=== PATIENT | female | born 1970 | race Caucasian/White ===

== ENCOUNTER 2016-08-07 07:22 | Emergency (ER) | payer OTHER ==
[2016-08-07 07:27] VITALS: PULSE 125; RESP 22; TEMP 98.7; O2SAT 99
[2016-08-07] MEDS ORDERED: SODIUM CHLOR 0.9% 1000 ML INJ 1,000 ML IV ONE (07:35)
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
[2016-08-07] MEDS ORDERED: SODIUM CHLORIDE 0.9% FLUSH 10 ML FLUSH IVF PRN (07:45)
[2016-08-07] MEDS ORDERED: LORazepam 2 MG/ML VIAL IVP ONE (07:45)
[2016-08-07 08:20] LABS: AUTOMATED NEUTROPHIL # 8.6 TH/MM3 (1.8-7.7); BASOPHIL # 0.1 TH/MM3 (0-0.2); BASOPHIL % 0.7 % (0.0-2.0); EOSINOPHIL # 0.3 TH/MM3 (0-0.4); EOSINOPHIL % 2.9 % (0.0-4.0); HEMATOCRIT 39.1 % (35.0-46.0); HEMO FLAGS DIFF FINAL; LYMPH % 15.1 % (9.0-44.0); LYMPHOCYTE # 1.7 TH/MM3 (1.0-4.8); MEAN CELL VOLUME 86.8 FL (80.0-100.0); MEAN CORPUSCULAR HEMOGLOBIN 29.3 PG (27.0-34.0); MEAN CORPUSCULAR HGB CONC 33.8 % (32.0-36.0); MONO % 6.1 % (0.0-8.0); NEUT % 75.2 % (16.0-70.0); PLATELET COUNT 213 TH/MM3 (150-450); RED CELL DISTRIBUTION WIDTH 14.4 % (11.6-17.2); WHITE BLOOD COUNT 11.4 TH/MM3 (4.0-11.0)
[2016-08-07 08:38] LABS: ACETAMINOPHEN LESS THAN 2.0 MCG/ML (10.0-30.0); ALT (GPT) 33 U/L (10-53); ANION GAP 9 MEQ/L (5-15); AST (GOT) 18 U/L (15-37); BICARBONATE 26.5 MEQ/L (21.0-32.0); BLOOD UREA NITROGEN 11 MG/DL (7-18); CHLORIDE 102 MEQ/L (98-107); GLOMERULAR FILTRATION RATE 66 ML/MIN (>89); POTASSIUM 3.6 MEQ/L (3.5-5.1); SODIUM (NA) 137 MEQ/L (136-145)
[2016-08-07 08:39] LABS: ALKALINE PHOSPHATASE 67 U/L (45-117); TOTAL BILIRUBIN ADULT 0.7 MG/DL (0.2-1.0)
[2016-08-07 08:56] LABS: BACTERIA, URINE MANY /hpf; BLOOD, URINE TRACE (NEG); CALCIUM OXALATE CRYSTALS,URINE FEW /hpf; COMMENT (UR) CULTURE INDICATED; CULTURE IF INDICATED CULTURE INDICATED; GLUCOSE,URINE NEG (NEG); KETONE, URINE TRACE mg/dL (NEG); MUCUS URINE MOD /lpf (OCC); SQUAMOUS EPITHELIAL CELL URINE 5 /hpf (0-5); TRANSITIONAL EPI CELLS, URINE <1 /hpf; URINE COLOR YELLOW (YELLW/STRAW)
[2016-08-07 08:58] LABS: NITRITE,URINE POS (NEG)
[2016-08-07] MEDS ORDERED: CIPR-9 PO (09:36)
[2016-08-07] MEDS ORDERED: cefTRIAXone INJ 1,000 MG in SODIUM CHLORIDE 0.9% INJ 100 ML IV ONE (09:45)
[2016-08-07 10:01] VITALS: O2SAT 96
[2016-08-07 10:11] VITALS: BP 141/89; PULSE 90; RESP 14; TEMP 98; O2SAT 100
--- NOTE | 2016-08-08 22:09 | EKG ---
Date Performed: 08/07/2016 Time Performed: 07:31:21 PTAGE: 46 years EKG: SINUS TACHYCARDIA WITH SHORT SC INTERVAL ABNORMAL RHYTHM ECG INTERPRETATION BASED ON A DEFA ULT AGE OF 40 YEARS NO PREVIOUS TRACING DOCTOR: Luan Cox Interpretating Date/Time 08/08/2016 22:01:55
== END 2016-08-07 10:54 | disposition home or self-care (01) ==
LOC: EDUNIT# 07:22 → NEPE 07:22
DX: F19.10 Other psychoactive substance abuse, uncomplicated (principal); T50.901A Poisoning by unspecified drugs, medicaments and biological substances, accidental (unintentional), initial encounter; Z96.641 Presence of right artificial hip joint; F17.210 Nicotine dependence, cigarettes, uncomplicated; R00.0 Tachycardia, unspecified; N39.0 Urinary tract infection, site not specified; B96.20 Unspecified Escherichia coli [E. coli] as the cause of diseases classified elsewhere
CPT/HCPCS: 80053; 80307; 81001; 84703; 85025; 87077; 87086; 87186; 93005; 96361; 96365; 96375; 99284; J0696; J2060; J7030

== ENCOUNTER 2016-08-27 02:03 | Emergency (ER) | payer SELFPAY ==
[2016-08-27] VITALS (7 sets, daily range): BP systolic 107–154; BP diastolic 72–83; PULSE 97–142; RESP 16–28; TEMP 100; O2SAT 94–97
[~2016-08-27] VITALS: Ht 162.6 cm; Wt 68.0 kg
[~2016-08-27 02:03] MED LIST: CIPR-9 PO
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
[2016-08-27 03:52] LABS: AUTOMATED NEUTROPHIL # 5.6 TH/MM3 (1.8-7.7); BASOPHIL % 0.8 % (0.0-2.0); EOSINOPHIL # 0.1 TH/MM3 (0-0.4); EOSINOPHIL % 1.9 % (0.0-4.0); HEMATOCRIT 40.8 % (35.0-46.0); HEMO FLAGS DIFF FINAL; LYMPH % 6.6 % (9.0-44.0); LYMPHOCYTE # 0.4 TH/MM3 (1.0-4.8); MEAN CELL VOLUME 86.2 FL (80.0-100.0); MEAN CORPUSCULAR HEMOGLOBIN 28.8 PG (27.0-34.0); MEAN CORPUSCULAR HGB CONC 33.5 % (32.0-36.0); MONO % 0.5 % (0.0-8.0); NEUT % 90.2 % (16.0-70.0); PLATELET COUNT 161 TH/MM3 (150-450); RED BLOOD COUNT 4.74 MIL/MM3 (4.00-5.30); RED CELL DISTRIBUTION WIDTH 13.3 % (11.6-17.2); WHITE BLOOD COUNT 6.1 TH/MM3 (4.0-11.0)
[2016-08-27 04:00] LABS: CHLORIDE 103 MEQ/L (98-107); POTASSIUM 3.5 MEQ/L (3.5-5.1); SODIUM (NA) 142 MEQ/L (136-145)
[2016-08-27 04:04] LABS: ANION GAP 11 MEQ/L (5-15); BICARBONATE 28.2 MEQ/L (21.0-32.0); BLOOD UREA NITROGEN 10 MG/DL (7-18)
[2016-08-27 04:07] LABS: ALT (GPT) 44 U/L (10-53); AST (GOT) 24 U/L (15-37); GLOMERULAR FILTRATION RATE 70 ML/MIN (>89)
[2016-08-27 04:08] LABS: BLOOD, URINE NEG (NEG); GLUCOSE,URINE NEG (NEG); KETONE, URINE NEG (NEG); NITRITE,URINE NEG (NEG); PH, URINE 6.5 (5.0-8.5)
[2016-08-27 04:09] LABS: TOTAL BILIRUBIN ADULT 0.9 MG/DL (0.2-1.0)
[2016-08-27 04:10] LABS: ALKALINE PHOSPHATASE 84 U/L (45-117)
[2016-08-27 04:12] LABS: BETA HCG QUANT LESS THAN 1 MIU/ML (0-5)
[2016-08-27 04:13] LABS: URINE COLOR AMBER (YELLW/STRAW)
[2016-08-27 04:14] LABS: BACTERIA, URINE OCC /hpf; COMMENT (UR) CULTURE INDICATED; CULTURE IF INDICATED CULTURE INDICATED; RBC, URINE 0-2 /hpf (0-3); SQUAMOUS EPITHELIAL CELL URINE 0-5 /hpf (0-5); WBC, URINE 15-19 /hpf (0-5)
[2016-08-27 04:18] LABS: AMPHETAMINE, URINE POS (NEG); BARBITURATES, URINE NEG (NEG); COCAINE, URINE NEG (NEG)
[2016-08-27 05:21] LABS: ACETAMINOPHEN LESS THAN 2.0 MCG/ML (10.0-30.0)
--- NOTE | 2016-08-27 05:49 | RADHPO ---
EXAM DATE/TIME: 08/27/2016 04:49 [place] COMPARISON: No previous studies available for comparison. INDICATIONS : Altered mental status. RADIATION DOSE: 62.64 CTDIvol (mGy) MEDICAL HISTORY : Non-responsive. SURGICAL HISTORY : Non-responsive. ENCOUNTER: Initial ACUITY: 1 day PAIN SCALE: Non-responsive LOCATION: cranial TECHNIQUE: Multiple contiguous axial images were obtained of the head. Using automated exposure control and adj ustment of the mA and/or kV according to patient size, radiation dose was kept as low as reasonably a chievable to obtain optimal diagnostic quality images. FINDINGS: CEREBRUM: The ventricles are normal for age. No evidence of midline shift, mass lesion, hemorrhage or acute in farction. No extra-axial fluid collections are seen. POSTERIOR FOSSA: The cerebellum and brainstem are intact. The 4th ventricle is midline. The cerebellopontine angle i s unremarkable. EXTRACRANIAL: The visualized portion of the orbits is intact. SKULL: The calvaria is intact. No evidence of skull fracture. CONCLUSION: Normal examination. Arpit Geller MD on August 27, 2016 at 5:48 Board Certified Radiologist. This report was verified electronically.
[2016-08-27] MEDS ORDERED: PERM5CRE TOPICAL (06:17)
--- NOTE | 2016-08-27 08:52 | PD ---
Physical Exam Date Seen by Provider: August 27, 2016 Time Seen by Provider: 07:00 Narrative Patient seen by Dr. Rivero, please see previous notes, sleeping it off in the ER. At 8:50 AM, she is alert, awake, oriented and ambulatory in the ER. At this point, patient is released as per Dr. Rivero's plan. Data Data Last Documented VS Vital Signs Date Time Temp Pulse Resp B/P Pulse Ox O2 Delivery O2 Flow Rate FiO2 08/27/16 06:43 97 16 111/76 95 Room Air 08/27/16 02:25 100.0 Orders Complete Blood Count With Diff (08/27/16 03:28) Comprehensive Metabolic Panel (08/27/16 03:28) Urinalysis - C+S If Indicated (08/27/16 03:28) Beta Hcg (Quant/Titer) (08/27/16 03:28) Ct Brain W/O Iv Contrast(Rout) (08/27/16 03:28) Drug Screen, Random Urine (08/27/16 03:28) Alcohol (Ethanol) (08/27/16 03:28) Salicylates (Aspirin) (08/27/16 03:28) Tylenol (Acetaminophen) (08/27/16 03:28) Urine Culture (08/27/16 04:00) Electrocardiogram (08/27/16 ) Diet Regular Basic (08/27/16 Breakfast) Labs Laboratory Tests Test 08/27/16 08/27/16 03:35 04:00 White Blood Count 6.1 TH/MM3 Red Blood Count 4.74 MIL/MM3 Hemoglobin 13.7 GM/DL Hematocrit 40.8 % Mean Corpuscular Volume 86.2 FL Mean Corpuscular Hemoglobin 28.8 PG Mean Corpuscular Hemoglobin 33.5 % Concent Red Cell Distribution Width 13.3 % Platelet Count 161 TH/MM3 Mean Platelet Volume 8.8 FL Neutrophils (%) (Auto) 90.2 % Lymphocytes (%) (Auto) 6.6 % Monocytes (%) (Auto) 0.5 % Eosinophils (%) (Auto) 1.9 % Basophils (%) (Auto) 0.8 % Neutrophils # (Auto) 5.6 TH/MM3 Lymphocytes # (Auto) 0.4 TH/MM3 Monocytes # (Auto) 0.0 TH/MM3 Eosinophils # (Auto) 0.1 TH/MM3 Basophils # (Auto) 0.0 TH/MM3 CBC Comment DIFF FINAL Differential Comment Sodium Level 142 MEQ/L Potassium Level 3.5 MEQ/L Chloride Level 103 MEQ/L Carbon Dioxide Level 28.2 MEQ/L Anion Gap 11 MEQ/L Blood Urea Nitrogen 10 MG/DL Creatinine 0.95 MG/DL Estimat Glomerular Filtration 70 ML/MIN Rate Random Glucose 97 MG/DL Calcium Level 8.9 MG/DL Total Bilirubin 0.9 MG/DL Aspartate Amino Transf 24 U/L (AST/SGOT) Alanine Aminotransferase 44 U/L (ALT/SGPT) Alkaline Phosphatase 84 U/L Total Protein 7.9 GM/DL Albumin 4.0 GM/DL Human Chorionic Gonadotropin, LESS THAN 1 Quant MIU/ML Salicylates Level 1.8 MG/DL Acetaminophen Level LESS THAN 2.0 MCG/ML Ethyl Alcohol Level LESS THAN 3 MG/DL Urine Color [place] Urine Turbidity CLEAR Urine pH 6.5 Urine Specific [place] 1.022 Urine Protein TRACE mg/dL Urine Glucose (UA) NEG mg/dL Urine Ketones NEG mg/dL Urine Occult Blood NEG Urine Nitrite NEG Urine Bilirubin NEG Urine Leukocyte Esterase TRACE Urine RBC 0-2 /hpf Urine WBC 15-19 /hpf Urine Squamous Epithelial 0-5 /hpf Cells Urine Bacteria OCC /hpf Microscopic Urinalysis Comment CULTURE INDICATED Urine Opiates Screen POS Urine Barbiturates Screen NEG Urine Amphetamines Screen POS Urine Benzodiazepines Screen NEG Urine Cocaine Screen NEG Urine Cannabinoids Screen POS [facility] Medical Record Reviewed: Yes Supervised Visit with PRAVEEN: No Diagnosis Primary Impression: Scabies Additional Impression: Substance intoxication Scripts Permethrin Topical 5% 5% Cream1 Applic TOPICAL ONCE #1 TUBE Ref 0 Prov:Bull Rivero MD 08/27/16 Disposition: 01 DISCHARGE HOME Condition: Stable Moreno Patrick MD August 27, 2016 08:52
--- NOTE | 2016-08-27 17:00 | EKG ---
Date Performed: 08/27/2016 Time Performed: 05:10:54 PTAGE: 28 years EKG: Sinus tachycardia Normal ECG except for rate PREVIOUS TRACING : 06/23/2015 00.46 Compared to the previous tracing rate has increased DOCTOR: Biju Win Interpretating Date/Time 08/27/2016 16:59:50
== END 2016-08-27 09:14 | disposition home or self-care (01) ==
LOC: PHED 02:03
DX: B86 Scabies (principal); N39.0 Urinary tract infection, site not specified; F11.10 Opioid abuse, uncomplicated; F12.10 Cannabis abuse, uncomplicated; F15.10 Other stimulant abuse, uncomplicated; R41.82 Altered mental status, unspecified; R00.0 Tachycardia, unspecified; F17.200 Nicotine dependence, unspecified, uncomplicated; Z79.899 Other long term (current) drug therapy
CPT/HCPCS: 70450; 80053; 80307; 81001; 84702; 85025; 87086; 93005; 99285

== ENCOUNTER 2016-10-03 16:47 | Inpatient (IN) | payer SELFPAY ==
[~2016-10-03] VITALS: Ht 172.7 cm; Wt 75.6 kg
[2016-10-03] VITALS (10 sets, daily range): BP systolic 84–101; BP diastolic 46–65; PULSE 113–140; RESP 20–24; TEMP 98.1–98.3; O2SAT 96–100
[~2016-10-03 16:47] MED LIST changes: +PERM5CRE TOPICAL
--- NOTE | 2016-10-03 17:32 | PD ---
HPI Chief Complaint: Pain: Acute or Chronic Time Seen by Provider: 17:13 Travel History International Travel<30 days: No Contact w/Intl Traveler<30days: No Traveled to known affect area: No History of Present Illness HPI 28-year-old female complains of fever, headache, body ache, abdominal pain, nausea vomiting diarrhea, generalized malaise and weakness. Patient has history IV drug abuse including heroin. Last heroin use was this week. Patient started having fever, chills, feeling hot cold with nausea vomiting diarrhea and dizziness 6 days ago. Patient states that she has aching headache diffuse over the head. Patient states that she has mild aching neck pain. Patient states that she has more severe body ache and is worse with extremity movement. Patient has history of chronic back pain and was on morphine in the past for pain. Patient states that she has upper abdominal pain cramping pain in the pain is worse with deep inspiration. Patient denies any dysuria or frequency. Patient denies any vaginal discharge or bleeding. Patient also has history anxiety panic attack. Patient states that she has issues with morphine in the past. PFSH Past Medical History Diminished Hearing: No Psychiatric: Yes (PT STATES "I HAD MY FIRST MENTAL BREAKDOWN") ?: Not LMP: SEPTEMBER 29 : 1 Para: 1 Miscarriage: 0 : 0 Past Surgical History Other Surgery: Yes (HAND SURGERY ) Social History Alcohol Use: No (DENIES) Tobacco Use: Yes (/2 PPD) Substance Use: Yes (IV ROXICODONE, DILAUDID, MARIJUANA, HEROIN) Allergies-Medications (Allergen,Severity, Reaction): Coded Allergies: Aspirin (Verified Allergy, Mild, GASTRIC UPSET, 10/03/16) Hydrocodone (Verified Allergy, Mild, RASH, 10/03/16) Uncoded Allergies: dilshad (Allergy, Mild, 08/27/16) Reported Meds & Prescriptions Reported Meds & Active Scripts Active No Active Prescriptions or Reported Medications Review of Systems General / Constitutional: Positive: Fever Eyes: No: Visual changes HENT: Positive: Headaches, Lightheadedness, Neck Pain Cardiovascular: No: Chest Pain or Discomfort Respiratory: No: Shortness of Breath Gastrointestinal: Positive: Nausea, Vomiting, Diarrhea, Abdominal Pain Genitourinary: No: Dysuria Musculoskeletal: No: Pain Skin: No Rash Neurologic: No: Weakness Psychiatric: No: Depression Endocrine: No: Polydipsia Hematologic/Lymphatic: No: Easy Bruising Physical Exam Narrative GENERAL: Well-nourished, well-developed patient. SKIN: Focused skin assessment warm/dry. Patient has multiple papular lesions on the trunk and extremity. HEAD: Normocephalic. EYES: No scleral icterus. No injection or drainage. Pupils 2 mm equal reactive. NECK: Supple, trachea midline. No JVD or lymphadenopathy. No meningismus CARDIOVASCULAR: Regular rate and rhythm without murmurs, gallops, or rubs. RESPIRATORY: Breath sounds equal bilaterally. No accessory muscle use. GASTROINTESTINAL: Abdomen soft, non-tender, nondistended. MUSCULOSKELETAL: No cyanosis, or edema. BACK: Mild diffuse tenderness over the back, without obvious deformity. No CVA tenderness. Neurologic exam: Patient's with mild lethargy. Patient's oriented 3. Patient moves all extremity well. No obvious focal neurological deficit. Data Data Last Documented VS Vital Signs Date Time Temp Pulse Resp B/P Pulse Ox O2 Delivery O2 Flow Rate FiO2 10/03/16 20:01 93/57 10/03/16 19:58 120 20 100 10/03/16 18:27 98.3 Orders Electrocardiogram (10/03/16 17:22) Complete Blood Count With Diff (10/03/16 17:22) Comprehensive Metabolic Panel (10/03/16 17:22) Creatine Kinase (Cpk) (10/03/16 17:22) Troponin I (10/03/16 17:22) Prothrombin Time / Inr (Pt) (10/03/16 17:22) Act Partial Throm Time (Ptt) (10/03/16 17:22) Blood Culture (10/03/16 17:22) Lipase (10/03/16 17:22) Beta Hcg (Quant/Titer) (10/03/16 17:22) Chest, Single Ap (10/03/16 17:22) Iv Access Insert/Monitor (10/03/16 17:22) Ecg Monitoring (10/03/16 17:22) Oximetry (10/03/16 17:22) Ed Urine Pregnancytest Poc (10/03/16 17:22) Drug Screen, Random Urine (10/03/16 17:22) Alcohol (Ethanol) (10/03/16 17:22) Lactic Acid (10/03/16 17:22) Sodium Chlor 0.9% 1000 Ml Inj (Ns 1000 M (10/03/16 17:45) Ondansetron Inj (Zofran Inj) (10/03/16 17:45) Piperacil-Tazo 3.375 Gm Premix (Zosyn 3. (10/03/16 17:45) Vancomycin Inj (Vancomycin Inj) (10/03/16 17:45) Sodium Chlor 0.9% 1000 Ml Inj (Ns 1000 M (10/03/16 19:00) Chest, Single Ap (10/03/16 19:27) Norepinephrine-Dextrose Drip (Levophed-D (10/03/16 19:30) Terbutaline Inj (Brethine Inj) (10/03/16 19:30) Lactic Acid Sepsis Protocol (10/03/16 19:27) Ct Abd/Pel W/O Iv Contrast (10/03/16 19:57) Salicylates (Aspirin) (10/03/16 20:07) Tylenol (Acetaminophen) (10/03/16 20:07) Urinary Catheter Management JULY.Q8H (10/03/16 20:08) Vancomycin Consult Pharmacy (Vancomycin (10/03/16 20:15) Ct Thorax/ Chest Wo Iv Contras (10/03/16 ) Admit Order (Ed Use Only) (10/03/16 20:10) Sodium Chlor 0.9% 1000 Ml Inj (Ns 1000 M (10/03/16 20:15) Potassium Chloride (Kcl) (10/03/16 20:15) Labs Laboratory Tests Test 10/03/16 17:30 White Blood Count 6.8 TH/MM3 Red Blood Count 4.75 MIL/MM3 Hemoglobin 13.7 GM/DL Hematocrit 41.1 % Mean Corpuscular Volume 86.5 FL Mean Corpuscular Hemoglobin 28.8 PG Mean Corpuscular Hemoglobin 33.3 % Concent Red Cell Distribution Width 13.6 % Platelet Count 25 TH/MM3 Mean Platelet Volume 11.0 FL Neutrophils (%) (Auto) 93.9 % Lymphocytes (%) (Auto) 2.2 % Monocytes (%) (Auto) 2.6 % Eosinophils (%) (Auto) 0.7 % Basophils (%) (Auto) 0.6 % Neutrophils # (Auto) 6.5 TH/MM3 Lymphocytes # (Auto) 0.1 TH/MM3 Monocytes # (Auto) 0.2 TH/MM3 Eosinophils # (Auto) 0.0 TH/MM3 Basophils # (Auto) 0.0 TH/MM3 CBC Comment AUTO DIFF Differential Total Cells 100 Counted Neutrophils % (Manual) 69 % Band Neutrophils % 25 % Lymphocytes % 3 % Monocytes % 2 % Eosinophils % 1 % Neutrophils # (Manual) 6.4 TH/MM3 Differential Comment FINAL DIFF MANUAL Dohle Bodies PRESENT Platelet Estimate LOW Platelet Morphology Comment NORMAL Red Cell Morphology Comment NORMAL Prothrombin Time 13.7 SEC Prothromb Time International 1.2 RATIO Ratio Activated Partial 34.6 SEC Thromboplast Time Sodium Level 127 MEQ/L Potassium Level 3.3 MEQ/L Chloride Level 90 MEQ/L Carbon Dioxide Level 20.4 MEQ/L Anion Gap 17 MEQ/L Blood Urea Nitrogen 45 MG/DL Creatinine 3.60 MG/DL Estimat Glomerular Filtration 15 ML/MIN Rate Random Glucose 81 MG/DL Lactic Acid Level 4.1 mmol/L Calcium Level 8.4 MG/DL Total Bilirubin 5.9 MG/DL Aspartate Amino Transf 67 U/L (AST/SGOT) Alanine Aminotransferase 114 U/L (ALT/SGPT) Alkaline Phosphatase 269 U/L Total Creatine Kinase 133 U/L Troponin I LESS THAN 0.02 NG/ML Total Protein 6.9 GM/DL Albumin 2.7 GM/DL Lipase 37 U/L Human Chorionic Gonadotropin, LESS THAN 1 Quant MIU/ML Ethyl Alcohol Level LESS THAN 3 MG/DL MDM Medical Decision Making Medical Screen Exam Complete: Yes Emergency Medical Condition: Yes Interpretation(s) Last Impressions Chest X-Ray 10/03/16 4392 Signed Impressions: Service Date/Time: Monday, October 03, 2016 17:28 - CONCLUSION: Prominence of the left hilum. This area could be further evaluated with a CT examination of the chest with contrast. John Brand MD 1931 PM. CBC WBC 6.8. Hemoglobin 13.7. Hematocrit 41.1. Platelet 25. 69 neutrophil. 25 bands. 3 lymphs. Sodium 127. Potassium 3.3. Chloride 90. Bicarbonate 20.4. Anion gap 17. BUN 45. Creatinine 3.60. Lactic acid 4.1. Calcium 8.4. Total bili 5.9. AST 67. ALT 114. Alkaline phosphatase 269. Cardiac enzymes are normal. INR 1.2. Differential Diagnosis Differential diagnosis including viral syndrome, sepsis, endocarditis, electrolyte abnormality, dehydration, substance abuse, rhabdomyolysis, pneumonia , UTI. Narrative Course 28-year-old female with fever, headache, body ache, abdominal pain, nausea vomiting diarrhea. History of IV drug abuse. Normal saline solution 1 L IV bolus. Normal saline solution 2 L IV bolus. Vancomycin 1 g IV. Zosyn 3.375 g IV given. Levophed drip to keep MAP above 65. Critical Care Narrative Aggregate critical care time was 60 minutes. Time to perform other separately billable procedures was not included in the critical care time. My time did not include minutes spent treating any other patients simultaneously or on activities that did not directly contribute to the patient's treatment. The services I provided to this patient were to treat and/or prevent clinically significant deterioration that could result in: I provided critical care services requiring my management, as noted below: Chart data review, documentation time, medication orders and management, vital sign assessments/reviewing monitor data, ordering and reviewing lab tests, ordering and interpreting/reviewing x-rays and diagnostic studies, care of the patient and discussion of the patient with the admitting physicians. Procedures Procedure Narrative CENTRAL VENOUS LINE: The site was prepped with Betadine and sterilely draped. It was infiltrated with 1% lidocaine plain. The deep vein was cannulated using normal Seldinger technique. A triple lumen central line was placed in the right IJ site and secured with simple interrupted suture. The site was sterilely dressed. The patient tolerated the procedure well. Diagnosis Primary Impression: Septic shock Additional Impressions: Acute renal disease Transaminitis IV drug abuse Thrombocytopenia Admitting Information Admitting Physician Requests: Admit Scripts No Active Prescriptions or Reported Meds Kofi Schmidt MD Oct 03, 2016 17:32
[2016-10-03] MEDS ORDERED: PIPERACIL-TAZO 3.375 GM PREMIX 50 ML IV ONE (17:45)
[2016-10-03] MEDS ORDERED: ONDANSETRON HCL 4 MG/2 ML VIAL IV PUSH ONE (17:45)
[2016-10-03] MEDS ORDERED: VANCOMYCIN INJ 1,000 MG in SODIUM CHLOR 0.9% 250 ML INJ 250 ML IV ONE (17:45)
[2016-10-03] MEDS ORDERED: SODIUM CHLOR 0.9% 1000 ML INJ 1,000 ML IV ONE ×3 (17:45→20:15)
[2016-10-03 17:50] LABS: AUTOMATED NEUTROPHIL # 6.5 TH/MM3 (1.8-7.7); BASOPHIL % 0.6 % (0.0-2.0); EOSINOPHIL % 0.7 % (0.0-4.0); HEMATOCRIT 41.1 % (35.0-46.0); LYMPH % 2.2 % (9.0-44.0); LYMPHOCYTE # 0.1 TH/MM3 (1.0-4.8); MEAN CELL VOLUME 86.5 FL (80.0-100.0); MEAN CORPUSCULAR HEMOGLOBIN 28.8 PG (27.0-34.0); MEAN CORPUSCULAR HGB CONC 33.3 % (32.0-36.0); MONO % 2.6 % (0.0-8.0); NEUT % 93.9 % (16.0-70.0); RED BLOOD COUNT 4.75 MIL/MM3 (4.00-5.30); RED CELL DISTRIBUTION WIDTH 13.6 % (11.6-17.2); WHITE BLOOD COUNT 6.8 TH/MM3 (4.0-11.0)
[2016-10-03 18:05] LABS: CHLORIDE 90 MEQ/L (98-107); POTASSIUM 3.3 MEQ/L (3.5-5.1); SODIUM (NA) 127 MEQ/L (136-145)
[2016-10-03 18:10] LABS: ANION GAP 17 MEQ/L (5-15); BICARBONATE 20.4 MEQ/L (21.0-32.0); BLOOD UREA NITROGEN 45 MG/DL (7-18)
[2016-10-03 18:11] LABS: APTT (PATIENT) 34.6 SEC (24.3-30.1); INTERNATIONAL NORMALIZED RATIO 1.2 RATIO; PROTHROMBIN TIME - PATIENT 13.7 SEC (9.8-11.6)
[2016-10-03 18:12] LABS: ALT (GPT) 114 U/L (10-53); AST (GOT) 67 U/L (15-37); GLOMERULAR FILTRATION RATE 15 ML/MIN (>89)
[2016-10-03 18:14] LABS: TOTAL BILIRUBIN ADULT 5.9 MG/DL (0.2-1.0)
[2016-10-03 18:15] LABS: ALKALINE PHOSPHATASE 269 U/L (45-117); CREATINE KINASE 133 U/L (26-192)
--- NOTE | 2016-10-03 18:15 | RADRPT ---
EXAM DATE/TIME: 10/03/2016 17:28 [facility] COMPARISON: No previous studies available for comparison. INDICATIONS : All over body pain and weakness for one week. MEDICAL HISTORY : None. SURGICAL HISTORY : None. ENCOUNTER: Initial ACUITY: 1 week PAIN SCORE: 10/10 LOCATION: Bilateral chest FINDINGS: The heart size is normal. The lungs are grossly clear. No effusion is seen. The left hilum is promine nt. The bony structures are intact. CONCLUSION: Prominence of the left hilum. This area could be further evaluated with a CT examination of the chest with contrast. John Brand MD on October 03, 2016 at 18:09 Board Certified Radiologist. This report was verified electronically.
[2016-10-03 18:18] LABS: BETA HCG QUANT LESS THAN 1 MIU/ML (0-5)
[2016-10-03 18:23] LABS: HEMO FLAGS AUTO DIFF
[2016-10-03 18:24] LABS: PLATELET COUNT 25 TH/MM3 (150-450)
[2016-10-03 18:27] LABS: BANDS 25 % (0-6); EOSINOPHILS 1 % (0-4); NEUTROPHIL # MANUAL DIFF 6.4 TH/MM3 (1.8-7.7); POLYS (SEG NEUTROPHILS) 69 % (16-70); WBC DIFF SAMPLE 100
[2016-10-03 18:28] LABS: DOHLE BODIES PRESENT (NONE SEEN); PLATELET ESTIMATE SMEAR LOW (NORMAL); PLATELET MORPHOLOGY NORMAL (NORMAL); SCAN/DIFF FINAL DIFF MANUAL
[2016-10-03] MEDS ORDERED: TERBUTALINE INJ 1 MG/ML AMP SQ PRN (19:30)
[2016-10-03] MEDS: NOREPINEPHRINE-DEXTROSE DRIP 250 ML IV SCH ×2 (19:53→23:21)
--- NOTE | 2016-10-03 19:57 | RADRPT ---
EXAM DATE/TIME: 10/03/2016 19:36 [facility] COMPARISON: CHEST SINGLE AP, October 03, 2016, 17:28. INDICATIONS : Right line placement. MEDICAL HISTORY : None. SURGICAL HISTORY : None. ENCOUNTER: Initial ACUITY: 1 day PAIN SCORE: 6/10 LOCATION: Bilateral chest FINDINGS: There is a right internal jugular central line in place with the tip overlying the right atrium. A pn eumothorax is not seen. The heart size is normal. There is a questionable focal density seen in the r ight mid lung. The left lung appears clear. CONCLUSION: 1. Right internal jugular central line in good position. 2. Questionable focal density in the right midlung. John Brand MD on October 03, 2016 at 19:53 Board Certified Radiologist. This report was verified electronically.
[2016-10-03] MEDS ORDERED: POTASSIUM CHLORIDE 20 MEQ CONTROLLED RELEASE TAB PO ONE (20:15)
[2016-10-03] MEDS ORDERED: Vancomycin Consult Pharmacy 1 EA OTHER SCH (20:15)
[2016-10-03] MEDS: SODIUM CHLOR 0.9% 1000 ML INJ 1,000 ML IV SCH (20:30)
[2016-10-03] MEDS ORDERED: LEVOFLOXACIN 750 MG PREMIX INJ 150 ML IV SCH (21:00)
[2016-10-03 21:26] LABS: BARBITURATES, URINE NEG (NEG)
[2016-10-03 21:34] LABS: AMPHETAMINE, URINE POS (NEG)
[2016-10-03 21:38] LABS: COCAINE, URINE NEG (NEG)
--- NOTE | 2016-10-03 22:07 | RADRPT ---
EXAM DATE/TIME: 10/03/2016 21:31 [facility] COMPARISON: CHEST SINGLE AP, October 03, 2016, 17:28. CHEST SINGLE AP, October 03, 2016, 19:36. INDICATIONS : Shortness of breath. RADIATION DOSE: 12.78 CTDIvol (mGy) ; Combined studies - Thorax/Abdomen/Pelvis MEDICAL HISTORY : IV drug user SURGICAL HISTORY : None ENCOUNTER: Initial ACUITY: 1 week PAIN SCALE: 0/10 LOCATION: cranial TECHNIQUE: Volumetric scanning of the chest was performed. Using automated exposure control and adjustment of t he mA and/or kV according to patient size, radiation dose was kept as low as reasonably achievable to obtain optimal diagnostic quality images. DICOM format image data is available electronically for r eview and comparison. FINDINGS: LUNGS: There are multiple irregular areas of consolidation seen throughout both lungs with some component of cavitation. PLEURAE: There is no pleural thickening or pleural effusion. MEDIASTINUM: The heart and great vessels demonstrate no acute abnormality. There is no mediastinal or hilar lymph adenopathy. AXILLAE: Within normal limits. No lymphadenopathy. MUSCULOSKELETAL: Within normal limits for patient age. MISCELLANEOUS: The spleen is diffusely enlarged. CONCLUSION: Numerous focal irregular masses throughout the lungs with some cavitation. This appearance is concern ing for septic emboli. John Brand MD on October 03, 2016 at 21:59 Board Certified Radiologist. This report was verified electronically.
--- NOTE | 2016-10-03 22:11 | RADRPT ---
EXAM DATE/TIME: 10/03/2016 21:31 [facility] COMPARISON: No previous studies available for comparison. INDICATIONS : Upper abdomen pain with nausea and vomiting. ORAL CONTRAST: No oral contrast ingested. RADIATION DOSE: 12.78 CTDIvol (mGy) ; Combined studies - Thorax/Abdomen/Pelvis MEDICAL HISTORY : IV drug user SURGICAL HISTORY : None. ENCOUNTER: Initial ACUITY: 1 week PAIN SCALE: 10/10 LOCATION: upper abdomen TECHNIQUE: Volumetric scanning of the abdomen and pelvis was performed. Using automated exposure control and ad justment of the mA and/or kV according to patient size, radiation dose was kept as low as reasonably achievable to obtain optimal diagnostic quality images. DICOM format image data is available electro nically for review and comparison. FINDINGS: LOWER LUNGS: Please see the CT of the chest dictated on a separate report.. LIVER: Homogeneous density without lesion. There is no dilation of the biliary tree. No calcified gallston es. SPLEEN: The spleen is diffusely enlarged. PANCREAS: Within normal limits. KIDNEYS: Normal in size and shape. There is no mass, stone, or hydronephrosis. ADRENAL GLANDS: Within normal limits. VASCULAR: There is no aortic aneurysm. BOWEL/MESENTERY: The stomach, small bowel, and colon demonstrate no acute abnormality. There is no free intraperitone al air or fluid. ABDOMINAL WALL: Within normal limits. RETROPERITONEUM: There is no lymphadenopathy. BLADDER: No wall thickening or mass. REPRODUCTIVE: Within normal limits. INGUINAL: There is no lymphadenopathy or hernia. MUSCULOSKELETAL: Within normal limits for patient age. CONCLUSION: Nonspecific splenomegaly. John Brand MD on October 03, 2016 at 22:05 Board Certified Radiologist. This report was verified electronically.
[2016-10-03 22:54] LABS: LACTIC ACID GHOST NOT REPORTABLE
[2016-10-03] MEDS ORDERED: CHLORHEXIDINE GLUCONATE 2 % 1 PACK (2 CLOTHS)(extra cloths) TOPICAL PRN (23:00)
--- NOTE | 2016-10-03 23:35 | HHI.HP ---
HPI Service Critical Care Medicine Primary Care Physician No Primary Care Physician Admission Diagnosis septic shock. Acute kidney injury. Transaminitis. Thrombocytopeni Diagnosis: Travel History International Travel<30 Days: No Contact w/Intl Traveler <30 Da: No Traveled to Known Affected Are: No Sepsis Criteria SIRS Criteria (2 or more): Heart rate over 90, RR > 20 or PaCO2 < 32, WBC > 02888, < 4000 or > 10% bands Sepsis Criteria (SIRS+source): Infect source susp/known Severe Sepsis (+one): Organ Dysfunction, Hypotension, Hypoperfusion, Lactate >2 , Acute Oliguria/Renal Failure Septic Shock Criteria: Lactic acid >=4 Multiple Organ Dysfunction Syn: Evidence -2 organs failing Criteria Outcome: Meets septic shock criteria History of Present Illness 28 yo WF with PMH of IVDU (Heroin, methamphetamines) who presents to [facility] in septic shock after 6 days of illness. She states it started off with a headache and nausea on 09/26, then vomiting on 09/27 with multiple episodes nonbloody nonbilious emesis daily since then. She has had diarrhea for the last 2 days. She has had diffuse myalgias and generalized cramping abdominal pain. She has had subjective fevers throughout this time but says she did not check her temperature. No neck stiffnesss. She has h/o heroin and methamphetamine abuse and states she was clean for 2 1/2 years until she "slipped" and used heroin a few times in the last 2-3 months. She states she infiltrated while injecting in her right leg about 4 weeks ago and she developed area of redness in her upper calf. She started taking some bactrim that she had at home and it got better about a week ago. When she arrived to ED she had BP 84/48 and was tachycardic in the 140s. She received 2 L normal saline bolus. Right IJ central venous line was placed by Dr. Schmidt and she was started on a levophed drip. She was administered vancomycin and Zosyn after obtaining blood cultures. She has elevated LFTs and is in SAIRA with creatinine of 3.6. Lactic acid is 4.1. INR 1.2 Review of Systems Constitutional: COMPLAINS OF: Diaphoretic episodes, Fever Respiratory: COMPLAINS OF: Sputum production Gastrointestinal: COMPLAINS OF: Abdominal pain, Nausea, Vomiting Musculoskeletal: COMPLAINS OF: Muscle aches Past Family Social History Allergies: Coded Allergies: Aspirin (Verified Allergy, Mild, GASTRIC UPSET, 10/03/16) Hydrocodone (Verified Allergy, Mild, RASH, 10/03/16) Uncoded Allergies: dilshad (Allergy, Mild, 08/27/16) Past Medical History IV drug use Past Surgical History Left ankle ORIF ate age 12 Right hand tendon repair, third digit Reported Medications None Family History Mother at age 51 after respiratory arrest due to COPD Father had alcoholism and schizophrenia. He committed suicide while she was living with him when she was 16 Social History She states she smokes marijuana consistently. Uses IV heroin and IV methamphetamine. 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 Not . No siblings. Parents . Physical Exam Vital Signs Vital Signs Date Time Temp Pulse Resp B/P Pulse Ox O2 Delivery O2 Flow Rate FiO2 10/03/16 22:59 98.1 123 24 101/65 100 10/03/16 22:04 110 22 93/59 100 10/03/16 21:53 113 22 91/50 100 Room Air 10/03/16 21:00 119 20 86/50 100 Room Air 10/03/16 20:01 93/57 10/03/16 19:58 120 20 84/53 100 10/03/16 18:27 98.3 123 22 91/52 100 10/03/16 17:45 125 20 96/46 96 10/03/16 17:38 97 10/03/16 16:54 98.3 140 20 84/48 99 Physical Exam Temp 98 Pulse 111, sinus tach on the monitor, blood pressure 111/63 sat 100% on 2 L nasal cannula GENERAL: Well-nourished, well-developed patient who is sitting up in [facility] bed complaining of generalized pain. SKIN: Warm, dry, adequately perfused. There are multiple scabs and macular lesions on arms, groin, upper legs, torso that patient attributes to bed bug bites. No exudate. No splinter hemorrhages, petechiae, or purpura. There is a liner area of erythema in upper medial aspect of right calf that appears consistent with superficial thrombophlebitis that is resolving. There is also an open wound about 2 cm on posterior aspect of lower calf with some exudate but without fluctuance. HEAD: Atraumatic. Normocephalic. EYES: Pupils equal and round, 3mm reactive. No scleral icterus. No injection or drainage. ENT: No nasal bleeding or discharge. Mucous membranes dry, poor dentition. NECK: Trachea midline. No JVD. No meningismus CARDIOVASCULAR: Regular rate and rhythm, sinus tach on monitor. No murmurs rubs or gallops. RESPIRATORY: Mildly tachynpeic but no accessory muscle use. Clear to auscultation. Breath sounds equal bilaterally. Cough productive of large amount of thick holt sputum during my exam. GASTROINTESTINAL: Abdomen soft, tender to touch everywhere which is consistent when you touch any part of her body including torso or extremities. No rebound or guarding. Bowel sounds present. MUSCULOSKELETAL: Extremities without clubbing, cyanosis, or edema. No obvious deformities. NEUROLOGICAL: Awake and alert. No obvious cranial nerve deficits. Motor grossly within normal limits. Normal speech. Oriented x4. Moves all extremities spontaneously without focal deficit. Laboratory Laboratory Tests Test 10/03/16 10/03/16 10/03/16 17:30 20:47 20:49 White Blood Count 6.8 Red Blood Count 4.75 Hemoglobin 13.7 Hematocrit 41.1 Mean Corpuscular Volume 86.5 Mean Corpuscular Hemoglobin 28.8 Mean Corpuscular Hemoglobin 33.3 Concent Red Cell Distribution Width 13.6 Platelet Count 25 Mean Platelet Volume 11.0 Neutrophils (%) (Auto) 93.9 Lymphocytes (%) (Auto) 2.2 Monocytes (%) (Auto) 2.6 Eosinophils (%) (Auto) 0.7 Basophils (%) (Auto) 0.6 Neutrophils # (Auto) 6.5 Lymphocytes # (Auto) 0.1 Monocytes # (Auto) 0.2 Eosinophils # (Auto) 0.0 Basophils # (Auto) 0.0 CBC Comment AUTO DIFF Differential Total Cells 100 Counted Neutrophils % (Manual) 69 Band Neutrophils % 25 Lymphocytes % 3 Monocytes % 2 Eosinophils % 1 Neutrophils # (Manual) 6.4 Differential Comment FINAL DIFF MANUAL Dohle Bodies PRESENT Platelet Estimate LOW Platelet Morphology Comment NORMAL Red Cell Morphology Comment NORMAL Prothrombin Time 13.7 Prothromb Time International 1.2 Ratio Activated Partial 34.6 Thromboplast Time Sodium Level 127 Potassium Level 3.3 Chloride Level 90 Carbon Dioxide Level 20.4 Anion Gap 17 Blood Urea Nitrogen 45 Creatinine 3.60 Estimat Glomerular Filtration 15 Rate Random Glucose 81 Lactic Acid Level 4.1 2.4 Calcium Level 8.4 Total Bilirubin 5.9 Aspartate Amino Transf 67 (AST/SGOT) Alanine Aminotransferase 114 (ALT/SGPT) Alkaline Phosphatase 269 Total Creatine Kinase 133 Troponin I LESS THAN 0.02 Total Protein 6.9 Albumin 2.7 Lipase 37 Human Chorionic Gonadotropin, LESS THAN 1 Quant Ethyl Alcohol Level LESS THAN 3 Salicylates Level LESS THAN 1.7 Acetaminophen Level LESS THAN 2.0 Urine Opiates Screen POS Urine Barbiturates Screen NEG Urine Amphetamines Screen POS Urine Benzodiazepines Screen NEG Urine Cocaine Screen NEG Urine Cannabinoids Screen POS Date/Time Procedure Status Source Growth 10/03/16 20:49 Legionella Antigen Received Urine Catheterized Urine Pending 10/03/16 20:49 Streptococcus pneumoniae Antigen (M Received Urine Catheterized Urine Pending 10/03/16 17:30 Aerobic Blood Culture Received Blood Peripheral Pending 10/03/16 17:30 Anaerobic Blood Culture Received Blood Peripheral Pending Result Diagram: 10/03/16 1730 10/03/16 1730 Septic Shock Reassessment Heart: Other (tachycardia) Lungs: Clear Skin: Warm Peripheral Pulses: Bounding Right Radial Bounding Left Radial Bounding Right Popliteal Bounding Left Popliteal Bounding Right Dorsalis Pedis Bounding Left Dorsalis Pedis Bounding Right Posterior Tibial Bounding Left Posterior Tibial Capillary Refill: Sluggish Assessment and Plan Assessment and Plan NEURO: Pain secondary to severe myalgias Polysubstance abuse (THC, Heroin, methamphetamine) Oxycodone prn pain. Avoid Tylenol due to elevated LFTs. CT brain to evaluate for septic emboli given her headache. Would not do LP as appears endocarditis is source of infection and patients platelets are 25 so risk outweighs any potential benefit. No meningismus. Normal Mental status. RESP: Respiratory insufficiency Multiple bilateral small cavitary lung lesions consistent septic pulmonary emboli Tobacco abuse Nasal cannula wean as tolerated CV: Septic shock with multiorgan failure Lactic acidemia Normal saline 150 mL per hour during initial resuscitation. Serial lactic acid. Levophed to maintain mean atrial pressure greater than 65, at 7 mcg/min. Obtain 2 D Echo to evaluate for vegetations. GI: Hyperbilirubinemia and elevated transaminases Splenomegaly Hyperbilirubinemia and transaminase elevation may be secondary to sepsis. CT abd/pelvis - no liver lesions, no biliary obstruction, no gallstones. + splenomegaly NPO for RUQ ultrasound. Tylenol level negative. Patient denies Tylenol ingestion. Viral hepatitis panel pending TOP CLOSER: ED POC test negative. FEN/RENAL: SAIRA Hypokalemia Anion-gap metabolic acidemia Lactic acidemia Patients Brock was removed at [place] after patient refused it and tried to pull it out herself. Monitor intake and output. Replace electrolytes as indicated. KCL 40 MEQ po. Followup BMP in a.m ID: Suspected endocarditis Blood cultures x2 obtained in ED, results pending. Obtain U/a and culture. Obtain expectorated sputum culture. Urine legionella and pneumococcal antigen were negative. Started empirically on zosyn, vancomycin, levaquin initially for suspected pneumonia. Clinical presentation more consistent with endocarditis so levaquin not necessary so will discontinue. Obtain 2D echo to evaluate for vegetations. HEME: Thrombocytopenia likely secondary to sepsis. Bandemia Monitor CBC Will obtain RLE u/s . Patient would not be a good candidate for therapeutic anticoagulation because of septic emboli. However, could consider embolectomy if there is residual superficial clot that is felt to be suppurative despite IV antibiotics (superficial thrombophlebitis upper right calf, appears is resolving so would just watch initially). ENDO: Euglycemic SKIN: Multiple skin lesions. PAtient reports exposed to bed bugs while cleaning someones house which she says resulted in bites. Placed on contact precautions. PROPH: Will hold on pharmacologic DVT prophylaxis as patient is high risk for hemorrhage with multiple septic pulmonary emboli. SCDs bilaterally. Protonix 40 g by mouth daily for stress ulcer prophylaxis. ACCESS: Right IJ central venous line placed by Dr. Schmidt 10/03/16 #1 Patient is critically ill in septic shock with multi organ dysfunction which places her at risk for deterioration. Patient updated at bedside regarding her condition and plan of care. Full code CCT 60 minutes exclusive of separately billable procedures. Joya Villafana MD Oct 03, 2016 23:35
[2016-10-04] VITALS (9 sets, daily range): BP systolic 94–111; BP diastolic 52–63; PULSE 104–123; RESP 21–36; TEMP 98–99; O2SAT 95–100
[2016-10-04] MEDS ORDERED: PIPERACIL-TAZO 3.375 GM PREMIX 50 ML IV SCH
[2016-10-04] MEDS: PIPERACIL-TAZO 2.25 GM PREMIX 50 ML IV SCH ×5 (00:03→22:13)
[2016-10-04] MEDS: SODIUM CHLOR 0.9% 1000 ML INJ 1,000 ML IV SCH ×4 (03:10→22:13)
[2016-10-04] MEDS ORDERED: BISACODYL 10 MG SUPP RECTAL PRN (03:15)
[2016-10-04] MEDS ORDERED: ONDANSETRON HCL 4 MG/2 ML VIAL IV PRN (03:15)
[2016-10-04] MEDS ORDERED: MAGNESIUM HYDROXIDE SUSP 30 ML CUP PO PRN (03:15)
[2016-10-04] MEDS ORDERED: LACTULOSE SYRUP 20 GM/30 ML CUP PO PRN (03:15)
[2016-10-04] MEDS ORDERED: SENNOSIDES 8.6 MG TAB PO PRN (03:15)
[2016-10-04] MEDS ORDERED: RESP: ALBUTEROL 2.5 MG/3 ML NEB (PRN) INH (03:15)
[2016-10-04] MEDS ORDERED: CHLORHEXIDINE GLUCONATE 2 % 1 PACK (2 CLOTHS) TOP PRN (03:15)
[2016-10-04] MEDS ORDERED: MISCELLANEOUS NURSING INFORMATION XX SCH (03:15)
[2016-10-04] MEDS: CHLORHEXIDINE GLUCONATE 2 % 1 PACK (2 CLOTHS) TOP SCH (03:21)
[2016-10-04] MEDS: MORPHINE SULFATE 4 MG/ML INJ IV PRN ×2 (03:22→17:56)
[2016-10-04] MEDS ORDERED: CHLORHEXIDINE GLUCONATE 2 % 1 PACK (2 CLOTHS)(taper/protocol) TOPICAL SCH (04:00)
[2016-10-04 05:43] LABS: HEMATOCRIT 32.5 % (35.0-46.0); MEAN CELL VOLUME 84.6 FL (80.0-100.0); MEAN CORPUSCULAR HEMOGLOBIN 28.3 PG (27.0-34.0); MEAN CORPUSCULAR HGB CONC 33.5 % (32.0-36.0); PLATELET COUNT 23 TH/MM3 (150-450); RED BLOOD COUNT 3.84 MIL/MM3 (4.00-5.30); RED CELL DISTRIBUTION WIDTH 14.4 % (11.6-17.2); WHITE BLOOD COUNT 6.4 TH/MM3 (4.0-11.0)
[2016-10-04 05:51] LABS: REVIEW FLAG FINAL
[2016-10-04 06:15] LABS: ANION GAP 12 MEQ/L (5-15); AST (GOT) 50 U/L (15-37); BICARBONATE 18.6 MEQ/L (21.0-32.0); BLOOD UREA NITROGEN 41 MG/DL (7-18); CHLORIDE 100 MEQ/L (98-107); GLOMERULAR FILTRATION RATE 27 ML/MIN (>89); POTASSIUM 3.5 MEQ/L (3.5-5.1); SODIUM (NA) 131 MEQ/L (136-145)
[2016-10-04 06:17] LABS: ALT (GPT) 72 U/L (10-53)
[2016-10-04 06:19] LABS: ALKALINE PHOSPHATASE 196 U/L (45-117); TOTAL BILIRUBIN ADULT 5.1 MG/DL (0.2-1.0)
--- NOTE | 2016-10-04 08:48 | RADRPT ---
EXAM DATE/TIME: 10/04/2016 08:39 [facility] COMPARISON: CT BRAIN W/O CONTRAST, August 27, 2016, 4:49. INDICATIONS : Cerebral emboli, septic shock. RADIATION DOSE: 47.00 CTDIvol (mGy) MEDICAL HISTORY : Substance abuse. SURGICAL HISTORY : None. ENCOUNTER: Initial ACUITY: 4 - 6 days PAIN SCALE: 10/10 LOCATION: Bilateral cranial TECHNIQUE: Multiple contiguous axial images were obtained of the head. Using automated exposure control and adj ustment of the mA and/or kV according to patient size, radiation dose was kept as low as reasonably a chievable to obtain optimal diagnostic quality images. DICOM format image data is available electro nically for review and comparison. FINDINGS: CEREBRUM: The ventricles are normal for age. No evidence of midline shift, mass lesion, hemorrhage or acute in farction. No extra-axial fluid collections are seen. POSTERIOR FOSSA: The cerebellum and brainstem are intact. The 4th ventricle is midline. The cerebellopontine angle i s unremarkable. EXTRACRANIAL: The visualized portion of the orbits is intact. SKULL: The calvaria is intact. No evidence of skull fracture. CONCLUSION: Normal examination. Mark Tavares MD on October 04, 2016 at 8:46 Board Certified Radiologist. This report was verified electronically.
[2016-10-04] MEDS: DOCUSATE SODIUM 50 MG/SENNA 8.6 MG TAB PO SCH ×2 (09:00→20:44)
--- NOTE | 2016-10-04 10:33 | RADRPT ---
EXAM DATE/TIME: 10/04/2016 08:59 [facility] COMPARISON: CT ABDOMEN & PELVIS W/O CONTRAST, October 03, 2016, 21:31. INDICATIONS : Increased lab values. MEDICAL HISTORY : Sputum production. Abdominal pain. Nausea/vomiting. Substance use. SURGICAL HISTORY : Right leg surgery. Hand surgery. ENCOUNTER: Initial ACUITY: 1 day PAIN SCORE: 10/10 LOCATION: Bilateral upper quadrant MEASUREMENTS: LIVER: 20.4 cm length COMMON DUCT: 4 mm RIGHT KIDNEY: 12.7 x 6.1 x 4.3 cm SPLEEN: 15.0 cm length FINDINGS: LIVER: Hepatomegaly and increased echotexture of the portal triads with a starry night appearance which can be seen with hepatitis. COMMON DUCT: No intraluminal mass or stone visualized. GALLBLADDER: 2.5 x 2.3 x 2.5 cm echogenic lobular mass within the bladder abutting the gallbladder wall. The wall does appear thickened up to 4.9 mm. PANCREAS: The visualized portions are within normal limits. RIGHT KIDNEY: No hydronephrosis, stone or mass. SPLEEN: No focal lesion. Enlarged. CONCLUSION: 1. Hepatosplenomegaly and increased echotexture of the portal triads with a starry night appearance w hich can be seen with hepatitis. 2. The gallbladder is abnormal with a lobular soft tissue mass present within the gallbladder demonst rating blood flow on color Doppler imaging. Mark Tavares MD on October 04, 2016 at 10:28 Board Certified Radiologist. This report was verified electronically.
--- NOTE | 2016-10-04 10:34 | RADRPT ---
EXAM DATE/TIME: 10/04/2016 09:13 [facility] COMPARISON: No previous studies available for comparison. INDICATIONS : Right leg pain. MEDICAL HISTORY : Sputum production. Abdominal pain. Nausea/vomiting. Substance use. SURGICAL HISTORY : Right leg surgery. Hand surgery. ENCOUNTER: Initial ACUITY: 1 day PAIN SCORE: 10/10 LOCATION: Right leg. TECHNIQUE: Venous ultrasound of the leg was performed from the inguinal ligament to the proximal calf. Real-suzie e, color Doppler and spectral tracing, compression and augmentation techniques were used. FINDINGS: There is normal compressibility of the deep venous system from the inguinal region to the proximal ca lf. No echogenic clot is seen in the lumen of the common femoral, femoral, popliteal, and posterior tibial veins. There is a normal response of the venous system to proximal and distal augmentation an d respiration. CONCLUSION: Normal examination. Mark Tavares MD on October 04, 2016 at 10:31 Board Certified Radiologist. This report was verified electronically.
[2016-10-04] MEDS: PANTOPRAZOLE SODIUM 40 MG VIAL IV SCH (10:40)
[2016-10-04] MEDS: SODIUM CHLORIDE 0.9% FLUSH 10 ML FLUSH IV FLUSH SCH ×2 (10:40→20:44)
--- NOTE | 2016-10-04 14:20 | EKG ---
Date Performed: 10/03/2016 Time Performed: 17:36:55 PTAGE: 28 years EKG: SINUS TACHYCARDIA WITH SHORT IN INTERVAL ABNORMAL RHYTHM ECG PREVIOUS TRACING : 08/27/2016 05.10 Since the prior tracing, the sinus tachycardia persists and has progressed. Clinical correlation would be important. There is otherwise no significant serial ch eamon.DOCTOR: Dori Herbert Interpretating Date/Time 10/04/2016 14:19:05
--- NOTE | 2016-10-04 16:09 | ECHRPT ---
Indication: endocarditis CONCLUSIONS No regional wall motion abnormalities are present. Trace mitral valve regurgitation. Cannot rule out vegetation. The aortic valve is not well visualized. No aortic valve regurgitation. No aortic valve stenosis. There is trace tricuspid valve regurgitation. The estimated pulmonary arterial pressure is _36_ mmHg. Possible tricuspid valve vegetation .The pulmonary valve is not well visualized. Suggest LIVIA. BP: / HR: Rhythm: MEASUREMENTS (Male / Female) Normal Values Technical Quality:Fair 2D ECHO LV Diastolic Diameter PLAX 4.3 cm 4.2 - 5.9 / 3.9 - 5.3 cm LV Systolic Diameter PLAX 3.0 cm IVS Diastolic Thickness 0.7 cm 0.6 - 1.0 / 0.6 - 0.9 cm LVPW Diastolic Thickness 0.8 cm 0.6 - 1.0 / 0.6 - 0.9 cm LV Relative Wall Thickness 0.4 RV Internal Dim ED PLAX 2.2 cm M-MODE Aortic Root Diameter MM 3.0 cm LA Systolic Diameter MM 2.5 cm LA Ao Ratio MM 0.8 AV Cusp Separation MM 1.8 cm DOPPLER Mitral E Point Velocity 72.6 cm/s Mitral A Point Velocity 87.4 cm/s Mitral E to A Ratio 0.8 TR Peak Velocity 255.0 cm/s TR Peak Gradient 26.0 mmHg FINDINGS LEFT VENTRICLE Normal left ventricular size and wall thickness. The left ventricular systolic function is normal wi th an estimated ejection fraction in the range of 60-65%. Left ventricular diastolic function parameters a re normal. No regional wall motion abnormalities are present. RIGHT VENTRICLE Normal right ventricular size and systolic function. LEFT ATRIUM The left atrial size is normal. RIGHT ATRIUM The right atrial size is normal. ATRIAL SEPTUM Normal atrial septal thickness without atrial level shunting by limited color doppler interrogation. AORTA The aortic root and proximal ascending aorta are normal in size on limited imaging. MITRAL VALVE Trace mitral valve regurgitation. Cannot rule out vegetation. AORTIC VALVE The aortic valve is not well visualized. No aortic valve regurgitation. No aortic valve stenosis. TRICUSPID VALVE There is trace tricuspid valve regurgitation. The estimated pulmonary arterial pressure is _36_ mmHg. Possible tricuspid valve vegetation . PULMONARY VALVE The pulmonary valve is not well visualized. No pulmonary valve regurgitation or stenosis. VESSELS The inferior vena cava is normal in size. PERICARDIUM No pericardial effusion. OTHER FINDINGS Suggest LIVIA to better evaluate. Talat Tee MD (Electronically Signed) Final Date:04 October 2016 16:08
[2016-10-04 16:46] LABS: CREATINE KINASE 147 U/L (26-192)
[2016-10-04 17:03] LABS: CKMB 6.8 NG/ML (0.5-3.6)
[2016-10-04] MEDS ORDERED: VANCOMYCIN 1,000 MG/NS 250 ML IV SCH ×2 (18:00)
--- NOTE | 2016-10-04 19:34 | HHI.CCPN ---
Subjective Remarks/Hospital Course 28 yo WF with PMH of IVDU (Heroin, methamphetamines) who presents to [facility] ED in septic shock after 6 days of illness. She states it started off with a headache and nausea on 09/26, then vomiting on 09/27 with multiple episodes nonbloody nonbilious emesis daily since then. She has had diarrhea for the last 2 days. She has had diffuse myalgias and generalized cramping abdominal pain. She has had subjective fevers throughout this time but says she did not check her temperature. No neck stiffnesss. She has h/o heroin and methamphetamine abuse and states she was clean for 2 1/2 years until she "slipped" and used heroin a few times in the last 2-3 months. She states she infiltrated while injecting in her right leg about 4 weeks ago and she developed area of redness in her upper calf. She started taking some bactrim that she had at home and it got better about a week ago. When she arrived to ED she had BP 84/48 and was tachycardic in the 140s. She received 2 L normal saline bolus. Right IJ central venous line was placed by Dr. Schmidt and she was started on a levophed drip. She was administered vancomycin and Zosyn after obtaining blood cultures. She has elevated LFTs and is in SAIRA with creatinine of 3.6. Lactic acid is 4.1. INR 1.2 Subjective: 10/04: 2-D echo is pending . The patient continues to require her norepinephrine at 2 mcgs.The patient physically remove Brock catheter refusing allow measurement of urinary output. Liver ultrasound revealed hepatosplenomegaly , hepatic panel pending .Patient continually requesting pain medication. Objective Vital Signs Date Time Temp Pulse Resp B/P Pulse Ox O2 Delivery O2 Flow Rate FiO2 10/04/16 18:01 18 10/04/16 18:00 109 10/04/16 16:00 99.0 99/52 97 10/03/16 21:53 Room Air Intake and Output 10/03/16 10/03/16 10/04/16 08:00 16:00 00:00 Intake Total 3000 ml Output Total 350 ml Balance 2650 ml Result Diagram: 10/04/16 0500 10/04/16 0500 Other Results Microbiology Date/Time Procedure Status Source Growth 10/03/16 20:49 Legionella Antigen - Final Complete Urine Catheterized Urine PRESUMPTIVE NEGATIVE FOR LEGIONELLA P... 10/03/16 20:49 Streptococcus pneumoniae Antigen (M - Final Complete Urine Catheterized Urine PRESUMPTIVE NEGATIVE FOR STREPTOCOCCU... Objective Remarks Temp 98 Pulse 111, sinus tach on the monitor, blood pressure 111/63 sat 100% on 2 L nasal cannula GENERAL: Well-nourished, well-developed patient who is sitting [place] in [facility] [place] complaining of generalized pain. SKIN: Warm, dry, adequately perfused. There are multiple scabs and macular lesions on arms, groin, upper legs, torso that patient attributes to bed bug bites. No exudate. No splinter hemorrhages, petechiae, or purpura. There is a liner area of erythema in upper medial aspect of right calf that appears consistent with superficial thrombophlebitis that is resolving. There is also an open wound about 2 cm on posterior aspect of lower calf with some exudate but without fluctuance. HEAD: Atraumatic. Normocephalic. EYES: Pupils equal and round, 3mm reactive. No scleral icterus. No injection or drainage. ENT: No nasal bleeding or discharge. Mucous membranes dry, poor dentition. NECK: Trachea midline. No JVD. No meningismus CARDIOVASCULAR: Regular rate and rhythm, sinus tach on monitor. No murmurs rubs or gallops. RESPIRATORY: Mildly tachynpeic but no accessory muscle use. Clear to auscultation. Breath sounds equal bilaterally. Cough productive of large amount of thick holt sputum during my exam. GASTROINTESTINAL: Abdomen soft, tender to touch everywhere which is consistent when you touch any part of her body including torso or extremities. No rebound or guarding. Bowel sounds present. MUSCULOSKELETAL: Extremities without clubbing, cyanosis, or edema. No obvious deformities. NEUROLOGICAL: Awake and alert. No obvious cranial nerve deficits. Motor grossly within normal limits. Normal speech. Oriented x4. Moves all extremities spontaneously without focal deficit. Vascular Central Line Catheter: Yes Date of Insertion: Oct 03, 2016 A/P Assessment and Plan NEURO: Pain secondary to severe myalgias Polysubstance abuse (THC, Heroin, methamphetamine) Oxycodone prn pain. Avoid Tylenol due to elevated LFTs. CT brain to evaluate for septic emboli given her headache. Would not do LP as appears endocarditis is source of infection and patients platelets are 25 so risk outweighs any potential benefit. No meningismus. Normal Mental status. RESP: Respiratory insufficiency Multiple bilateral small cavitary lung lesions consistent septic pulmonary emboli Tobacco abuse Nasal cannula wean as tolerated CV: Septic shock with multiorgan failure Lactic acidemia Normal saline 150 mL per hour during initial resuscitation. Serial lactic acid. Levophed to maintain mean atrial pressure greater than 65, at 2 mcg/min. F/U 2 D Echo to evaluate for vegetations. GI: Hyperbilirubinemia and elevated transaminases Splenomegaly Hyperbilirubinemia and transaminase elevation may be secondary to sepsis. CT abd/pelvis - no liver lesions, no biliary obstruction, no gallstones. + splenomegaly NPO for RUQ ultrasound. Tylenol level negative. Patient denies Tylenol ingestion. Viral hepatitis panel pending CSR RETAIL: ED POC test negative. FEN/RENAL: SAIRA Hypokalemia Anion-gap metabolic acidemia Lactic acidemia Patients Brock was removed at [place] after patient refused it and tried to pull it out herself. Monitor intake and output. Replace electrolytes as indicated. KCL 40 MEQ po. Followup BMP in a.m ID: Suspected endocarditis Blood cultures x2 obtained in ED, results pending. Obtain U/a and culture. Obtain expectorated sputum culture. Urine legionella and pneumococcal antigen were negative. Started empirically on zosyn, vancomycin, levaquin initially for suspected pneumonia. Clinical presentation more consistent with endocarditis so levaquin not necessary so will discontinue. F/U 2D echo to evaluate for vegetations. HEME: Thrombocytopenia likely secondary to sepsis. Bandemia Monitor CBC Will obtain RLE u/s . Patient would not be a good candidate for therapeutic anticoagulation because of septic emboli. However, could consider embolectomy if there is residual superficial clot that is felt to be suppurative despite IV antibiotics (superficial thrombophlebitis upper right calf, appears is resolving so would just watch initially). ENDO: Euglycemic SKIN: Multiple skin lesions. PAtient reports exposed to bed bugs while cleaning someones house which she says resulted in bites. Placed on contact precautions. PROPH: Will hold on pharmacologic DVT prophylaxis as patient is high risk for hemorrhage with multiple septic pulmonary emboli. SCDs bilaterally. Protonix 40 g by mouth daily for stress ulcer prophylaxis. ACCESS: Right IJ central venous line placed by Dr. Schmidt 10/03/16 #2 Patient is critically ill in septic shock with multi organ dysfunction which places her at risk for deterioration. Patient updated at bedside regarding her condition and plan of care. Full code This patient remains critically ill with one or more organ systems which are or may become a threat to life. I have spent in excess of 30 minutes discontinuously in the care and management of this patient. This time is exclusive of procedures, and includes, but is not limited to, evaluation of the patient, review of the medical record, discussions with family, consultants, nursing staff, or respiratory therapy, and documentation in the medical record. Physician Audra Ferrari MD Oct 04, 2016 19:34
[2016-10-04] MEDS: NOREPINEPHRINE-DEXTROSE DRIP 250 ML IV SCH (20:45)
[2016-10-05] VITALS (15 sets, daily range): BP systolic 95–108; BP diastolic 54–62; PULSE 95–106; RESP 24–39; TEMP 97.9–98.7; O2SAT 93–98
[2016-10-05] MEDS: MORPHINE SULFATE 4 MG/ML INJ IV PRN ×4 (00:46→18:44)
[2016-10-05] MEDS: CHLORHEXIDINE GLUCONATE 2 % 1 PACK (2 CLOTHS) TOP SCH (04:00)
[2016-10-05] MEDS: PIPERACIL-TAZO 2.25 GM PREMIX 50 ML IV SCH (05:34)
[2016-10-05] MEDS: SODIUM CHLOR 0.9% 1000 ML INJ 1,000 ML IV SCH ×3 (05:34→19:10)
[2016-10-05] MEDS ORDERED: VANCOMYCIN 1,000 MG/NS 250 ML IV SCH ×2 (06:00)
[2016-10-05 06:45] LABS: AUTOMATED NEUTROPHIL # 10.5 TH/MM3 (1.8-7.7); BASOPHIL % 0.4 % (0.0-2.0); EOSINOPHIL # 0.2 TH/MM3 (0-0.4); EOSINOPHIL % 1.5 % (0.0-4.0); HEMATOCRIT 29.3 % (35.0-46.0); LYMPH % 6.3 % (9.0-44.0); LYMPHOCYTE # 0.8 TH/MM3 (1.0-4.8); MEAN CELL VOLUME 85.1 FL (80.0-100.0); MEAN CORPUSCULAR HEMOGLOBIN 28.3 PG (27.0-34.0); MEAN CORPUSCULAR HGB CONC 33.3 % (32.0-36.0); MONO % 4.2 % (0.0-8.0); NEUT % 87.6 % (16.0-70.0); PLATELET COUNT 23 TH/MM3 (150-450); RED BLOOD COUNT 3.44 MIL/MM3 (4.00-5.30); RED CELL DISTRIBUTION WIDTH 15.1 % (11.6-17.2)
[2016-10-05 07:00] LABS: HEMO FLAGS AUTO DIFF
[2016-10-05 07:47] LABS: BICARBONATE 22.3 MEQ/L (21.0-32.0); POTASSIUM 3.1 MEQ/L (3.5-5.1)
[2016-10-05 07:57] LABS: BANDS 25 % (0-6); POLYS (SEG NEUTROPHILS) 67 % (16-70); WBC DIFF SAMPLE 100
[2016-10-05 07:58] LABS: PLATELET ESTIMATE SMEAR LOW (NORMAL); PLATELET MORPHOLOGY NORMAL (NORMAL); SCAN/DIFF FINAL DIFF MANUAL
[2016-10-05] MEDS: PANTOPRAZOLE SODIUM 40 MG VIAL IV SCH (08:36)
[2016-10-05] MEDS: SODIUM CHLORIDE 0.9% FLUSH 10 ML FLUSH IV FLUSH PRN (08:37)
[2016-10-05] MEDS: SODIUM CHLORIDE 0.9% FLUSH 10 ML FLUSH IV FLUSH SCH ×2 (08:37→21:00)
[2016-10-05] MEDS ORDERED: PROPOFOL 200 MG/20 ML AMP IV ONE (08:45)
[2016-10-05] MEDS: DOCUSATE SODIUM 50 MG/SENNA 8.6 MG TAB PO SCH ×2 (09:00→21:00)
--- NOTE | 2016-10-05 10:44 | HHI.CCPN ---
Subjective Remarks/Hospital Course 28 yo WF with PMH of IVDU (Heroin, methamphetamines) who presents to [facility] in septic shock after 6 days of illness. She states it started off with a headache and nausea on 09/26, then vomiting on 09/27 with multiple episodes nonbloody nonbilious emesis daily since then. She has had diarrhea for the last 2 days. She has had diffuse myalgias and generalized cramping abdominal pain. She has had subjective fevers throughout this time but says she did not check her temperature. No neck stiffnesss. She has h/o heroin and methamphetamine abuse and states she was clean for 2 1/2 years until she "slipped" and used heroin a few times in the last 2-3 months. She states she infiltrated while injecting in her right leg about 4 weeks ago and she developed area of redness in her upper calf. She started taking some bactrim that she had at home and it got better about a week ago. When she arrived to ED she had BP 84/48 and was tachycardic in the 140s. She received 2 L normal saline bolus. Right IJ central venous line was placed by Dr. Schmidt and she was started on a levophed drip. She was administered vancomycin and Zosyn after obtaining blood cultures. She has elevated LFTs and is in SAIRA with creatinine of 3.6. Lactic acid is 4.1. INR 1.2 Subjective: 10/04: 2-D echo is pending . The patient continues to require her norepinephrine at 2 mcgs.The patient physically remove Brock catheter refusing allow measurement of urinary output. Liver ultrasound revealed hepatosplenomegaly , hepatic panel pending .Patient continually requesting pain medication. 10/05: weaning off levo. TTE without overt evidence of endocarditis, but blood cultures growing 2/2 staph, sensitivities pending. with CT chest evidence of septic emboli, almost certainly endocarditis. renal function improving, zosyn now subtherapeutic. patient tells me she was using heroin as recently as twice in the last week. she does state she wants to quit, and is interested in not having opiates here. I explained that she would experience diarrhea, muscle aches, and cold sweats, but I also agree she does not require opiate therapy for this inpatient stay. Objective Vital Signs Date Time Temp Pulse Resp B/P Pulse Ox O2 Delivery O2 Flow Rate FiO2 10/05/16 04:00 98.7 99 26 98/55 98 10/03/16 21:53 Room Air Intake and Output 10/04/16 10/04/16 10/05/16 08:00 16:00 00:00 Intake Total 1260 ml 1787 ml 1055 ml Output Total 900 ml 1300 ml 500 ml Balance 360 ml 487 ml 555 ml Result Diagram: 10/05/16 0515 10/05/16 0515 Other Results Microbiology Date/Time Procedure Status Source Growth 10/03/16 20:49 Legionella Antigen - Final Complete Urine Catheterized Urine PRESUMPTIVE NEGATIVE FOR LEGIONELLA P... 10/03/16 20:49 Streptococcus pneumoniae Antigen (M - Final Complete Urine Catheterized Urine PRESUMPTIVE NEGATIVE FOR STREPTOCOCCU... Objective Remarks GENERAL: young female, lying in bed, in obvious distress due to generalized pain. SKIN: Warm, dry, adequately perfused. There are multiple scabs and macular lesions on arms, groin, upper legs, torso that patient attributes to bed bug bites. No exudate. No splinter hemorrhages, petechiae, or purpura. HEAD: Atraumatic. Normocephalic. EYES: Pupils equal and round, 3mm reactive. No scleral icterus. No injection or drainage. ENT: No nasal bleeding or discharge. Mucous membranes dry, poor dentition. NECK: Trachea midline. No JVD. CARDIOVASCULAR: Regular rate and rhythm, sinus tach on monitor. RESPIRATORY: Mildly tachypneic but no accessory muscle use. GASTROINTESTINAL: Abdomen soft, tender to touch everywhere which is consistent when you touch any part of her body including torso or extremities. No rebound or guarding. MUSCULOSKELETAL: Extremities without clubbing, cyanosis, or edema. No obvious deformities. NEUROLOGICAL: Awake and alert. No obvious cranial nerve deficits. Motor grossly within normal limits. Normal speech. Oriented x4. Moves all extremities spontaneously without focal deficit. Date of Insertion: Oct 03, 2016 A/P Assessment and Plan NEURO: Pain secondary to severe myalgias Polysubstance abuse (THC, Heroin, methamphetamine) Opiate withdraw d./c oxycodone. patient wants to be off opiate therapy. patient does not have reasons for acute pain at this time, and likely the generalized myalgias are secondary to opiate withdraw. Avoid Tylenol due to elevated LFTs. CT brain negative for septic emboli. RESP: Respiratory insufficiency Multiple bilateral small cavitary lung lesions consistent septic pulmonary emboli Tobacco abuse Nasal cannula wean as tolerated OOB PT consult CV: Septic shock with multiorgan failure Lactic acidemia Normal saline 150 mL per hour during initial resuscitation. Serial lactic acid. 1L LR bolus now Levophed to maintain mean atrial pressure greater than 65, at 5 mcg/min. TTE: negative for overt vegetations will consult cardiology and request LIVIA since this is the most likely source of infection and it will change duration of therapy. GI: Hyperbilirubinemia and elevated transaminases Splenomegaly Hyperbilirubinemia and transaminase elevation may be secondary to sepsis. CT abd/pelvis - no liver lesions, no biliary obstruction, no gallstones. + splenomegaly NPO for RUQ ultrasound. Tylenol level negative. Patient denies Tylenol ingestion. Viral hepatitis panel pending - continue NPO given possible LIVIA. [employer]: ED POC test negative. FEN/RENAL: SAIRA Hypokalemia Anion-gap metabolic acidemia Lactic acidemia Patients Brock was removed at [place] after patient refused it and tried to pull it out herself. Monitor intake and output. Replace electrolytes as indicated. KCL 40 MEQ po. daily bmp icu electrolyte protocol. ID: Suspected endocarditis Staph bacteremia 07/07 bottles. Urine legionella and pneumococcal antigen were negative. 10/03 blood cultures: 07/07 staph, sensitivities pending -- Zosyn subtherapeutic given improving renal function. increase to 4.5 gm iv q6h. -- continue Vanc until sensitivities result -- would plan on transition to Nafcillin if MSSA. -- Levaquin d/c on 10/04. -- cards consult for LIVIA -- redraw surveillance cultures today to check for clearance. -- ID consult for duration of therapy HEME: Thrombocytopenia likely secondary to sepsis. Bandemia Monitor CBC RLE doppler negative for DVT. ENDO: Euglycemic. check random cortisol level given persistence of low-grade shock. SKIN: Multiple skin lesions. Patient reports exposed to bed bugs while cleaning someones house which she says resulted in bites. Placed on contact precautions. PROPH: Will hold on pharmacologic DVT prophylaxis as patient is high risk for hemorrhage with multiple septic pulmonary emboli. SCDs bilaterally. Protonix 40 g by mouth daily for stress ulcer prophylaxis. ACCESS: Right IJ central venous line placed by Dr. Schmidt 10/03/16 #3. if we wean off norepinephrine, can d/c cvl. Remain in the ICU while in persistent shock. Jim Price MD Oct 05, 2016 10:44
[2016-10-05] MEDS ORDERED: POTASSIUM CHLOR 40 MEQ PREMIX 100 ML IV PRN (10:45)
[2016-10-05] MEDS ORDERED: POTASSIUM CHLOR 20 MEQ PREMIX 100 ML IV PRN ×2 (10:45)
[2016-10-05] MEDS ORDERED: MAGNESIUM OXIDE 400 MG TAB PO PRN (10:45)
[2016-10-05] MEDS ORDERED: POTASSIUM PHOSPHATE INJ 30 MMOL in SODIUM CHLOR 0.9% 250 ML INJ 250 ML IV PRN (10:45)
[2016-10-05] MEDS ORDERED: MAGNESIUM SULFATE INJ 4 GM in SODIUM CHLORIDE 0.9% INJ 92 ML IV PRN (10:45)
[2016-10-05] MEDS ORDERED: POTASSIUM PHOSPHATE MONOBASIC 500 MG TAB PO PRN (10:45)
[2016-10-05] MEDS ORDERED: MAGNESIUM SULFATE INJ 2 GM in SODIUM CHLORIDE 0.9% INJ 96 ML IV PRN (10:45)
[2016-10-05] MEDS ORDERED: SODIUM PHOSPHATE INJ 30 MMOL in SODIUM CHLOR 0.9% 250 ML INJ 240 ML IV PRN (10:45)
[2016-10-05] MEDS ORDERED: POTASSIUM PHOSPHATE MONOBASIC 500 MG TAB PO/TUBE PRN (10:45)
[2016-10-05] MEDS ORDERED: PIPERACIL-TAZO 4.5 GM PREMIX 100 ML IV SCH (11:00)
[2016-10-05] MEDS ORDERED: LACTATED RINGER'S 1000 ML INJ 1,000 ML IV ONE (11:00)
[2016-10-05] MEDS: VANCOMYCIN 1,000 MG/NS 250 ML IV SCH ×4 (11:51→23:00)
[2016-10-05] MEDS: POTASSIUM CHLOR 40 MEQ PREMIX 100 ML IV PRN ×2 (12:00→14:12)
--- NOTE | 2016-10-05 13:38 | MB ---
cc: BRANDI ARREOLA MD DATE OF CONSULTATION: 10/05/[address] Price REASON FOR CONSULTATION A 28-year-old female with IVDA, staph bacteremia, likely endocarditis. Please follow along for duration of therapy. HISTORY OF PRESENT ILLNESS This is a 28-year-old white female who recently used IV heroin. She has a history of IV drug use. The patient presented to the emergency department on 10/03/2016 with body aches, headache, fever, abdominal pain, nausea, vomiting and diarrhea. The patient tells me that she felt like she had the flu approximately a week ago. She stayed in bed and had a high fever. She took Advil and other [id number] medicines and then she used IV heroin. In the emergency department her heart rate was 120, temperature was normal, white blood cell count was normal with 25% bands and total bilirubin was 5.9. She was also noted to have a creatinine of 3.60 with estimated GFR of 15 and also noted to have a blood pressure of 93/57. She was given IV fluids and Levophed. Blood cultures were obtained and antibiotics were started. Blood cultures have gram-positive cocci in all four bottles including one identified as staph aureus. A transthoracic echocardiogram did not show vegetations. Her white count has increased to 12.0. CT scan of the chest was performed and it shows numerous focal irregular masses throughout the lungs and some cavitation suggesting septic emboli. A liver ultrasound shows hepatosplenomegaly and also abnormal gallbladder with lobular soft tissue mass present within the gallbladder. CT scan of the head showed no abnormality. PAST MEDICAL HISTORY 1. IV drug use in the form of heroin. 2. History of left ankle ORIF. 3. History of right hand tendon repair in the third digit. ALLERGIES 1. ASPIRIN. 2. HYDROCODONE. 3. NICKEL. MEDICATIONS 1. Vancomycin. 2. Piperacillin/tazobactam. 3. Protonix. 4. Judy-Colace. 5. Morphine sulfate. SOCIAL HISTORY The patient smokes a half pack of cigarettes a day. No alcohol. Positive IV drug use in the form of heroin. REVIEW OF SYSTEMS Significant for body aches, left chest pain, nausea. PHYSICAL EXAMINATION GENERAL: The patient is a well-developed female in no acute distress, but complains of diffuse aches and pains. VITAL SIGNS: Temperature 98 degrees, blood pressure 97/68, heart rate 101. HEENT: Head is atraumatic. Extraocular movements grossly intact. Pupils reactive to light. Sclera has icterus. No conjunctival erythema. Oropharynx with moist mucosa, no visible lesions. NECK: Supple. No palpable adenopathy. LUNGS: Decreased breath sounds with slight rhonchi at both bases. HEART: Regular rate and rhythm without murmurs, rubs or gallops. ABDOMEN: Bowel sounds present, soft, nontender. RECTAL: Not performed. EXTREMITIES: No clubbing, cyanosis or edema. Multiple excoriated erythematous punctate lesions scattered over the arms and legs without clear purulence suggesting emboli. No splinter hemorrhages. SKIN: No diffuse rash. NEUROLOGIC: No gross focal findings. PSYCHIATRIC: The patient has a depressed affect. LABORATORY WBC 12.0, platelets 23, hemoglobin 9.7, 87% neutrophils, 6% lymphocytes. Creatinine 1.13, BUN 27, estimated GFR 57, sodium 139, AST 50, ALT 72, alk phos 196, total bilirubin 5.1. Lactic acid level on 10/03/2016 was 2.4. IMPRESSION 1. Bacteremia due to staph aureus. 2. Septic pulmonary emboli. 3. Probable endocarditis. 4. IV drug abuse. 5. Acute kidney disease. 6. Thrombocytopenia. 7. Normal liver function tests. RECOMMENDATIONS 1. Continue vancomycin. 2. Begin oxacillin intravenous. 3. Discontinue piperacillin/tazobactam. 4. Monitor white blood cell count. 5. Monitor clinical status. Thank you for this consultation. I will monitor the patient's progress and make further recommendations on follow-up if necessary. Brandi Arreola MD FD/CIRO /1:03 PM /1:26 PM
[2016-10-05] MEDS: OXACILLIN INJ 2 GM in SODIUM CHLORIDE 0.9% INJ 100 ML IV SCH ×2 (15:56→21:00)
--- NOTE | 2016-10-05 17:35 | PD.PROCEDR ---
Procedure Note Procedure Procedure: Transesophageal Echocardiography Diagnosis: Staphylococcus bacteremia Indications: Gram-positive bacteremia with negative transthoracic echocardiogram , high suspicion for endocarditis Consent: Written consent was obtained Anesthesia: Anesthesia was administered by a separate anesthesia team, please see separate procedure documentation for details Description of the Procedure: The patient was sedated. The echo probe was inserted easily and without resistance. At the conclusion of the procedure, the echo probe was removed. Please see detailed echocardiogram report for formal findings. Preliminary Findings (not confirmed): 1. Normal biventricular size and function 2. no regional wall motion abnormalities 3. Trace MR 4. Mild TR 5. There is a 1.5 by 1.75 cm mobile tricuspid valve vegetation 6. No vegetations noted on the mitral or aortic valves 7. No evidence of thrombus in the left atrial appendage 8. No pericardial effusion 9. No intra-atrial shunt by color flow Doppler. The patient tolerated the procedure well with no hemodynamic instability or hypoxia. There were no immediate complications noted. There was minimal EBL. I personally performed the procedure. Jim Price MD Oct 05, 2016 17:35
--- NOTE | 2016-10-05 17:41 | ECHRPT ---
Indication: endocarditis CONCLUSIONS Normal ventricular dimensions Normal LV systolic function with estimated ejection fraction of 60% No wall motion abnormalites No thrombus or massess in the PATRICK Triscuspid valve vegetation associated with at least mild tricuspid regurgitation No pericardial effusion BP: / HR: Rhythm: Technical Quality: Medications Complications Proc. Components Martin Hennessy MD (Electronically Signed) Final Date:05 October 2016 17:41
[2016-10-06] VITALS (8 sets, daily range): BP systolic 105–112; BP diastolic 55–68; PULSE 91–101; RESP 18–24; TEMP 97.8–98.9; O2SAT 94–100
[2016-10-06] MEDS: SODIUM CHLOR 0.9% 1000 ML INJ 1,000 ML IV SCH ×2 (01:28→08:18)
[2016-10-06] MEDS: MORPHINE SULFATE 4 MG/ML INJ IV PRN (02:54)
[2016-10-06] MEDS: OXACILLIN INJ 2 GM in SODIUM CHLORIDE 0.9% INJ 100 ML IV SCH ×4 (02:55→21:26)
[2016-10-06] MEDS: CHLORHEXIDINE GLUCONATE 2 % 1 PACK (2 CLOTHS) TOP SCH (04:00)
[2016-10-06] MEDS: SODIUM CHLORIDE 0.9% FLUSH 10 ML FLUSH IV FLUSH SCH ×2 (08:18→21:28)
[2016-10-06] MEDS: PANTOPRAZOLE SODIUM 40 MG VIAL IV SCH (08:18)
[2016-10-06] MEDS: DOCUSATE SODIUM 50 MG/SENNA 8.6 MG TAB PO SCH ×2 (08:18→21:30)
--- NOTE | 2016-10-06 09:28 | HHI.PR ---
Subjective Remarks Patient complains of pain all over. No fevers or chills. Breathing status is stable. Objective Vitals Vital Signs Date Time Temp Pulse Resp B/P Pulse Ox O2 Delivery O2 Flow Rate FiO2 10/06/16 08:00 97.8 94 20 109/64 97 10/06/16 04:20 97.9 100 18 109/55 96 10/06/16 02:00 101 10/06/16 00:00 98.9 98 24 112/68 97 10/06/16 00:00 98 10/05/16 22:00 99 10/05/16 20:00 98.7 103 24 108/56 96 10/05/16 20:00 103 10/05/16 18:00 101 10/05/16 16:00 97.9 102 26 107/59 98 10/05/16 16:00 102 10/05/16 15:00 102 25 107/60 96 10/05/16 14:00 103 10/05/16 14:00 103 34 95/55 93 10/05/16 13:00 102 31 97/58 97 10/05/16 12:00 98.3 100 39 107/61 96 10/05/16 12:00 100 10/05/16 11:00 103 36 100/60 93 10/05/16 10:00 100 10/05/16 10:00 100 31 107/62 96 I/O 10/05/16 10/05/16 10/05/16 10/06/16 10/06/16 10/06/16 07:00 15:00 23:00 07:00 15:00 23:00 Intake Total 1210 ml 2916 ml 1414 ml 246 ml Output Total 1100 ml 1000 ml Balance 110 ml 1916 ml 1414 ml 246 ml Intake Oral 50 ml 0 ml IV Total 1160 ml 2916 ml 1414 ml 246 ml Output Urine Total 1100 ml 1000 ml Stool Total 0 ml # Voids 3 0 # Bowel Movements 0 0 0 Result Diagram: 10/05/16 0515 10/06/16 0530 Imaging Last Impressions Lower Extremity Ultrasound 10/04/16 0000 Signed Impressions: Service Date/Time: Tuesday, October 04, 2016 09:13 - CONCLUSION: Normal examination. Mark Tavares MD Liver Ultrasound 10/04/16 0000 Signed Impressions: Service Date/Time: Tuesday, October 04, 2016 08:59 - CONCLUSION: 1. Hepatosplenomegaly and increased echotexture of the portal triads with a starry night appearance which can be seen with hepatitis. 2. The gallbladder is abnormal with a lobular soft tissue mass present within the gallbladder demonstrating blood flow on color Doppler imaging. Mark Tavares MD Head CT 10/04/16 0000 Signed Impressions: Service Date/Time: Tuesday, October 04, 2016 08:39 - CONCLUSION: Normal examination. Mark Tavares MD Abdomen/Pelvis CT 10/03/161956 Signed Impressions: Service Date/Time: Monday, October 03, 2016 21:31 - CONCLUSION: Nonspecific splenomegaly. John Brand MD Chest X-Ray 10/03/[id number] Signed Impressions: Service Date/Time: Monday, October 03, 2016 19:36 - CONCLUSION: 1. Right internal jugular central line in good position. 2. Questionable focal density in the right midlung. John Brand MD Chest CT 10/03/16 0000 Signed Impressions: Service Date/Time: Monday, October 03, 2016 21:31 - CONCLUSION: Numerous focal irregular masses throughout the lungs with some cavitation. This appearance is concerning for septic emboli. John Brand MD Objective Remarks GENERAL: Patient complained of generalized pain. SKIN: Multiple dried punctate lesions all over the skin. Some track gregory noted as well. CARDIOVASCULAR: Normal rate and regular rhythm without murmurs, gallops, or rubs. RESPIRATORY: Poor respiratory efforts. Breath sounds equal and clear to auscultation bilaterally. GASTROINTESTINAL: Abdomen soft, non-distended. Normal active bowel sounds. Diffusely tender to palpation. MUSCULOSKELETAL: Extremities without cyanosis, or edema. NEURO: Alert & Oriented x4 to person, place, time, situation. Moves all ext x4 PSYCH: Appropriate mood and affect. Date of Insertion: Oct 03, 2016 A/P Assessment and Plan 28-year-old female initially admitted with septic shock and multiorgan failure. Patient is bacteremic with suspected endocarditis. Status post ICU course and Levophed drip. Clinical status improved and she was downgraded to the floor Suspected endocarditis Staph bacteremia 4/4 bottles. Urine legionella and pneumococcal antigen were negative. 10/03 blood cultures: /4 staph, sensitivities pending -LIVIA by try on baster, Dr. Grey revealed a 1.5 x 1.7 cm tricuspid valve vegetation. (preliminary report), Cardiology consulted. --Infectious disease following, antibiotics adjusted. Currently on oxacillin and vancomycin. -- Follow repeat blood cultures Pain secondary to severe myalgias Polysubstance abuse (THC, Heroin, methamphetamine) All narcotics discontinued. patient wants to be off opiate therapy. Avoid Tylenol due to elevated LFTs. Respiratory insufficiency Multiple bilateral small cavitary lung lesions consistent septic pulmonary emboli Tobacco abuse Nasal cannula wean as tolerated OOB PT consult Hyperbilirubinemia and elevated transaminases Splenomegaly Hyperbilirubinemia and transaminase elevation may be secondary to sepsis. CT abd/pelvis - no liver lesions, no biliary obstruction, no gallstones. + splenomegaly Repeat LFT today. Patient has a 2.5 x 2.5 cm mass within the gallbladder on ultrasound and the gallbladder wall is thickened. Will consult general surgery for recs. SAIRA -Resolved with IV fluid. Multiple skin lesions. Patient reports exposed to bed bugs while cleaning someone house which she says resulted in bites. No sign pf an infectious process on exam. Will DC isolation. PROPH:hold on pharmacologic DVT prophylaxis as patient is high risk for hemorrhage with multiple septic pulmonary emboli. SCDs bilaterally. Protonix 40 g by mouth daily for stress ulcer prophylaxis. Mika Robbins MD Oct 06, 2016 09:28
[2016-10-06] MEDS: VANCOMYCIN 1,000 MG/NS 250 ML IV SCH ×2 (11:12)
[2016-10-06] MEDS: traMADol HCL 50 MG TAB PO PRN ×2 (11:14→21:30)
[2016-10-06 11:59] LABS: HEMATOCRIT 29.3 % (35.0-46.0); MEAN CELL VOLUME 85.5 FL (80.0-100.0); MEAN CORPUSCULAR HEMOGLOBIN 27.8 PG (27.0-34.0); MEAN CORPUSCULAR HGB CONC 32.5 % (32.0-36.0); PLATELET COUNT 42 TH/MM3 (150-450); RED BLOOD COUNT 3.43 MIL/MM3 (4.00-5.30); RED CELL DISTRIBUTION WIDTH 15.2 % (11.6-17.2); WHITE BLOOD COUNT 15.4 TH/MM3 (4.0-11.0)
[2016-10-06 12:10] LABS: REVIEW FLAG AUTO DIFF
--- NOTE | 2016-10-06 13:08 | HHI.IDPN ---
Note Infectious Disease Note Patient is moaning. Says she is in pain. Afebrile. Blood culture has staph sensitive to oxacillin. LIVIA: TV vegetation. 28-year-old white female who recently used IV heroin. She has a history of IV drug use. The patient presented to the emergency department on 10/03/2016 with body aches, headache, fever, abdominal pain, nausea, vomiting and diarrhea. PAST MEDICAL HISTORY 1. IV drug use in the form of heroin. 2. History of left ankle ORIF. 3. History of right hand tendon repair in the third digit. ALLERGIES 1. ASPIRIN. 2. HYDROCODONE. 3. NICKEL. MEDICATIONS 1. Vancomycin. 2. Oxacillin. OBJECTIVE: Vital Signs Date Time Temp Pulse Resp B/P Pulse Ox O2 Delivery O2 Flow Rate FiO2 10/06/16 08:00 97.8 94 20 109/64 97 10/06/16 04:20 97.9 100 18 109/55 96 10/06/16 02:00 101 10/06/16 00:00 98.9 98 24 112/68 97 10/06/16 00:00 98 10/05/16 22:00 99 10/05/16 20:00 98.7 103 24 108/56 96 10/05/16 20:00 103 10/05/16 18:00 101 10/05/16 16:00 97.9 102 26 107/59 98 10/05/16 16:00 102 10/05/16 15:00 102 25 107/60 96 10/05/16 14:00 103 10/05/16 14:00 103 34 95/55 93 10/05/16 10/05/16 10/06/16 15:00 23:00 07:00 Intake Total 2916 ml 1414 ml 246 ml Output Total 1000 ml Balance 1916 ml 1414 ml 246 ml Intake Oral 0 ml IV Total 2916 ml 1414 ml 246 ml Output Urine Total 1000 ml Stool Total 0 ml # Voids 0 # Bowel Movements 0 0 Laboratory Tests Test 10/05/16 10/06/16 05:15 11:45 White Blood Count 12.0 TH/MM3 15.4 TH/MM3 Red Blood Count 3.44 MIL/MM3 3.43 MIL/MM3 Hemoglobin 9.7 GM/DL 9.5 GM/DL Hematocrit 29.3 % 29.3 % Mean Corpuscular Volume 85.1 FL 85.5 FL Mean Corpuscular Hemoglobin 28.3 PG 27.8 PG Mean Corpuscular Hemoglobin 33.3 % 32.5 % Concent Red Cell Distribution Width 15.1 % 15.2 % Platelet Count 23 TH/MM3 42 TH/MM3 Mean Platelet Volume 10.3 FL 9.3 FL Neutrophils (%) (Auto) 87.6 % Lymphocytes (%) (Auto) 6.3 % Monocytes (%) (Auto) 4.2 % Eosinophils (%) (Auto) 1.5 % Basophils (%) (Auto) 0.4 % Neutrophils # (Auto) 10.5 TH/MM3 Lymphocytes # (Auto) 0.8 TH/MM3 Monocytes # (Auto) 0.5 TH/MM3 Eosinophils # (Auto) 0.2 TH/MM3 Basophils # (Auto) 0.0 TH/MM3 CBC Comment AUTO DIFF Differential Total Cells 100 Counted Neutrophils % (Manual) 67 % Band Neutrophils % 25 % Lymphocytes % 6 % Monocytes % 2 % Neutrophils # (Manual) 11.0 TH/MM3 Differential Comment FINAL DIFF MANUAL Platelet Estimate LOW Platelet Morphology Comment NORMAL Red Cell Morphology Comment NORMAL Laboratory Tests Test 10/04/16 10/05/16 10/05/16 10/06/16 15:15 05:15 17:30 05:30 Total Creatine Kinase 147 U/L Creatine Kinase MB 6.8 NG/ML Sodium Level 139 MEQ/L 137 MEQ/L Potassium Level 3.1 MEQ/L 3.8 MEQ/L 4.0 MEQ/L Chloride Level 109 MEQ/L 110 MEQ/L Carbon Dioxide Level 22.3 MEQ/L 19.0 MEQ/L Anion Gap 8 MEQ/L 8 MEQ/L Blood Urea Nitrogen 27 MG/DL 19 MG/DL Creatinine 1.13 MG/DL 0.78 MG/DL Estimat Glomerular Filtration 57 ML/MIN 88 ML/MIN Rate Random Glucose 80 MG/DL 89 MG/DL Calcium Level 8.3 MG/DL 8.6 MG/DL Random Cortisol 22.8 MCG/DL Microbiology Date/Time Procedure Status Source Growth 10/03/16 17:25 Aerobic Blood Culture - Final Complete Blood Peripheral Staphylococcus Aureus 10/03/16 17:25 Anaerobic Blood Culture - Final Complete Staphylococcus Aureus 10/03/16 17:30 Aerobic Blood Culture - Final Complete Blood Peripheral Staphylococcus Aureus 10/03/16 17:30 Anaerobic Blood Culture - Final Complete Staphylococcus Aureus 10/03/16 20:49 Legionella Antigen - Final Complete Urine Catheterized Urine PRESUMPTIVE NEGATIVE FOR LEGIONELLA P... 10/03/16 20:49 Streptococcus pneumoniae Antigen (M - Final Complete Urine Catheterized Urine PRESUMPTIVE NEGATIVE FOR STREPTOCOCCU... 10/06/16 05:25 Aerobic Blood Culture Received Blood Peripheral Pending 10/06/16 05:25 Anaerobic Blood Culture Received Blood Peripheral Pending 10/06/16 05:30 Aerobic Blood Culture Resulted Blood Peripheral Pending 10/06/16 05:30 Anaerobic Blood Culture - Final Resulted Blood Peripheral QNS - SEE AEROBE REPORT PHYSICAL EXAMINATION GENERAL: No acute distress. HEENT: Head is atraumatic. Extraocular movements grossly intact. Pupils reactive to light. Sclera has icterus. No conjunctival erythema. Oropharynx with moist mucosa, no visible lesions. NECK: Supple. No palpable adenopathy. LUNGS: Decreased breath sounds with slight rhonchi at both bases. HEART: Regular rate and rhythm without murmurs, rubs or gallops. ABDOMEN: Bowel sounds present, soft, nontender. EXTREMITIES: No clubbing, cyanosis or edema. Multiple excoriated erythematous punctate lesions scattered over the arms and legs without clear purulence suggesting emboli. No splinter hemorrhages. SKIN: No diffuse rash. NEUROLOGIC: No gross focal findings. PSYCHIATRIC: Calm and cooperative. IMPRESSION 1. Bacteremia due to staph aureus. MSSA. 2. Septic pulmonary emboli. 3. Probable endocarditis. 4. IV drug abuse. 5. Acute kidney disease. 6. Thrombocytopenia. 7. Normal liver function tests. RECOMMENDATIONS 1. Stop vancomycin. 2. Continue oxacillin intravenous. 3. Monitor white blood cell count. 4. Monitor clinical status. 5. Follow repeat blood cultures. Kaleb Fields MD Oct 06, 2016 13:08
--- NOTE | 2016-10-06 16:10 | MB ---
cc: MODESTA JARRETT MD DATE OF CONSULTATION: 10/06/2016 REASON FOR CONSULTATION: Gallbladder mass. HISTORY OF PRESENT ILLNESS This is a 28-year-old female who was admitted three days ago with six days of fevers, chills, nausea, vomiting, diarrhea and dizziness. She has a history of IV drug abuse with multiple substances. She was in septic shock requiring pressors. She has been on IV antibiotics since admission. She is evaluated with a transesophageal echo revealing tricuspid vegetation. The patient has multiple lab abnormalities, currently elevated white blood count and she had a bandemia of 25 yesterday. She has thrombocytopenia with platelets of 42. Chemistries remarkable for hyperbilirubinemia, elevated alkaline phosphatase and transaminitis. Her serology showed chronic Hepatitis C. She has mild elevation of PT/INR and PTT. The patient has apparent septic emboli in the lungs bilaterally. On my evaluation she complains of pain in many places including her abdomen. She is coughing persistently. Ultrasound of the liver was performed revealing hepatosplenomegaly, possible hepatitis. There is a soft tissue mass in the gallbladder over 2 cm. I was consulted for recommendations. PAST MEDICAL HISTORY: IV drug abuse. PAST SURGICAL HISTORY: Right hand surgery. Left ankle surgery. HOME MEDICATIONS: None. FAMILY HISTORY: Noncontributory. SOCIAL HISTORY: She smokes marijuana. She uses IV heroin and methamphetamines. ALLERGIES: ASPIRIN HYDROCODONE NICKEL REVIEW OF SYSTEMS: Negative except as mentioned in the HPI. PHYSICAL EXAMINATION: GENERAL: A 28 year-old female appears older than stated age. She is coughing frequently. VITAL SIGNS: Temperature 98.4, heart rate 92, respiratory rate 20, blood pressure 112/65. HEAD: Normocephalic, atraumatic. LUNGS: Clear anteriorly bilaterally. She is coughing persistently. CARDIOVASCULAR: Regular rate and rhythm. ABDOMEN: No previous incisions, mild distension. Mild diffuse tenderness. No rebound or guarding. SKIN: No obvious jaundice. ASSESSMENT/PLAN 28 year-old female with history of recent IV drug abuse with endocarditis, septic pulmonary emboli, hepatosplenomegaly with elevated bilirubin, transaminases and alkaline phosphatase, thrombocytopenia. She has a lobular mass present in the gallbladder about 2.5 cm in diameter and a thickened gallbladder wall. I do not recommend any treatment at this time for the gallbladder mass. Certainly the size would generally be of concern and require cholecystectomy. However, due to her serious conditions, primarily IV drug use with endocarditis, I would avoid at this time. Certainly if she does improve she can follow up with me in the office as an outpatient. She also appears to have liver disease and based on lab work it looks to me as if she could even have fairly severe disease. This can be managed by the medical team or gastroenterology if that is felt warranted. MD JEREL Al/GEORGE /1:39 PM /3:30 PM
[2016-10-06 17:02] LABS: INDIRECT BILIRUBIN 1.5 MG/DL (0.0-0.8); TOTAL BILIRUBIN ADULT 4.3 MG/DL (0.2-1.0)
[2016-10-06] MEDS ORDERED: PHARMACY ORDERED LAB ONE (22:45)
[2016-10-07 01:35] VITALS: BP 120/72; PULSE 103; RESP 20; TEMP 98.6; O2SAT 97
[2016-10-07] MEDS: OXACILLIN INJ 2 GM in SODIUM CHLORIDE 0.9% INJ 100 ML IV SCH ×4 (02:08→22:06)
[2016-10-07] MEDS: CHLORHEXIDINE GLUCONATE 2 % 1 PACK (2 CLOTHS) TOP SCH ×2 (02:09→22:07)
[2016-10-07 04:37] LABS: BICARBONATE 15.5 MEQ/L (21.0-32.0); INDIRECT BILIRUBIN 1.3 MG/DL (0.0-0.8); POTASSIUM 4.3 MEQ/L (3.5-5.1); TOTAL BILIRUBIN ADULT 1.9 MG/DL (0.2-1.0)
[2016-10-07 08:00] VITALS: BP 106/66; PULSE 103; RESP 18; TEMP 98.2; O2SAT 96
[2016-10-07] MEDS: DOCUSATE SODIUM 50 MG/SENNA 8.6 MG TAB PO SCH ×2 (09:00→21:00)
--- NOTE | 2016-10-07 09:13 | HHI.PR ---
Subjective Remarks Patient reports feeling better today compared to yesterday. We discussed new diagnosis of hepatitis C. She is agreeable to being tested for HIV. She was seen by general surgery was advised outpatient follow-up regarding the gallbladder mass. Patient had an episode of hemoptysis overnight. Sputum looking more brownish this morning. Objective Vitals Vital Signs Date Time Temp Pulse Resp B/P Pulse Ox O2 Delivery O2 Flow Rate FiO2 10/07/16 08:00 98.2 103 18 106/66 96 10/07/16 01:35 98.6 103 20 120/72 97 10/06/16 21:20 97 10/06/16 20:10 98.8 91 18 105/56 94 10/06/16 16:00 97.8 98 19 110/68 100 10/06/16 12:00 98.4 92 20 112/65 97 I/O 10/06/16 10/06/16 10/06/16 10/07/16 10/07/16 10/07/16 07:00 15:00 23:00 07:00 15:00 23:00 Intake Total 246 ml 1200 ml 2492 ml 200 ml 120 ml Output Total 800 ml 0 ml Balance 246 ml 1200 ml 1692 ml 200 ml 120 ml Intake Oral 360 ml 120 ml IV Total 246 ml 1200 ml 2132 ml 200 ml Output Urine Total 800 ml 0 ml Stool Total 0 ml Result Diagram: 10/06/16 1145 10/07/16 0327 Objective Remarks GENERAL: Patient complained of generalized pain. SKIN: Multiple dried punctate lesions all over the skin. Some track gregory noted as well. CARDIOVASCULAR: Normal rate and regular rhythm without murmurs, gallops, or rubs. RESPIRATORY: Poor respiratory efforts. Breath sounds equal and clear to auscultation bilaterally. GASTROINTESTINAL: Abdomen soft, non-distended. Normal active bowel sounds. Diffusely tender to palpation. MUSCULOSKELETAL: Extremities without cyanosis, or edema. NEURO: Alert & Oriented x4 to person, place, time, situation. Moves all ext x4 PSYCH: Appropriate mood and affect. Date of Insertion: Oct 03, 2016 A/P Assessment and Plan 28-year-old female initially admitted with septic shock and multiorgan failure. Patient is bacteremic with suspected endocarditis. Status post ICU course and Levophed drip. Clinical status improved and she was downgraded to the floor Suspected endocarditis Staph bacteremia 4/4 bottles. Urine legionella and pneumococcal antigen were negative. 10/03 blood cultures: 4/4 MSSA, sensitive to oxacillin -LIVIA confirmed tricuspid valve vegetation --Infectious disease following, antibiotics adjusted. Currently on oxacillin -- Follow repeat blood cultures Pain secondary to severe myalgias Polysubstance abuse (THC, Heroin, methamphetamine) All narcotics discontinued. patient wants to be off opiate therapy. Avoid Tylenol due to elevated LFTs. Respiratory insufficiency Multiple bilateral small cavitary lung lesions consistent septic pulmonary emboli Tobacco abuse Hemoptysis Nasal cannula wean as tolerated OOB PT consult Hemoptysis likely related to septic pulmonary emboli. Sputum cultures sent. Continue droplet precautions. Hyperbilirubinemia and elevated transaminases Splenomegaly Hepatitis C (new diagnosis) Hyperbilirubinemia and transaminase elevation may be secondary to sepsis. CT abd/pelvis - no liver lesions, no biliary obstruction, no gallstones. + splenomegaly Patient has a 2.5 x 2.5 cm mass within the gallbladder on ultrasound and the gallbladder wall is thickened. General surgery was consulted with eyes outpatient follow-up once bacteremia/endocarditis is treated. Discussed new diagnosis of hepatitis C at length with the patient. She is advised to follow-up outpatient. Patient provided verbal consent for HIV testing. LFTs are improving. Continue to follow SAIRA -Resolved with IV fluid. Multiple skin lesions. Patient reports exposed to bed bugs while cleaning someone house which she says resulted in bites. No signs of an infectious process on exam. Will DC isolation. PROPH:hold on pharmacologic DVT prophylaxis as patient is high risk for hemorrhage with multiple septic pulmonary emboli. SCDs bilaterally. Protonix 40 g by mouth daily for stress ulcer prophylaxis. Mika Robbins MD Oct 07, 2016 09:13
[2016-10-07] MEDS: PANTOPRAZOLE SOD 40 MG DELAYED RELEASE TAB PO SCH (09:35)
[2016-10-07] MEDS: SODIUM CHLORIDE 0.9% FLUSH 10 ML FLUSH IV FLUSH SCH ×2 (09:36→22:06)
[2016-10-07] MEDS: traMADol HCL 50 MG TAB PO PRN ×2 (09:42→18:33)
[2016-10-07 12:00] VITALS: BP 108/76; PULSE 96; RESP 17; TEMP 97.9; O2SAT 96
--- NOTE | 2016-10-07 14:06 | HHI.IDPN ---
Note Infectious Disease Note Patient is moaning. Says she fells so so. Afebrile. Notes sweats. LIVIA: TV vegetation. 28-year-old white female who recently used IV heroin. She has a history of IV drug use. The patient presented to the emergency department on 10/03/2016 with body aches, headache, fever, abdominal pain, nausea, vomiting and diarrhea. PAST MEDICAL HISTORY 1. IV drug use in the form of heroin. 2. History of left ankle ORIF. 3. History of right hand tendon repair in the third digit. ALLERGIES 1. ASPIRIN. 2. HYDROCODONE. 3. NICKEL. MEDICATIONS 1. Oxacillin. OBJECTIVE: Vital Signs Date Time Temp Pulse Resp B/P Pulse Ox O2 Delivery O2 Flow Rate FiO2 10/07/16 12:00 97.9 96 17 108/76 96 10/07/16 08:00 98.2 103 18 106/66 96 10/07/16 01:35 98.6 103 20 120/72 97 10/06/16 21:20 97 10/06/16 20:10 98.8 91 18 105/56 94 10/06/16 16:00 97.8 98 19 110/68 100 10/06/16 10/06/16 10/07/16 15:00 23:00 07:00 Intake Total 1200 ml 2492 ml 200 ml Output Total 800 ml Balance 1200 ml 1692 ml 200 ml Intake Oral 360 ml IV Total 1200 ml 2132 ml 200 ml Output Urine Total 800 ml Stool Total 0 ml Laboratory Tests Test 10/06/16 11:45 White Blood Count 15.4 TH/MM3 Red Blood Count 3.43 MIL/MM3 Hemoglobin 9.5 GM/DL Hematocrit 29.3 % Mean Corpuscular Volume 85.5 FL Mean Corpuscular Hemoglobin 27.8 PG Mean Corpuscular Hemoglobin 32.5 % Concent Red Cell Distribution Width 15.2 % Platelet Count 42 TH/MM3 Mean Platelet Volume 9.3 FL Laboratory Tests Test 10/05/16 10/06/16 10/07/16 17:30 05:30 03:27 Potassium Level 3.8 MEQ/L 4.0 MEQ/L 4.3 MEQ/L Sodium Level 137 MEQ/L 136 MEQ/L Chloride Level 110 MEQ/L 112 MEQ/L Carbon Dioxide Level 19.0 MEQ/L 15.5 MEQ/L Anion Gap 8 MEQ/L 9 MEQ/L Blood Urea Nitrogen 19 MG/DL 22 MG/DL Creatinine 0.78 MG/DL 0.94 MG/DL Estimat Glomerular Filtration 88 ML/MIN 71 ML/MIN Rate Random Glucose 89 MG/DL 67 MG/DL Calcium Level 8.6 MG/DL 8.2 MG/DL Total Bilirubin 4.3 MG/DL 1.9 MG/DL Direct Bilirubin 2.8 MG/DL 0.6 MG/DL Indirect Bilirubin 1.5 MG/DL 1.3 MG/DL Aspartate Amino Transf 51 U/L 59 U/L (AST/SGOT) Alanine Aminotransferase 42 U/L 32 U/L (ALT/SGPT) Alkaline Phosphatase 392 U/L 201 U/L Total Protein 4.7 GM/DL 4.6 GM/DL Albumin 1.5 GM/DL 1.0 GM/DL Random Cortisol 22.8 MCG/DL Microbiology Date/Time Procedure Status Source Growth 10/06/16 05:25 Aerobic Blood Culture - Preliminary Resulted Blood Peripheral NO GROWTH IN 1 DAY 10/06/16 05:25 Anaerobic Blood Culture - Preliminary Resulted Blood Peripheral NO GROWTH IN 1 DAY 10/06/16 05:30 Aerobic Blood Culture - Preliminary Resulted Blood Peripheral NO GROWTH IN 1 DAY 10/06/16 05:30 Anaerobic Blood Culture - Final Resulted Blood Peripheral QNS - SEE AEROBE REPORT 10/06/16 22:48 Acid Fast Stain Received Sputum Expectorated Sputum Pending 10/06/16 22:48 Mycobacterial Culture Received Sputum Expectorated Sputum Pending Microbiology Date/Time Procedure Status Source Growth 10/03/16 17:25 Aerobic Blood Culture - Final Complete Blood Peripheral Staphylococcus Aureus 10/03/16 17:25 Anaerobic Blood Culture - Final Complete Staphylococcus Aureus 10/03/16 17:30 Aerobic Blood Culture - Final Complete Blood Peripheral Staphylococcus Aureus 10/03/16 17:30 Anaerobic Blood Culture - Final Complete Staphylococcus Aureus 10/03/16 20:49 Legionella Antigen - Final Complete Urine Catheterized Urine PRESUMPTIVE NEGATIVE FOR LEGIONELLA P... 10/03/16 20:49 Streptococcus pneumoniae Antigen (M - Final Complete Urine Catheterized Urine PRESUMPTIVE NEGATIVE FOR STREPTOCOCCU... 10/06/16 05:25 Aerobic Blood Culture Received Blood Peripheral Pending 10/06/16 05:25 Anaerobic Blood Culture Received Blood Peripheral Pending 10/06/16 05:30 Aerobic Blood Culture Resulted Blood Peripheral Pending 10/06/16 05:30 Anaerobic Blood Culture - Final Resulted Blood Peripheral QNS - SEE AEROBE REPORT PHYSICAL EXAMINATION GENERAL: No acute distress. HEENT: Head is atraumatic. Extraocular movements grossly intact. Pupils reactive to light. Sclera has icterus. No conjunctival erythema. Oropharynx with moist mucosa, no visible lesions. NECK: Supple. No palpable adenopathy. LUNGS: Slight rhonchi at both bases. HEART: Regular rate and rhythm without murmurs, rubs or gallops. ABDOMEN: Bowel sounds present, soft, nontender. EXTREMITIES: No clubbing, cyanosis or edema. Multiple excoriated erythematous punctate lesions scattered over the arms and legs without clear purulence suggesting emboli. No splinter hemorrhages. SKIN: No diffuse rash. NEUROLOGIC: No gross focal findings. PSYCHIATRIC: Calm and cooperative. IMPRESSION 1. Bacteremia due to staph aureus. MSSA. 2. Tricuspid valve endocarditis. 3. Septic pulmonary emboli. 4. IV drug abuse. 5. Acute kidney disease. improved. 6. Thrombocytopenia. 7. Abnormal liver function tests. RECOMMENDATIONS 1. Continue oxacillin intravenous. 2. Monitor white blood cell count. 3. Monitor clinical status. 4. Follow repeat blood cultures. Kaleb Fields MD Oct 07, 2016 14:06
[2016-10-07 15:47] LABS: HEMATOCRIT 27.4 % (35.0-46.0); MEAN CELL VOLUME 85.7 FL (80.0-100.0); MEAN CORPUSCULAR HEMOGLOBIN 27.9 PG (27.0-34.0); MEAN CORPUSCULAR HGB CONC 32.5 % (32.0-36.0); PLATELET COUNT 64 TH/MM3 (150-450); WHITE BLOOD COUNT 16.5 TH/MM3 (4.0-11.0)
[2016-10-07 15:58] LABS: REVIEW FLAG FINAL
[2016-10-07 16:00] VITALS: BP 110/69; PULSE 101; RESP 18; TEMP 97.7; O2SAT 97
[2016-10-07 20:00] VITALS: BP 116/76; PULSE 109; RESP 20; TEMP 101.9; O2SAT 99
[2016-10-08] VITALS (7 sets, daily range): BP systolic 109–122; BP diastolic 68–83; PULSE 83–100; RESP 17–20; TEMP 97.1–101; O2SAT 95–100
[2016-10-08] MEDS: IBUPROFEN 400 MG TAB PO PRN ×2 (00:34→11:30)
[2016-10-08] MEDS: OXACILLIN INJ 2 GM in SODIUM CHLORIDE 0.9% INJ 100 ML IV SCH ×4 (03:06→21:07)
[2016-10-08] MEDS: traMADol HCL 50 MG TAB PO PRN ×3 (03:08→21:09)
[2016-10-08 03:36] LABS: BACTERIA, URINE OCC /hpf; BLOOD, URINE NEG (NEG); COMMENT (UR) CULTURE INDICATED; CULTURE IF INDICATED CULTURE INDICATED; GLUCOSE,URINE NEG (NEG); KETONE, URINE NEG (NEG); MUCUS URINE FEW /lpf (OCC); NITRITE,URINE NEG (NEG); PH, URINE 5.5 (5.0-8.5); SQUAMOUS EPITHELIAL CELL URINE 4 /hpf (0-5); URINE COLOR YELLOW (YELLW/STRAW)
[2016-10-08] MEDS ORDERED: PHARMACY ORDERED LAB ONE (05:45)
[2016-10-08] MEDS: SODIUM CHLORIDE 0.9% FLUSH 10 ML FLUSH IV FLUSH SCH ×2 (08:14→21:07)
[2016-10-08] MEDS: PANTOPRAZOLE SOD 40 MG DELAYED RELEASE TAB PO SCH (08:14)
[2016-10-08] MEDS: DOCUSATE SODIUM 50 MG/SENNA 8.6 MG TAB PO SCH ×2 (08:14→21:00)
--- NOTE | 2016-10-08 09:32 | RADRPT ---
EXAM DATE/TIME: 10/08/2016 08:54 [facility] COMPARISON: CHEST SINGLE AP, October 03, 2016, 19:36. CT THORAX W/O CONTRAST, October 03, 2016, 21:31. INDICATIONS : Fever. MEDICAL HISTORY : None. SURGICAL HISTORY : None. ENCOUNTER: Subsequent ACUITY: 1 week PAIN SCORE: 0/10 LOCATION: Bilateral chest FINDINGS: PA and lateral views of the chest demonstrates scattered nonspecific infiltrates in both lung chow which appear to be increased compared to the prior chest x-ray of 10/03/2016. The heart size is stable and within normal limits. There are no pleural effusions or pulmonary edema. The bony structures are stable.. CONCLUSION: There continues to be scattered nonspecific bilateral infiltrates as demonstrated on patient's prior studies. The infiltrates appear to be increased compared to the prior chest x-ray of 10/03/2016. Dequan Ortiz MD on October 08, 2016 at 9:28 Board Certified Radiologist. This report was verified electronically.
--- NOTE | 2016-10-08 09:42 | HHI.PR ---
Subjective Remarks Fever overnight. Repeat blood cultures from 10/06 still growing gram-positive cocci. She reports feeling like she is withdrawing from opiate. Had some chills. Objective Vitals Vital Signs Date Time Temp Pulse Resp B/P Pulse Ox O2 Delivery O2 Flow Rate FiO2 10/08/16 08:00 97.5 89 17 116/75 95 10/08/16 04:08 97.8 83 20 109/68 99 10/08/16 00:40 100 10/08/16 00:00 101.0 100 20 122/68 95 10/07/16 20:00 101.9 109 20 116/76 99 10/07/16 16:00 97.7 101 18 110/69 97 10/07/16 12:00 97.9 96 17 108/76 96 I/O 10/07/16 10/07/16 10/07/16 10/08/16 10/08/16 10/08/16 07:00 15:00 23:00 07:00 15:00 23:00 Intake Total 200 ml 240 ml 240 ml 440 ml Output Total 200 ml 0 ml 300 ml Balance 200 ml 40 ml 240 ml 140 ml Intake Oral 240 ml 240 ml 240 ml IV Total 200 ml 200 ml Output Urine Total 200 ml 0 ml 300 ml # Bowel Movements 0 Result Diagram: 10/07/16 1530 10/07/16 0327 Objective Remarks GENERAL: Patient complained of generalized pain. SKIN: Multiple dried punctate lesions all over the skin. Some track gregory noted as well. CARDIOVASCULAR: Normal rate and regular rhythm without murmurs, gallops, or rubs. RESPIRATORY: Poor respiratory efforts. Breath sounds equal and clear to auscultation bilaterally. GASTROINTESTINAL: Abdomen soft, non-distended. Normal active bowel sounds. Diffusely tender to palpation. MUSCULOSKELETAL: Extremities without cyanosis, or edema. NEURO: Alert & Oriented x4 to person, place, time, situation. Moves all ext x4 PSYCH: Appropriate mood and affect. Date of Insertion: Oct 03, 2016 A/P Assessment and Plan 28-year-old female initially admitted with septic shock and multiorgan failure. Patient is bacteremic with suspected endocarditis. Status post ICU course and Levophed drip. Clinical status improved and she was downgraded to the floor Suspected endocarditis Staph bacteremia 4/4 bottles. Urine legionella and pneumococcal antigen were negative. 7/1 blood cultures: 4/4 MSSA, sensitive to oxacillin -LIVIA confirmed tricuspid valve vegetation -- Infectious disease following, antibiotics adjusted. Currently on oxacillin -- Repeat blood cultures still positive Pain secondary to severe myalgias Polysubstance abuse (THC, Heroin, methamphetamine) All narcotics discontinued. patient wants to be off opiate therapy. Avoid Tylenol due to elevated LFTs. Respiratory insufficiency Multiple bilateral small cavitary lung lesions consistent septic pulmonary emboli Tobacco abuse Hemoptysis Nasal cannula wean as tolerated OOB PT consult Hemoptysis likely related to septic pulmonary emboli. Sputum cultures sent. Continue droplet precautions. Hyperbilirubinemia and elevated transaminases Splenomegaly Hepatitis C (new diagnosis) Hyperbilirubinemia and transaminase elevation may be secondary to sepsis. CT abd/pelvis - no liver lesions, no biliary obstruction, no gallstones. + splenomegaly Patient has a 2.5 x 2.5 cm mass within the gallbladder on ultrasound and the gallbladder wall is thickened. General surgery was consulted with eyes outpatient follow-up once bacteremia/endocarditis is treated. Discussed new diagnosis of hepatitis C at length with the patient. She is advised to follow-up outpatient. Patient provided verbal consent for HIV testing. LFTs are improving. Continue to follow SAIRA -Resolved with IV fluid. Multiple skin lesions. Patient reports exposed to bed bugs while cleaning someone house which she says resulted in bites. No signs of an infectious process on exam. PROPH:hold on pharmacologic DVT prophylaxis as patient is high risk for hemorrhage with multiple septic pulmonary emboli. SCDs bilaterally. Protonix 40 g by mouth daily for stress ulcer prophylaxis. Mika Robbins MD Oct 08, 2016 09:42
[2016-10-08 12:11] LABS: HEMATOCRIT 25.7 % (35.0-46.0); MEAN CELL VOLUME 86.6 FL (80.0-100.0); MEAN CORPUSCULAR HEMOGLOBIN 28.1 PG (27.0-34.0); MEAN CORPUSCULAR HGB CONC 32.5 % (32.0-36.0); PLATELET COUNT 74 TH/MM3 (150-450); RED BLOOD COUNT 2.97 MIL/MM3 (4.00-5.30); RED CELL DISTRIBUTION WIDTH 14.8 % (11.6-17.2); WHITE BLOOD COUNT 15.6 TH/MM3 (4.0-11.0)
[2016-10-08 12:31] LABS: BICARBONATE 19.7 MEQ/L (21.0-32.0); INDIRECT BILIRUBIN 0.4 MG/DL (0.0-0.8); POTASSIUM 3.2 MEQ/L (3.5-5.1)
[2016-10-08 15:07] LABS: REVIEW FLAG FINAL
[2016-10-08] MEDS ORDERED: POTASSIUM CHLORIDE 20 MEQ CONTROLLED RELEASE TAB PO ONE (21:00)
[2016-10-08] MEDS: CHLORHEXIDINE GLUCONATE 2 % 1 PACK (2 CLOTHS) TOP SCH (21:10)
[2016-10-09] VITALS: BP 126/80; PULSE 109; RESP 20; TEMP 100.3; O2SAT 100
[2016-10-09] MEDS: OXACILLIN INJ 2 GM in SODIUM CHLORIDE 0.9% INJ 100 ML IV SCH ×4 (01:49→20:14)
[2016-10-09] MEDS: traMADol HCL 50 MG TAB PO PRN ×4 (03:53→23:19)
[2016-10-09 04:00] VITALS: TEMP 99.1
[2016-10-09 08:00] VITALS: BP 114/71; PULSE 101; RESP 40; TEMP 98; O2SAT 97
--- NOTE | 2016-10-09 09:23 | HHI.PR ---
Subjective Remarks Still having pain all over. No fevers or chills. Objective Vitals Vital Signs Date Time Temp Pulse Resp B/P Pulse Ox O2 Delivery O2 Flow Rate FiO2 10/09/16 08:00 98.0 101 40 114/71 97 10/09/16 04:00 99.1 10/09/16 00:00 100.3 109 20 126/80 100 10/08/16 20:00 97.6 99 20 121/83 100 10/08/16 16:00 98.3 92 17 114/78 96 10/08/16 12:00 97.1 88 17 117/68 96 I/O 10/08/16 10/08/16 10/08/16 10/09/16 10/09/16 10/09/16 07:00 15:00 23:00 07:00 15:00 23:00 Intake Total 440 ml 360 ml 240 ml 440 ml Output Total 300 ml 0 ml Balance 140 ml 360 ml 240 ml 440 ml Intake Oral 240 ml 360 ml 240 ml 240 ml IV Total 200 ml 200 ml Output Urine Total 300 ml 0 ml # Voids 2 2 # Bowel Movements 0 Result Diagram: 10/08/16 1139 10/08/16 1139 Objective Remarks GENERAL: Patient complained of generalized pain. SKIN: Multiple dried punctate lesions all over the skin. Some track gregory noted as well. CARDIOVASCULAR: Normal rate and regular rhythm without murmurs, gallops, or rubs. RESPIRATORY: Poor respiratory efforts. Breath sounds equal and clear to auscultation bilaterally. GASTROINTESTINAL: Abdomen soft, non-distended. Normal active bowel sounds. Diffusely tender to palpation. MUSCULOSKELETAL: Extremities without cyanosis, or edema. NEURO: Alert & Oriented x4 to person, place, time, situation. Moves all ext x4 PSYCH: Appropriate mood and affect. Date of Insertion: Oct 03, 2016 A/P Assessment and Plan 28-year-old female initially admitted with septic shock and multiorgan failure. Patient is bacteremic with suspected endocarditis. Status post ICU course and Levophed drip. Clinical status improved and she was downgraded to the floor Suspected endocarditis Staph bacteremia 4/4 bottles. Urine legionella and pneumococcal antigen were negative. 10/03 blood cultures: 4/4 MSSA, sensitive to oxacillin -LIVIA confirmed tricuspid valve vegetation -- Infectious disease following, antibiotics adjusted. Currently on oxacillin -- Repeat blood cultures still positive. Repeat cultures again today. Pain secondary to severe myalgias Polysubstance abuse (THC, Heroin, methamphetamine) All narcotics discontinued. patient wants to be off opiate therapy. Avoid Tylenol due to elevated LFTs. Respiratory insufficiency Multiple bilateral small cavitary lung lesions consistent septic pulmonary emboli Tobacco abuse Hemoptysis Nasal cannula wean as tolerated OOB PT consult Hemoptysis likely related to septic pulmonary emboli. Sputum cultures sent. Continue droplet precautions. Hyperbilirubinemia and elevated transaminases Splenomegaly Hepatitis C (new diagnosis) Hyperbilirubinemia and transaminase elevation may be secondary to sepsis. CT abd/pelvis - no liver lesions, no biliary obstruction, no gallstones. + splenomegaly Patient has a 2.5 x 2.5 cm mass within the gallbladder on ultrasound and the gallbladder wall is thickened. General surgery was consulted with eyes outpatient follow-up once bacteremia/endocarditis is treated. Discussed new diagnosis of hepatitis C at length with the patient. She is advised to follow-up outpatient. Patient provided verbal consent for HIV testing. LFTs are improving. Continue to follow SAIRA -Resolved with IV fluid. Multiple skin lesions. Patient reports exposed to bed bugs while cleaning someone house which she says resulted in bites. No signs of an infectious process on exam. PROPH:hold on pharmacologic DVT prophylaxis as patient is high risk for hemorrhage with multiple septic pulmonary emboli. SCDs bilaterally. Protonix 40 g by mouth daily for stress ulcer prophylaxis. Mika Robbins MD Oct 09, 2016 09:23
[2016-10-09] MEDS: PANTOPRAZOLE SOD 40 MG DELAYED RELEASE TAB PO SCH (09:53)
[2016-10-09] MEDS: SODIUM CHLORIDE 0.9% FLUSH 10 ML FLUSH IV FLUSH SCH ×2 (09:54→20:14)
[2016-10-09] MEDS: DOCUSATE SODIUM 50 MG/SENNA 8.6 MG TAB PO SCH ×2 (09:55→20:14)
[2016-10-09 12:00] VITALS: BP 124/75; PULSE 102; RESP 37; TEMP 98.8; O2SAT 96
--- NOTE | 2016-10-09 13:44 | HHI.IDPN ---
Note Infectious Disease Note Patient is asking for more pain meds. Says she has diffuse aches and pains and FIELDS. Pain particularly at the left chest. Notes that she coughed up blood earlier. Low grade fever. LIVIA: TV vegetation. 28-year-old white female who recently used IV heroin. She has a history of IV drug use. The patient presented to the emergency department on 10/03/2016 with body aches, headache, fever, abdominal pain, nausea, vomiting and diarrhea. PAST MEDICAL HISTORY 1. IV drug use in the form of heroin. 2. History of left ankle ORIF. 3. History of right hand tendon repair in the third digit. ALLERGIES 1. ASPIRIN. 2. HYDROCODONE. 3. NICKEL. MEDICATIONS 1. Oxacillin. OBJECTIVE: Vital Signs Date Time Temp Pulse Resp B/P Pulse Ox O2 Delivery O2 Flow Rate FiO2 10/09/16 08:00 98.0 101 40 114/71 97 10/09/16 04:00 99.1 10/09/16 00:00 100.3 109 20 126/80 100 10/08/16 20:00 97.6 99 20 121/83 100 10/08/16 16:00 98.3 92 17 114/78 96 10/08/16 10/08/16 10/09/16 15:00 23:00 07:00 Intake Total 360 ml 240 ml 440 ml Output Total 0 ml Balance 360 ml 240 ml 440 ml Intake Oral 360 ml 240 ml 240 ml IV Total 200 ml Output Urine Total 0 ml # Voids 2 2 # Bowel Movements 0 Laboratory Tests Test 10/07/16 10/08/16 15:30 11:39 White Blood Count 16.5 TH/MM3 15.6 TH/MM3 Red Blood Count 3.20 MIL/MM3 2.97 MIL/MM3 Hemoglobin 8.9 GM/DL 8.4 GM/DL Hematocrit 27.4 % 25.7 % Mean Corpuscular Volume 85.7 FL 86.6 FL Mean Corpuscular Hemoglobin 27.9 PG 28.1 PG Mean Corpuscular Hemoglobin 32.5 % 32.5 % Concent Red Cell Distribution Width 15.0 % 14.8 % Platelet Count 64 TH/MM3 74 TH/MM3 Mean Platelet Volume 9.1 FL 8.8 FL Laboratory Tests Test 10/08/16 11:39 Sodium Level 135 MEQ/L Potassium Level 3.2 MEQ/L Chloride Level 106 MEQ/L Carbon Dioxide Level 19.7 MEQ/L Anion Gap 9 MEQ/L Blood Urea Nitrogen 30 MG/DL Creatinine 1.67 MG/DL Estimat Glomerular Filtration 37 ML/MIN Rate Random Glucose 133 MG/DL Calcium Level 7.8 MG/DL Total Bilirubin 1.0 MG/DL Direct Bilirubin 0.6 MG/DL Indirect Bilirubin 0.4 MG/DL Aspartate Amino Transf 39 U/L (AST/SGOT) Alanine Aminotransferase 31 U/L (ALT/SGPT) Alkaline Phosphatase 139 U/L Total Protein 5.3 GM/DL Albumin 1.4 GM/DL Microbiology Date/Time Procedure Status Source Growth 10/06/16 22:48 Acid Fast Stain - Final Resulted Sputum Expectorated Sputum NO ACID FAST BACILLI SEEN 10/06/16 22:48 Mycobacterial Culture Resulted Sputum Expectorated Sputum Pending 10/08/16 03:15 Urine Culture - Preliminary Resulted Urine Clean Catch Gram Negative Jose Date/Time Procedure Status Source Growth 10/03/16 17:25 Aerobic Blood Culture - Final Complete Blood Peripheral Staphylococcus Aureus 10/03/16 17:25 Anaerobic Blood Culture - Final Complete Staphylococcus Aureus 10/03/16 17:30 Aerobic Blood Culture - Final Complete Blood Peripheral Staphylococcus Aureus 10/03/16 17:30 Anaerobic Blood Culture - Final Complete Staphylococcus Aureus 10/03/16 20:49 Legionella Antigen - Final Complete Urine Catheterized Urine PRESUMPTIVE NEGATIVE FOR LEGIONELLA P... 10/03/16 20:49 Streptococcus pneumoniae Antigen (M - Final Complete Urine Catheterized Urine PRESUMPTIVE NEGATIVE FOR STREPTOCOCCU... 10/06/16 05:25 Aerobic Blood Culture Received Blood Peripheral Pending 10/06/16 05:25 Anaerobic Blood Culture Received Blood Peripheral Pending 10/06/16 05:30 Aerobic Blood Culture Resulted Blood Peripheral Pending 10/06/16 05:30 Anaerobic Blood Culture - Final Resulted Blood Peripheral QNS - SEE AEROBE REPORT IMAGING: Chest X-Ray 10/08/16 0000 Signed Impressions: Service Date/Time: October 08:54 - CONCLUSION: There continues to be scattered nonspecific bilateral infiltrates as demonstrated on patient's prior studies. The infiltrates appear to be increased compared to the prior chest x-ray of 10/03/2016. Dequan Ortiz MD Lower Extremity Ultrasound 10/04/16 0000 Signed Impressions: Service Date/Time: Tuesday, October 04, 2016 09:13 - CONCLUSION: Normal examination. Mark Tavares MD Liver Ultrasound 10/04/16 0000 Signed Impressions: Service Date/Time: Tuesday, October 04, 2016 08:59 - CONCLUSION: 1. Hepatosplenomegaly and increased echotexture of the portal triads with a starry night appearance which can be seen with hepatitis. 2. The gallbladder is abnormal with a lobular soft tissue mass present within the gallbladder demonstrating blood flow on color Doppler imaging. Mark Tavares MD Head CT 10/04/16 0000 Signed Impressions: Service Date/Time: Tuesday, October 04, 2016 08:39 - CONCLUSION: Normal examination. Mark Tavares MD Abdomen/Pelvis CT 10/03/161956 Signed Impressions: Service Date/Time: Monday, October 03, 2016 21:31 - CONCLUSION: Nonspecific splenomegaly. John Brand MD Chest CT 10/03/16 0000 Signed Impressions: Service Date/Time: Monday, October 03, 2016 21:31 - CONCLUSION: Numerous focal irregular masses throughout the lungs with some cavitation. This appearance is concerning for septic emboli. John Brand MD PHYSICAL EXAMINATION GENERAL: No acute distress. HEENT: Head is atraumatic. Extraocular movements grossly intact. Pupils reactive to light. Sclera has icterus. No conjunctival erythema. Oropharynx with moist mucosa, no visible lesions. NECK: Supple. No palpable adenopathy. LUNGS: Slight rhonchi at both bases. HEART: Regular rate and rhythm without murmurs, rubs or gallops. ABDOMEN: Bowel sounds present, soft, nontender. EXTREMITIES: No clubbing, cyanosis or edema. Multiple excoriated erythematous punctate lesions scattered over the arms and legs without clear purulence suggesting emboli. No splinter hemorrhages. SKIN: No diffuse rash. NEUROLOGIC: No gross focal findings. PSYCHIATRIC: Calm and cooperative. IMPRESSION 1. Bacteremia due to staph aureus. MSSA. 2. Tricuspid valve endocarditis. 3. Septic pulmonary emboli. 4. IV drug abuse. 5. Acute kidney disease. improved. 6. Thrombocytopenia. 7. Abnormal liver function tests. RECOMMENDATIONS 1. Continue oxacillin intravenous. 2. Add Levaquin. 3. Monitor white blood cell count. 3. Monitor clinical status. 4. Follow repeat blood cultures. Kaleb Fields MD Oct 09, 2016 13:44
[2016-10-09] MEDS ORDERED: LEVOFLOXACIN 500 MG TAB PO SCH (13:45)
[2016-10-09 16:00] VITALS: BP 130/82; PULSE 106; RESP 28; TEMP 98.6; O2SAT 96
[2016-10-09 16:52] LABS: HEMATOCRIT 23.8 % (35.0-46.0); MEAN CELL VOLUME 86.3 FL (80.0-100.0); MEAN CORPUSCULAR HEMOGLOBIN 27.9 PG (27.0-34.0); MEAN CORPUSCULAR HGB CONC 32.3 % (32.0-36.0); PLATELET COUNT 96 TH/MM3 (150-450); RED BLOOD COUNT 2.76 MIL/MM3 (4.00-5.30); RED CELL DISTRIBUTION WIDTH 14.9 % (11.6-17.2); WHITE BLOOD COUNT 12.2 TH/MM3 (4.0-11.0)
[2016-10-09 16:59] LABS: REVIEW FLAG FINAL
[2016-10-09 17:15] LABS: BICARBONATE 18.2 MEQ/L (21.0-32.0); INDIRECT BILIRUBIN 0.8 MG/DL (0.0-0.8); TOTAL BILIRUBIN ADULT 0.9 MG/DL (0.2-1.0)
[2016-10-09 18:06] LABS: POTASSIUM 4.7 MEQ/L (3.5-5.1)
[2016-10-09 20:00] VITALS: BP 123/80; PULSE 106; RESP 20; TEMP 99.1; O2SAT 98
[2016-10-09] MEDS: CHLORHEXIDINE GLUCONATE 2 % 1 PACK (2 CLOTHS) TOP SCH (20:14)
[2016-10-09] MEDS ORDERED: IBUPROFEN 400 MG TAB PO ONE (23:15)
[2016-10-10] VITALS: BP 118/73; PULSE 107; RESP 20; TEMP 100.2; O2SAT 96
[2016-10-10] MEDS: OXACILLIN INJ 2 GM in SODIUM CHLORIDE 0.9% INJ 100 ML IV SCH ×4 (01:50→21:58)
[2016-10-10 04:00] VITALS: TEMP 97.8
[2016-10-10 08:00] VITALS: BP 147/82; PULSE 89; RESP 26; TEMP 96.7; O2SAT 97
[2016-10-10] MEDS: DOCUSATE SODIUM 50 MG/SENNA 8.6 MG TAB PO SCH ×2 (09:00→21:00)
--- NOTE | 2016-10-10 10:02 | HHI.PR ---
Subjective Remarks Patient reports she is feeling okay. States she is having problems sleeping at night but is able to sleep throughout the day. She is eating and drinking well. Pain is "manageable" Objective Vitals Vital Signs Date Time Temp Pulse Resp B/P Pulse Ox O2 Delivery O2 Flow Rate FiO2 10/10/16 08:00 96.7 89 26 147/82 97 10/10/16 04:00 97.8 10/10/16 00:00 100.2 107 20 118/73 96 10/09/16 20:00 99.1 106 20 123/80 98 10/09/16 16:00 98.6 106 28 130/82 96 10/09/16 12:00 98.8 102 37 124/75 96 I/O 10/09/16 10/09/16 10/09/16 10/10/16 10/10/16 10/10/16 07:00 15:00 23:00 07:00 15:00 23:00 Intake Total 440 ml 1060 ml 360 ml 510 ml Output Total 0 ml Balance 440 ml 1060 ml 360 ml 510 ml Intake Oral 240 ml 960 ml 360 ml 310 ml IV Total 200 ml 100 ml 200 ml Output Urine Total 0 ml # Voids 3 2 2 Result Diagram: 10/09/16 1627 10/09/16 1627 Objective Remarks GENERAL: Patient complained of generalized pain. SKIN: Multiple dried punctate lesions all over the skin. Some track gregory noted as well. CARDIOVASCULAR: Normal rate and regular rhythm without murmurs, gallops, or rubs. RESPIRATORY: Poor respiratory efforts. Breath sounds equal and clear to auscultation bilaterally. GASTROINTESTINAL: Abdomen soft, non-distended. Normal active bowel sounds. MUSCULOSKELETAL: Extremities without cyanosis, or edema. NEURO: Alert & Oriented x4 to person, place, time, situation. Moves all ext x4 PSYCH: Appropriate mood and affect. Date of Insertion: Oct 03, 2016 A/P Assessment and Plan 28-year-old female initially admitted with septic shock and multiorgan failure. Patient is bacteremic with suspected endocarditis. Status post ICU course and Levophed drip. Clinical status improved and she was downgraded to the floor Suspected endocarditis Staph bacteremia 4/4 bottles. Urine legionella and pneumococcal antigen were negative. 10/03 blood cultures: 4/4 MSSA, sensitive to oxacillin -LIVIA confirmed tricuspid valve vegetation -- Infectious disease following, antibiotics adjusted. Currently on oxacillin. Levaquin added on 10/09/16 -- Repeat blood cultures pending. Pain secondary to severe myalgias Polysubstance abuse (THC, Heroin, methamphetamine) Continue tramadol as needed Respiratory insufficiency Multiple bilateral small cavitary lung lesions consistent septic pulmonary emboli Tobacco abuse Hemoptysis Nasal cannula wean as tolerated OOB PT consult Hemoptysis likely related to septic pulmonary emboli. Sputum cultures sent. Continue droplet precautions. Hyperbilirubinemia and elevated transaminases Splenomegaly Hepatitis C (new diagnosis) Hyperbilirubinemia and transaminase elevation may be secondary to sepsis. CT abd/pelvis - no liver lesions, no biliary obstruction, no gallstones. + splenomegaly Patient has a 2.5 x 2.5 cm mass within the gallbladder on ultrasound and the gallbladder wall is thickened. General surgery was consulted with eyes outpatient follow-up once bacteremia/endocarditis is treated. Discussed new diagnosis of hepatitis C at length with the patient. She is advised to follow-up outpatient. Patient provided verbal consent for HIV testing which was negative. LFTs are improving. Continue to follow SAIRA -Secondary to sepsis. Renal functions have been fluctuating. Continue to monitor. Multiple skin lesions. Patient reports exposed to bed bugs while cleaning someone house which she says resulted in bites. No signs of an infectious process on exam. PROPH:hold on pharmacologic DVT prophylaxis as patient is high risk for hemorrhage with multiple septic pulmonary emboli. SCDs bilaterally. Protonix 40 g by mouth daily for stress ulcer prophylaxis. Mika Robbins MD Oct 10, 2016 10:02
[2016-10-10] MEDS: PANTOPRAZOLE SOD 40 MG DELAYED RELEASE TAB PO SCH (11:04)
[2016-10-10] MEDS: SODIUM CHLORIDE 0.9% FLUSH 10 ML FLUSH IV FLUSH SCH ×2 (11:05→21:57)
[2016-10-10] MEDS: traMADol HCL 50 MG TAB PO PRN ×2 (11:05→17:23)
[2016-10-10 12:00] VITALS: BP 133/76; PULSE 100; RESP 40; TEMP 99.5; O2SAT 99
[2016-10-10 13:05] LABS: AUTOMATED NEUTROPHIL # 10.8 TH/MM3 (1.8-7.7); BASOPHIL % 0.3 % (0.0-2.0); EOSINOPHIL # 0.1 TH/MM3 (0-0.4); EOSINOPHIL % 0.7 % (0.0-4.0); HEMATOCRIT 24.2 % (35.0-46.0); HEMO FLAGS DIFF FINAL; LYMPH % 6.4 % (9.0-44.0); LYMPHOCYTE # 0.8 TH/MM3 (1.0-4.8); MEAN CELL VOLUME 85.7 FL (80.0-100.0); MEAN CORPUSCULAR HEMOGLOBIN 28.2 PG (27.0-34.0); MEAN CORPUSCULAR HGB CONC 32.9 % (32.0-36.0); MONO % 4.2 % (0.0-8.0); NEUT % 88.4 % (16.0-70.0); PLATELET COUNT 131 TH/MM3 (150-450); RED BLOOD COUNT 2.82 MIL/MM3 (4.00-5.30); RED CELL DISTRIBUTION WIDTH 14.8 % (11.6-17.2); WHITE BLOOD COUNT 12.3 TH/MM3 (4.0-11.0)
[2016-10-10 13:35] LABS: BICARBONATE 17.4 MEQ/L (21.0-32.0); POTASSIUM 4.8 MEQ/L (3.5-5.1)
[2016-10-10 16:00] VITALS: BP 120/71; PULSE 100; RESP 26; TEMP 98.7; O2SAT 100
[2016-10-10 20:00] VITALS: BP 107/65; PULSE 106; RESP 24; TEMP 99.7; O2SAT 98
[2016-10-10] MEDS: CHLORHEXIDINE GLUCONATE 2 % 1 PACK (2 CLOTHS) TOP SCH (21:57)
[2016-10-11] VITALS: BP 112/55; PULSE 118; RESP 24; TEMP 100.8; O2SAT 95
[2016-10-11] MEDS: traMADol HCL 50 MG TAB PO PRN ×4 (00:08→22:07)
[2016-10-11] MEDS ORDERED: IBUPROFEN 400 MG TAB PO ONE (00:15)
[2016-10-11] MEDS: SODIUM CHLORIDE 0.9% FLUSH 10 ML FLUSH IV FLUSH PRN (03:29)
[2016-10-11] MEDS: OXACILLIN INJ 2 GM in SODIUM CHLORIDE 0.9% INJ 100 ML IV SCH ×4 (03:29→22:06)
[2016-10-11 04:00] VITALS: BP 117/73; PULSE 97; RESP 22; TEMP 97.3; O2SAT 98
[2016-10-11 04:16] LABS: HEMATOCRIT 22.4 % (35.0-46.0); MEAN CELL VOLUME 85.1 FL (80.0-100.0); MEAN CORPUSCULAR HEMOGLOBIN 29.2 PG (27.0-34.0); MEAN CORPUSCULAR HGB CONC 34.3 % (32.0-36.0); PLATELET COUNT 168 TH/MM3 (150-450); RED BLOOD COUNT 2.63 MIL/MM3 (4.00-5.30); RED CELL DISTRIBUTION WIDTH 14.7 % (11.6-17.2); WHITE BLOOD COUNT 12.1 TH/MM3 (4.0-11.0)
[2016-10-11 04:19] LABS: REVIEW FLAG FINAL
[2016-10-11 04:20] LABS: BICARBONATE 19.4 MEQ/L (21.0-32.0); POTASSIUM 4.1 MEQ/L (3.5-5.1)
[2016-10-11 08:00] VITALS: BP 125/74; PULSE 84; RESP 18; TEMP 96.8; O2SAT 98
[2016-10-11] MEDS: DOCUSATE SODIUM 50 MG/SENNA 8.6 MG TAB PO SCH ×2 (08:33→21:00)
[2016-10-11] MEDS: SODIUM CHLORIDE 0.9% FLUSH 10 ML FLUSH IV FLUSH SCH ×2 (08:34→22:06)
[2016-10-11] MEDS: PANTOPRAZOLE SOD 40 MG DELAYED RELEASE TAB PO SCH (08:34)
--- NOTE | 2016-10-11 09:46 | HHI.PR ---
Subjective Remarks Patient complains of persistent generalized pain. She reports fevers and shaking chills overnight. Maximum temperature 100.8. No shortness of breath. Objective Vitals Vital Signs Date Time Temp Pulse Resp B/P Pulse Ox O2 Delivery O2 Flow Rate FiO2 10/11/16 08:00 96.8 84 18 125/74 98 10/11/16 04:00 97.3 97 22 117/73 98 10/11/16 00:00 100.8 118 24 112/55 95 10/10/16 20:00 99.7 106 24 107/65 98 10/10/16 16:00 98.7 100 26 120/71 100 10/10/16 12:00 99.5 100 40 133/76 99 I/O 10/10/16 10/10/16 10/10/16 10/11/16 10/11/16 10/11/16 07:00 15:00 23:00 07:00 15:00 23:00 Intake Total 510 ml 720 ml 240 ml 480 ml Balance 510 ml 720 ml 240 ml 480 ml Intake Oral 310 ml 720 ml 240 ml 480 ml IV Total 200 ml # Voids 2 5 2 3 # Bowel Movements 0 0 Result Diagram: 10/11/16 0240 10/11/16 0240 Objective Remarks GENERAL: Patient complained of generalized pain. SKIN: Multiple dried punctate lesions all over the skin. Some track gregory noted as well. CARDIOVASCULAR: Normal rate and regular rhythm without murmurs, gallops, or rubs. RESPIRATORY: Poor respiratory efforts. Breath sounds equal and clear to auscultation bilaterally. GASTROINTESTINAL: Abdomen soft, non-distended. Normal active bowel sounds. MUSCULOSKELETAL: Extremities without cyanosis, or edema. NEURO: Alert & Oriented x4 to person, place, time, situation. Moves all ext x4 PSYCH: Appropriate mood and affect. Date of Insertion: Oct 03, 2016 A/P Assessment and Plan 28-year-old female initially admitted with septic shock and multiorgan failure. Patient is bacteremic with suspected endocarditis. Status post ICU course and Levophed drip. Clinical status improved and she was downgraded to the floor Suspected endocarditis Staph bacteremia 4/4 bottles. Urine legionella and pneumococcal antigen were negative. 10/03 blood cultures: 4/4 MSSA, sensitive to oxacillin -LIVIA confirmed tricuspid valve vegetation -- Infectious disease following, antibiotics adjusted. Currently on oxacillin. Levaquin added on 10/09/16 but discontinued. -- Repeat blood cultures pending. Pain secondary to severe myalgias Polysubstance abuse (THC, Heroin, methamphetamine) Continue tramadol as needed Respiratory insufficiency Multiple bilateral small cavitary lung lesions consistent septic pulmonary emboli Tobacco abuse Hemoptysis Nasal cannula wean as tolerated OOB PT consult Hemoptysis likely related to septic pulmonary emboli. Sputum cultures sent. Continue droplet precautions. Hyperbilirubinemia and elevated transaminases Splenomegaly Hepatitis C (new diagnosis) Hyperbilirubinemia and transaminase elevation may be secondary to sepsis. CT abd/pelvis - no liver lesions, no biliary obstruction, no gallstones. + splenomegaly Patient has a 2.5 x 2.5 cm mass within the gallbladder on ultrasound and the gallbladder wall is thickened. General surgery was consulted with eyes outpatient follow-up once bacteremia/endocarditis is treated. Discussed new diagnosis of hepatitis C at length with the patient. She is advised to follow-up outpatient. Patient provided verbal consent for HIV testing which was negative. LFTs are improving. Continue to follow Anemia -Multifactorial, reported hemoptysis, sepsis, endocarditis, hypersplenism, polysubstance abuse. - H&H stable. Would transfuse for hemoglobin less than 8. SAIRA -Secondary to sepsis. Renal functions have been fluctuating. Slightly worse today. Restart IV fluid. Continue to monitor. Multiple skin lesions. Patient reports exposed to bed bugs while cleaning someone house which she says resulted in bites. No signs of an infectious process on exam. PROPH:hold on pharmacologic DVT prophylaxis as patient is high risk for hemorrhage with multiple septic pulmonary emboli. SCDs bilaterally. Mika Robbins MD Oct 11, 2016 09:45
[2016-10-11 12:00] VITALS: BP 111/65; PULSE 105; RESP 19; TEMP 99.7; O2SAT 98
[2016-10-11] MEDS: POTASSIUM CHLORIDE INJ 10 MEQ in SODIUM CHLOR 0.9% 1000 ML INJ 1,000 ML IV SCH ×2 (14:07→21:03)
[2016-10-11 16:00] VITALS: BP 118/74; PULSE 106; RESP 18; TEMP 98.8; O2SAT 99
[2016-10-11 20:00] VITALS: BP 124/71; PULSE 105; RESP 26; TEMP 99.8; O2SAT 99
[2016-10-11] MEDS: CHLORHEXIDINE GLUCONATE 2 % 1 PACK (2 CLOTHS) TOP SCH (22:07)
[2016-10-12] VITALS: BP 114/67; PULSE 106; RESP 26; TEMP 100.6; O2SAT 98
[2016-10-12 04:00] VITALS: BP 107/67; PULSE 99; RESP 24; TEMP 99.2; O2SAT 97
[2016-10-12] MEDS: OXACILLIN INJ 2 GM in SODIUM CHLORIDE 0.9% INJ 100 ML IV SCH ×4 (04:01→19:51)
[2016-10-12] MEDS: traMADol HCL 50 MG TAB PO PRN ×2 (04:01→10:16)
[2016-10-12] MEDS: SODIUM CHLORIDE 0.9% FLUSH 10 ML FLUSH IV FLUSH PRN (04:01)
[2016-10-12] MEDS: POTASSIUM CHLORIDE INJ 10 MEQ in SODIUM CHLOR 0.9% 1000 ML INJ 1,000 ML IV SCH (07:06)
[2016-10-12 08:00] VITALS: BP_SYST 117; BP_SYST 136; BP_DIAS 61; BP_DIAS 72; PULSE 101; PULSE 74; RESP 16; RESP 24; TEMP 96.2; TEMP 99.9; O2SAT 93; O2SAT 96
[2016-10-12] MEDS: SODIUM CHLORIDE 0.9% FLUSH 10 ML FLUSH IV FLUSH SCH ×2 (08:11→19:51)
[2016-10-12] MEDS: DOCUSATE SODIUM 50 MG/SENNA 8.6 MG TAB PO SCH ×2 (08:12→19:51)
--- NOTE | 2016-10-12 11:18 | HHI.PR ---
Subjective Remarks The patient said she had chronic back pain and the pain medication was not working. She said she was starting to eat a little bit better. She said she felt antibiotics were working. She said she is drinking plenty of fluids and urinating frequently. Discussed with nursing. Objective Vitals Vital Signs Date Time Temp Pulse Resp B/P Pulse Ox O2 Delivery O2 Flow Rate FiO2 10/12/16 08:00 99.9 101 24 117/72 96 10/12/16 04:00 99.2 99 24 107/67 97 10/12/16 00:00 100.6 106 26 114/67 98 10/11/16 20:00 99.8 105 26 124/71 99 10/11/16 16:00 98.8 106 18 118/74 99 10/11/16 12:00 99.7 105 19 111/65 98 I/O 10/11/16 10/11/16 10/11/16 10/12/16 10/12/16 10/12/16 07:00 15:00 23:00 07:00 15:00 23:00 Intake Total 480 ml 1300 ml 320 ml 480 ml Balance 480 ml 1300 ml 320 ml 480 ml Intake Oral 480 ml 1300 ml 320 ml 480 ml # Voids 3 7 2 4 # Bowel Movements 0 0 1 0 Result Diagram: 10/11/16 0240 10/11/16 0240 Imaging Last Impressions Chest X-Ray 10/08/16 0000 Signed Impressions: Service Date/Time: October 08:54 - CONCLUSION: There continues to be scattered nonspecific bilateral infiltrates as demonstrated on patient's prior studies. The infiltrates appear to be increased compared to the prior chest x-ray of 10/03/2016. Dequan Ortiz MD Lower Extremity Ultrasound 10/04/16 0000 Signed Impressions: Service Date/Time: Tuesday, October 04, 2016 09:13 - CONCLUSION: Normal examination. Mark Tavares MD Liver Ultrasound 10/04/16 0000 Signed Impressions: Service Date/Time: Tuesday, October 04, 2016 08:59 - CONCLUSION: 1. Hepatosplenomegaly and increased echotexture of the portal triads with a starry night appearance which can be seen with hepatitis. 2. The gallbladder is abnormal with a lobular soft tissue mass present within the gallbladder demonstrating blood flow on color Doppler imaging. Mark Tavares MD Head CT 10/04/16 0000 Signed Impressions: Service Date/Time: Tuesday, October 04, 2016 08:39 - CONCLUSION: Normal examination. Mark Tavares MD Abdomen/Pelvis CT 10/03/161956 Signed Impressions: Service Date/Time: Monday, October 03, 2016 21:31 - CONCLUSION: Nonspecific splenomegaly. John Brand MD Chest CT 10/03/16 0000 Signed Impressions: Service Date/Time: Monday, October 03, 2016 21:31 - CONCLUSION: Numerous focal irregular masses throughout the lungs with some cavitation. This appearance is concerning for septic emboli. John Brand MD Objective Remarks GENERAL: Resting comfortably. SKIN: Multiple dried punctate lesions all over the skin. Some track gregory noted as well. CARDIOVASCULAR: Tachycardic without murmurs, gallops, or rubs. RESPIRATORY: Scattered rhonchi noted. GASTROINTESTINAL: Abdomen soft, non-distended. Normal active bowel sounds. MUSCULOSKELETAL: Extremities without cyanosis, or edema. NEURO: Alert & Oriented x4 to person, place, time, situation. Moves all ext x4. PSYCH: Appropriate mood and affect. Medications and IVs Current Medications Medications (Trade) Dose Ordered Sig/Shun Route Start Time Stop Time Status Last Admin (NS Flush) 2 ml UNSCH PRN IV FLUSH 10/04/16 03:15 10/12/16 04:01 (NS Flush) 2 ml BID IV FLUSH 10/04/16 09:00 10/12/16 08:11 (Zofran Inj) 4 mg Q6H PRN IV 10/04/16 03:15 Miscellaneous Information 1 Q361D XX 10/04/16 03:15 (Chlorhexidine 2% Cloth) Taper DAILY@04 TOP 10/04/16 04:00 09/30/17 03:59 10/05/16 04:00 (Chlorhexidine 2% Cloth) 3 pack UNSCH PRN TOP 10/04/16 03:15 (Judy-Colace) 1 tab BID PO 10/04/16 09:00 10/12/16 08:12 (Milk Of Magnesia Liq) 30 ml Q12H PRN PO 10/04/16 03:15 (Senokot) 17.2 mg Q12H PRN PO 10/04/16 03:15 (Dulcolax Supp) 10 mg DAILY PRN RECTAL 10/04/16 03:15 Lactulose 30 ml 30 ml DAILY PRN PO 10/04/16 03:15 (Prostaphlin Inj/ NS Inj) 100 ml @ 200 mls/hr Q6H IV 10/05/16 15:00 10/12/16 08:11 (Morphine Inj) 2 mg Q4HR PRN IV PUSH 10/06/16 10:30 Tramadol HCl 50 mg 50 mg Q6HR PRN PO 10/08/16 12:00 10/12/16 10:16 (KCl Inj/NS 1000 ml Inj) 1,005 ml @ 100 mls/hr Q10H3M IV 10/11/16 11:00 10/11/16 14:07 Date of Insertion: Oct 03, 2016 A/P Assessment and Plan 28-year-old female initially admitted with septic shock and multiorgan failure. Patient is bacteremic with suspected endocarditis. Status post ICU course and Levophed drip. Clinical status improved and she was downgraded to the floor Endocarditis Staph bacteremia 4/ bottles. Urine legionella and pneumococcal antigen were negative. 10/03 blood cultures: / MSSA, sensitive to oxacillin. LIVIA confirmed tricuspid valve vegetation. - Infectious disease following, antibiotics adjusted. Currently on oxacillin. Levaquin added on 10/09/16 but discontinued. - Repeat blood cultures NGTD. Pain control The pt has a history of polysubstance abuse (THC, Heroin, methamphetamine). - low dose oxycodone and morphine as needed. Respiratory insufficiency Multiple bilateral small cavitary lung lesions consistent with septic pulmonary emboli. Has had hemoptysis. - Nasal cannula, wean as tolerated. - OOB, IS. - PT consult. - Sputum cultures sent. - Continue droplet precautions. Hyperbilirubinemia and elevated transaminases Found to have hepatitis C (new diagnosis). Hyperbilirubinemia and transaminase elevation may be secondary to sepsis. CT abd/pelvis - no liver lesions, no biliary obstruction, no gallstones. +splenomegaly. Patient has a 2.5 x 2.5 cm mass within the gallbladder on ultrasound and the gallbladder wall is thickened. General surgery was consulted who recommends outpatient follow-up once bacteremia/endocarditis is treated. - Discussed new diagnosis of hepatitis C at length with the patient. She is advised to follow-up outpatient. - Patient provided verbal consent for HIV testing which was negative. - trend LFTs. Anemia Multifactorial, reported hemoptysis, sepsis, endocarditis, hypersplenism, polysubstance abuse. - H&H being monitored. Would transfuse for hemoglobin less than 8. Repeat CBC pending. SAIRA Secondary to sepsis. Renal functions have been fluctuating. - Restarted IVFs. - check renal US, urine Na and Cr, UA. - nephrology consult if no improvement. Multiple skin lesions Patient reports exposed to bed bugs while cleaning someone's house which she says resulted in bites. No signs of an infectious process on exam. - monitor. PPx: Hold on pharmacologic DVT prophylaxis as patient is high risk for hemorrhage with multiple septic pulmonary emboli; SCDs bilaterally Discharge Planning Awaiting clinical improvement Juan Miguel Valdez DO Oct 12, 2016 11:18
[2016-10-12] MEDS ORDERED: traMADol HCL 50 MG TAB PO PRN ×2 (11:30→14:00)
[2016-10-12 12:00] VITALS: BP 108/69; PULSE 88; RESP 20; TEMP 98.6; O2SAT 98
[2016-10-12] MEDS: SODIUM CHLOR 0.9% 1000 ML INJ 1,000 ML IV SCH ×2 (12:26→19:52)
--- NOTE | 2016-10-12 12:43 | RADRPT ---
EXAM DATE/TIME: 10/12/2016 11:45 [facility] COMPARISON: CT ABDOMEN & PELVIS W/O CONTRAST, October 03, 2016, 21:31. CT THORAX W/O CONTRAST, October 03, 2016, 21:31 . INDICATIONS : Increased Bun and Creatinine. MEDICAL HISTORY : Sputum production. Abdominal pain. Nausea/vomiting. Substance use. SURGICAL HISTORY : Right leg surgery. Hand surgery. ENCOUNTER: Subsequent ACUITY: 1 day PAIN SCORE: 0/10 LOCATION: Bilateral flank MEASUREMENTS: RIGHT KIDNEY: 15.3 x 7.6 x 6.4 cm LEFT KIDNEY: 16.9 x 6.4 x 7.6 cm FINDINGS: RIGHT KIDNEY: Diffuse mild increase in renal cortical echogenicity without evidence of mass, stone or hydronephrosi s. LEFT KIDNEY: Diffuse mild increase in renal cortical echogenicity without evidence of mass, stone or hydronephrosi s. . BLADDER: Within normal limits given the degree of distension. CONCLUSION: Mildly echogenic kidneys. No hydronephrosis John Guzman MD on October 12, 2016 at 12:39 Board Certified Radiologist. This report was verified electronically.
[2016-10-12 13:59] LABS: BACTERIA, URINE RARE /hpf; COMMENT (UR) CULTURE INDICATED; CULTURE IF INDICATED CULTURE INDICATED; SQUAMOUS EPITHELIAL CELL URINE 2 /hpf (0-5)
[2016-10-12 14:00] LABS: URINE COLOR LIGHT-YELLOW (YELLW/STRAW)
[2016-10-12 14:01] LABS: BLOOD, URINE TRACE (NEG); GLUCOSE,URINE 70 mg/dL (NEG); KETONE, URINE NEG (NEG); NITRITE,URINE NEG (NEG)
--- NOTE | 2016-10-12 15:04 | HHI.IDPN ---
Note Infectious Disease Note Patient feels a little better. Says she has diffuse aches and pains and FIELDS. Had pain in the back and at the left chest after laughing while I was in the room. No longer coughing up blood. Still has low grade fever. LIVIA: TV vegetation. 28-year-old white female who recently used IV heroin. She has a history of IV drug use. The patient presented to the emergency department on 10/03/2016 with body aches, headache, fever, abdominal pain, nausea, vomiting and diarrhea. PAST MEDICAL HISTORY 1. IV drug use in the form of heroin. 2. History of left ankle ORIF. 3. History of right hand tendon repair in the third digit. ALLERGIES 1. ASPIRIN. 2. HYDROCODONE. 3. NICKEL. ANTIBIOTICS: 1. Oxacillin. OBJECTIVE: Vital Signs Date Time Temp Pulse Resp B/P Pulse Ox O2 Delivery O2 Flow Rate FiO2 10/12/16 12:00 98.6 88 20 108/69 98 10/12/16 08:00 99.9 101 24 117/72 96 10/12/16 04:00 99.2 99 24 107/67 97 10/12/16 00:00 100.6 106 26 114/67 98 10/11/16 20:00 99.8 105 26 124/71 99 10/11/16 16:00 98.8 106 18 118/74 99 10/11/16 10/11/16 10/12/16 15:00 23:00 07:00 Intake Total 1300 ml 320 ml 480 ml Balance 1300 ml 320 ml 480 ml Intake Oral 1300 ml 320 ml 480 ml # Voids 7 2 4 # Bowel Movements 0 1 0 Laboratory Tests Test 10/11/16 02:40 White Blood Count 12.1 TH/MM3 Red Blood Count 2.63 MIL/MM3 Hemoglobin 7.7 GM/DL Hematocrit 22.4 % Mean Corpuscular Volume 85.1 FL Mean Corpuscular Hemoglobin 29.2 PG Mean Corpuscular Hemoglobin 34.3 % Concent Red Cell Distribution Width 14.7 % Platelet Count 168 TH/MM3 Mean Platelet Volume 8.0 FL Laboratory Tests Test 10/11/16 02:40 Sodium Level 133 MEQ/L Potassium Level 4.1 MEQ/L Chloride Level 103 MEQ/L Carbon Dioxide Level 19.4 MEQ/L Anion Gap 11 MEQ/L Blood Urea Nitrogen 33 MG/DL Creatinine 1.93 MG/DL Estimat Glomerular Filtration 31 ML/MIN Rate Random Glucose 92 MG/DL Calcium Level 8.1 MG/DL Microbiology Date/Time Procedure Status Source Growth 10/09/16 16:27 Aerobic Blood Culture - Preliminary Resulted Blood Peripheral NO GROWTH IN 3 DAYS 10/09/16 16:27 Anaerobic Blood Culture - Preliminary Resulted Blood Peripheral NO GROWTH IN 3 DAYS 10/09/16 16:35 Aerobic Blood Culture - Preliminary Resulted Blood Peripheral NO GROWTH IN 3 DAYS 10/09/16 16:35 Anaerobic Blood Culture - Final Resulted Blood Peripheral QNS - SEE AEROBE REPORT 10/12/16 13:00 Urine Culture Received Urine Clean Catch Pending Date/Time Procedure Status Source Growth 10/03/16 17:25 Aerobic Blood Culture - Final Complete Blood Peripheral Staphylococcus Aureus 10/03/16 17:25 Anaerobic Blood Culture - Final Complete Staphylococcus Aureus 10/03/16 17:30 Aerobic Blood Culture - Final Complete Blood Peripheral Staphylococcus Aureus 10/03/16 17:30 Anaerobic Blood Culture - Final Complete Staphylococcus Aureus 10/03/16 20:49 Legionella Antigen - Final Complete Urine Catheterized Urine PRESUMPTIVE NEGATIVE FOR LEGIONELLA P... 10/03/16 20:49 Streptococcus pneumoniae Antigen (M - Final Complete Urine Catheterized Urine PRESUMPTIVE NEGATIVE FOR STREPTOCOCCU... 10/06/16 05:25 Aerobic Blood Culture Received Blood Peripheral Pending 10/06/16 05:25 Anaerobic Blood Culture Received Blood Peripheral Pending 10/06/16 05:30 Aerobic Blood Culture Resulted Blood Peripheral Pending 10/06/16 05:30 Anaerobic Blood Culture - Final Resulted Blood Peripheral QNS - SEE AEROBE REPORT IMAGING: Renal Ultrasound 10/12/16 0000 Signed Impressions: Service Date/Time: Wednesday, October 12, 2016 11:45 - CONCLUSION: Mildly echogenic kidneys. No hydronephrosis John Guzman MD Chest X-Ray 10/08/16 0000 Signed Impressions: Service Date/Time: October 08:54 - CONCLUSION: There continues to be scattered nonspecific bilateral infiltrates as demonstrated on patient's prior studies. The infiltrates appear to be increased compared to the prior chest x-ray of 10/03/2016. Dequan Ortiz MD Lower Extremity Ultrasound 10/04/16 0000 Signed Impressions: Service Date/Time: Tuesday, October 04, 2016 09:13 - CONCLUSION: Normal examination. Mark Tavares MD Liver Ultrasound 10/04/16 Signed Impressions: Service Date/Time: Tuesday, October 04, 2016 08:59 - CONCLUSION: 1. Hepatosplenomegaly and increased echotexture of the portal triads with a starry night appearance which can be seen with hepatitis. 2. The gallbladder is abnormal with a lobular soft tissue mass present within the gallbladder demonstrating blood flow on color Doppler imaging. Mark Tavares MD Head CT 10/04/16 Signed Impressions: Service Date/Time: Tuesday, October 04, 2016 08:39 - CONCLUSION: Normal examination. Mark Tavares MD Abdomen/Pelvis CT 10/03/161956 Signed Impressions: Service Date/Time: Monday, October 03, 2016 21:31 - CONCLUSION: Nonspecific splenomegaly. John Brand MD Chest CT 10/03/16 Signed Impressions: Service Date/Time: Monday, October 03, 2016 21:31 - CONCLUSION: Numerous focal irregular masses throughout the lungs with some cavitation. This appearance is concerning for septic emboli. John Brand MD PHYSICAL EXAMINATION GENERAL: No acute distress. HEENT: (+) Sclera icterus. No conjunctival erythema. Oropharynx: moist mucosa, no visible lesions. NECK: Supple. No palpable adenopathy. LUNGS: Rhonchi at both bases. HEART: Regular rate and rhythm without murmurs, rubs or gallops. ABDOMEN: Bowel sounds present, soft, nontender. EXTREMITIES: No clubbing, cyanosis or edema. Multiple excoriated erythematous punctate lesions scattered over the arms and legs without clear purulence suggesting emboli. No splinter hemorrhages. SKIN: No diffuse rash. NEUROLOGIC: No gross focal findings. PSYCHIATRIC: Calm and cooperative. IMPRESSION 1. Bacteremia due to staph aureus. MSSA. 2. Tricuspid valve endocarditis. 3. Septic pulmonary emboli. 4. IV drug abuse. 5. Acute kidney disease. 6. Thrombocytopenia. Platelet count improving. 7. Abnormal liver function tests. 8. Bacteruria. e. coli. RECOMMENDATIONS 1. Continue oxacillin intravenous. 2. Stop Levaquin. Monitor repeat urine culture. 3. Monitor white blood cell count. 3. Monitor clinical status. 4. Follow blood cultures. Needs IV antibiotics x 6 weeks. Kaleb Fields MD Oct 12, 2016 15:04
[2016-10-12 16:00] VITALS: BP 127/78; PULSE 105; RESP 20; TEMP 101.9; O2SAT 99
--- NOTE | 2016-10-12 17:29 | RADRPT ---
EXAM DATE/TIME: 10/12/2016 17:15 [facility] COMPARISON: CHEST PA & LAT, October 08, 2016, 8:54. INDICATIONS : Short of breath. MEDICAL HISTORY : None. SURGICAL HISTORY : None. ENCOUNTER: Subsequent ACUITY: 1 week PAIN SCORE: 0/10 LOCATION: Bilateral chest FINDINGS: There has been slight improvement in the appearance of the chest with decrease in confluence of patch y bilateral infiltrate. No new areas of infiltrate are identified. No effusion present. Cardiac conto urs are grossly stable. CONCLUSION: Improving chest appearance John Guzman MD on October 12, 2016 at 17:27 Board Certified Radiologist. This report was verified electronically.
[2016-10-12 20:00] VITALS: BP 103/60; PULSE 211; RESP 21; TEMP 99.6; O2SAT 97
[2016-10-12 22:09] LABS: MEAN CELL VOLUME 85.5 FL (80.0-100.0); MEAN CORPUSCULAR HEMOGLOBIN 28.6 PG (27.0-34.0); MEAN CORPUSCULAR HGB CONC 33.4 % (32.0-36.0); PLATELET COUNT 243 TH/MM3 (150-450); RED BLOOD COUNT 2.44 MIL/MM3 (4.00-5.30); RED CELL DISTRIBUTION WIDTH 14.7 % (11.6-17.2); WHITE BLOOD COUNT 10.3 TH/MM3 (4.0-11.0)
[2016-10-12 22:12] LABS: REVIEW FLAG FINAL
[2016-10-12 22:15] LABS: HEMATOCRIT 20.9 % (35.0-46.0)
[2016-10-12 22:33] LABS: INDIRECT BILIRUBIN 0.3 MG/DL (0.0-0.8); TOTAL BILIRUBIN ADULT 0.8 MG/DL (0.2-1.0)
[2016-10-13] VITALS: BP 107/65; PULSE 101; RESP 20; TEMP 98.1; O2SAT 100
[2016-10-13] MEDS: OXACILLIN INJ 2 GM in SODIUM CHLORIDE 0.9% INJ 100 ML IV SCH ×4 (03:02→20:09)
[2016-10-13] MEDS: MORPHINE SULFATE 4 MG/ML INJ IV PUSH PRN ×5 (03:04→20:03)
[2016-10-13 04:00] VITALS: BP 131/80; PULSE 103; RESP 20; TEMP 99.7; O2SAT 98
[2016-10-13] MEDS: CHLORHEXIDINE GLUCONATE 2 % 1 PACK (2 CLOTHS) TOP SCH (04:00)
[2016-10-13 05:41] LABS: BICARBONATE 21.7 MEQ/L (21.0-32.0); MAGNESIUM 1.4 MG/DL (1.5-2.5)
[2016-10-13 05:49] LABS: HEMATOCRIT 22.2 % (35.0-46.0); MEAN CELL VOLUME 83.9 FL (80.0-100.0); MEAN CORPUSCULAR HEMOGLOBIN 28.6 PG (27.0-34.0); MEAN CORPUSCULAR HGB CONC 34.1 % (32.0-36.0); PLATELET COUNT 320 TH/MM3 (150-450); RED BLOOD COUNT 2.65 MIL/MM3 (4.00-5.30); RED CELL DISTRIBUTION WIDTH 14.7 % (11.6-17.2); REVIEW FLAG FINAL; WHITE BLOOD COUNT 11.2 TH/MM3 (4.0-11.0)
[2016-10-13 08:00] VITALS: BP 119/70; PULSE 102; RESP 19; TEMP 99.8; O2SAT 99
[2016-10-13] MEDS: DOCUSATE SODIUM 50 MG/SENNA 8.6 MG TAB PO SCH ×2 (09:32→20:08)
[2016-10-13] MEDS: MAGNESIUM SULFATE 1 GM PREMIX 100 ML IV SCH ×2 (09:32→12:10)
[2016-10-13] MEDS: SODIUM CHLORIDE 0.9% FLUSH 10 ML FLUSH IV FLUSH SCH ×2 (09:33→20:07)
[2016-10-13 10:30] LABS: INDIRECT BILIRUBIN 0.3 MG/DL (0.0-0.8); TOTAL BILIRUBIN ADULT 0.7 MG/DL (0.2-1.0)
[2016-10-13 11:53] LABS: BICARBONATE 17.5 MEQ/L (21.0-32.0); POTASSIUM 3.7 MEQ/L (3.5-5.1)
[2016-10-13 12:00] VITALS: BP 111/57; PULSE 99; RESP 19; TEMP 98.9; O2SAT 99
--- NOTE | 2016-10-13 15:59 | HHI.PR ---
Subjective Remarks The patient says that her pain is much better today she has been ambulating a lot more. She has been doing more activities than she normally can do because her pain control is better. She would like IV fluids discontinued. She insists she drinks plenty of fluids. She did mention she coughed up a little bit of blood earlier this morning but it was a scant amount. Objective Vitals Vital Signs Date Time Temp Pulse Resp B/P Pulse Ox O2 Delivery O2 Flow Rate FiO2 10/13/16 12:00 98.9 99 19 111/57 99 10/13/16 08:00 99.8 102 19 119/70 99 10/13/16 04:00 99.7 103 20 131/80 98 10/13/16 00:00 98.1 101 20 107/65 100 10/12/16 20:00 99.6 211 21 103/60 97 10/12/16 16:00 101.9 105 20 127/78 99 I/O 10/12/16 10/12/16 10/12/16 10/13/16 10/13/16 10/13/16 06:59 14:59 22:59 06:59 14:59 22:59 Intake Total 480 ml 905 ml 590 ml 459 ml 2880 ml Balance 480 ml 905 ml 590 ml 459 ml 2880 ml Intake Oral 480 ml 600 ml 240 ml 240 ml 2880 ml IV Total 305 ml 350 ml 219 ml # Voids 4 3 6 2 7 # Bowel Movements 0 0 Result Diagram: 10/13/16 0504 10/13/16 0504 Imaging Last Impressions Renal Ultrasound 10/12/16 0000 Signed Impressions: Service Date/Time: Wednesday, October 12, 2016 11:45 - CONCLUSION: Mildly echogenic kidneys. No hydronephrosis John Guzman MD Chest X-Ray 10/12/16 0000 Signed Impressions: Service Date/Time: Wednesday, October 12, 2016 17:15 - CONCLUSION: Improving chest appearance John Guzman MD Lower Extremity Ultrasound 10/04/16 0000 Signed Impressions: Service Date/Time: Tuesday, October 04, 2016 09:13 - CONCLUSION: Normal examination. Mark Tavares MD Liver Ultrasound 10/04/16 0000 Signed Impressions: Service Date/Time: Tuesday, October 04, 2016 08:59 - CONCLUSION: 1. Hepatosplenomegaly and increased echotexture of the portal triads with a starry night appearance which can be seen with hepatitis. 2. The gallbladder is abnormal with a lobular soft tissue mass present within the gallbladder demonstrating blood flow on color Doppler imaging. Mark Tavares MD Head CT 10/04/16 0000 Signed Impressions: Service Date/Time: Tuesday, October 04, 2016 08:39 - CONCLUSION: Normal examination. Mark Tavares MD Abdomen/Pelvis CT 10/03/161956 Signed Impressions: Service Date/Time: Monday, October 03, 2016 21:31 - CONCLUSION: Nonspecific splenomegaly. John Brand MD Chest CT 10/03/16 0000 Signed Impressions: Service Date/Time: Monday, October 03, 2016 21:31 - CONCLUSION: Numerous focal irregular masses throughout the lungs with some cavitation. This appearance is concerning for septic emboli. John Brand MD Objective Remarks GENERAL: Resting comfortably. SKIN: Multiple dried punctate lesions all over the skin. Some track gregory noted as well. CARDIOVASCULAR: Tachycardic without murmurs, gallops, or rubs. RESPIRATORY: Scattered rhonchi noted. GASTROINTESTINAL: Abdomen soft, non-distended. Normal active bowel sounds. MUSCULOSKELETAL: Extremities without cyanosis, or edema. NEURO: Alert & Oriented x4 to person, place, time, situation. Moves all ext x4. PSYCH: Appropriate mood and affect. Medications and IVs Current Medications Medications (Trade) Dose Ordered Sig/Shun Route Start Time Stop Time Status Last Admin (NS Flush) 2 ml UNSCH PRN IV FLUSH 10/04/16 03:15 10/12/16 04:01 (NS Flush) 2 ml BID IV FLUSH 10/04/16 09:00 10/13/16 09:33 (Zofran Inj) 4 mg Q6H PRN IV 10/04/16 03:15 Miscellaneous Information 1 Q361D XX 10/04/16 03:15 (Chlorhexidine 2% Cloth) Taper DAILY@04 TOP 10/04/16 04:00 09/30/17 03:59 10/05/16 04:00 (Chlorhexidine 2% Cloth) 3 pack UNSCH PRN TOP 10/04/16 03:15 (Judy-Colace) 1 tab BID PO 10/04/16 09:00 10/13/16 09:32 (Milk Of Travis Garcia) 30 ml Q12H PRN PO 10/04/16 03:15 (Senokot) 17.2 mg Q12H PRN PO 10/04/16 03:15 (Dulcolax Supp) 10 mg DAILY PRN RECTAL 10/04/16 03:15 Lactulose 30 ml 30 ml DAILY PRN PO 10/04/16 03:15 (Prostaphlin Inj/ NS Inj) 100 ml @ 200 mls/hr Q6H IV 10/05/16 15:00 10/13/16 13:56 Morphine Sulfate 2 mg 2 mg Q4HR PRN IV PUSH 10/06/16 10:30 10/13/16 12:09 (NS 1000 ml Inj) 1,000 ml @ 100 mls/hr Q10H IV 10/12/16 12:00 10/12/16 19:52 (Roxicodone) 5 mg Q4H PRN PO 10/12/16 11:45 10/13/16 13:56 Date of Insertion: Oct 03, 2016 A/P Assessment and Plan 28-year-old female initially admitted with septic shock and multiorgan failure. Patient is bacteremic with suspected endocarditis. Status post ICU course and Levophed drip. Clinical status improved and she was downgraded to the floor Endocarditis Staph bacteremia 4/4 bottles. Urine legionella and pneumococcal antigen were negative. 10/03 blood cultures: 4/4 MSSA, sensitive to oxacillin. LIVIA confirmed tricuspid valve vegetation. - Infectious disease following, antibiotics adjusted. Currently on oxacillin. Levaquin added on 10/09/16 but discontinued. - Repeat blood cultures NGTD. Pain control The pt has a history of polysubstance abuse (THC, Heroin, methamphetamine). - low dose oxycodone and morphine as needed. Respiratory insufficiency Multiple bilateral small cavitary lung lesions consistent with septic pulmonary emboli. Has had hemoptysis. Sputum cultures negative. - Nasal cannula, wean as tolerated. - OOB, IS. - PT consult. Hyperbilirubinemia and elevated transaminases Found to have hepatitis C (new diagnosis). Hyperbilirubinemia and transaminase elevation may be secondary to sepsis. CT abd/pelvis - no liver lesions, no biliary obstruction, no gallstones. +splenomegaly. Patient has a 2.5 x 2.5 cm mass within the gallbladder on ultrasound and the gallbladder wall is thickened. General surgery was consulted who recommends outpatient follow-up once bacteremia/endocarditis is treated. - Discussed new diagnosis of hepatitis C at length with the patient. She is advised to follow-up outpatient. - Patient provided verbal consent for HIV testing which was negative. - trend LFTs. Anemia Multifactorial, reported hemoptysis, sepsis, endocarditis, hypersplenism, polysubstance abuse. - H&H being monitored. Would transfuse for hemoglobin less than 7. SAIRA Secondary to sepsis. Renal functions have been fluctuating. FENa calculated at 7.7%, indicating a post-renal etiology. US of kidneys unremarkable. Improving. - place Brock if does not continue to improve. - nephrology consult if no improvement. Multiple skin lesions Patient reports exposed to bed bugs while cleaning someone's house which she says resulted in bites. No signs of an infectious process on exam. - monitor. PPx: Hold on pharmacologic DVT prophylaxis as patient is high risk for hemorrhage with multiple septic pulmonary emboli; SCDs bilaterally Discharge Planning Awaiting clinical improvement Juan Miguel Valdez DO Oct 13, 2016 15:59
[2016-10-13 16:00] VITALS: BP 112/70; PULSE 106; RESP 17; TEMP 99.9; O2SAT 100
[2016-10-13 20:00] VITALS: BP 114/65; PULSE 106; RESP 20; TEMP 99.1; O2SAT 100
[2016-10-14] VITALS: BP 114/65; PULSE 101; RESP 21; TEMP 98.4; O2SAT 100
[2016-10-14] MEDS: MORPHINE SULFATE 4 MG/ML INJ IV PUSH PRN ×5 (00:53→18:45)
[2016-10-14] MEDS: OXACILLIN INJ 2 GM in SODIUM CHLORIDE 0.9% INJ 100 ML IV SCH ×4 (03:55→20:16)
[2016-10-14] MEDS: CHLORHEXIDINE GLUCONATE 2 % 1 PACK (2 CLOTHS) TOP SCH (04:00)
[2016-10-14 08:00] VITALS: BP 97/52; PULSE 97; RESP 18; TEMP 99; O2SAT 99
[2016-10-14] MEDS: DOCUSATE SODIUM 50 MG/SENNA 8.6 MG TAB PO SCH ×2 (08:25→20:02)
[2016-10-14] MEDS: SODIUM CHLORIDE 0.9% FLUSH 10 ML FLUSH IV FLUSH SCH ×2 (08:25→20:16)
[2016-10-14 12:00] VITALS: BP 97/55; PULSE 93; RESP 18; TEMP 96.9; O2SAT 100
[2016-10-14 14:01] LABS: HEMATOCRIT 27.5 % (35.0-46.0); MEAN CELL VOLUME 86.5 FL (80.0-100.0); MEAN CORPUSCULAR HEMOGLOBIN 28.6 PG (27.0-34.0); PLATELET COUNT 465 TH/MM3 (150-450); RED BLOOD COUNT 3.18 MIL/MM3 (4.00-5.30); RED CELL DISTRIBUTION WIDTH 14.8 % (11.6-17.2); WHITE BLOOD COUNT 10.1 TH/MM3 (4.0-11.0)
[2016-10-14 14:05] LABS: REVIEW FLAG FINAL
[2016-10-14 14:19] LABS: BICARBONATE 18.8 MEQ/L (21.0-32.0); INDIRECT BILIRUBIN 0.3 MG/DL (0.0-0.8); MAGNESIUM 1.5 MG/DL (1.5-2.5); POTASSIUM 4.2 MEQ/L (3.5-5.1); TOTAL BILIRUBIN ADULT 0.8 MG/DL (0.2-1.0)
--- NOTE | 2016-10-14 15:14 | HHI.PR ---
Subjective Remarks The patient reports feeling tired after working with physical therapy. She also mentions that she has chronic low back pain and symptoms has shooting pain down her left leg. She is wondering if she'll need surgery in the future. Discussed with nursing. Objective Vitals Vital Signs Date Time Temp Pulse Resp B/P Pulse Ox O2 Delivery O2 Flow Rate FiO2 10/14/16 12:00 96.9 93 18 97/55 100 10/14/16 08:00 99.0 97 18 97/52 99 10/14/16 00:00 98.4 101 21 114/65 100 10/13/16 20:00 99.1 106 20 114/65 100 10/13/16 16:00 99.9 106 17 112/70 100 I/O 10/13/16 10/13/16 10/13/16 10/14/16 10/14/16 10/14/16 07:00 15:00 23:00 07:00 15:00 23:00 Intake Total 459 ml 2880 ml 1060 ml 340 ml 1700 ml Balance 459 ml 2880 ml 1060 ml 340 ml 1700 ml Intake Oral 240 ml 2880 ml 960 ml 240 ml 1700 ml IV Total 219 ml 100 ml 100 ml # Voids 2 7 5 2 10 # Bowel Movements 0 2 Result Diagram: 10/14/16 1257 10/14/16 1257 Imaging Last Impressions Renal Ultrasound 10/12/16 0000 Signed Impressions: Service Date/Time: Wednesday, October 12, 2016 11:45 - CONCLUSION: Mildly echogenic kidneys. No hydronephrosis John Guzman MD Chest X-Ray 10/12/16 0000 Signed Impressions: Service Date/Time: Wednesday, October 12, 2016 17:15 - CONCLUSION: Improving chest appearance John Guzman MD Lower Extremity Ultrasound 10/04/16 0000 Signed Impressions: Service Date/Time: Tuesday, October 04, 2016 09:13 - CONCLUSION: Normal examination. Mark Tavares MD Liver Ultrasound 10/04/16 0000 Signed Impressions: Service Date/Time: Tuesday, October 04, 2016 08:59 - CONCLUSION: 1. Hepatosplenomegaly and increased echotexture of the portal triads with a starry night appearance which can be seen with hepatitis. 2. The gallbladder is abnormal with a lobular soft tissue mass present within the gallbladder demonstrating blood flow on color Doppler imaging. Mark Tavares MD Head CT 10/04/16 0000 Signed Impressions: Service Date/Time: Tuesday, October 04, 2016 08:39 - CONCLUSION: Normal examination. Mark Tavares MD Abdomen/Pelvis CT 10/03/161956 Signed Impressions: Service Date/Time: Monday, October 03, 2016 21:31 - CONCLUSION: Nonspecific splenomegaly. John Brand MD Chest CT 10/03/16 0000 Signed Impressions: Service Date/Time: Monday, October 03, 2016 21:31 - CONCLUSION: Numerous focal irregular masses throughout the lungs with some cavitation. This appearance is concerning for septic emboli. John Brand MD Objective Remarks GENERAL: Resting comfortably. SKIN: Multiple dried punctate lesions all over the skin. Some track gregory noted as well. CARDIOVASCULAR: Tachycardic without murmurs, gallops, or rubs. RESPIRATORY: Scattered rhonchi noted. GASTROINTESTINAL: Abdomen soft, non-distended. Normal active bowel sounds. MUSCULOSKELETAL: Extremities without cyanosis, or edema. NEURO: Alert & Oriented x4 to person, place, time, situation. + SLR on the left. PSYCH: Appropriate mood and affect. Medications and IVs Current Medications Medications (Trade) Dose Ordered Sig/Shun Route Start Time Stop Time Status Last Admin (NS Flush) 2 ml UNSCH PRN IV FLUSH 10/04/16 03:15 10/12/16 04:01 (NS Flush) 2 ml BID IV FLUSH 10/04/16 09:00 10/14/16 08:25 (Zofran Inj) 4 mg Q6H PRN IV 10/04/16 03:15 Miscellaneous Information 1 Q361D XX 10/04/16 03:15 (Chlorhexidine 2% Cloth) Taper DAILY@04 TOP 10/04/16 04:00 09/30/17 03:59 10/05/16 04:00 (Chlorhexidine 2% Cloth) 3 pack UNSCH PRN TOP 10/04/16 03:15 (Judy-Colace) 1 tab BID PO 10/04/16 09:00 10/13/16 09:32 (Milk Of Magnesia Liq) 30 ml Q12H PRN PO 10/04/16 03:15 (Senokot) 17.2 mg Q12H PRN PO 10/04/16 03:15 (Dulcolax Supp) 10 mg DAILY PRN RECTAL 10/04/16 03:15 Lactulose 30 ml 30 ml DAILY PRN PO 10/04/16 03:15 (Prostaphlin Inj/ NS Inj) 100 ml @ 200 mls/hr Q6H IV 10/05/16 15:00 10/14/16 08:25 (Morphine Inj) 2 mg Q4HR PRN IV PUSH 10/06/16 10:30 10/14/16 14:08 (Roxicodone) 5 mg Q4H PRN PO 10/12/16 11:45 10/14/16 12:46 Date of Insertion: Oct 03, 2016 A/P Assessment and Plan 28-year-old female initially admitted with septic shock and multiorgan failure. Patient is bacteremic with suspected endocarditis. Status post ICU course and Levophed drip. Clinical status improved and she was downgraded to the floor Endocarditis Staph bacteremia 4/4 bottles. Urine legionella and pneumococcal antigen were negative. 10/03 blood cultures: 4/4 MSSA, sensitive to oxacillin. LIVIA confirmed tricuspid valve vegetation. - Infectious disease following, antibiotics adjusted. Currently on oxacillin. Levaquin added on 10/09/16 but discontinued. - Repeat blood cultures NGTD. Pain control The pt has a history of polysubstance abuse (THC, Heroin, methamphetamine). - low dose oxycodone and morphine as needed. Respiratory insufficiency Multiple bilateral small cavitary lung lesions consistent with septic pulmonary emboli. Has had hemoptysis. Sputum cultures negative. - Nasal cannula, wean as tolerated. - OOB, IS. - PT consult. Hyperbilirubinemia and elevated transaminases Found to have hepatitis C (new diagnosis). Hyperbilirubinemia and transaminase elevation may be secondary to sepsis. CT abd/pelvis - no liver lesions, no biliary obstruction, no gallstones. +splenomegaly. Patient has a 2.5 x 2.5 cm mass within the gallbladder on ultrasound and the gallbladder wall is thickened. General surgery was consulted who recommends outpatient follow-up once bacteremia/endocarditis is treated. - Discussed new diagnosis of hepatitis C at length with the patient. She is advised to follow-up outpatient. - Patient provided verbal consent for HIV testing which was negative. - trend LFTs. Anemia Multifactorial, reported hemoptysis, sepsis, endocarditis, hypersplenism, polysubstance abuse. - H&H being monitored. Would transfuse for hemoglobin less than 7. Improved. SAIRA Secondary to sepsis. Renal functions have been fluctuating. FENa calculated at 7.7%, indicating a post-renal etiology. US of kidneys unremarkable. Improving. - monitor and avoid nephrotoxic agents. Multiple skin lesions Patient reports exposed to bed bugs while cleaning someone's house which she says resulted in bites. No signs of an infectious process on exam. - monitor. Low back pain Chronic. + SLR on the left. - PT. - outpt follow-up. May need an MRI. PPx: Hold on pharmacologic DVT prophylaxis as patient is high risk for hemorrhage with multiple septic pulmonary emboli; SCDs bilaterally Discharge Planning Awaiting clinical improvement Juan Miguel Valdez DO Oct 14, 2016 15:14
[2016-10-14 16:00] VITALS: BP 111/64; PULSE 107; RESP 18; TEMP 99.1; O2SAT 100
[2016-10-14 20:00] VITALS: BP 109/61; PULSE 90; RESP 24; TEMP 98.8; O2SAT 100
[2016-10-15] VITALS: BP 100/57; PULSE 85; RESP 20; TEMP 98.1; O2SAT 98
[2016-10-15] MEDS: MORPHINE SULFATE 4 MG/ML INJ IV PUSH PRN ×3 (01:53→14:06)
[2016-10-15] MEDS: OXACILLIN INJ 2 GM in SODIUM CHLORIDE 0.9% INJ 100 ML IV SCH ×3 (03:16→14:06)
[2016-10-15] MEDS: CHLORHEXIDINE GLUCONATE 2 % 1 PACK (2 CLOTHS) TOP SCH (03:16)
[2016-10-15] MEDS: SODIUM CHLORIDE 0.9% FLUSH 10 ML FLUSH IV FLUSH SCH (07:55)
[2016-10-15 08:00] VITALS: BP 101/57; PULSE 93; RESP 18; TEMP 98.2; O2SAT 97
[2016-10-15] MEDS: DOCUSATE SODIUM 50 MG/SENNA 8.6 MG TAB PO SCH (09:00)
[2016-10-15 09:01] LABS: ANION GAP 9 MEQ/L (5-15); AST (GOT) 208 U/L (15-37); BICARBONATE 20.5 MEQ/L (21.0-32.0); BLOOD UREA NITROGEN 25 MG/DL (7-18); CHLORIDE 102 MEQ/L (98-107); GLOMERULAR FILTRATION RATE 65 ML/MIN (>89); POTASSIUM 4.3 MEQ/L (3.5-5.1); SODIUM (NA) 131 MEQ/L (136-145)
[2016-10-15 09:02] LABS: ALT (GPT) 203 U/L (10-53)
[2016-10-15 09:04] LABS: ALKALINE PHOSPHATASE 132 U/L (45-117); TOTAL BILIRUBIN ADULT 0.8 MG/DL (0.2-1.0)
--- NOTE | 2016-10-15 11:25 | HHI.PR ---
Subjective Remarks The patient continues to feel better. She continues to complain of low back pain which is chronic. She has been ambulatory. Discussed with nursing. Objective Vitals Vital Signs Date Time Temp Pulse Resp B/P Pulse Ox O2 Delivery O2 Flow Rate FiO2 10/15/16 08:00 98.2 93 18 101/57 97 10/15/16 01:58 18 10/15/16 00:00 98.1 85 20 100/57 98 10/14/16 23:04 18 10/14/16 20:00 98.8 90 24 109/61 100 10/14/16 16:00 99.1 107 18 111/64 100 10/14/16 12:00 96.9 93 18 97/55 100 I/O 10/14/16 10/14/16 10/14/16 10/15/16 10/15/16 10/15/16 07:00 15:00 23:00 07:00 15:00 23:00 Intake Total 340 ml 1700 ml 480 ml 240 ml Balance 340 ml 1700 ml 480 ml 240 ml Intake Oral 240 ml 1700 ml 480 ml 240 ml IV Total 100 ml # Voids 2 10 2 3 # Bowel Movements 2 0 0 Result Diagram: 10/14/16 1257 10/15/16 0809 Imaging Last Impressions Renal Ultrasound 10/12/16 0000 Signed Impressions: Service Date/Time: Wednesday, October 12, 2016 11:45 - CONCLUSION: Mildly echogenic kidneys. No hydronephrosis John Guzman MD Chest X-Ray 10/12/16 0000 Signed Impressions: Service Date/Time: Wednesday, October 12, 2016 17:15 - CONCLUSION: Improving chest appearance John Guzman MD Lower Extremity Ultrasound 10/04/16 0000 Signed Impressions: Service Date/Time: Tuesday, October 04, 2016 09:13 - CONCLUSION: Normal examination. Mark Tavares MD Liver Ultrasound 10/04/16 0000 Signed Impressions: Service Date/Time: Tuesday, October 04, 2016 08:59 - CONCLUSION: 1. Hepatosplenomegaly and increased echotexture of the portal triads with a starry night appearance which can be seen with hepatitis. 2. The gallbladder is abnormal with a lobular soft tissue mass present within the gallbladder demonstrating blood flow on color Doppler imaging. Mark Tavares MD Head CT 10/04/16 0000 Signed Impressions: Service Date/Time: Tuesday, October 04, 2016 08:39 - CONCLUSION: Normal examination. Mark Tavares MD Abdomen/Pelvis CT 10/03/161956 Signed Impressions: Service Date/Time: Monday, October 03, 2016 21:31 - CONCLUSION: Nonspecific splenomegaly. John Brand MD Chest CT 10/03/16 0000 Signed Impressions: Service Date/Time: Monday, October 03, 2016 21:31 - CONCLUSION: Numerous focal irregular masses throughout the lungs with some cavitation. This appearance is concerning for septic emboli. John Brand MD Objective Remarks GENERAL: Resting comfortably. SKIN: Multiple dried punctate lesions all over the skin. Some track gregory noted as well. CARDIOVASCULAR: Tachycardic without murmurs, gallops, or rubs. RESPIRATORY: Scattered rhonchi noted. GASTROINTESTINAL: Abdomen soft, non-distended. Normal active bowel sounds. MUSCULOSKELETAL: Extremities without cyanosis, or edema. NEURO: Alert & Oriented x4 to person, place, time, situation. + SLR on the left. PSYCH: Appropriate mood and affect. Medications and IVs Current Medications Medications (Trade) Dose Ordered Sig/Shun Route Start Time Stop Time Status Last Admin (NS Flush) 2 ml UNSCH PRN IV FLUSH 10/04/16 03:15 10/12/16 04:01 (NS Flush) 2 ml BID IV FLUSH 10/04/16 09:00 10/15/16 07:55 (Zofran Inj) 4 mg Q6H PRN IV 10/04/16 03:15 Miscellaneous Information 1 Q361D XX 10/04/16 03:15 (Chlorhexidine 2% Cloth) Taper DAILY@04 TOP 10/04/16 04:00 09/30/17 03:59 10/05/16 04:00 (Chlorhexidine 2% Cloth) 3 pack UNSCH PRN TOP 10/04/16 03:15 (Judy-Colace) 1 tab BID PO 10/04/16 09:00 10/13/16 09:32 (Milk Of Magnesia Liq) 30 ml Q12H PRN PO 10/04/16 03:15 (Senokot) 17.2 mg Q12H PRN PO 10/04/16 03:15 (Dulcolax Supp) 10 mg DAILY PRN RECTAL 10/04/16 03:15 Lactulose 30 ml 30 ml DAILY PRN PO 10/04/16 03:15 (Prostaphlin Inj/ NS Inj) 100 ml @ 200 mls/hr Q6H IV 10/05/16 15:00 10/15/16 07:55 (Morphine Inj) 2 mg Q4HR PRN IV PUSH 10/06/16 10:30 10/15/16 09:07 (Roxicodone) 5 mg Q4H PRN PO 10/12/16 11:45 10/15/16 07:55 Date of Insertion: Oct 03, 2016 A/P Assessment and Plan 28-year-old female initially admitted with septic shock and multiorgan failure. Patient is bacteremic with suspected endocarditis. Status post ICU course and Levophed drip. Clinical status improved and she was downgraded to the floor Endocarditis Staph bacteremia 4/ bottles. Urine legionella and pneumococcal antigen were negative. 10/03 blood cultures: / MSSA, sensitive to oxacillin. LIVIA confirmed tricuspid valve vegetation. - Infectious disease following, antibiotics adjusted. Currently on oxacillin. Levaquin added on 10/09/16 but discontinued. - Repeat blood cultures NGTD. Pain control The pt has a history of polysubstance abuse (THC, Heroin, methamphetamine). - low dose oxycodone and morphine as needed. Respiratory insufficiency Multiple bilateral small cavitary lung lesions consistent with septic pulmonary emboli. Has had hemoptysis. Sputum cultures negative. - Nasal cannula, wean as tolerated. - OOB, IS. - PT consult. Hyperbilirubinemia and elevated transaminases Found to have hepatitis C (new diagnosis). Hyperbilirubinemia and transaminase elevation may be secondary to sepsis. CT abd/pelvis - no liver lesions, no biliary obstruction, no gallstones. +splenomegaly. Patient has a 2.5 x 2.5 cm mass within the gallbladder on ultrasound and the gallbladder wall is thickened. General surgery was consulted who recommends outpatient follow-up once bacteremia/endocarditis is treated. LFTs continue to increase. - Discussed new diagnosis of hepatitis C at length with the patient. She is advised to follow-up outpatient. - Patient provided verbal consent for HIV testing which was negative. - trend LFTs. Increasing. May be exacerbated by oxacillin. Discussed with ID. Will obtain GI consult for now. Anemia Multifactorial, reported hemoptysis, sepsis, endocarditis, hypersplenism, polysubstance abuse. - H&H being monitored. Would transfuse for hemoglobin less than 7. Improved. SAIRA Secondary to sepsis. Renal functions have been fluctuating. FENa calculated at 7.7%, indicating a post-renal etiology. US of kidneys unremarkable. Improving. - monitor and avoid nephrotoxic agents. Multiple skin lesions Patient reports exposed to bed bugs while cleaning someone's house which she says resulted in bites. No signs of an infectious process on exam. - monitor. Low back pain Chronic. + SLR on the left. - PT. - outpt follow-up. May need an MRI. PPx: Hold on pharmacologic DVT prophylaxis as patient is high risk for hemorrhage with multiple septic pulmonary emboli; SCDs bilaterally Discharge Planning Awaiting clinical improvement Jaun Miguel Valdez DO Oct 15, 2016 11:25
[2016-10-15 12:00] VITALS: BP 109/65; PULSE 100; RESP 18; TEMP 99.3; O2SAT 98
--- NOTE | 2016-10-15 12:29 | HHI.IDPN ---
Note Infectious Disease Note Patient feels better. Now has pain only in the lower back. Says she has had that pain before. Not having chest pain. Coughing up phlegm. Afebrile. Good urine output. Denies chills, Denies abdominal pain. Increased liver function test. LIVIA: TV vegetation. 28-year-old white female who recently used IV heroin. She has a history of IV drug use. The patient presented to the emergency department on 10/03/2016 with body aches, headache, fever, abdominal pain, nausea, vomiting and diarrhea. PAST MEDICAL HISTORY 1. IV drug use in the form of heroin. 2. History of left ankle ORIF. 3. History of right hand tendon repair in the third digit. ALLERGIES 1. ASPIRIN. 2. HYDROCODONE. 3. NICKEL. ANTIBIOTICS: Oxacillin. Current Medications Medications (Trade) Dose Ordered Sig/Shun Route PRN Reason Start Time Stop Time Status Last Admin Dose Admin Sodium Chloride (NS Flush) 2 ml UNSCH PRN IV FLUSH FLUSH AFTER USING IV ACCESS 10/04/16 03:15 10/12/16 04:01 Sodium Chloride (NS Flush) 2 ml BID IV FLUSH 10/04/16 09:00 10/15/16 07:55 Ondansetron HCl (Zofran Inj) 4 mg Q6H PRN IV NAUSEA OR VOMITING 10/04/16 03:15 Miscellaneous Information 1 Q361D XX 10/04/16 03:15 Chlorhexidine Gluconate (Chlorhexidine 2% Cloth) Taper DAILY@04 TOP 10/04/16 04:00 09/30/17 03:59 10/05/16 04:00 Chlorhexidine Gluconate (Chlorhexidine 2% Cloth) 3 pack UNSCH PRN TOP HYGIENIC CARE 10/04/16 03:15 Senna/Docusate Sodium (Judy-Colace) 1 tab BID PO 10/04/16 09:00 10/13/16 09:32 Magnesium Hydroxide (Milk Of Magnesia Liq) 30 ml Q12H PRN PO MILD - MODERATE CONSTIPATION 10/04/16 03:15 Sennosides (Senokot) 17.2 mg Q12H PRN PO MODERATE - SEVERE CONSTIPATION 10/04/16 03:15 Bisacodyl (Dulcolax Supp) 10 mg DAILY PRN RECTAL SEVERE CONSITIPATION 10/04/16 03:15 Lactulose 30 ml 30 ml DAILY PRN PO SEVERE CONSITIPATION 10/04/16 03:15 Oxacillin Sodium/ Sodium Chloride (Prostaphlin Inj/ NS Inj) 100 ml @ 200 mls/hr Q6H IV 10/05/16 15:00 10/15/16 07:55 Morphine Sulfate (Morphine Inj) 2 mg Q4HR PRN IV PUSH BREAKTHROUGH PAIN 10/06/16 10:30 10/15/16 09:07 Oxycodone HCl (Roxicodone) 5 mg Q4H PRN PO pain 3-10 10/12/16 11:45 10/15/16 07:55 OBJECTIVE: Vital Signs Date Time Temp Pulse Resp B/P Pulse Ox O2 Delivery O2 Flow Rate FiO2 10/15/16 12:00 99.3 100 18 109/65 98 10/15/16 08:00 98.2 93 18 101/57 97 10/15/16 01:58 18 10/15/16 00:00 98.1 85 20 100/57 98 10/14/16 23:04 18 10/14/16 20:00 98.8 90 24 109/61 100 10/14/16 16:00 99.1 107 18 111/64 100 10/14/16 10/14/16 10/15/16 15:00 23:00 07:00 Intake Total 1700 ml 480 ml 240 ml Balance 1700 ml 480 ml 240 ml Intake Oral 1700 ml 480 ml 240 ml # Voids 10 2 3 # Bowel Movements 2 0 0 Laboratory Tests Test 10/14/16 12:57 White Blood Count 10.1 TH/MM3 Red Blood Count 3.18 MIL/MM3 Hemoglobin 9.1 GM/DL Hematocrit 27.5 % Mean Corpuscular Volume 86.5 FL Mean Corpuscular Hemoglobin 28.6 PG Mean Corpuscular Hemoglobin 33.0 % Concent Red Cell Distribution Width 14.8 % Platelet Count 465 TH/MM3 Mean Platelet Volume 7.4 FL Laboratory Tests Test 10/14/16 10/15/16 12:57 08:09 Sodium Level 134 MEQ/L 131 MEQ/L Potassium Level 4.2 MEQ/L 4.3 MEQ/L Chloride Level 102 MEQ/L 102 MEQ/L Carbon Dioxide Level 18.8 MEQ/L 20.5 MEQ/L Anion Gap 13 MEQ/L 9 MEQ/L Blood Urea Nitrogen 23 MG/DL 25 MG/DL Creatinine 1.25 MG/DL 1.01 MG/DL Estimat Glomerular Filtration 51 ML/MIN 65 ML/MIN Rate Random Glucose 81 MG/DL 91 MG/DL Calcium Level 9.2 MG/DL 9.4 MG/DL Magnesium Level 1.5 MG/DL Total Bilirubin 0.8 MG/DL 0.8 MG/DL Direct Bilirubin 0.5 MG/DL Indirect Bilirubin 0.3 MG/DL Aspartate Amino Transf 189 U/L 208 U/L (AST/SGOT) Alanine Aminotransferase 185 U/L 203 U/L (ALT/SGPT) Alkaline Phosphatase 125 U/L 132 U/L Total Protein 8.7 GM/DL 8.6 GM/DL Albumin 2.4 GM/DL 2.4 GM/DL Microbiology Date/Time Procedure Status Source Growth 10/12/16 13:00 Urine Culture - Preliminary Resulted Urine Clean Catch Yeast Species 10/12/16 21:12 Aerobic Blood Culture - Preliminary Resulted Blood Peripheral NO GROWTH IN 3 DAYS 10/12/16 21:12 Anaerobic Blood Culture - Preliminary Resulted Blood Peripheral NO GROWTH IN 3 DAYS 10/12/16 21:17 Aerobic Blood Culture - Preliminary Resulted Blood Peripheral NO GROWTH IN 3 DAYS 10/12/16 21:17 Anaerobic Blood Culture - Preliminary Resulted Blood Peripheral NO GROWTH IN 3 DAYS Date/Time Procedure Status Source Growth 10/03/16 17:25 Aerobic Blood Culture - Final Complete Blood Peripheral Staphylococcus Aureus 10/03/16 17:25 Anaerobic Blood Culture - Final Complete Staphylococcus Aureus 10/03/16 17:30 Aerobic Blood Culture - Final Complete Blood Peripheral Staphylococcus Aureus 10/03/16 17:30 Anaerobic Blood Culture - Final Complete Staphylococcus Aureus 10/03/16 20:49 Legionella Antigen - Final Complete Urine Catheterized Urine PRESUMPTIVE NEGATIVE FOR LEGIONELLA P... 10/03/16 20:49 Streptococcus pneumoniae Antigen (M - Final Complete Urine Catheterized Urine PRESUMPTIVE NEGATIVE FOR STREPTOCOCCU... 10/06/16 05:25 Aerobic Blood Culture Received Blood Peripheral Pending 10/06/16 05:25 Anaerobic Blood Culture Received Blood Peripheral Pending 10/06/16 05:30 Aerobic Blood Culture Resulted Blood Peripheral Pending 10/06/16 05:30 Anaerobic Blood Culture - Final Resulted Blood Peripheral QNS - SEE AEROBE REPORT IMAGING: Renal Ultrasound 10/12/16 0000 Signed Impressions: Service Date/Time: Wednesday, October 12, 2016 11:45 - CONCLUSION: Mildly echogenic kidneys. No hydronephrosis John Guzman MD Chest X-Ray 10/08/16 Signed Impressions: Service Date/Time: October 08:54 - CONCLUSION: There continues to be scattered nonspecific bilateral infiltrates as demonstrated on patient's prior studies. The infiltrates appear to be increased compared to the prior chest x-ray of 10/03/2016. Dequan Ortiz MD Lower Extremity Ultrasound 10/04/16 Signed Impressions: Service Date/Time: Tuesday, October 04, 2016 09:13 - CONCLUSION: Normal examination. Mark Tavares MD Liver Ultrasound 10/04/16 Signed Impressions: Service Date/Time: Tuesday, October 04, 2016 08:59 - CONCLUSION: 1. Hepatosplenomegaly and increased echotexture of the portal triads with a starry night appearance which can be seen with hepatitis. 2. The gallbladder is abnormal with a lobular soft tissue mass present within the gallbladder demonstrating blood flow on color Doppler imaging. Mark Tavares MD Head CT 10/04/16 Signed Impressions: Service Date/Time: Tuesday, October 04, 2016 08:39 - CONCLUSION: Normal examination. Mark Tavares MD Abdomen/Pelvis CT 10/03/161956 Signed Impressions: Service Date/Time: Monday, October 03, 2016 21:31 - CONCLUSION: Nonspecific splenomegaly. John Brand MD Chest CT 10/03/16 Signed Impressions: Service Date/Time: Monday, October 03, 2016 21:31 - CONCLUSION: Numerous focal irregular masses throughout the lungs with some cavitation. This appearance is concerning for septic emboli. John Brand MD PHYSICAL EXAMINATION GENERAL: No acute distress. HEENT: No Sclera icterus. No conjunctival erythema. Oropharynx: moist mucosa, no visible lesions. NECK: Supple. No palpable adenopathy. LUNGS: Breath sounds clear. HEART: Regular rate and rhythm without murmurs, rubs or gallops. ABDOMEN: Bowel sounds present, soft, nontender. EXTREMITIES: No clubbing, cyanosis or edema. Multiple excoriated erythematous punctate lesions scattered over the arms and legs appearance of emboli. SKIN: No diffuse rash. NEUROLOGIC: Non focal. PSYCHIATRIC: Calm and cooperative. IMPRESSION 1. Bacteremia due to staph aureus. MSSA. 2. Tricuspid valve endocarditis. MSSA. 3. Septic pulmonary emboli. 4. IV drug abuse. 5. Acute kidney disease. Improving. 6. Thrombocytopenia. Platelet count improved. 7. Abnormal liver function tests. Increasing. ? etiology.? hepatitis. ? Drug. Was on Levaquin but only for 1 day. 8. Bacteruria. e. coli. asymptomatic. Now with candiduria - asymptomatic. RECOMMENDATIONS 1. Change oxacillin to Ancef. ? associated with elevated LFT's. uncertain. 2. Monitor liver function. 3. Monitor white blood cell count. 4. Do not treat candiduria. 5. Monitor clinical status. 6. Follow blood cultures. Negative day 3. Needs IV antibiotics x 6 weeks given septic pulmonary emboli. Kaleb Fields MD Oct 15, 2016 12:29
[2016-10-15 16:00] VITALS: BP 105/56; PULSE 101; RESP 18; TEMP 98.7; O2SAT 99
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
--- NOTE | 2016-10-16 10:06 | PD.AMA ---
Against Medical Advice Note Diagnosis: (1) IV drug abuse (2) Transaminitis (3) Endocarditis Discharge Disposition: Against Medical Advice Pt Condition on Discharge: Stable Recommended Treatment Course The pt left the hospital without informing anybody. She needed IV antibiotics for her infection and was having her hepatitis worked up. AMA Statement Patient Deanna Dunne has decided to leave the hospital against medical advice. This patient has the capacity to refuse care and understands the risks of leaving, including permanent disability and/or , and has had an opportunity to ask questions about her condition. The patient has been informed that she may return for care at any time, and follow up has been arranged/ advised. Juan Miguel Valdez DO Oct 16, 2016 10:06
--- NOTE | 2016-10-16 10:12 | HHI.DS ---
Discharge Summary Admission Date Oct 03, 2016 at 20:12 Discharge Date: Oct 15, 2016 Admitting Diagnosis septic shock. Acute kidney injury. Transaminitis. Thrombocytopeni (1) IV drug abuse ICD Code: F19.10 (2) Transaminitis ICD Code: R74.0 (3) Endocarditis ICD Code: I38 Diagnosis: Principal Procedures None Brief History - From Admission 28 yo WF with PMH of IVDU (Heroin, methamphetamines) who presents to [facility] in septic shock after 6 days of illness. She states it started off with a headache and nausea on 09/26, then vomiting on 09/27 with multiple episodes nonbloody nonbilious emesis daily since then. She has had diarrhea for the last 2 days. She has had diffuse myalgias and generalized cramping abdominal pain. She has had subjective fevers throughout this time but says she did not check her temperature. No neck stiffnesss. She has h/o heroin and methamphetamine abuse and states she was clean for 2 1/2 years until she "slipped" and used heroin a few times in the last 2-3 months. She states she infiltrated while injecting in her right leg about 4 weeks ago and she developed area of redness in her upper calf. She started taking some bactrim that she had at home and it got better about a week ago. When she arrived to ED she had BP 84/48 and was tachycardic in the 140s. She received 2 L normal saline bolus. Right IJ central venous line was placed by Dr. Schmidt and she was started on a levophed drip. She was administered vancomycin and Zosyn after obtaining blood cultures. She has elevated LFTs and is in SARIA with creatinine of 3.6. Lactic acid is 4.1. INR 1.2 CBC/BMP: 10/14/16 1257 10/15/16 0809 Significant Findings Laboratory Tests Test 10/14/16 10/15/16 12:57 08:09 Red Blood Count 3.18 MIL/MM3 (4.00-5.30) Hemoglobin 9.1 GM/DL (11.6-15.3) Hematocrit 27.5 % (35.0-46.0) Platelet Count 465 TH/MM3 (150-450) Sodium Level 134 MEQ/L 131 MEQ/L (136-145) (136-145) Carbon Dioxide Level 18.8 MEQ/L 20.5 MEQ/L (21.0-32.0) (21.0-32.0) Blood Urea Nitrogen 23 MG/DL (7-18) 25 MG/DL (7-18) Creatinine 1.25 MG/DL 1.01 MG/DL (0.50-1.00) (0.50-1.00) Estimat Glomerular Filtration 51 ML/MIN (>89) 65 ML/MIN (>89) Rate Direct Bilirubin 0.5 MG/DL (0.0-0.2) Aspartate Amino Transf 189 U/L (15-37) 208 U/L (15-37) (AST/SGOT) Alanine Aminotransferase 185 U/L (10-53) 203 U/L (10-53) (ALT/SGPT) Alkaline Phosphatase 125 U/L 132 U/L (45-117) (45-117) Total Protein 8.7 GM/DL 8.6 GM/DL (6.4-8.2) (6.4-8.2) Albumin 2.4 GM/DL 2.4 GM/DL (3.4-5.0) (3.4-5.0) Imaging Last Impressions Renal Ultrasound 10/12/16 Signed Impressions: Service Date/Time: Wednesday, October 12, 2016 11:45 - CONCLUSION: Mildly echogenic kidneys. No hydronephrosis John Guzman MD Chest X-Ray 10/12/16 Signed Impressions: Service Date/Time: Wednesday, October 12, 2016 17:15 - CONCLUSION: Improving chest appearance John Guzman MD Lower Extremity Ultrasound 10/04/16 Signed Impressions: Service Date/Time: Tuesday, October 04, 2016 09:13 - CONCLUSION: Normal examination. Mark Tavares MD Liver Ultrasound 10/04/16 Signed Impressions: Service Date/Time: Tuesday, October 04, 2016 08:59 - CONCLUSION: 1. Hepatosplenomegaly and increased echotexture of the portal triads with a starry night appearance which can be seen with hepatitis. 2. The gallbladder is abnormal with a lobular soft tissue mass present within the gallbladder demonstrating blood flow on color Doppler imaging. Mark Tavares MD Head CT 10/04/16 0000 Signed Impressions: Service Date/Time: Tuesday, October 04, 2016 08:39 - CONCLUSION: Normal examination. Mark Tavares MD Abdomen/Pelvis CT 10/03/161956 Signed Impressions: Service Date/Time: Monday, October 03, 2016 21:31 - CONCLUSION: Nonspecific splenomegaly. John Brand MD Chest CT 10/03/16 0000 Signed Impressions: Service Date/Time: Monday, October 03, 2016 21:31 - CONCLUSION: Numerous focal irregular masses throughout the lungs with some cavitation. This appearance is concerning for septic emboli. John Brand MD PE at Discharge GENERAL: Resting comfortably. SKIN: Multiple dried punctate lesions all over the skin. Some track gregory noted as well. CARDIOVASCULAR: Tachycardic without murmurs, gallops, or rubs. RESPIRATORY: Scattered rhonchi noted. GASTROINTESTINAL: Abdomen soft, non-distended. Normal active bowel sounds. MUSCULOSKELETAL: Extremities without cyanosis, or edema. NEURO: Alert & Oriented x4 to person, place, time, situation. + SLR on the left. PSYCH: Appropriate mood and affect. Hospital Course Septic shock/ Endocarditis Status post ICU course and Levophed drip. Clinical status improved and she was downgraded to the floor. Urine legionella and pneumococcal antigen were negative. 10/03 blood cultures: 4/4 MSSA, sensitive to oxacillin. LIVIA confirmed tricuspid valve vegetation. Infectious disease was consulted and adjusted antibiotics. Repeat blood cultures NGTD. Respiratory insufficiency Multiple bilateral small cavitary lung lesions consistent with septic pulmonary emboli. Has had hemoptysis. Sputum cultures negative. She received nasal cannula as needed. She worked with PT. Hyperbilirubinemia and elevated transaminases Found to have hepatitis C (new diagnosis). CT abd/pelvis - no liver lesions, no biliary obstruction, no gallstones. +splenomegaly. Patient has a 2.5 x 2.5 cm mass within the gallbladder on ultrasound and the gallbladder wall is thickened. General surgery was consulted who recommended outpatient follow-up once bacteremia/endocarditis is treated. LFTs continued to increase. GI was consulted and work-up was started. Also discussed with ID about oxacillin possibly contributing to LFT elevation. SAIRA Renal functions have been fluctuating. FENa calculated at 7.7%, indicating a post-renal etiology. US of kidneys unremarkable. Creatinine improved. Pt Condition on Discharge: Stable Discharge Disposition: Discharge Home Discharge Time: > 30 minutes Discharge Instructions DIET: Follow Instructions for: As Tolerated, No Restrictions Medication Profile: No Active Prescriptions or Reported Meds Juan Miguel Valdez DO Oct 16, 2016 10:12
== END 2016-10-15 17:55 | disposition left against medical advice (07) | DRG 871 ==
LOC: PHED 16:47 → PHEDA 20:12 → HIME 22:35 → N07B 10-06 04:00 → N07A 10-06 22:49
PROVIDERS: ADMIT Hospitalist; ATTEND Hospitalist
PROC: B246ZZ4 Ultrasonography of Right and Left Heart, Transesophageal (ICD-10-PCS; principal; 2016-10-05)
DX: A41.01 Sepsis due to Methicillin susceptible Staphylococcus aureus (principal); R65.21 Severe sepsis with septic shock; I26.90 Septic pulmonary embolism without acute cor pulmonale; I33.0 Acute and subacute infective endocarditis; N17.9 Acute kidney failure, unspecified; E87.2 Acidosis; D69.59 Other secondary thrombocytopenia; I80.299 Phlebitis and thrombophlebitis of other deep vessels of unspecified lower extremity; F11.20 Opioid dependence, uncomplicated; R04.2 Hemoptysis; B37.49 Other urogenital candidiasis; R16.2 Hepatomegaly with splenomegaly, not elsewhere classified; G89.29 Other chronic pain; M54.5 Low back pain; K82.8 Other specified diseases of gallbladder; B18.2 Chronic viral hepatitis C; D64.9 Anemia, unspecified; E87.6 Hypokalemia; L98.9 Disorder of the skin and subcutaneous tissue, unspecified; D73.1 Hypersplenism; R82.71 Bacteriuria; F12.10 Cannabis abuse, uncomplicated; F17.210 Nicotine dependence, cigarettes, uncomplicated; F41.0 Panic disorder [episodic paroxysmal anxiety]; F41.9 Anxiety disorder, unspecified; Z86.14 Personal history of Methicillin resistant Staphylococcus aureus infection; Z88.5 Allergy status to narcotic agent; Z88.6 Allergy status to analgesic agent
CPT/HCPCS: 36556; 70450; 71010; 71020; 71250; 74176; 76705; 76775; 76937; 80048; 80053; 80074; 80076; 80307; 81001; 82533; 82550; 82552; 82570; 83605; 83690; 83735; 84132; 84300; 84484; 84702; 84703; 85007; 85025; 85027; 85610; 85730; 86403; 86703; 87015; 87040; 87077; 87086; 87116; 87149; 87186; 87205; 87206; 87449; 93005; 93306; 93312; 93320; 93325; 93971; 94150; 96365; 96368; 96375; C9113; J2270; J2405; J2543; J2700; J3370; J3475; J3480; J7030; J7050; J7120

== ENCOUNTER 2016-10-31 05:11 | Inpatient (IN) | payer OTHER ==
[~2016-10-31] VITALS: Ht 91.4 cm; Wt 71.1 kg
[2016-10-31 05:15] VITALS: BP 141/84; PULSE 128; RESP 18; TEMP 98.6; O2SAT 97
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
[2016-10-31 06:21] LABS: BLOOD, URINE NEG (NEG); GLUCOSE,URINE NEG (NEG); KETONE, URINE NEG (NEG); NITRITE,URINE NEG (NEG); PH, URINE 5.5 (5.0-8.5)
[2016-10-31 06:23] LABS: BASOPHIL # 0.1 TH/MM3 (0-0.2); BASOPHIL % 0.6 % (0.0-2.0); EOSINOPHIL # 0.1 TH/MM3 (0-0.4); HEMATOCRIT 33.8 % (35.0-46.0); LYMPH % 15.6 % (9.0-44.0); LYMPHOCYTE # 2.2 TH/MM3 (1.0-4.8); MEAN CELL VOLUME 85.1 FL (80.0-100.0); MEAN CORPUSCULAR HEMOGLOBIN 28.2 PG (27.0-34.0); MEAN CORPUSCULAR HGB CONC 33.1 % (32.0-36.0); MONO % 3.3 % (0.0-8.0); NEUT % 79.5 % (16.0-70.0); PLATELET COUNT 441 TH/MM3 (150-450); RED BLOOD COUNT 3.97 MIL/MM3 (4.00-5.30); RED CELL DISTRIBUTION WIDTH 14.4 % (11.6-17.2); WHITE BLOOD COUNT 13.9 TH/MM3 (4.0-11.0)
--- NOTE | 2016-10-31 06:23 | RADRPT ---
EXAM DATE/TIME: 10/31/2016 06:08 [place] COMPARISON: CHEST PA & LAT, October 08, 2016, 8:54. INDICATIONS : Fever. MEDICAL HISTORY : Substance abuse SURGICAL HISTORY : Right leg surgery. Hand surgery ENCOUNTER: Initial ACUITY: 1 day PAIN SCORE: 7/10 LOCATION: Bilateral chest FINDINGS: PA and lateral views of the chest demonstrate a very small residual infiltrate in the lingula. The c ardiomediastinal contours are unremarkable. Osseous structures are intact. CONCLUSION: Minimal residual airspace disease in the lingula otherwise unremarkable two-view chest. Arpit Geller MD on October 31, 2016 at 6:21 Board Certified Radiologist. This report was verified electronically.
[2016-10-31 06:26] VITALS: BP 121/93; PULSE 100; RESP 20; O2SAT 99
[2016-10-31 06:28] LABS: HEMO FLAGS DIFF FINAL
[2016-10-31] MEDS: SODIUM CHLOR 0.9% 1000 ML INJ 1,000 ML IV SCH ×2 (06:29→07:10)
[2016-10-31 06:30] LABS: COMMENT (UR) CULT NOT INDICATED; CULTURE IF INDICATED CULT NOT INDICATED; RBC, URINE 0-3 /hpf (0-3); SQUAMOUS EPITHELIAL CELL URINE 0-5 /hpf (0-5); URINE COLOR YELLOW (YELLW/STRAW)
[2016-10-31 06:31] LABS: CHLORIDE 103 MEQ/L (98-107); POTASSIUM 3.3 MEQ/L (3.5-5.1); SODIUM (NA) 138 MEQ/L (136-145)
[2016-10-31 06:34] LABS: ANION GAP 10 MEQ/L (5-15); BICARBONATE 25.5 MEQ/L (21.0-32.0); BLOOD UREA NITROGEN 17 MG/DL (7-18)
[2016-10-31 06:37] LABS: ALT (GPT) 36 U/L (10-53); AST (GOT) 21 U/L (15-37); GLOMERULAR FILTRATION RATE 72 ML/MIN (>89)
[2016-10-31 06:39] LABS: TOTAL BILIRUBIN ADULT 0.9 MG/DL (0.2-1.0)
[2016-10-31 06:40] LABS: ALKALINE PHOSPHATASE 96 U/L (45-117)
[2016-10-31 06:42] LABS: BETA HCG QUANT LESS THAN 1 MIU/ML (0-5)
--- NOTE | 2016-10-31 06:58 | PD ---
Physical Exam Date Seen by Provider: Oct 31, 2016 Time Seen by Provider: 06:56 Narrative The patient is a 28-year-old female was initially evaluated by the previous physician, Dr. Rivero. Please refer to the initial history, physical, diagnostic evaluation, and treatment modality plan. The patient was signed out at 7 AM laboratory evaluation pending. Data Data Last Documented VS Vital Signs Date Time Temp Pulse Resp B/P Pulse Ox O2 Delivery O2 Flow Rate FiO2 10/31/16 06:26 100 20 121/93 99 Room Air 10/31/16 05:15 98.6 Orders Complete Blood Count With Diff (10/31/16 05:45) Comprehensive Metabolic Panel (10/31/16 05:45) Beta Hcg (Quant/Titer) (10/31/16 05:45) Lactic Acid Sepsis Protocol (10/31/16 05:45) Urinalysis - C+S If Indicated (10/31/16 05:45) Blood Culture (10/31/16 05:45) Chest, Pa & Lat (10/31/16 05:45) Ecg Monitoring (10/31/16 05:45) Iv Access Insert/Monitor (10/31/16 05:45) Oximetry (10/31/16 05:45) Oxygen Administration (10/31/16 05:45) Sodium Chlor 0.9% 1000 Ml Inj (Ns 1000 M (10/31/16 06:30) Labs Laboratory Tests Test 10/31/16 06:10 White Blood Count 13.9 TH/MM3 Red Blood Count 3.97 MIL/MM3 Hemoglobin 11.2 GM/DL Hematocrit 33.8 % Mean Corpuscular Volume 85.1 FL Mean Corpuscular Hemoglobin 28.2 PG Mean Corpuscular Hemoglobin 33.1 % Concent Red Cell Distribution Width 14.4 % Platelet Count 441 TH/MM3 Mean Platelet Volume 7.1 FL Neutrophils (%) (Auto) 79.5 % Lymphocytes (%) (Auto) 15.6 % Monocytes (%) (Auto) 3.3 % Eosinophils (%) (Auto) 1.0 % Basophils (%) (Auto) 0.6 % Neutrophils # (Auto) 11.0 TH/MM3 Lymphocytes # (Auto) 2.2 TH/MM3 Monocytes # (Auto) 0.5 TH/MM3 Eosinophils # (Auto) 0.1 TH/MM3 Basophils # (Auto) 0.1 TH/MM3 CBC Comment DIFF FINAL Differential Comment Urine Color YELLOW Urine Turbidity CLEAR Urine pH 5.5 Urine Specific [place] 1.010 Urine Protein NEG mg/dL Urine Glucose (UA) NEG mg/dL Urine Ketones NEG mg/dL Urine Occult Blood NEG Urine Nitrite NEG Urine Bilirubin NEG Urine Leukocyte Esterase TRACE Urine RBC 0-3 /hpf Urine WBC 6-8 /hpf Urine Squamous Epithelial 0-5 /hpf Cells Urine Bacteria NONE /hpf Microscopic Urinalysis Comment CULT NOT INDICATED Sodium Level 138 MEQ/L Potassium Level 3.3 MEQ/L Chloride Level 103 MEQ/L Carbon Dioxide Level 25.5 MEQ/L Anion Gap 10 MEQ/L Blood Urea Nitrogen 17 MG/DL Creatinine 0.93 MG/DL Estimat Glomerular Filtration 72 ML/MIN Rate Random Glucose 114 MG/DL Lactic Acid Level 1.6 mmol/L Calcium Level 10.1 MG/DL Total Bilirubin 0.9 MG/DL Aspartate Amino Transf 21 U/L (AST/SGOT) Alanine Aminotransferase 36 U/L (ALT/SGPT) Alkaline Phosphatase 96 U/L Total Protein 9.9 GM/DL Albumin 3.9 GM/DL Human Chorionic Gonadotropin, LESS THAN 1 Quant MIU/ML [facility] Medical Record Reviewed: Yes Supervised Visit with PRAVEEN: No Interpretation(s) Laboratory Tests Test 10/31/16 06:10 White Blood Count 13.9 TH/MM3 Red Blood Count 3.97 MIL/MM3 Hemoglobin 11.2 GM/DL Hematocrit 33.8 % Mean Corpuscular Volume 85.1 FL Mean Corpuscular Hemoglobin 28.2 PG Mean Corpuscular Hemoglobin 33.1 % Concent Red Cell Distribution Width 14.4 % Platelet Count 441 TH/MM3 Mean Platelet Volume 7.1 FL Neutrophils (%) (Auto) 79.5 % Lymphocytes (%) (Auto) 15.6 % Monocytes (%) (Auto) 3.3 % Eosinophils (%) (Auto) 1.0 % Basophils (%) (Auto) 0.6 % Neutrophils # (Auto) 11.0 TH/MM3 Lymphocytes # (Auto) 2.2 TH/MM3 Monocytes # (Auto) 0.5 TH/MM3 Eosinophils # (Auto) 0.1 TH/MM3 Basophils # (Auto) 0.1 TH/MM3 CBC Comment DIFF FINAL Differential Comment Urine Color YELLOW Urine Turbidity CLEAR Urine pH 5.5 Urine Specific [place] 1.010 Urine Protein NEG mg/dL Urine Glucose (UA) NEG mg/dL Urine Ketones NEG mg/dL Urine Occult Blood NEG Urine Nitrite NEG Urine Bilirubin NEG Urine Leukocyte Esterase TRACE Urine RBC 0-3 /hpf Urine WBC 6-8 /hpf Urine Squamous Epithelial 0-5 /hpf Cells Urine Bacteria NONE /hpf Microscopic Urinalysis Comment CULT NOT INDICATED Sodium Level 138 MEQ/L Potassium Level 3.3 MEQ/L Chloride Level 103 MEQ/L Carbon Dioxide Level 25.5 MEQ/L Anion Gap 10 MEQ/L Blood Urea Nitrogen 17 MG/DL Creatinine 0.93 MG/DL Estimat Glomerular Filtration 72 ML/MIN Rate Random Glucose 114 MG/DL Lactic Acid Level 1.6 mmol/L Calcium Level 10.1 MG/DL Total Bilirubin 0.9 MG/DL Aspartate Amino Transf 21 U/L (AST/SGOT) Alanine Aminotransferase 36 U/L (ALT/SGPT) Alkaline Phosphatase 96 U/L Total Protein 9.9 GM/DL Albumin 3.9 GM/DL Human Chorionic Gonadotropin, LESS THAN 1 Quant MIU/ML Differential Diagnosis Differential diagnosis includes bacteremia, septicemia, septic pulmonary emboli , endocarditis, IVDA. Narrative Course The patient was initially evaluated by the previous physician, Dr. Rivero. Please refer to the initial history, physical, diagnostic evaluation, treatment modality plan. The patient signed a 7 AM laboratory evaluation pending. I reviewed the patient's EMR, she had a CT pulmonary angiogram performed earlier this month which revealed septic pulmonary emboli. The patient was advised by infectious disease had 6 weeks of IV antibiotics, however, signed out AGAINST MEDICAL ADVICE prior to completing treatment. She returns to [facility] as it is closer to her home to complete treatment. I did review the infectious disease no, patient was on amoxicillin, however, had elevated LFTs and they consider changing the patient's Ancef. The patient was administered Ancef 2 g intravenously in the emergency department. The on-call medical team was paged for admission. Physician Communication Physician Communication The on-call medical team was paged for admission. Diagnosis Primary Impression: Septic pulmonary embolism Qualified Code: I26.90 - Chronic septic pulmonary embolism without acute cor pulmonale Additional Impressions: Endocarditis Qualified Code: I33.0 - Subacute bacterial endocarditis IV drug abuse Admitting Information Admitting Physician Requests: Admit Scripts No Active Prescriptions or Reported Meds Condition: Stable Remy Delgado MD Oct 31, 2016 06:58
[2016-10-31] MEDS ORDERED: ceFAZolin 2 GM PREMIX 50 ML IV ONE (07:00)
[2016-10-31] MEDS ORDERED: SODIUM CHLOR 0.9% 1000 ML INJ 1,000 ML IV SCH (07:08)
[2016-10-31 07:11] VITALS: BP 123/93; PULSE 100; RESP 18; TEMP 98.1; O2SAT 100
[2016-10-31] MEDS ORDERED: ACETAMINOPHEN 325 MG TAB PO PRN ×2 (07:15→11:30)
[2016-10-31] MEDS ORDERED: TEMAZEPAM 15 MG CAP PO PRN (07:15)
[2016-10-31] MEDS ORDERED: ONDANSETRON HCL 4 MG/2 ML VIAL IVP PRN (07:15)
[2016-10-31 08:45] VITALS: BP 124/78; PULSE 98; RESP 18; TEMP 98.9; O2SAT 98
[2016-10-31] MEDS: DOCUSATE SODIUM 50 MG/SENNA 8.6 MG TAB PO SCH ×2 (09:00→20:41)
--- NOTE | 2016-10-31 11:25 | HHI.HP ---
[facility] No Primary Care Physician Admission Diagnosis septic pulmonary emboli, endocarditis, IVDA Diagnoses: Chief Complaint: Wanted to finish treatment Travel History International Travel<30 Days: No Contact w/Intl Traveler <30 Da: No Traveled to Known Affected Are: No History of Present Illness The patient is a 28-year-old female with a past medical history of IV drug abuse and endocarditis was presenting to the hospital to complete treatment for endocarditis. She was recently at the [facility] in [facility] getting treated for endocarditis when she left against medical advice for no reason and October 15. She said she went to [facility] the next day to continue treatment. She said she was continued on oxacillin over there and she said it was working very well. She said they did some imaging of her back and initially they were concerned about an infection in her spine but she said they ruled it out with a test. She also mentioned she did some imaging which revealed a shadow on her gallbladder and she told me that she eventually needed her gallbladder removed. She says she currently has no symptoms of pain in her abdomen. She has been tolerating a diet well. The patient left AMA from [facility], citing family drama, this past . The patient says that she has been smoking marijuana regularly. She says she has gone to meth a few times to help with her withdrawals. She says her breathing is better. She says she still has chronic low back pain but it has improved. She said she had to walk to the hospital today over long distance and that made her chest pain worse. She does endorse nausea from time to time. She says she will not leave the hospital before the end of her treatment this time. Review of Systems Except as stated in HPI: all other systems reviewed are Neg Past Family Social History Past Medical History IV drug abuse Tricuspid endocarditis Septic pulmonary emboli HCV Chronic low back pain Anemia HCV Past Surgical History Left ankle ORIF Right hand tendon repair, third digit Allergies: Coded Allergies: Aspirin (Verified Allergy, Mild, GASTRIC UPSET, 10/31/16) *MDRO Multi-Drug Resistant Organism (Verified Adverse Reaction, Unknown, ) MRSA Wound 01/2011 Uncoded Allergies: dilshad (Allergy, Mild, 08/27/16) Active Ordered Medications Current Medications Medications (Trade) Dose Ordered Sig/Shun Route Start Time Stop Time Status Last Admin (NS 1000 ml Inj) 1,000 ml @ 100 mls/hr Q10H IV 10/31/16 07:08 10/31/16 07:33 (Tylenol) 650 mg Q4H PRN PO 10/31/16 07:15 (Zofran Inj) 4 mg Q6H PRN IVP 10/31/16 07:15 (Restoril) 15 mg HS PRN PO 10/31/16 07:15 Senna/Docusate Sodium 1 tab 1 tab BID PO 10/31/16 09:00 (Prostaphlin Inj/ NS Inj) 100 ml @ 200 mls/hr Q6H IV 10/31/16 11:30 UNV Family History Alcoholism IV drug use Cancer Social History The pt smokes weed daily. She has been using meth recently. She smokes 1 pack every 2-3 days. She does not drink. Physical Exam Vital Signs Vital Signs Date Time Temp Pulse Resp B/P Pulse Ox O2 Delivery O2 Flow Rate FiO2 10/31/16 08:45 98.9 98 18 124/78 98 10/31/16 07:11 100 10/31/16 07:11 98.1 100 18 123/93 100 Room Air 10/31/16 06:26 100 20 121/93 99 Room Air 10/31/16 06:26 99 Room Air 10/31/16 06:26 99 Room Air 10/31/16 05:42 Room Air 10/31/16 05:15 98.6 128 18 141/84 97 Physical Exam GENERAL: Resting comfortably. SKIN: Multiple dried punctate lesions all over the skin. Some track gregory noted as well. HEENT: NC, AT. CARDIOVASCULAR: Tachycardic without murmurs, gallops, or rubs. RESPIRATORY: Clear to auscultation bilaterally. No wheezing, rales or rhonchi. GASTROINTESTINAL: Abdomen soft, non-distended. Normal active bowel sounds. MUSCULOSKELETAL: Extremities without cyanosis, or edema. NEURO: Alert & Oriented x4 to person, place, time, situation. PSYCH: Appropriate mood and affect. Laboratory Laboratory Tests Test 10/31/16 06:10 White Blood Count 13.9 Red Blood Count 3.97 Hemoglobin 11.2 Hematocrit 33.8 Mean Corpuscular Volume 85.1 Mean Corpuscular Hemoglobin 28.2 Mean Corpuscular Hemoglobin 33.1 Concent Red Cell Distribution Width 14.4 Platelet Count 441 Mean Platelet Volume 7.1 Neutrophils (%) (Auto) 79.5 Lymphocytes (%) (Auto) 15.6 Monocytes (%) (Auto) 3.3 Eosinophils (%) (Auto) 1.0 Basophils (%) (Auto) 0.6 Neutrophils # (Auto) 11.0 Lymphocytes # (Auto) 2.2 Monocytes # (Auto) 0.5 Eosinophils # (Auto) 0.1 Basophils # (Auto) 0.1 CBC Comment DIFF FINAL Differential Comment Urine Color YELLOW Urine Turbidity CLEAR Urine pH 5.5 Urine Specific [place] 1.010 Urine Protein NEG Urine Glucose (UA) NEG Urine Ketones NEG Urine Occult Blood NEG Urine Nitrite NEG Urine Bilirubin NEG Urine Leukocyte Esterase TRACE Urine RBC 0-3 Urine WBC 6-8 Urine Squamous Epithelial 0-5 Cells Urine Bacteria NONE Microscopic Urinalysis Comment CULT NOT INDICATED Sodium Level 138 Potassium Level 3.3 Chloride Level 103 Carbon Dioxide Level 25.5 Anion Gap 10 Blood Urea Nitrogen 17 Creatinine 0.93 Estimat Glomerular Filtration 72 Rate Random Glucose 114 Lactic Acid Level 1.6 Calcium Level 10.1 Total Bilirubin 0.9 Aspartate Amino Transf 21 (AST/SGOT) Alanine Aminotransferase 36 (ALT/SGPT) Alkaline Phosphatase 96 Total Protein 9.9 Albumin 3.9 Human Chorionic Gonadotropin, LESS THAN 1 Quant Date/Time Procedure Status Source Growth 10/31/16 06:10 Aerobic Blood Culture Received Blood Peripheral Pending 10/31/16 06:10 Anaerobic Blood Culture Received Blood Peripheral Pending Result Diagram: 10/31/16 0610 10/31/16 0610 Imaging Last Impressions Chest X-Ray 10/31/16 0545 Signed Impressions: Service Date/Time: Monday, October 31, 2016 06:08 - CONCLUSION: Minimal residual airspace disease in the lingula otherwise unremarkable two-view chest. Arpit Geller MD Assessment and Plan Assessment and Plan Endocarditis On last admission the pt had staph bacteremia in 4/4 bottles. MSSA, sensitive to oxacillin. LIVIA confirmed tricuspid valve vegetation. The pt left AMA prior to completion of treatment. She has been at [facility] getting treatment with oxacillin until 10/29, when she left AMA from there as well. - Infectious disease consult requested. Currently on oxacillin 2 g IV q 6h. - Repeat blood cultures. - obtain records from OSH. Septic pulmonary emboli On last admission noted to have multiple bilateral small cavitary lung lesions consistent with septic pulmonary emboli. Has had hemoptysis. Sputum cultures were negative. The patient is currently breathing comfortably on room air. She does pleuritic endorse chest pain from time to time associated with it. - Nasal cannula as needed. - OOB, IS. Gallbladder mass Patient has a 2.5 x 2.5 cm mass within the gallbladder on ultrasound and the gallbladder wall is thickened. General surgery was consulted on the last admission who recommended outpatient follow-up once bacteremia/endocarditis is treated. She was told at [facility] that her gallbladder needs to come out eventually. She has no symptoms at this time. - outpt follow-up once infection is resolved. Pain control The pt has a history of polysubstance abuse (THC, Heroin, methamphetamine). - low dose oxycodone as needed. Anemia Currently improved. - H&H being monitored. Low back pain Chronic. + SLR on the left. The pt reports she had an MRI done at [facility] and there was concern for an infection in her spine, but she said another test ruled out infection. - obtain OSH records. - PT. - continue antibiotics. - pain control as needed. Hypokalemia Possibly s/t decreased PO intake. - replete with KCl PO and monitor. PPx: SCDs Code Status Full Discussed Condition With Pt, nurse Physician Certification 2 Midnight Certification Type: Admission for Inpatient Services Order for Inpatient Services The services are ordered in accordance with Medicare regulations or non- Medicare payer requirements, as applicable. In the case of services not specified as inpatient-only, they are appropriately provided as inpatient services in accordance with the 2-midnight benchmark. Estimated LOS (days): 2 days is the estimated time the patient will need to remain in the hospital, assuming treatment plan goals are met and no additional complications. Post-Hospital Plan: Home Juan Miguel Valdez DO Oct 31, 2016 11:25
[2016-10-31] MEDS ORDERED: POTASSIUM CHLORIDE 25 MEQ EFFERVESCENT TAB PO ONE (11:30)
[2016-10-31] MEDS: OXACILLIN INJ 2 GM in SODIUM CHLORIDE 0.9% INJ 100 ML IV SCH ×3 (12:52→22:00)
[2016-10-31 15:53] VITALS: BP 118/79; PULSE 95; RESP 16; TEMP 97.6; O2SAT 97
[2016-10-31] MEDS ORDERED: IOHEXOL 350 MG/ML 10 ML VIAL (for RAD DIAG) IV ONE (17:43)
--- NOTE | 2016-10-31 18:00 | RADRPT ---
EXAM DATE/TIME: 10/31/2016 17:15 [place] COMPARISON: CT THORAX W/O CONTRAST, October 03, 2016, 21:31. INDICATIONS : Endocarditis, Pulmonary emboli, sepsis. IV CONTRAST: 96 cc Omnipaque 350 (iohexol) IV RADIATION DOSE: 11.79 CTDIvol (mGy) MEDICAL HISTORY : X drug abuse. TB. SURGICAL HISTORY : Leg for fx. ENCOUNTER: Initial ACUITY: 1 day PAIN SCALE: 0/10 LOCATION: chest TECHNIQUE: Volumetric scanning of the chest was performed. Using automated exposure control and adjustment of t he mA and/or kV according to patient size, radiation dose was kept as low as reasonably achievable to obtain optimal diagnostic quality images. DICOM format image data is available electronically for review and comparison. Follow-up recommendations for incidentally detected pulmonary nodules are based at a minimum on nodul e size and patient risk factors according to Fleischner Society Guidelines. FINDINGS: LUNGS: Prior CT on 10/03/2016 had demonstrated multiple bilateral areas of consolidation. On today's exam, th ere is a changed pattern with some opacities resolving and several new opacities. Specific areas: Po sterior left upper lung 7 mm (smaller), anterior lateral right upper lung (interval development of ca vitation), posterior lateral right midlung (residual linear area of opacity or scarring), 6 mm nodula r density posterior lateral right midlung (stable), anterolateral left lower lung oval opacity measur ing 2.4 x 1.4 cm (new), small pleural-based opacities in the anterior left lower lung (resolved), bib asilar atelectasis (resolved). PLEURA: There is no pleural thickening or pleural effusion. MEDIASTINUM: The heart and great vessels demonstrate no acute abnormality. There is no mediastinal or hilar lymph adenopathy. AXILLAE: Within normal limits. No lymphadenopathy. SKELETAL: Within normal limits for patient age. CONCLUSION: Changing pattern of multiple bilateral focal opacities in the lung, with at least one new, conversion of one to cavitation, and resolution of 2 opacities. The evolution is characteristic of septic embo li. Shelton Man MD on October 31, 2016 at 17:47 Board Certified Radiologist. This report was verified electronically.
[2016-10-31 20:00] VITALS: BP 102/68; PULSE 89; RESP 18; TEMP 97.5; O2SAT 97
--- NOTE | 2016-10-31 20:13 | PD.ID.CON ---
History of Present Illness Service ID Consult Requested By Reason for Consult Evaluation and Mment of MSSA endocarditis and AFB in sputum. Primary Care Physician No Primary Care Physician Diagnoses: History of Present Illness is well known to the ID service has seen her in recent past. The patient is a 28-year-old female with a past medical history of IV drug abuse and endocarditis was presenting to the hospital to complete treatment for endocarditis. She was recently at the [facility] in [facility] getting treated for endocarditis when she left against medical advice for no reason and October 15. She said she went to [facility] the next day to continue treatment. She said she was continued on oxacillin over there and she said it was working very well. She said they did some imaging of her back and initially they were concerned about an infection in her spine but she said they ruled it out with a test. She also mentioned she did some imaging which revealed a shadow on her gallbladder and she told me that she eventually needed her gallbladder removed. She says she currently has no symptoms of pain in her abdomen. She has been tolerating a diet well. The patient left AMA from [facility], citing family drama, this past . The patient says that she has been smoking marijuana regularly. She says she has gone to meth a few times to help with her withdrawals. She says her breathing is better. She says she still has chronic low back pain but it has improved. She said she had to walk to the hospital today over long distance and that made her chest pain worse. She does endorse nausea from time to time. She says she will not leave the hospital before the end of her treatment this time. Patients AFB is positive in sputum from 10/06/16 admission. ID is consulted for evaluation and Mment of MSSA endocarditis and AFB in sputum. Review of Systems ROS Limitations: Poor Historian Constitutional: DENIES: Diaphoretic episodes, Fatigue, Fever, Weight gain, Weight loss, Chills, Dizziness, Change in appetite, Night Sweats Endocrine: DENIES: Abnorml menstrual pattern, Heat/cold intolerance, Polydipsia , Polyuria, Polyphagia Eyes: DENIES: Blurred vision, Diplopia, Eye inflammation, Eye pain, Vision loss , Photosensitivity, Double Vision Ears, nose, mouth, throat: DENIES: Tinnitus, Hearing loss, Vertigo, Nasal discharge, Oral lesions, Throat pain, Hoarseness, Ear Pain, Running Nose, Epistaxis, Sinus Pain, Toothache, Odynophagia Respiratory: DENIES: Apneas, Cough, Snoring, Wheezing, Hemoptysis, Sputum production, Shortness of breath Cardiovascular: COMPLAINS OF: Chest pain Gastrointestinal: DENIES: Abdominal pain, Black stools, Bloody stools, Constipation, Diarrhea, Nausea, Vomiting, Difficulty Swallowing, Anorexia Genitourinary: DENIES: Abnormal vaginal bleeding, Dysmenorrhea, Dyspareunia, Sexual dysfunction, Urinary frequency, Urinary incontinence, Urgency, Hematuria , Dysuria, Nocturia, Vaginal discharge Musculoskeletal: DENIES: Joint pain, Muscle aches, Stiffness, Joint Swelling, Back pain, Neck pain Integumentary: DENIES: Abnormal pigmentation, Pruritus, Rash, Nail changes, Breast masses, Breast skin changes, Nipple discharge Hematologic/lymphatic: DENIES: Bruising, Lymphadenopathy Immunologic/allergic: DENIES: Eczema, Urticaria Neurologic: DENIES: Abnormal gait, Headache, Localized weakness, Paresthesias, Seizures, Speech Problems, Tremor, Poor Balance Psychiatric: DENIES: Anxiety, Confusion, Mood changes, Depression, Hallucinations, Agitation, Suicidal Ideation, Homicidal Ideation, Delusions Past Family Social History Allergies: Coded Allergies: Aspirin (Verified Allergy, Mild, GASTRIC UPSET, 10/31/16) *MDRO Multi-Drug Resistant Organism (Verified Adverse Reaction, Unknown, ) MRSA Wound 01/2011 Uncoded Allergies: dilshad (Allergy, Mild, 08/27/16) Past Medical History IV drug abuse Tricuspid endocarditis Septic pulmonary emboli HCV Chronic low back pain Anemia Past Surgical History Left ankle ORIF Right hand tendon repair, third digit Reported Medications Reported Meds & Active Scripts Active No Active Prescriptions or Reported Medications Active Ordered Medications Current Medications Medications (Trade) Dose Ordered Sig/Shun Route Start Time Stop Time Status Last Admin (Tylenol) 650 mg Q4H PRN PO 10/31/16 07:15 (Zofran Inj) 4 mg Q6H PRN IVP 10/31/16 07:15 (Restoril) 15 mg HS PRN PO 10/31/16 07:15 Senna/Docusate Sodium 1 tab 1 tab BID PO 10/31/16 09:00 (Prostaphlin Inj/ NS Inj) 100 ml @ 200 mls/hr Q6H IV 10/31/16 12:00 10/31/16 17:18 (Tylenol) 650 mg Q4H PRN PO 10/31/16 11:30 (Roxicodone) 5 mg Q6H PRN PO 10/31/16 11:30 10/31/16 14:54 Family History Reports she is estranged from family. Social History IVDA Physical Exam Vital Signs Vital Signs Date Time Temp Pulse Resp B/P Pulse Ox O2 Delivery O2 Flow Rate FiO2 10/31/16 15:54 20 10/31/16 15:53 97.6 95 16 118/79 97 10/31/16 08:45 98.9 98 18 124/78 98 10/31/16 07:11 100 10/31/16 07:11 98.1 100 18 123/93 100 Room Air 10/31/16 06:26 100 20 121/93 99 Room Air 10/31/16 06:26 99 Room Air 10/31/16 06:26 99 Room Air 10/31/16 05:42 Room Air 10/31/16 05:15 98.6 128 18 141/84 97 Physical Exam GENERAL: This is a well-nourished, well-developed patient, in no apparent distress. SKIN: No rashes, ecchymoses or lesions. Cool and dry. HEAD: Atraumatic. Normocephalic. No temporal or scalp tenderness. EYES: Pupils equal round and reactive. Extraocular motions intact. No scleral icterus. No injection or drainage. ENT: Nose without bleeding, purulent drainage or septal hematoma. Throat without erythema, tonsillar hypertrophy or exudate. Uvula midline. Airway patent. NECK: Trachea midline. Supple, nontender, no meningeal signs. CARDIOVASCULAR: Systolic murmur. RESPIRATORY: Clear to auscultation. Breath sounds equal bilaterally. No wheezes , rales, or rhonchi. GASTROINTESTINAL: Abdomen soft, non-tender, nondistended. No hepato-splenomegaly , or palpable masses. No guarding. MUSCULOSKELETAL: Extremities without clubbing, cyanosis, or edema. No joint tenderness, effusion, or edema noted. No calf tenderness. Negative Homans sign bilaterally. NEUROLOGICAL: Awake and alert. Cranial nerves II through XII intact. Motor and sensory grossly within normal limits. Five out of 5 muscle strength in all muscle groups. Normal speech. Psych: cooperative IV line sites with no e.o infection Laboratory Laboratory Tests Test 10/31/16 06:10 White Blood Count 13.9 Red Blood Count 3.97 Hemoglobin 11.2 Hematocrit 33.8 Mean Corpuscular Volume 85.1 Mean Corpuscular Hemoglobin 28.2 Mean Corpuscular Hemoglobin 33.1 Concent Red Cell Distribution Width 14.4 Platelet Count 441 Mean Platelet Volume 7.1 Neutrophils (%) (Auto) 79.5 Lymphocytes (%) (Auto) 15.6 Monocytes (%) (Auto) 3.3 Eosinophils (%) (Auto) 1.0 Basophils (%) (Auto) 0.6 Neutrophils # (Auto) 11.0 Lymphocytes # (Auto) 2.2 Monocytes # (Auto) 0.5 Eosinophils # (Auto) 0.1 Basophils # (Auto) 0.1 CBC Comment DIFF FINAL Differential Comment Urine Color YELLOW Urine Turbidity CLEAR Urine pH 5.5 Urine Specific [place] 1.010 Urine Protein NEG Urine Glucose (UA) NEG Urine Ketones NEG Urine Occult Blood NEG Urine Nitrite NEG Urine Bilirubin NEG Urine Leukocyte Esterase TRACE Urine RBC 0-3 Urine WBC 6-8 Urine Squamous Epithelial 0-5 Cells Urine Bacteria NONE Microscopic Urinalysis Comment CULT NOT INDICATED Sodium Level 138 Potassium Level 3.3 Chloride Level 103 Carbon Dioxide Level 25.5 Anion Gap 10 Blood Urea Nitrogen 17 Creatinine 0.93 Estimat Glomerular Filtration 72 Rate Random Glucose 114 Lactic Acid Level 1.6 Calcium Level 10.1 Total Bilirubin 0.9 Aspartate Amino Transf 21 (AST/SGOT) Alanine Aminotransferase 36 (ALT/SGPT) Alkaline Phosphatase 96 Total Protein 9.9 Albumin 3.9 Human Chorionic Gonadotropin, LESS THAN 1 Quant Date/Time Procedure Status Source Growth 10/31/16 06:10 Aerobic Blood Culture Received Blood Peripheral Pending 10/31/16 06:10 Anaerobic Blood Culture Received Blood Peripheral Pending Result Diagram: 10/31/16 0610 10/31/16 0610 Imaging Last Impressions Chest X-Ray 10/31/16 0545 Signed Impressions: Service Date/Time: Monday, October 31, 2016 06:08 - CONCLUSION: Minimal residual airspace disease in the lingula otherwise unremarkable two-view chest. Arpit Geller MD Chest CT 10/31/16 0000 Signed Impressions: Service Date/Time: Monday, October 31, 2016 17:15 - CONCLUSION: Changing pattern of multiple bilateral focal opacities in the lung, with at least one new, conversion of one to cavitation, and resolution of 2 opacities. The evolution is characteristic of septic emboli. Shelton Man MD Assessment and Plan Assessment and Plan MSSA endocarditis partially treated as pt left AMA from 2 institutions. Septic emboli on last admission. Sputum from last admission 10/06/2016 now positive for AFB. MTB PCR on that specimen not possible per discussion with Micro. Chest pain on admission likely pleuritic Systolic murmur (pt reports new) Recs: Continue Oxacillin IV D.w Micro about AFB in sputum. At present pt cannot cough so unable to get new specimen for MTB PCR. CT chest with contrast follow up on septic emboli/cavitation. Check CRP AFB blood culture Check HIV and Hepatitis panel. MTB PCR on Sputum culture. Repeat 2D ECHO to assess systolic murmur importance and follow up on vegetation size. Follow cultures Follow clinically. Opal Hastings MD Oct 31, 2016 20:13
[2016-11-01] VITALS: BP 104/69; PULSE 87; RESP 18; TEMP 98; O2SAT 96
[2016-11-01] MEDS: OXACILLIN INJ 2 GM in SODIUM CHLORIDE 0.9% INJ 100 ML IV SCH ×6 (02:00→21:43)
[2016-11-01 08:00] VITALS: BP 114/89; PULSE 98; RESP 16; TEMP 98.5; O2SAT 98
[2016-11-01] MEDS: DOCUSATE SODIUM 50 MG/SENNA 8.6 MG TAB PO SCH ×2 (09:00→21:42)
--- NOTE | 2016-11-01 09:16 | HHI.PR ---
Subjective Remarks The patient was resting in bed comfortably. She said she was able to provide a small sputum sample. She was hoping she didn't have TB. She did say she spent some time in prison in 2013. Otherwise she is unsure of where she might have acquired TB. She has been tolerating a diet. She has been ambulating. Objective Vitals Vital Signs Date Time Temp Pulse Resp B/P Pulse Ox O2 Delivery O2 Flow Rate FiO2 11/01/16 08:00 98.5 98 16 114/89 98 11/01/16 00:00 98.0 87 18 104/69 96 10/31/16 20:00 97.5 89 18 102/68 97 10/31/16 15:54 20 10/31/16 15:53 97.6 95 16 118/79 97 I/O 10/31/16 10/31/16 10/31/16 11/01/16 11/01/16 11/01/16 07:00 15:00 23:00 07:00 15:00 23:00 Intake Total 2000 ml 100 ml 48 ml Balance 2000 ml 100 ml 48 ml Intake IV Total 2000 ml 100 ml 48 ml Result Diagram: 10/31/16 0610 10/31/16 0610 Imaging Last Impressions Chest X-Ray 10/31/16 0545 Signed Impressions: Service Date/Time: Monday, October 31, 2016 06:08 - CONCLUSION: Minimal residual airspace disease in the lingula otherwise unremarkable two-view chest. Arpit Geller MD Chest CT 10/31/16 0000 Signed Impressions: Service Date/Time: Monday, October 31, 2016 17:15 - CONCLUSION: Changing pattern of multiple bilateral focal opacities in the lung, with at least one new, conversion of one to cavitation, and resolution of 2 opacities. The evolution is characteristic of septic emboli. Shelton Man MD Objective Remarks GENERAL: Resting comfortably. SKIN: Multiple dried punctate lesions all over the skin. Some track gregory noted as well. HEENT: NC, AT. CARDIOVASCULAR: Tachycardic without murmurs, gallops, or rubs. RESPIRATORY: Clear to auscultation bilaterally. No wheezing, rales or rhonchi. GASTROINTESTINAL: Abdomen soft, non-distended. Normal active bowel sounds. MUSCULOSKELETAL: Extremities without cyanosis, or edema. NEURO: Alert & Oriented x4 to person, place, time, situation. PSYCH: Appropriate mood and affect. Medications and IVs Current Medications Medications (Trade) Dose Ordered Sig/Shun Route Start Time Stop Time Status Last Admin (Tylenol) 650 mg Q4H PRN PO 10/31/16 07:15 (Zofran Inj) 4 mg Q6H PRN IVP 10/31/16 07:15 (Restoril) 15 mg HS PRN PO 10/31/16 07:15 (Judy-Colace) 1 tab BID PO 10/31/16 09:00 (Tylenol) 650 mg Q4H PRN PO 10/31/16 11:30 Oxycodone HCl 5 mg 5 mg Q6H PRN PO 10/31/16 11:30 11/01/16 03:46 (Prostaphlin Inj/ NS Inj) 100 ml @ 200 mls/hr Q4H IV 10/31/16 22:00 11/01/16 06:38 A/P Assessment and Plan Endocarditis On last admission the pt had staph bacteremia in 4/4 bottles. MSSA, sensitive to oxacillin. LIVIA confirmed tricuspid valve vegetation. The pt left AMA prior to completion of treatment. She has been at [facility] getting treatment with oxacillin until 10/29, when she left AMA from there as well. Infectious disease consult appreciated. - continue oxacillin IV per infectious disease. - Repeat blood cultures. - obtain records from OSH. - repeat echo pending. Septic pulmonary emboli/ Positive AFB culture On last admission noted to have multiple bilateral small cavitary lung lesions consistent with septic pulmonary emboli. Has had hemoptysis. Sputum cultures were negative at that time. The patient is currently breathing comfortably on room air. She does pleuritic endorse chest pain from time to time associated with it. Informed that sputum culture from last admission was positive for AFB. ID was contacted. The pt was moved to a negative pressure room. CT showed: Changing pattern of multiple bilateral focal opacities in the lung, with at least one new, conversion of one to cavitation, and resolution of 2 opacities; The evolution is characteristic of septic emboli. - follow up with infectious disease. - Nasal cannula as needed. - OOB, IS. Gallbladder mass Patient has a 2.5 x 2.5 cm mass within the gallbladder on ultrasound and the gallbladder wall is thickened. General surgery was consulted on the last admission who recommended outpatient follow-up once bacteremia/endocarditis is treated. She was told at [facility] that her gallbladder needs to come out eventually. She has no symptoms at this time. - outpt follow-up once infection is resolved. Pain control The pt has a history of polysubstance abuse (THC, Heroin, methamphetamine). - low dose oxycodone as needed. Anemia Currently improved. - H&H being monitored. Low back pain Chronic. + SLR on the left. The pt reports she had an MRI done at [facility] and there was concern for an infection in her spine, but she said another test ruled out infection. - obtain OSH records. - PT worked with pt. - continue antibiotics. - pain control as needed. Hypokalemia Possibly s/t decreased PO intake. - replete with KCl PO and monitor. PPx: SCDs Discharge Planning Will need prolonged antibiotic Juan Miguel Valdez DO Nov 01, 2016 09:16
--- NOTE | 2016-11-01 09:23 | ECHRPT ---
Indication: endocarditis CONCLUSIONS Normal left ventricular size. Wall thickness is normal. The left ventricular systolic function is normal with an estimated ejection fraction in the range of 55-60%. The right ventricular size is normal. Trace mitral valve regurgitation. The aortic valve is not well visualized. There is mild to moderate tricuspid valve regurgitation. There is a mobile vegetation on the tricuspid valve measuring 1.1 x 1.49 cm. The pulmonary valve is not well visualized. The inferior vena cava is dilated. BP: / HR: Rhythm: MEASUREMENTS (Male / Female) Normal Values Technical Quality:Good 2D ECHO LV Diastolic Diameter PLAX 4.3 cm 4.2 - 5.9 / 3.9 - 5.3 cm LV Systolic Diameter PLAX 3.2 cm IVS Diastolic Thickness 1.1 cm 0.6 - 1.0 / 0.6 - 0.9 cm LVPW Diastolic Thickness 0.8 cm 0.6 - 1.0 / 0.6 - 0.9 cm LV Relative Wall Thickness 0.4 RV Internal Dim ED PLAX 2.5 cm DOPPLER TR Peak Velocity 254.0 cm/s TR Peak Gradient 25.8 mmHg FINDINGS LEFT VENTRICLE Normal left ventricular size. Wall thickness is normal. The left ventricular systolic function is normal with an estimated ejection fraction in the range of 55-60%. RIGHT VENTRICLE The right ventricular size is normal. LEFT ATRIUM The left atrial size is normal. RIGHT ATRIUM The right atrial size is normal. ATRIAL SEPTUM Normal atrial septal thickness without atrial level shunting by limited color doppler interrogation. AORTA The aortic root and proximal ascending aorta are normal in size on limited imaging. MITRAL VALVE Structurally normal mitral valve. Trace mitral valve regurgitation. AORTIC VALVE The aortic valve is not well visualized. Trileaflet aortic valve. No aortic valve stenosis or regurgitation. TRICUSPID VALVE There is mild to moderate tricuspid valve regurgitation. There is a mobile vegetation measuring 1.1 x 1.49 cm PULMONARY VALVE The pulmonary valve is not well visualized. VESSELS The inferior vena cava is dilated. PERICARDIUM No pericardial effusion. Talat Tee MD (Electronically Signed) Final Date:01 November 2016 09:22
[2016-11-01 12:00] VITALS: BP 128/79; PULSE 105; RESP 16; TEMP 98.1; O2SAT 99
[2016-11-01 16:00] VITALS: BP 103/77; PULSE 103; RESP 16; TEMP 98.7; O2SAT 98
[2016-11-01 17:00] LABS: MEAN CELL VOLUME 86.2 FL (80.0-100.0); MEAN CORPUSCULAR HEMOGLOBIN 29.3 PG (27.0-34.0); MEAN CORPUSCULAR HGB CONC 33.9 % (32.0-36.0); PLATELET COUNT 342 TH/MM3 (150-450); RED BLOOD COUNT 3.48 MIL/MM3 (4.00-5.30); RED CELL DISTRIBUTION WIDTH 15.7 % (11.6-17.2); REVIEW FLAG FINAL; WHITE BLOOD COUNT 10.7 TH/MM3 (4.0-11.0)
[2016-11-01 17:09] LABS: POTASSIUM 3.6 MEQ/L (3.5-5.1)
[2016-11-01 17:23] LABS: BICARBONATE 27.2 MEQ/L (21.0-32.0); MAGNESIUM 1.8 MG/DL (1.5-2.5)
[2016-11-01] MEDS ORDERED: POTASSIUM CHLORIDE 25 MEQ EFFERVESCENT TAB PO ONE (17:30)
[2016-11-01 19:12] VITALS: BP 121/74; PULSE 95; RESP 16; TEMP 96.7; O2SAT 98
[2016-11-02] MEDS: OXACILLIN INJ 2 GM in SODIUM CHLORIDE 0.9% INJ 100 ML IV SCH ×6 (01:48→21:36)
[2016-11-02 05:47] VITALS: BP 121/82; PULSE 88; RESP 16; TEMP 97.7; O2SAT 98
[2016-11-02] MEDS: DOCUSATE SODIUM 50 MG/SENNA 8.6 MG TAB PO SCH ×2 (09:00→21:00)
--- NOTE | 2016-11-02 10:27 | HHI.PR ---
Subjective Remarks The patient said that she has been ambulating and has muscle aches. She said her breathing is overall better. She said she had nightmares from sleeping pill. She said her pain medications weren't working that well. Nursing at the bedside. Objective Vitals Vital Signs Date Time Temp Pulse Resp B/P Pulse Ox O2 Delivery O2 Flow Rate FiO2 11/02/16 05:47 97.7 88 16 121/82 98 11/01/16 19:12 96.7 95 16 121/74 98 11/01/16 16:07 18 11/01/16 16:00 98.7 103 16 103/77 98 11/01/16 12:00 98.1 105 16 128/79 99 I/O 11/01/16 11/01/16 11/01/16 11/02/16 11/02/16 11/02/16 07:00 15:00 23:00 07:00 15:00 23:00 Intake Total 48 ml 1310 ml 230 ml 560 ml Balance 48 ml 1310 ml 230 ml 560 ml Intake Oral 1210 ml IV Total 48 ml 100 ml 230 ml 560 ml # Voids 3 Result Diagram: 11/01/16 1645 11/01/16 1645 Imaging Last Impressions Chest X-Ray 10/31/16 0545 Signed Impressions: Service Date/Time: Monday, October 31, 2016 06:08 - CONCLUSION: Minimal residual airspace disease in the lingula otherwise unremarkable two-view chest. Arpit Geller MD Chest CT 10/31/16 0000 Signed Impressions: Service Date/Time: Monday, October 31, 2016 17:15 - CONCLUSION: Changing pattern of multiple bilateral focal opacities in the lung, with at least one new, conversion of one to cavitation, and resolution of 2 opacities. The evolution is characteristic of septic emboli. Shelton Man MD Objective Remarks GENERAL: Resting comfortably. SKIN: Multiple dried punctate lesions all over the skin. Some track gregory noted as well. HEENT: NC, AT. CARDIOVASCULAR: Tachycardic without murmurs, gallops, or rubs. RESPIRATORY: Clear to auscultation bilaterally. No wheezing, rales or rhonchi. GASTROINTESTINAL: Abdomen soft, non-distended. Normal active bowel sounds. MUSCULOSKELETAL: Extremities without cyanosis, or edema. NEURO: Alert & Oriented x4 to person, place, time, situation. PSYCH: Appropriate mood and affect. Medications and IVs Current Medications Medications (Trade) Dose Ordered Sig/Shun Route Start Time Stop Time Status Last Admin (Tylenol) 650 mg Q4H PRN PO 10/31/16 07:15 (Zofran Inj) 4 mg Q6H PRN IVP 10/31/16 07:15 (Restoril) 15 mg HS PRN PO 10/31/16 07:15 11/01/16 21:42 (Judy-Colace) 1 tab BID PO 10/31/16 09:00 11/01/16 21:42 (Tylenol) 650 mg Q4H PRN PO 10/31/16 11:30 Oxycodone HCl 5 mg 5 mg Q6H PRN PO 10/31/16 11:30 11/02/16 05:40 (Prostaphlin Inj/ NS Inj) 100 ml @ 200 mls/hr Q4H IV 10/31/16 22:00 11/02/16 05:39 A/P Assessment and Plan Endocarditis On last admission the pt had staph bacteremia in 4/4 bottles. MSSA, sensitive to oxacillin. LIVIA confirmed tricuspid valve vegetation. The pt left AMA prior to completion of treatment. She has been at [facility] getting treatment with oxacillin until 10/29, when she left AMA from there as well. Infectious disease consult appreciated. Repeat echo confirms vegetation. - continue oxacillin IV per infectious disease. - Repeat blood cultures. - obtain records from OSH. Septic pulmonary emboli/ Positive AFB culture On last admission noted to have multiple bilateral small cavitary lung lesions consistent with septic pulmonary emboli. Has had hemoptysis. Sputum cultures were negative at that time. The patient is currently breathing comfortably on room air. She does pleuritic endorse chest pain from time to time associated with it. Informed that sputum culture from last admission was positive for AFB. ID was contacted. The pt was moved to a negative pressure room. CT showed: Changing pattern of multiple bilateral focal opacities in the lung, with at least one new, conversion of one to cavitation, and resolution of 2 opacities; The evolution is characteristic of septic emboli. - follow up with infectious disease. - Nasal cannula as needed. - OOB, IS. - Sputum culture pending. - Mycobacterium blood culture pending. Gallbladder mass Patient has a 2.5 x 2.5 cm mass within the gallbladder on ultrasound and the gallbladder wall is thickened. General surgery was consulted on the last admission who recommended outpatient follow-up once bacteremia/endocarditis is treated. She was told at [facility] that her gallbladder needs to come out eventually. She has no symptoms at this time. - outpt follow-up once infection is resolved. Pain control The pt has a history of polysubstance abuse (THC, Heroin, methamphetamine). - low dose oxycodone as needed. Anemia Currently improved. - H&H being monitored. Low back pain Chronic. + SLR on the left. The pt reports she had an MRI done at [facility] and there was concern for an infection in her spine, but she said another test ruled out infection. - obtain OSH records. - PT worked with pt. - continue antibiotics. - pain control as needed. Hypokalemia Possibly s/t decreased PO intake. - replete with KCl PO and monitor. PPx: SCDs Discharge Planning Will need prolonged antibiotics Juan Miguel Valdez DO Nov 02, 2016 10:27
--- NOTE | 2016-11-02 12:47 | HHI.IDPN ---
Subjective Subjective Remarks is well known to the ID service has seen her in recent past. The patient is a 28-year-old female with a past medical history of IV drug abuse and endocarditis was presenting to the hospital to complete treatment for endocarditis. She was recently at the [facility] in [facility] getting treated for endocarditis when she left against medical advice for no reason and October 15. She said she went to [facility] the next day to continue treatment. She said she was continued on oxacillin over there and she said it was working very well. She said they did some imaging of her back and initially they were concerned about an infection in her spine but she said they ruled it out with a test. She also mentioned she did some imaging which revealed a shadow on her gallbladder and she told me that she eventually needed her gallbladder removed. She says she currently has no symptoms of pain in her abdomen. She has been tolerating a diet well. The patient left AMA from [facility], citing family drama, this past . The patient says that she has been smoking marijuana regularly. She says she has gone to meth a few times to help with her withdrawals. She says her breathing is better. She says she still has chronic low back pain but it has improved. She said she had to walk to the hospital today over long distance and that made her chest pain worse. She does endorse nausea from time to time. She says she will not leave the hospital before the end of her treatment this time. Patients AFB is positive in sputum from 10/06/16 admission. ID is consulted for evaluation and Mment of MSSA endocarditis and AFB in sputum. Overnight events reviewed. No fever No rash No diarrhea Breathing much better. UO ok. Antibiotics Oxacillin IV Lines Line sites with no e.o infection Past Medical History reviewed Allergies: Coded Allergies: Aspirin (Verified Allergy, Mild, GASTRIC UPSET, 10/31/16) *MDRO Multi-Drug Resistant Organism (Verified Adverse Reaction, Unknown, ) MRSA Wound 01/2011 Uncoded Allergies: dilshad (Allergy, Mild, 08/27/16) Objective . Vital Signs Date Time Temp Pulse Resp B/P Pulse Ox O2 Delivery O2 Flow Rate FiO2 11/02/16 05:47 97.7 88 16 121/82 98 11/01/16 19:12 96.7 95 16 121/74 98 11/01/16 16:07 18 11/01/16 16:00 98.7 103 16 103/77 98 11/01/16 11/01/16 11/02/16 15:00 23:00 07:00 Intake Total 1310 ml 230 ml 560 ml Balance 1310 ml 230 ml 560 ml Intake Oral 1210 ml IV Total 100 ml 230 ml 560 ml # Voids 3 . Laboratory Tests Test 11/01/16 16:45 White Blood Count 10.7 TH/MM3 Red Blood Count 3.48 MIL/MM3 Hemoglobin 10.2 GM/DL Hematocrit 30.0 % Mean Corpuscular Volume 86.2 FL Mean Corpuscular Hemoglobin 29.3 PG Mean Corpuscular Hemoglobin 33.9 % Concent Red Cell Distribution Width 15.7 % Platelet Count 342 TH/MM3 Mean Platelet Volume 7.3 FL Laboratory Tests Test 11/01/16 16:45 Sodium Level 141 MEQ/L Potassium Level 3.6 MEQ/L Chloride Level 106 MEQ/L Carbon Dioxide Level 27.2 MEQ/L Anion Gap 8 MEQ/L Blood Urea Nitrogen 23 MG/DL Creatinine 0.84 MG/DL Estimat Glomerular Filtration 81 ML/MIN Rate Random Glucose 80 MG/DL Calcium Level 8.9 MG/DL Magnesium Level 1.8 MG/DL Microbiology Date/Time Procedure Status Source Growth 10/31/16 06:00 Aerobic Blood Culture - Preliminary Resulted Blood Peripheral NO GROWTH IN 2 DAYS 10/31/16 06:00 Anaerobic Blood Culture - Preliminary Resulted Blood Peripheral NO GROWTH IN 2 DAYS 10/31/16 06:10 Aerobic Blood Culture - Preliminary Resulted Blood Peripheral NO GROWTH IN 2 DAYS 10/31/16 06:10 Anaerobic Blood Culture - Preliminary Resulted Blood Peripheral NO GROWTH IN 2 DAYS 10/31/16 16:55 Gram Stain - Final Resulted Sputum Expectorated Sputum 10/31/16 16:55 Sputum Culture Resulted Sputum Expectorated Sputum Pending 10/31/16 21:47 Mycobacterial Culture Received Blood Peripheral Pending Imaging Last Impressions Chest X-Ray 10/31/16 0545 Signed Impressions: Service Date/Time: Monday, October 31, 2016 06:08 - CONCLUSION: Minimal residual airspace disease in the lingula otherwise unremarkable two-view chest. Arpit Geller MD Chest CT 10/31/16 0000 Signed Impressions: Service Date/Time: Monday, October 31, 2016 17:15 - CONCLUSION: Changing pattern of multiple bilateral focal opacities in the lung, with at least one new, conversion of one to cavitation, and resolution of 2 opacities. The evolution is characteristic of septic emboli. Shelton Man MD Physical Exam GENERAL: This is a well-nourished, well-developed patient, in no apparent distress. SKIN: No rashes, ecchymoses or lesions. Cool and dry. HEAD: Atraumatic. Normocephalic. No temporal or scalp tenderness. EYES: Pupils equal round and reactive. Extraocular motions intact. No scleral icterus. No injection or drainage. ENT: Nose without bleeding, purulent drainage or septal hematoma. Throat without erythema, tonsillar hypertrophy or exudate. Uvula midline. Airway patent. NECK: Trachea midline. Supple, nontender, no meningeal signs. CARDIOVASCULAR: Systolic murmur. RESPIRATORY: Clear to auscultation. Breath sounds equal bilaterally. No wheezes , rales, or rhonchi. GASTROINTESTINAL: Abdomen soft, non-tender, nondistended. No hepato-splenomegaly , or palpable masses. No guarding. MUSCULOSKELETAL: Extremities without clubbing, cyanosis, or edema. No joint tenderness, effusion, or edema noted. No calf tenderness. Negative Homans sign bilaterally. NEUROLOGICAL: Awake and alert. Cranial nerves II through XII intact. Motor and sensory grossly within normal limits. Five out of 5 muscle strength in all muscle groups. Normal speech. Psych: cooperative IV line sites with no e.o infection Assessment & Plan Remarks MSSA endocarditis partially treated as pt left AMA from 2 institutions. Septic emboli on last admission. Sputum from last admission 10/06/2016 now positive for AFB. MTB PCR on that specimen not possible per discussion with Micro. Chest pain on admission likely pleuritic Systolic murmur (pt reports new) Recs: Continue Oxacillin IV D.w Micro about AFB in sputum. Hopefully results by tomorrow from state lab. CT chest with e/o new septic emboli/cavitation likely due to interruption in treatment. Follow AFB blood culture Check HIV and Hepatitis panel. 2D ECHO with persistent vegetation. Follow cultures Follow clinically. to cover for me starting 11/03/2016. Opal Hastings MD Nov 02, 2016 12:47
[2016-11-02 20:00] VITALS: BP 116/77; PULSE 100; RESP 16; TEMP 97.8; O2SAT 97
[2016-11-03] VITALS: BP 102/69; PULSE 87; RESP 16; TEMP 97.3; O2SAT 96
[2016-11-03] MEDS: OXACILLIN INJ 2 GM in SODIUM CHLORIDE 0.9% INJ 100 ML IV SCH ×6 (00:33→22:05)
[2016-11-03 08:00] VITALS: BP 120/80; PULSE 106; RESP 18; TEMP 97.7; O2SAT 100
[2016-11-03] MEDS: DOCUSATE SODIUM 50 MG/SENNA 8.6 MG TAB PO SCH ×3 (09:00→21:00)
[2016-11-03 12:00] VITALS: BP 130/86; PULSE 104; RESP 18; TEMP 97.4; O2SAT 99
--- NOTE | 2016-11-03 12:53 | HHI.PR ---
Subjective Remarks The patient was anxious to hear what the results of her culture were. She said she got a good night sleep. She has been having bowel movements. She has been ambulating. She has been tolerating a diet. Objective Vitals Vital Signs Date Time Temp Pulse Resp B/P Pulse Ox O2 Delivery O2 Flow Rate FiO2 11/03/16 08:00 97.7 106 18 120/80 100 11/03/16 00:00 97.3 87 16 102/69 96 11/02/16 20:00 97.8 100 16 116/77 97 11/02/16 13:33 20 I/O 11/02/16 11/02/16 11/02/16 11/03/16 11/03/16 11/03/16 07:00 15:00 23:00 07:00 15:00 23:00 Intake Total 560 ml 210 ml 280 ml Balance 560 ml 210 ml 280 ml Intake Oral 280 ml IV Total 560 ml 210 ml # Voids 1 # Bowel Movements 0 Result Diagram: 11/01/16 1645 11/01/16 1645 Imaging Last Impressions Chest X-Ray 10/31/16 0545 Signed Impressions: Service Date/Time: Monday, October 31, 2016 06:08 - CONCLUSION: Minimal residual airspace disease in the lingula otherwise unremarkable two-view chest. Arpit Geller MD Chest CT 10/31/16 0000 Signed Impressions: Service Date/Time: Monday, October 31, 2016 17:15 - CONCLUSION: Changing pattern of multiple bilateral focal opacities in the lung, with at least one new, conversion of one to cavitation, and resolution of 2 opacities. The evolution is characteristic of septic emboli. Shelton Man MD Objective Remarks GENERAL: Resting comfortably. SKIN: Multiple dried punctate lesions all over the skin. Some track gregory noted as well. HEENT: NC, AT. CARDIOVASCULAR: Tachycardic without murmurs, gallops, or rubs. RESPIRATORY: Clear to auscultation bilaterally. No wheezing, rales or rhonchi. GASTROINTESTINAL: Abdomen soft, non-distended. Normal active bowel sounds. MUSCULOSKELETAL: Extremities without cyanosis, or edema. NEURO: Alert & Oriented x4 to person, place, time, situation. PSYCH: Appropriate mood and affect. Medications and IVs Current Medications Medications (Trade) Dose Ordered Sig/Shun Route Start Time Stop Time Status Last Admin (Tylenol) 650 mg Q4H PRN PO 10/31/16 07:15 (Zofran Inj) 4 mg Q6H PRN IVP 10/31/16 07:15 (Judy-Colace) 1 tab BID PO 10/31/16 09:00 11/01/16 21:42 (Tylenol) 650 mg Q4H PRN PO 10/31/16 11:30 Oxycodone HCl 5 mg 5 mg Q6H PRN PO 10/31/16 11:30 11/03/16 06:44 (Prostaphlin Inj/ NS Inj) 100 ml @ 200 mls/hr Q4H IV 10/31/16 22:00 11/03/16 09:37 A/P Assessment and Plan Endocarditis On last admission the pt had staph bacteremia in 4/4 bottles. MSSA, sensitive to oxacillin. LIVIA confirmed tricuspid valve vegetation. The pt left AMA prior to completion of treatment. She has been at [facility] getting treatment with oxacillin until 10/29, when she left AMA from there as well. Infectious disease consult appreciated. Repeat echo confirms vegetation. - continue oxacillin IV per infectious disease. - Repeat blood cultures. - obtain records from OSH. Septic pulmonary emboli/ Positive AFB culture On last admission noted to have multiple bilateral small cavitary lung lesions consistent with septic pulmonary emboli. Has had hemoptysis. Sputum cultures were negative at that time. The patient is currently breathing comfortably on room air. She does pleuritic endorse chest pain from time to time associated with it. Informed that sputum culture from last admission was positive for AFB. ID was contacted. The pt was moved to a negative pressure room. CT showed: Changing pattern of multiple bilateral focal opacities in the lung, with at least one new, conversion of one to cavitation, and resolution of 2 opacities; The evolution is characteristic of septic emboli. - follow up with infectious disease. - Nasal cannula as needed. - OOB, IS. - Sputum culture pending. - Mycobacterium blood culture pending. Gallbladder mass Patient has a 2.5 x 2.5 cm mass within the gallbladder on ultrasound and the gallbladder wall is thickened. General surgery was consulted on the last admission who recommended outpatient follow-up once bacteremia/endocarditis is treated. She was told at [facility] that her gallbladder needs to come out eventually. She has no symptoms at this time. - outpt follow-up once infection is resolved. Pain control The pt has a history of polysubstance abuse (THC, Heroin, methamphetamine). - low dose oxycodone as needed. Will try non-narcotic pain relievers in an attempt to wean off. Lidoderm patch ordered. Anemia Currently improved. - H&H being monitored. Low back pain Chronic. + SLR on the left. The pt reports she had an MRI done at [facility] and there was concern for an infection in her spine, but she said another test ruled out infection. - obtain OSH records. - PT worked with pt. - continue antibiotics. - pain control as needed. Hypokalemia Possibly s/t decreased PO intake. - replete with KCl PO and monitor. PPx: SCDs Discharge Planning Will need prolonged antibiotics Juan Miguel Valdez DO Nov 03, 2016 12:53
[2016-11-03] MEDS: LIDOCAINE HCL 5% PATCH T-DERMAL SCH (13:46)
--- NOTE | 2016-11-03 17:43 | HHI.IDPN ---
Note Infectious Disease Note ID COVERAGE. Patient was at [facility] being treated for endocarditis when she left against medical advice for no reason and October 15. She said she went to [facility] the next day to continue treatment. She said she was continued on oxacillin over there and she said it was working very well. The patient left AMA from [facility], citing family issues. Presented to [facility] to continue the IV antibiotics. Tricuspid valve vegetation on 2D ECHO. Positive AFB sputum from 10/06/16 admission. No fever, chills, nausea or vomiting. Antibiotics Oxacillin IV Lines Line sites with no e.o infection Allergies: Coded Allergies: Aspirin (Verified Allergy, Mild, GASTRIC UPSET, 10/31/16) *MDRO Multi-Drug Resistant Organism (Verified Adverse Reaction, Unknown, ) MRSA Wound 01/2011 Uncoded Allergies: dilshad (Allergy, Mild, 08/27/16) OBJECTIVE: Vital Signs Date Time Temp Pulse Resp B/P Pulse Ox O2 Delivery O2 Flow Rate FiO2 11/03/16 12:00 97.4 104 18 130/86 99 11/03/16 08:00 97.7 106 18 120/80 100 11/03/16 00:00 97.3 87 16 102/69 96 11/02/16 20:00 97.8 100 16 116/77 97 11/02/16 11/02/16 11/03/16 15:00 23:00 07:00 Intake Total 210 ml 280 ml Balance 210 ml 280 ml Intake Oral 280 ml IV Total 210 ml # Voids 1 # Bowel Movements 0 Microbiology Date/Time Procedure Status Source Growth 10/31/16 21:47 Mycobacterial Culture Received Blood Peripheral Pending Imaging Chest X-Ray 10/31/16 0545 Signed Impressions: Service Date/Time: Monday, October 31, 2016 06:08 - CONCLUSION: Minimal residual airspace disease in the lingula otherwise unremarkable two-view chest. Arpit Geller MD Chest CT 10/31/16 0000 Signed Impressions: Service Date/Time: Monday, October 31, 2016 17:15 - CONCLUSION: Changing pattern of multiple bilateral focal opacities in the lung, with at least one new, conversion of one to cavitation, and resolution of 2 opacities. The evolution is characteristic of septic emboli. Shelton Man MD Physical Exam Microbiology Date/Time Procedure Status Source Growth 10/31/16 21:47 Mycobacterial Culture Received Blood Peripheral Pending GENERAL: Patient is in no acute distress. HEENT: EOMI, No icterus. NECK: Supple. No adenopathy. LUNGS: Clear breath sounds. CARDIAC: Regular rate and rhythm, ANNELIESE at LSB. ABDOMEN: Soft, non tender. EXTREMITIES: No CCE. SKIN: No rash. Assessment & Plan Remarks MSSA endocarditis partially treated as pt left AMA from 2 institutions. Septic emboli. Sputum from last admission 10/06/2016 now positive for AFB. MTB PCR on that specimen not possible per discussion with Micro. Chest pain on admission likely pleuritic. Improved. Systolic murmur (pt reports new) Recs: Continue Oxacillin IV Follow ID of the AFB in sputum. Follow AFB blood culture Follow cultures Follow clinically. Kaleb Fields MD Nov 03, 2016 17:43
[2016-11-03 20:00] VITALS: BP 112/76; PULSE 94; RESP 16; TEMP 97.7; O2SAT 99
[2016-11-03] MEDS: REMOVE OLD LIDOCAINE PATCH T-DERMAL SCH (21:00)
[2016-11-04] MEDS: OXACILLIN INJ 2 GM in SODIUM CHLORIDE 0.9% INJ 100 ML IV SCH ×6 (01:40→21:00)
[2016-11-04 08:00] VITALS: BP 109/76; PULSE 97; RESP 16; TEMP 98.3; O2SAT 97
[2016-11-04] MEDS: LIDOCAINE HCL 5% PATCH T-DERMAL SCH (09:00)
[2016-11-04] MEDS: DOCUSATE SODIUM 50 MG/SENNA 8.6 MG TAB PO SCH ×2 (09:00→21:00)
--- NOTE | 2016-11-04 11:50 | HHI.PR ---
Subjective Remarks Seen in follow-up for endocarditis and 10/06 sputum positive AFB . She has no complaints today. Rest or status appears improved and I did evaluate the patient use of her incentive spirometry which is appropriate Objective Vitals Vital Signs Date Time Temp Pulse Resp B/P Pulse Ox O2 Delivery O2 Flow Rate FiO2 11/04/16 08:00 98.3 97 16 109/76 97 11/03/16 20:00 97.7 94 16 112/76 99 11/03/16 12:00 97.4 104 18 130/86 99 I/O 11/03/16 11/03/16 11/03/16 11/04/16 11/04/16 11/04/16 06:59 14:59 22:59 06:59 14:59 22:59 Intake Total 280 ml 330 ml 560 ml 220 ml Balance 280 ml 330 ml 560 ml 220 ml Intake Oral 280 ml 460 ml IV Total 330 ml 100 ml 220 ml # Voids 1 2 # Bowel Movements 0 Result Diagram: 11/01/16 1645 11/01/16 1645 Imaging Last Impressions Chest X-Ray 10/31/16 0545 Signed Impressions: Service Date/Time: Monday, October 31, 2016 06:08 - CONCLUSION: Minimal residual airspace disease in the lingula otherwise unremarkable two-view chest. Arpit Geller MD Chest CT 10/31/16 0000 Signed Impressions: Service Date/Time: Monday, October 31, 2016 17:15 - CONCLUSION: Changing pattern of multiple bilateral focal opacities in the lung, with at least one new, conversion of one to cavitation, and resolution of 2 opacities. The evolution is characteristic of septic emboli. Shelton Man MD Objective Remarks GENERAL: This is a well-nourished, well-developed patient, in no apparent distress. CARDIOVASCULAR: Regular rate and rhythm without gallops or rubs, 3/6 systolic murmur RESPIRATORY: Clear to auscultation. Breath sounds equal bilaterally. No wheezes , rales, or rhonchi. GASTROINTESTINAL: Abdomen soft, non-tender, nondistended. Normal active bowel sounds MUSCULOSKELETAL: Extremities without clubbing, cyanosis, or edema. NEURO: Alert & Oriented x4 to person, place, time, situation. Moves all ext x4 A/P Problem List: (1) Endocarditis ICD Code: I38 Status: Acute Plan: Continue Oxacillin IV mssa positive (previous diagnosis after 2 AMA discharges at 2 different hospitals locally) ID following. Patient has infected pulmonary emboli, <2cm tricuspid valve vegetation on echo 11/01 (new since prior echo) and pleuritic pain (2) Acid fast bacillus ICD Code: A31.9 Status: Acute Plan: Sputum from last admission 10/06/2016 now positive for AFB. Current sputum unremarkable CT shows possible cavitary lesion, but characteristic of Septic emboli AFB Blood culture pending (3) IV drug abuse ICD Code: F19.10 Status: Acute Plan: Heroin, methamphetamines per patient (4) Gallbladder mass ICD Code: K82.8 Status: Acute Plan: seen by gen surg last admission and recommended treat Endocarditis with outpatien follow up (5) Hepatitis C ICD Code: B19.20 Status: Acute Plan: nl lfts, Assessment and Plan lmwh Problem Qualifiers (1) Endocarditis: Qualified Code: I33.0 - Subacute bacterial endocarditis Anna Tellez MD Nov 04, 2016 11:50
[2016-11-04 12:00] VITALS: BP 122/87; PULSE 107; RESP 16; TEMP 98.1; O2SAT 98
[2016-11-04] MEDS: ENOXAPARIN SODIUM 40 MG/0.4 ML SYRINGE SQ SCH (14:59)
[2016-11-04 16:00] VITALS: BP 104/76; PULSE 98; RESP 20; TEMP 97.5; O2SAT 100
[2016-11-04 20:00] VITALS: BP 105/61; PULSE 88; RESP 16; TEMP 98.2; O2SAT 97
[2016-11-04] MEDS: REMOVE OLD LIDOCAINE PATCH T-DERMAL SCH (21:00)
[2016-11-05] MEDS: OXACILLIN INJ 2 GM in SODIUM CHLORIDE 0.9% INJ 100 ML IV SCH ×6 (03:54→22:58)
[2016-11-05 08:00] VITALS: BP 103/74; PULSE 89; RESP 16; TEMP 97.6; O2SAT 99
[2016-11-05] MEDS: DOCUSATE SODIUM 50 MG/SENNA 8.6 MG TAB PO SCH ×2 (09:00→20:55)
[2016-11-05] MEDS: LIDOCAINE HCL 5% PATCH T-DERMAL SCH (09:26)
[2016-11-05 12:00] VITALS: BP 109/74; PULSE 109; RESP 16; TEMP 97.7; O2SAT 99
[2016-11-05] MEDS: ENOXAPARIN SODIUM 40 MG/0.4 ML SYRINGE SQ SCH (13:41)
[2016-11-05 16:00] VITALS: BP 121/81; PULSE 110; RESP 16; TEMP 98.4; O2SAT 97
--- NOTE | 2016-11-05 16:36 | HHI.PR ---
Subjective Remarks Written by Bashir Rivero, acting as scribe for Dr. Bennett on 11/05/16 at 16: 27. Patient denies any new complaints. She is resting comfortably in bed. Awaiting results for AFB. Patient eating well and having normal bowel movements. Objective Vitals Vital Signs Date Time Temp Pulse Resp B/P Pulse Ox O2 Delivery O2 Flow Rate FiO2 11/05/16 12:00 97.7 109 16 109/74 99 11/05/16 10:27 18 11/05/16 08:00 97.6 89 16 103/74 99 11/04/16 20:00 98.2 88 16 105/61 97 I/O 11/04/16 11/04/16 11/04/16 11/05/16 11/05/16 11/05/16 07:00 15:00 23:00 07:00 15:00 23:00 Intake Total 1660 ml 836 ml 2260 ml Balance 1660 ml 836 ml 2260 ml Intake Oral 1440 ml 420 ml 2160 ml IV Total 220 ml 416 ml 100 ml # Voids 3 3 4 # Bowel Movements 1 1 Result Diagram: 11/01/16 1645 11/01/16 1645 Imaging Last Impressions Chest X-Ray 10/31/16 0545 Signed Impressions: Service Date/Time: Monday, October 31, 2016 06:08 - CONCLUSION: Minimal residual airspace disease in the lingula otherwise unremarkable two-view chest. Arpit Geller MD Chest CT 10/31/16 0000 Signed Impressions: Service Date/Time: Monday, October 31, 2016 17:15 - CONCLUSION: Changing pattern of multiple bilateral focal opacities in the lung, with at least one new, conversion of one to cavitation, and resolution of 2 opacities. The evolution is characteristic of septic emboli. Shelton Man MD Objective Remarks GENERAL: Well-developed, well-nourished, in no acute distress. alert and orientated HEENT: Head is normocephalic Extraocular muscles are intact. Conjunctivae were clear. NECK: Trachea midline no deviation. CARDIAC: Regular rhythm, regular rate. No murmurs gallops or rubs. LUNGS: Clear to auscultation bilaterally. No wheeze ABDOMEN: Soft, nontender. Nondistended. Bowel sounds heard in all 4 quadrants. EXTREMITIES: No edema, pulses are equal bilaterally. NEUROLOGY: Mood and affect appear appropriate. Cranial nerves II through XII grossly intact. Moving all extremities, speech is clear Urinary Catheter: No Vascular Central Line Catheter: No A/P Assessment and Plan Bacterial endocarditis, history of septic pulmonary emboli Patient did not complete her previous treatments due to noncompliance he and signing out AGAINST MEDICAL ADVICE Patient has have history of MSSA bacteremia with LIVIA confirming tricuspid valve vegetation Patient readmitted to the hospital for completion of antibiotics to include oxacillin IV Presently will plan for 4 weeks of antibiotic treatment, however may change once we get records from outside hospital History of positive AFB culture Awaiting peripheral blood Mycobacterium culture Continue TB precautions Infectious disease following patient Gallbladder mass Gallbladder ultrasound indicates patient has a 2.5 x 2.5 cm mass within the gallbladder and the gallbladder wall is thickened. General surgery was consulted on the last admission who recommended outpatient follow-up once bacteremia/endocarditis is treated. She was told at [facility] that her gallbladder needs to come out eventually. She has no symptoms at this time. Patient will proceed with outpatient follow-up after treatment for endocarditis Pain control The pt has a history of polysubstance abuse (THC, Heroin, methamphetamine). Roxicodone 5 mg every 6 hours needed for pain 310 Lidoderm patch Anemia Appears to be improved from previous admission Chronic Low back pain Patient reports she had an MRI done at [facility] and there was concern for an infection in her spine, but she said another test ruled out infection. Hypokalemia Monitor and replete as needed DVT prevention Subcutaneous Lovenox This note was transcribed by valente Rivero. I, Dr. Leia Bennett personally performed the history, physical exam, and medical decision making; and confirmed the accuracy of the information in the transcribed note. Authenticated by Dr. Leia Bennett on 11/05/16 at 16:27. Discharge Planning Discharge planning once patient completes IV antibiotics for endocarditis Bashir Rivero Nov 05, 2016 16:36 Leia Bennett MD Nov 06, 2016 13:39
[2016-11-05 20:37] VITALS: BP 109/71; PULSE 102; RESP 16; TEMP 98; O2SAT 98
[2016-11-05] MEDS: REMOVE OLD LIDOCAINE PATCH T-DERMAL SCH (20:55)
[2016-11-06 00:08] VITALS: BP 106/74; PULSE 87; RESP 16; TEMP 97.3; O2SAT 97
[2016-11-06] MEDS: OXACILLIN INJ 2 GM in SODIUM CHLORIDE 0.9% INJ 100 ML IV SCH ×6 (03:02→21:46)
[2016-11-06 04:10] VITALS: BP 108/76; PULSE 96; RESP 16; TEMP 97.4; O2SAT 97
[2016-11-06 08:00] VITALS: BP 108/78; PULSE 94; RESP 16; TEMP 98.5; O2SAT 98
[2016-11-06] MEDS: DOCUSATE SODIUM 50 MG/SENNA 8.6 MG TAB PO SCH ×2 (09:00→21:00)
[2016-11-06] MEDS: LIDOCAINE HCL 5% PATCH T-DERMAL SCH (09:11)
--- NOTE | 2016-11-06 11:54 | HHI.PR ---
Subjective Remarks Written by Bashir Rivero, acting as scribe for Dr. Bennett on 11/06/16 at 11: 52. Patient denies any new complaints. Denies any fever or chills. Not having any pain at this time. Objective Vitals Vital Signs Date Time Temp Pulse Resp B/P Pulse Ox O2 Delivery O2 Flow Rate FiO2 11/06/16 08:00 98.5 94 16 108/78 98 11/06/16 07:28 18 11/06/16 04:10 97.4 96 16 108/76 97 11/06/16 00:08 97.3 87 16 106/74 97 11/05/16 20:37 98.0 102 16 109/71 98 11/05/16 16:00 98.4 110 16 121/81 97 11/05/16 12:00 97.7 109 16 109/74 99 I/O 11/05/16 11/05/16 11/05/16 11/06/16 11/06/16 11/06/16 07:00 15:00 23:00 07:00 15:00 23:00 Intake Total 2260 ml 960 ml 300 ml Balance 2260 ml 960 ml 300 ml Intake Oral 2160 ml 960 ml 200 ml IV Total 100 ml 100 ml # Voids 4 4 # Bowel Movements 1 Imaging Last Impressions Chest X-Ray 10/31/16 0545 Signed Impressions: Service Date/Time: Monday, October 31, 2016 06:08 - CONCLUSION: Minimal residual airspace disease in the lingula otherwise unremarkable two-view chest. Arpit Geller MD Chest CT 10/31/16 0000 Signed Impressions: Service Date/Time: Monday, October 31, 2016 17:15 - CONCLUSION: Changing pattern of multiple bilateral focal opacities in the lung, with at least one new, conversion of one to cavitation, and resolution of 2 opacities. The evolution is characteristic of septic emboli. Shelton Man MD Objective Remarks GENERAL: Well-developed, well-nourished, in no acute distress. alert and orientated HEENT: Head is normocephalic Eyes: Extraocular muscles are intact. Conjunctivae were clear. NECK: Trachea midline no deviation. CARDIAC: Regular rhythm, regular rate. No murmurs LUNGS: Clear to auscultation bilaterally. No wheeze. No use of accessory muscles on inspiration or expiration. ABDOMEN: Soft, nontender. Nondistended. Bowel sounds heard in all 4 quadrants. Negative rebound, negative guarding EXTREMITIES: No edema, pulses are equal bilaterally. NEUROLOGY: Mood and affect appear appropriate. Cranial nerves II through XII grossly intact. Moving all extremities, speech is clear Urinary Catheter: No Vascular Central Line Catheter: No A/P Assessment and Plan Bacterial endocarditis, history of septic pulmonary emboli Patient did not complete her previous treatments due to noncompliance he and signing out AGAINST MEDICAL ADVICE Patient has have history of MSSA bacteremia with LIVIA confirming tricuspid valve vegetation Patient readmitted to the hospital for completion of antibiotics to include oxacillin IV Presently will plan for 4 weeks of antibiotic treatment, however may change once we get records from outside hospital History of positive AFB culture Awaiting peripheral blood Mycobacterium culture Continue TB precautions Infectious disease following patient Gallbladder mass Gallbladder ultrasound indicates patient has a 2.5 x 2.5 cm mass within the gallbladder and the gallbladder wall is thickened. General surgery was consulted on the last admission who recommended outpatient follow-up once bacteremia/endocarditis is treated. She was told at [facility] that her gallbladder needs to come out eventually. She has no symptoms at this time. Patient will proceed with outpatient follow-up after treatment for endocarditis Pain control The pt has a history of polysubstance abuse (THC, Heroin, methamphetamine). Roxicodone 5 mg every 6 hours needed for pain 310 Lidoderm patch Anemia Appears to be improved from previous admission Chronic Low back pain Patient reports she had an MRI done at [facility] and there was concern for an infection in her spine, but she said another test ruled out infection. Hypokalemia Monitor and replete as needed DVT prevention Subcutaneous Lovenox This note was transcribed by valente Rivero. I, Dr. Leia Bennett personally performed the history, physical exam, and medical decision making; and confirmed the accuracy of the information in the transcribed note. Authenticated by Dr. Leia Bennett on 11/06/16 at 11:52. Discharge Planning Discharge planning once patient completes IV antibiotics for endocarditis Bashir Rivero Nov 06, 2016 11:54 Leia Bennett MD Nov 06, 2016 13:40
[2016-11-06 12:00] VITALS: BP 115/78; PULSE 74; RESP 18; TEMP 97.8; O2SAT 99
[2016-11-06] MEDS: ENOXAPARIN SODIUM 40 MG/0.4 ML SYRINGE SQ SCH (13:54)
[2016-11-06 16:00] VITALS: BP 108/77; PULSE 106; RESP 18; TEMP 96.7; O2SAT 98
[2016-11-06 20:00] VITALS: BP 113/78; PULSE 103; RESP 18; TEMP 98; O2SAT 99
[2016-11-06] MEDS: REMOVE OLD LIDOCAINE PATCH T-DERMAL SCH (21:00)
[2016-11-07] VITALS: BP 99/74; PULSE 88; RESP 16; TEMP 97; O2SAT 98
[2016-11-07] MEDS: OXACILLIN INJ 2 GM in SODIUM CHLORIDE 0.9% INJ 100 ML IV SCH ×6 (02:05→23:05)
[2016-11-07 06:51] LABS: AUTOMATED NEUTROPHIL # 3.5 TH/MM3 (1.8-7.7); BASOPHIL # 0.1 TH/MM3 (0-0.2); BASOPHIL % 1.8 % (0.0-2.0); EOSINOPHIL # 0.4 TH/MM3 (0-0.4); EOSINOPHIL % 5.7 % (0.0-4.0); HEMATOCRIT 31.6 % (35.0-46.0); HEMO FLAGS DIFF FINAL; LYMPH % 28.7 % (9.0-44.0); LYMPHOCYTE # 1.8 TH/MM3 (1.0-4.8); MEAN CORPUSCULAR HEMOGLOBIN 28.8 PG (27.0-34.0); MEAN CORPUSCULAR HGB CONC 33.4 % (32.0-36.0); MONO % 8.6 % (0.0-8.0); NEUT % 55.2 % (16.0-70.0); PLATELET COUNT 273 TH/MM3 (150-450); RED BLOOD COUNT 3.68 MIL/MM3 (4.00-5.30); RED CELL DISTRIBUTION WIDTH 15.4 % (11.6-17.2); WHITE BLOOD COUNT 6.4 TH/MM3 (4.0-11.0)
[2016-11-07 06:58] LABS: POTASSIUM 3.9 MEQ/L (3.5-5.1)
[2016-11-07 07:45] LABS: WESTERGREN SEDIMENTATION RATE 41 mm/hr (0-20)
[2016-11-07 08:00] VITALS: BP 113/75; PULSE 83; RESP 16; TEMP 98; O2SAT 98
[2016-11-07] MEDS: DOCUSATE SODIUM 50 MG/SENNA 8.6 MG TAB PO SCH ×2 (09:00→21:00)
[2016-11-07] MEDS: LIDOCAINE HCL 5% PATCH T-DERMAL SCH (09:09)
--- NOTE | 2016-11-07 10:42 | HHI.PR ---
Subjective Remarks Written by Bashir Rivero, acting as scribe for Dr. Bennett on 11/07/16 at 10: 35. Patient is doing well. Remains afebrile. Denies any new complaints. Eating well with normal bowel movements. Objective Vitals Vital Signs Date Time Temp Pulse Resp B/P Pulse Ox O2 Delivery O2 Flow Rate FiO2 11/07/16 08:00 98.0 83 16 113/75 98 11/07/16 00:00 97.0 88 16 99/74 98 11/06/16 20:00 98.0 103 18 113/78 99 11/06/16 18:36 18 11/06/16 16:00 96.7 106 18 108/77 98 11/06/16 12:00 97.8 74 18 115/78 99 I/O 11/06/16 11/06/16 11/06/16 11/07/16 11/07/16 11/07/16 07:00 15:00 23:00 07:00 15:00 23:00 Intake Total 960 ml 1560 ml 780 ml 120 ml Balance 960 ml 1560 ml 780 ml 120 ml Intake Oral 960 ml 1360 ml 680 ml 120 ml IV Total 200 ml 100 ml # Voids 4 3 1 2 # Bowel Movements 0 0 0 Result Diagram: 11/07/16 0635 11/07/16 0635 Imaging Last Impressions Chest X-Ray 10/31/16 0545 Signed Impressions: Service Date/Time: Monday, October 31, 2016 06:08 - CONCLUSION: Minimal residual airspace disease in the lingula otherwise unremarkable two-view chest. Arpit Geller MD Chest CT 10/31/16 0000 Signed Impressions: Service Date/Time: Monday, October 31, 2016 17:15 - CONCLUSION: Changing pattern of multiple bilateral focal opacities in the lung, with at least one new, conversion of one to cavitation, and resolution of 2 opacities. The evolution is characteristic of septic emboli. hSelton Man MD Objective Remarks GENERAL: Well-developed, well-nourished, alert and orientated Eyes: Extraocular muscles are intact. NECK: Trachea midline no deviation. CARDIAC: Regular rhythm, regular rate. No murmurs gallops or rubs. LUNGS: Clear to auscultation bilaterally. No wheeze ABDOMEN: Soft, nontender. Nondistended. Bowel sounds heard in all 4 quadrants. EXTREMITIES: No edema NEUROLOGY: Mood and affect appear appropriate. Cranial nerves II through XII grossly intact. Moving all extremities, speech is clear Urinary Catheter: No Vascular Central Line Catheter: No A/P Assessment and Plan Bacterial endocarditis, history of septic pulmonary emboli Patient did not complete her previous treatments due to noncompliance he and signing out AGAINST MEDICAL ADVICE Patient has have history of MSSA bacteremia with LIVIA confirming tricuspid valve vegetation Patient readmitted to the hospital for completion of antibiotics to include oxacillin IV Presently will plan for 4 weeks of antibiotic treatment, however may change once we get records from outside hospital History of positive AFB culture Awaiting peripheral blood Mycobacterium culture Continue TB precautions. ID on case Gallbladder mass Gallbladder ultrasound indicates patient has a 2.5 x 2.5 cm mass within the gallbladder and the gallbladder wall is thickened. General surgery was consulted on the last admission who recommended outpatient follow-up once bacteremia/endocarditis is treated. She was told at [facility] that her gallbladder needs to come out eventually. She has no symptoms at this time. Patient will proceed with outpatient follow-up after treatment for endocarditis Pain control The pt has a history of polysubstance abuse (THC, Heroin, methamphetamine). Roxicodone 5 mg every 6 hours needed for pain 310 Lidoderm patch Anemia Appears to be improved from previous admission Chronic Low back pain Patient reports she had an MRI done at [facility] and there was concern for an infection in her spine, but she said another test ruled out infection. Hypokalemia Monitor and replete as needed DVT prevention Subcutaneous Lovenox This note was transcribed by valente Rivero. I, Dr. Leia Bennett personally performed the history, physical exam, and medical decision making; and confirmed the accuracy of the information in the transcribed note. Authenticated by Dr. Leia Bennett on 11/07/16 at 10:35. Discharge Planning Discharge planning once patient completes IV antibiotics for endocarditis Bashir Rivero Nov 07, 2016 10:42 Leia Bennett MD Nov 07, 2016 12:07
[2016-11-07] MEDS: ENOXAPARIN SODIUM 40 MG/0.4 ML SYRINGE SQ SCH (14:10)
[2016-11-07 20:00] VITALS: BP 110/73; PULSE 85; RESP 16; TEMP 97.9; O2SAT 98
[2016-11-07] MEDS: REMOVE OLD LIDOCAINE PATCH T-DERMAL SCH (21:00)
[2016-11-08] MEDS: OXACILLIN INJ 2 GM in SODIUM CHLORIDE 0.9% INJ 100 ML IV SCH ×6 (02:45→22:48)
[2016-11-08 08:00] VITALS: BP 112/84; PULSE 86; RESP 18; TEMP 97.6; O2SAT 100
[2016-11-08] MEDS: DOCUSATE SODIUM 50 MG/SENNA 8.6 MG TAB PO SCH ×2 (09:00→19:50)
[2016-11-08] MEDS: ENOXAPARIN SODIUM 40 MG/0.4 ML SYRINGE SQ SCH (10:54)
[2016-11-08] MEDS: LIDOCAINE HCL 5% PATCH T-DERMAL SCH (10:55)
--- NOTE | 2016-11-08 11:52 | HHI.PR ---
Subjective Remarks Written by David Morales, acting as scribe for Dr. Lorena Bennett on 11/08/16 at 11: 39. Follow-up visit for endocarditis. Pt seen and evaluated. No new complaints noted or reported by pt. She denied fever, NVD. cough, shortness of breath, dysuria. Physician inquired about oil bottle in room and pt stated it was "for my vape pen." Information shared with Charge nurse. Objective Vitals Vital Signs Date Time Temp Pulse Resp B/P Pulse Ox O2 Delivery O2 Flow Rate FiO2 11/08/16 08:00 97.6 86 18 112/84 100 11/08/16 07:27 20 11/07/16 20:00 97.9 85 16 110/73 98 I/O 11/07/16 11/07/16 11/07/16 11/08/16 11/08/16 11/08/16 07:00 15:00 23:00 07:00 15:00 23:00 Intake Total 120 ml 1438 ml Balance 120 ml 1438 ml Intake Oral 120 ml IV Total 1438 ml # Voids 2 4 # Bowel Movements 0 Result Diagram: 11/07/16 0635 11/07/16 0635 Imaging Last Impressions Chest X-Ray 10/31/16 0545 Signed Impressions: Service Date/Time: Monday, October 31, 2016 06:08 - CONCLUSION: Minimal residual airspace disease in the lingula otherwise unremarkable two-view chest. Arpit Geller MD Chest CT 10/31/16 0000 Signed Impressions: Service Date/Time: Monday, October 31, 2016 17:15 - CONCLUSION: Changing pattern of multiple bilateral focal opacities in the lung, with at least one new, conversion of one to cavitation, and resolution of 2 opacities. The evolution is characteristic of septic emboli. Shelton Man MD Objective Remarks GENERAL: Pt encountered laying a bed, resting, watching TV. SKIN: Warm and dry. Tattoos noted. HEAD: Normocephalic. EYES: No scleral icterus. No injection or drainage. NECK: Supple, trachea midline. No lymphadenopathy. CARDIOVASCULAR: Regular rate and rhythm without murmurs, gallops, or rubs. RESPIRATORY: Breath sounds equal bilaterally. No accessory muscle use. GASTROINTESTINAL: Abdomen soft, non-tender, nondistended. MUSCULOSKELETAL: No cyanosis, or edema. PSYCHIATRIC: Alert and oriented x 3, no overt signs/symptoms of depression and/ or anxiety. Pleasant and cooperative. Medications and IVs Current Medications Medications (Trade) Dose Ordered Sig/Shun Route Start Time Stop Time Status Last Admin (Tylenol) 650 mg Q4H PRN PO 10/31/16 07:15 (Zofran Inj) 4 mg Q6H PRN IVP 10/31/16 07:15 (Judy-Colace) 1 tab BID PO 10/31/16 09:00 11/01/16 21:42 (Tylenol) 650 mg Q4H PRN PO 10/31/16 11:30 Oxycodone HCl 5 mg 5 mg Q6H PRN PO 10/31/16 11:30 11/08/16 06:27 (Prostaphlin Inj/ NS Inj) 100 ml @ 200 mls/hr Q4H IV 10/31/16 22:00 11/08/16 10:55 (Lidoderm 5% Patch.12 Hr) 1 patch DAILY T-DERMAL 11/03/16 13:00 11/08/16 10:55 Miscellaneous Information 1 Q24H T-DERMAL 11/03/16 21:00 11/07/16 21:00 (Lovenox Inj) 40 mg Q24H SQ 11/04/16 13:00 11/08/16 10:54 Urinary Catheter: No A/P Problem List: (1) Endocarditis ICD Code: I38 Status: Acute (2) Acid fast bacillus ICD Code: A31.9 Status: Acute (3) IV drug abuse ICD Code: F19.10 Status: Acute (4) Gallbladder mass ICD Code: K82.8 Status: Acute (5) Hepatitis C ICD Code: B19.20 Status: Acute Assessment and Plan The patient is a 28-year-old female with a past medical history of IV drug abuse and endocarditis was presenting to the hospital to complete treatment for endocarditis. She was recently at the [facility] getting treated for endocarditis when she left against medical advice for no reason and October 15. She said she went to [facility] the next day to continue treatment. She said she was continued on oxacillin over there and she said it was working very well. She said they did some imaging of her back and initially they were concerned about an infection in her spine but she said they ruled it out with a test. The patient says that she has been smoking marijuana regularly. She says she has gone to meth a few times to help with her withdrawals. She said she had to walk to the hospital today over long distance and that made her chest pain worse. She does endorse nausea from time to time. She says she will not leave the hospital before the end of her treatment this time. Assessment and Plan Bacterial endocarditis, history of septic pulmonary emboli Patient did not complete her previous treatments due to noncompliance he and signing out AGAINST MEDICAL ADVICE Patient has have history of MSSA bacteremia with LIVIA confirming tricuspid valve vegetation Patient readmitted to the hospital for completion of antibiotics to include oxacillin IV Presently will plan for 4 weeks of antibiotic treatment, however may change once we get records from outside hospital History of positive AFB culture Awaiting peripheral blood Mycobacterium culture Continue TB precautions. ID on case Gallbladder mass Gallbladder ultrasound indicates patient has a 2.5 x 2.5 cm mass within the gallbladder and the gallbladder wall is thickened. General surgery was consulted on the last admission who recommended outpatient follow-up once bacteremia/endocarditis is treated. She was told at [facility] that her gallbladder needs to come out eventually. She has no symptoms at this time. Patient will proceed with outpatient follow-up after treatment for endocarditis Pain control The pt has a history of polysubstance abuse (THC, Heroin, methamphetamine). Roxicodone 5 mg every 6 hours needed for pain 310 Lidoderm patch Anemia Appears to be improved from previous admission Chronic Low back pain Patient reports she had an MRI done at [facility] and there was concern for an infection in her spine, but she said another test ruled out infection. Hypokalemia Monitor and replete as needed DVT prevention Subcutaneous Lovenox Discussed with Pt. and charge nurse. Discharge Planning Discharge planning once patient completes IV antibiotics for endocarditis. Per CM notes. pt likely to return to her home upon discharge. Problem Qualifiers (1) Endocarditis: Qualified Code: I33.0 - Subacute bacterial endocarditis David Morales Jr. Nov 08, 2016 11:52
[2016-11-08 12:00] VITALS: BP 119/86; PULSE 102; RESP 16; TEMP 98.3; O2SAT 99
[2016-11-08 16:00] VITALS: BP 127/85; PULSE 85; RESP 16; TEMP 98.2; O2SAT 99
[2016-11-08] MEDS: REMOVE OLD LIDOCAINE PATCH T-DERMAL SCH (19:50)
[2016-11-08 20:00] VITALS: BP 130/84; PULSE 104; RESP 18; TEMP 97.9; O2SAT 99
[2016-11-08 23:30] VITALS: BP 103/68; PULSE 96; RESP 18; TEMP 97.8; O2SAT 98
[2016-11-09] MEDS: OXACILLIN INJ 2 GM in SODIUM CHLORIDE 0.9% INJ 100 ML IV SCH ×6 (02:22→22:05)
[2016-11-09 08:00] VITALS: BP 106/78; PULSE 96; RESP 20; TEMP 97.3; O2SAT 100
[2016-11-09 08:38] LABS: AUTOMATED NEUTROPHIL # 2.4 TH/MM3 (1.8-7.7); BASOPHIL # 0.1 TH/MM3 (0-0.2); BASOPHIL % 1.2 % (0.0-2.0); EOSINOPHIL # 0.2 TH/MM3 (0-0.4); EOSINOPHIL % 5.1 % (0.0-4.0); HEMATOCRIT 33.5 % (35.0-46.0); HEMO FLAGS DIFF FINAL; LYMPH % 27.1 % (9.0-44.0); LYMPHOCYTE # 1.3 TH/MM3 (1.0-4.8); MEAN CELL VOLUME 85.9 FL (80.0-100.0); MEAN CORPUSCULAR HEMOGLOBIN 27.2 PG (27.0-34.0); MEAN CORPUSCULAR HGB CONC 31.7 % (32.0-36.0); NEUT % 54.6 % (16.0-70.0); PLATELET COUNT 224 TH/MM3 (150-450); RED BLOOD COUNT 3.89 MIL/MM3 (4.00-5.30); RED CELL DISTRIBUTION WIDTH 15.6 % (11.6-17.2); WHITE BLOOD COUNT 4.6 TH/MM3 (4.0-11.0)
[2016-11-09 08:39] LABS: POTASSIUM 3.7 MEQ/L (3.5-5.1)
[2016-11-09 08:43] LABS: BICARBONATE 25.2 MEQ/L (21.0-32.0)
[2016-11-09] MEDS: DOCUSATE SODIUM 50 MG/SENNA 8.6 MG TAB PO SCH ×3 (08:51→22:04)
[2016-11-09] MEDS: LIDOCAINE HCL 5% PATCH T-DERMAL SCH (08:51)
[2016-11-09 12:00] VITALS: BP 135/80; PULSE 102; RESP 20; TEMP 97.7; O2SAT 98
--- NOTE | 2016-11-09 13:07 | HHI.PR ---
Subjective Remarks Patient seen and evaluated in follow-up for endocarditis. Still awaiting AFB cultures which we will follow 6 weeks for incubation per microbiology. Blood cultures for AFB are negative. Patient currently tolerating antibiotics for endocarditis without difficulty. She is complaining of some parasacral discomfort and tenseness. She says it feels better when she gets out of the bed and she is also complaining of some right ankle numbness for 4 days Objective Vitals Vital Signs Date Time Temp Pulse Resp B/P Pulse Ox O2 Delivery O2 Flow Rate FiO2 11/08/16 23:30 97.8 96 18 103/68 98 11/08/16 20:00 97.9 104 18 130/84 99 11/08/16 16:00 98.2 85 16 127/85 99 11/08/16 13:54 20 I/O 11/08/16 11/08/16 11/08/16 11/09/16 11/09/16 11/09/16 07:00 15:00 23:00 07:00 15:00 23:00 Intake Total 300 ml 660 ml Balance 300 ml 660 ml Intake Oral 360 ml IV Total 300 ml 300 ml # Voids 2 Result Diagram: 11/09/16 0740 11/09/16 0740 Objective Remarks GENERAL: This is a well-nourished, well-developed patient, tearful CARDIOVASCULAR: Regular rate and rhythm without gallops or rubs, 3/6 systolic murmur RESPIRATORY: Clear to auscultation. Breath sounds equal bilaterally. No wheezes , rales, or rhonchi. GASTROINTESTINAL: Abdomen soft, non-tender, nondistended. Normal active bowel sounds MUSCULOSKELETAL: Some paraspinal subjective tenderness but not objectively on exam. Extremities without clubbing, cyanosis, or edema. NEURO: Alert & Oriented x4 to person, place, time, situation. Moves all ext x4 A/P Problem List: (1) Endocarditis ICD Code: I38 Status: Acute Plan: Continue Oxacillin IV mssa positive (previous diagnosis after 2 AMA discharges at 2 different hospitals locally) ID following. Patient has infected pulmonary emboli, <2cm tricuspid valve vegetation on echo 11/01 (new since prior echo) and pleuritic pain (2) Acid fast bacillus ICD Code: A31.9 Status: Acute Plan: Sputum from last admission 10/06/2016 now positive for AFB [address] shows possible cavitary lesion, but characteristic of Septic emboli AFB Blood culture currently negative (3) Back pain ICD Code: M54.9 Status: Acute Plan: We'll attempt to obtain MRI from [facility] where the patient had similar discomfort. We'll add Flexeril and a heating pad Patient requesting more narcotics which I did explain we will not increase her narcotics Assessment and Plan lmwh Problem Qualifiers (1) Endocarditis: Qualified Code: I33.0 - Subacute bacterial endocarditis Anna Tellez MD Nov 09, 2016 13:07
[2016-11-09] MEDS: CYCLOBENZAPRINE HCL 10 MG TAB PO PRN ×2 (13:28→22:11)
[2016-11-09] MEDS: ENOXAPARIN SODIUM 40 MG/0.4 ML SYRINGE SQ SCH (13:30)
[2016-11-09 16:00] VITALS: BP 104/76; PULSE 104; RESP 20; TEMP 97.6; O2SAT 99
[2016-11-09 20:00] VITALS: BP 111/69; PULSE 106; RESP 16; TEMP 97.1; O2SAT 98
[2016-11-09] MEDS: REMOVE OLD LIDOCAINE PATCH T-DERMAL SCH (21:00)
[2016-11-10] VITALS: BP 95/68; PULSE 91; RESP 16; TEMP 97; O2SAT 97
[2016-11-10] MEDS: OXACILLIN INJ 2 GM in SODIUM CHLORIDE 0.9% INJ 100 ML IV SCH ×6 (03:12→21:04)
[2016-11-10 08:00] VITALS: BP 84/60; PULSE 85; RESP 18; TEMP 96.6; O2SAT 96
[2016-11-10] MEDS: DOCUSATE SODIUM 50 MG/SENNA 8.6 MG TAB PO SCH (09:00)
[2016-11-10] MEDS: LIDOCAINE HCL 5% PATCH T-DERMAL SCH (09:52)
[2016-11-10] MEDS: CYCLOBENZAPRINE HCL 10 MG TAB PO PRN ×2 (09:52→21:06)
--- NOTE | 2016-11-10 11:30 | HHI.PR ---
Subjective Remarks Patient seen in follow-up for endocarditis. Back pain improved. Still awaiting AFB from 10/06 Objective Vitals Vital Signs Date Time Temp Pulse Resp B/P Pulse Ox O2 Delivery O2 Flow Rate FiO2 11/10/16 08:00 96.6 85 18 84/60 96 11/10/16 00:00 97.0 91 16 95/68 97 11/09/16 20:00 97.1 106 16 111/69 98 11/09/16 16:00 97.6 104 20 104/76 99 11/09/16 12:00 97.7 102 20 135/80 98 I/O 11/09/16 11/09/16 11/09/16 11/10/16 11/10/16 11/10/16 07:00 15:00 23:00 07:00 15:00 23:00 Intake Total 660 ml 220 ml 540 ml Output Total 5 ml Balance 660 ml 220 ml 535 ml Intake Oral 360 ml 240 ml IV Total 300 ml 220 ml 300 ml Output Urine Total 5 ml # Voids 2 2 # Bowel Movements 0 Result Diagram: 11/09/16 0740 11/09/16 0740 Objective Remarks GENERAL: This is a well-nourished, well-developed patient, CARDIOVASCULAR: Regular rate and rhythm without gallops or rubs, 3/6 systolic murmur RESPIRATORY: Clear to auscultation. Breath sounds equal bilaterally. No wheezes , rales, or rhonchi. GASTROINTESTINAL: Abdomen soft, non-tender, nondistended. Normal active bowel sounds MUSCULOSKELETAL: Some paraspinal subjective tenderness but not objectively on exam. Extremities without clubbing, cyanosis, or edema. NEURO: Alert & Oriented x4 to person, place, time, situation. Moves all ext x4 A/P Problem List: (1) Endocarditis ICD Code: I38 Status: Acute Plan: Continue Oxacillin IV mssa positive (previous diagnosis after 2 AMA discharges at 2 different hospitals locally) ID following. Patient has infected pulmonary emboli, <2cm tricuspid valve vegetation on echo 11/01 (new since prior echo) and pleuritic pain (2) Acid fast bacillus ICD Code: A31.9 Status: Acute Plan: Sputum from last admission 10/06/2016 now positive for AFB (will need 6 weeks intubation time per micro) CT shows possible cavitary lesion, but characteristic of Septic emboli AFB Blood culture currently negative (3) Back pain ICD Code: M54.9 Status: Acute Plan: Improved with Flexeril and a heating pad awaiting obtain MRI from [facility] where the patient had similar discomfort. I called ( I called request records #[id number] [id number] since this is the 3rd request) Assessment and Plan lmwh Problem Qualifiers (1) Endocarditis: Qualified Code: I33.0 - Subacute bacterial endocarditis Anna Tellez MD Nov 10, 2016 11:30
[2016-11-10 12:00] VITALS: BP 109/79; PULSE 106; RESP 18; TEMP 98.5; O2SAT 98
[2016-11-10] MEDS ORDERED: SODIUM CHLOR 0.9% 1000 ML INJ 1,000 ML IV SCH (12:00)
[2016-11-10] MEDS ORDERED: DOCUSATE SODIUM 50 MG/SENNA 8.6 MG TAB PO PRN (12:00)
[2016-11-10] MEDS: ENOXAPARIN SODIUM 40 MG/0.4 ML SYRINGE SQ SCH (13:08)
[2016-11-10 16:00] VITALS: BP 113/77; PULSE 106; RESP 18; TEMP 98.5; O2SAT 99
[2016-11-10] MEDS: REMOVE OLD LIDOCAINE PATCH T-DERMAL SCH (21:00)
[2016-11-10 21:10] VITALS: BP 124/77; PULSE 109; RESP 20; TEMP 96.9; O2SAT 98
[2016-11-11 00:24] VITALS: BP 109/77; PULSE 98; RESP 20; TEMP 97; O2SAT 98
[2016-11-11] MEDS: OXACILLIN INJ 2 GM in SODIUM CHLORIDE 0.9% INJ 100 ML IV SCH ×6 (02:05→23:08)
[2016-11-11] MEDS: CYCLOBENZAPRINE HCL 10 MG TAB PO PRN ×2 (05:17→16:40)
[2016-11-11 08:00] VITALS: BP 99/72; PULSE 87; RESP 16; TEMP 97; O2SAT 99
[2016-11-11] MEDS: LIDOCAINE HCL 5% PATCH T-DERMAL SCH (09:26)
[2016-11-11 12:00] VITALS: BP 108/89; PULSE 95; RESP 20; TEMP 97.2; O2SAT 100
[2016-11-11] MEDS: ENOXAPARIN SODIUM 40 MG/0.4 ML SYRINGE SQ SCH (14:03)
--- NOTE | 2016-11-11 14:43 | HHI.PR ---
Subjective Remarks Patient seen in follow up for Endocarditis No more back pain SLEEPING A LOT AND ENCOURAGED TO AMBULATE Objective Vitals Vital Signs Date Time Temp Pulse Resp B/P Pulse Ox O2 Delivery O2 Flow Rate FiO2 11/11/16 12:04 20 11/11/16 12:00 97.2 95 20 108/89 100 11/11/16 08:00 97.0 87 16 99/72 99 11/11/16 00:24 97.0 98 20 109/77 98 11/10/16 21:10 96.9 109 20 124/77 98 11/10/16 16:00 98.5 106 18 113/77 99 I/O 11/10/16 11/10/16 11/10/16 11/11/16 11/11/16 11/11/16 07:00 15:00 23:00 07:00 15:00 23:00 Intake Total 540 ml 970 ml 780 ml Output Total 5 ml Balance 535 ml 970 ml 780 ml Intake Oral 240 ml 750 ml 480 ml IV Total 300 ml 220 ml 300 ml Output Urine Total 5 ml # Voids 2 4 6 # Bowel Movements 0 1 1 Result Diagram: 11/09/16 0740 11/09/16 0740 Imaging Last Impressions Chest X-Ray 10/31/16 0545 Signed Impressions: Service Date/Time: Monday, October 31, 2016 06:08 - CONCLUSION: Minimal residual airspace disease in the lingula otherwise unremarkable two-view chest. Arpit Geller MD Chest CT 10/31/16 0000 Signed Impressions: Service Date/Time: Monday, October 31, 2016 17:15 - CONCLUSION: Changing pattern of multiple bilateral focal opacities in the lung, with at least one new, conversion of one to cavitation, and resolution of 2 opacities. The evolution is characteristic of septic emboli. Shelton Man MD Objective Remarks GENERAL: This is a well-nourished, well-developed patient, CARDIOVASCULAR: Regular rate and rhythm without gallops or rubs, 3/6 systolic murmur RESPIRATORY: Clear to auscultation. Breath sounds equal bilaterally. No wheezes , rales, or rhonchi. GASTROINTESTINAL: Abdomen soft, non-tender, nondistended. Normal active bowel sounds MUSCULOSKELETAL: Some paraspinal subjective tenderness but not objectively on exam. Extremities without clubbing, cyanosis, or edema. NEURO: Alert & Oriented x4 to person, place, time, situation. Moves all ext x4 A/P Problem List: (1) Endocarditis ICD Code: I38 Status: Acute Plan: Continue Oxacillin IV mssa positive (previous diagnosis after 2 AMA discharges at 2 different hospitals locally) ID following. Patient has infected pulmonary emboli, <2cm tricuspid valve vegetation on echo 11/01 (new since prior echo) and pleuritic pain (2) Acid fast bacillus ICD Code: A31.9 Status: Acute Plan: Sputum from last admission 10/06/2016 now positive for AFB (will need 6 weeks intubation time per micro) CT shows possible cavitary lesion, but characteristic of Septic emboli AFB Blood culture currently negative (3) Back pain ICD Code: M54.9 Status: Acute Plan: Improved with Flexeril and a heating pad awaiting obtain MRI from [facility] where the patient had similar discomfort. I called ( I called request records #[phone] since this is the 4th request) Assessment and Plan [facility] Problem Qualifiers (1) Endocarditis: Qualified Code: I33.0 - Subacute bacterial endocarditis Anna Tellez MD Nov 11, 2016 14:42
[2016-11-11 16:00] VITALS: BP 115/80; PULSE 99; RESP 18; TEMP 98.7; O2SAT 98
--- NOTE | 2016-11-11 19:36 | HHI.IDPN ---
Note Infectious Disease Note ID COVERAGE. Patient says she feels she is getting better. No SOB, Chills, fever aches or pains. Feels bored. Records from [facility] not yet available. Patient was at [place] being treated for endocarditis when she left against medical advice for no reason and October 15. She said she went to [facility] the next day to continue treatment. She said she was continued on oxacillin over there and she said it was working very well. The patient left AMA from [facility], citing family issues. Presented to [facility] to continue the IV antibiotics. Tricuspid valve vegetation on 2D ECHO. Positive AFB sputum from 10/06/16 admission. State labs yet to give identification of the mycobacteria. Blood mycobacteria culture pending. Antibiotics Oxacillin IV Lines Line sites with no e.o infection Allergies: Coded Allergies: Aspirin (Verified Allergy, Mild, GASTRIC UPSET, 10/31/16) *MDRO Multi-Drug Resistant Organism (Verified Adverse Reaction, Unknown, ) MRSA Wound 01/2011 Uncoded Allergies: dilshad (Allergy, Mild, 08/27/16) OBJECTIVE: Vital Signs Date Time Temp Pulse Resp B/P Pulse Ox O2 Delivery O2 Flow Rate FiO2 11/11/16 17:40 20 11/11/16 16:00 98.7 99 18 115/80 98 11/11/16 12:00 97.2 95 20 108/89 100 11/11/16 08:00 97.0 87 16 99/72 99 11/11/16 00:24 97.0 98 20 109/77 98 11/10/16 21:10 96.9 109 20 124/77 98 11/10/16 11/10/16 11/11/16 15:00 23:00 07:00 Intake Total 970 ml 780 ml Balance 970 ml 780 ml Intake Oral 750 ml 480 ml IV Total 220 ml 300 ml # Voids 4 6 # Bowel Movements 1 1 Vital Signs Date Time Temp Pulse Resp B/P Pulse Ox O2 Delivery O2 Flow Rate FiO2 11/03/16 12:00 97.4 104 18 130/86 99 11/03/16 08:00 97.7 106 18 120/80 100 11/03/16 00:00 97.3 87 16 102/69 96 11/02/16 20:00 97.8 100 16 116/77 97 11/02/16 11/02/16 11/03/16 15:00 23:00 07:00 Intake Total 210 ml 280 ml Balance 210 ml 280 ml Intake Oral 280 ml IV Total 210 ml # Voids 1 # Bowel Movements 0 Microbiology Date/Time Procedure Status Source Growth 10/31/16 21:47 Mycobacterial Culture Received Blood Peripheral Pending I Physical Exam Microbiology Date/Time Procedure Status Source Growth 10/31/16 21:47 Mycobacterial Culture Received Blood Peripheral Pending GENERAL: Patient is in no acute distress. HEENT: EOMI, No icterus. NECK: Supple. No adenopathy. LUNGS: Clear. CARDIAC: Regular rate and rhythm, ANNELIESE at LSB. ABDOMEN: Soft, non tender on palpation. EXTREMITIES: No CCE. SKIN: No rash. Assessment & Plan Remarks MSSA endocarditis partially treated as pt left AMA from 2 institutions. Septic emboli. Sputum from last admission 10/06/2016 now positive for AFB. MTB PCR on that specimen not possible per discussion with Micro. Chest pain on admission likely pleuritic. Improved. Systolic murmur (pt reports new) Recs: Continue Oxacillin IV. Try to get info from [facility]. They may have cultures from her stay there. She has a large vegetation on the tricuspid valve 1.1 x 1.49cm on last ECHO . If no surgery planned she should receive ~ 4 weeks of treatment here. Follow ID of the AFB in sputum with micro. D/C isolation if sputum TB is negative. . Follow AFB blood culture. Follow cultures Follow clinically. Kaleb Fields MD Nov 11, 2016 19:36
[2016-11-11] MEDS: REMOVE OLD LIDOCAINE PATCH T-DERMAL SCH (21:00)
[2016-11-12] MEDS: OXACILLIN INJ 2 GM in SODIUM CHLORIDE 0.9% INJ 100 ML IV SCH ×6 (02:00→20:39)
[2016-11-12 07:41] VITALS: BP 99/72; PULSE 87; RESP 16; TEMP 97; O2SAT 99
[2016-11-12 08:00] VITALS: BP 97/70; PULSE 89; RESP 16; TEMP 97.5; O2SAT 100
[2016-11-12] MEDS: LIDOCAINE HCL 5% PATCH T-DERMAL SCH (09:05)
[2016-11-12] MEDS: REMOVE OLD LIDOCAINE PATCH T-DERMAL SCH (09:05)
--- NOTE | 2016-11-12 12:28 | HHI.PR ---
Subjective Remarks Patient seen in follow-up for endocarditis Still awaiting AFB from October 06 to determine need for airborne precautions Objective Vitals Vital Signs Date Time Temp Pulse Resp B/P Pulse Ox O2 Delivery O2 Flow Rate FiO2 11/12/16 08:00 97.5 89 16 97/70 100 11/12/16 07:41 97.0 87 16 99/72 99 11/11/16 17:40 20 11/11/16 16:00 98.7 99 18 115/80 98 I/O 11/11/16 11/11/16 11/11/16 11/12/16 11/12/16 11/12/16 06:59 14:59 22:59 06:59 14:59 22:59 Intake Total 780 ml 360 ml Output Total 0 ml Balance 780 ml 360 ml 0 ml Intake Oral 480 ml 360 ml IV Total 300 ml Output Urine Total 0 ml # Voids 6 2 # Bowel Movements 1 0 Result Diagram: 11/09/16 0740 11/09/16 0740 Objective Remarks GENERAL: This is a well-nourished, well-developed patient, CARDIOVASCULAR: Regular rate and rhythm without gallops or rubs, 3/6 systolic murmur RESPIRATORY: Clear to auscultation. Breath sounds equal bilaterally. No wheezes , rales, or rhonchi. GASTROINTESTINAL: Abdomen soft, non-tender, nondistended. Normal active bowel sounds MUSCULOSKELETAL: Some paraspinal subjective tenderness but not objectively on exam. Extremities without clubbing, cyanosis, or edema. NEURO: Alert & Oriented x4 to person, place, time, situation. Moves all ext x4 A/P Problem List: (1) Endocarditis ICD Code: I38 Status: Acute Plan: Continue Oxacillin IV mssa positive (previous diagnosis after 2 AMA discharges at 2 different hospitals locally) ID following. Patient has infected pulmonary emboli, <2cm tricuspid valve vegetation on echo 11/01 (new since prior echo) and pleuritic pain (2) Acid fast bacillus ICD Code: A31.9 Status: Acute Plan: Sputum from last admission 10/06/2016 now positive for AFB (will need 6 weeks intubation time per micro) CT shows possible cavitary lesion, but characteristic of Septic emboli AFB Blood culture currently negative (3) Back pain ICD Code: M54.9 Status: Acute Plan: Improved with Flexeril and a heating pad awaiting obtain MRI from [facility] where the patient had similar discomfort. I called ( I called request records #[phone] since this is the 4th request) Assessment and Plan lmwh Problem Qualifiers (1) Endocarditis: Qualified Code: I33.0 - Subacute bacterial endocarditis Anna Tellez MD Nov 12, 2016 12:28
[2016-11-12] MEDS: CYCLOBENZAPRINE HCL 10 MG TAB PO PRN ×2 (12:42→20:38)
[2016-11-12] MEDS: ENOXAPARIN SODIUM 40 MG/0.4 ML SYRINGE SQ SCH (13:00)
[2016-11-12 16:00] VITALS: BP 112/76; PULSE 88; RESP 19; TEMP 98.1; O2SAT 98
[2016-11-12 20:00] VITALS: BP 111/78; PULSE 98; RESP 20; TEMP 98; O2SAT 98
[2016-11-13] VITALS: BP 102/73; PULSE 90; RESP 16; TEMP 98; O2SAT 99
[2016-11-13] MEDS: OXACILLIN INJ 2 GM in SODIUM CHLORIDE 0.9% INJ 100 ML IV SCH ×6 (02:00→22:00)
[2016-11-13 08:00] VITALS: BP 111/82; PULSE 86; RESP 17; TEMP 98.1; O2SAT 98
[2016-11-13] MEDS: LIDOCAINE HCL 5% PATCH T-DERMAL SCH (09:02)
[2016-11-13 12:00] VITALS: BP 112/79; PULSE 72; RESP 19; TEMP 97.6; O2SAT 98
--- NOTE | 2016-11-13 12:56 | HHI.PR ---
Subjective Remarks Follow up with MSSA Endocarditis 11/13/16-patient seen and examined; stable Objective Vitals Vital Signs Date Time Temp Pulse Resp B/P Pulse Ox O2 Delivery O2 Flow Rate FiO2 11/13/16 12:00 97.6 72 19 112/79 98 11/13/16 08:00 98.1 86 17 111/82 98 11/13/16 07:15 18 11/13/16 00:00 98.0 90 16 102/73 99 11/12/16 20:00 98.0 98 20 111/78 98 11/12/16 16:00 98.1 88 19 112/76 98 I/O 11/12/16 11/12/16 11/12/16 11/13/16 11/13/16 11/13/16 06:59 14:59 22:59 06:59 14:59 22:59 Intake Total 130 ml 175 ml 150 ml Output Total 0 ml Balance 130 ml 175 ml 150 ml Intake Oral 75 ml IV Total 130 ml 100 ml 150 ml Output Urine Total 0 ml # Voids 5 Result Diagram: 11/09/16 0740 11/09/16 0740 Imaging Last Impressions Chest X-Ray 10/31/16 0545 Signed Impressions: Service Date/Time: Monday, October 31, 2016 06:08 - CONCLUSION: Minimal residual airspace disease in the lingula otherwise unremarkable two-view chest. Arpit Geller MD Chest CT 10/31/16 0000 Signed Impressions: Service Date/Time: Monday, October 31, 2016 17:15 - CONCLUSION: Changing pattern of multiple bilateral focal opacities in the lung, with at least one new, conversion of one to cavitation, and resolution of 2 opacities. The evolution is characteristic of septic emboli. Shelton Man MD Objective Remarks GENERAL: NAD SKIN: Warm and dry. HEAD: Normocephalic. EYES: No scleral icterus. No injection or drainage. NECK: Supple, trachea midline. No JVD or lymphadenopathy. CARDIOVASCULAR: Regular rate and rhythm with II/ ANNELIESE RESPIRATORY: Breath sounds equal bilaterally. No accessory muscle use. GASTROINTESTINAL: Abdomen soft, non-tender, nondistended. MUSCULOSKELETAL: No cyanosis, or edema. BACK: Nontender without obvious deformity. No CVA tenderness. A/P Problem List: (1) Endocarditis ICD Code: I38 Status: Acute (2) Acid fast bacillus ICD Code: A31.9 Status: Acute (3) Back pain ICD Code: M54.9 Status: Acute Assessment and Plan 28 yrs old female with MSSA Endocarditis Continue with Oxacillin Patient has infected pulmonary emboli, <2cm tricuspid valve vegetation on echo 11/01 (new since prior echo) and pleuritic pain ID Following Acid Fast B Sputum from last admission 10/06/2016 now positive for AFB (will need 6 weeks intubation time per micro) CT shows possible cavitary lesion, but characteristic of Septic emboli AFB Blood culture currently negative Back Pain Improved with Flexeril and a heating pad Awaiting obtain MRI from [facility] where the patient had similar discomfort Problem Qualifiers (1) Endocarditis: Qualified Code: I33.0 - Subacute bacterial endocarditis Tim Grove MD Nov 13, 2016 12:56
[2016-11-13] MEDS: ENOXAPARIN SODIUM 40 MG/0.4 ML SYRINGE SQ SCH (13:27)
[2016-11-13 16:00] VITALS: BP 109/82; PULSE 69; RESP 18; TEMP 98; O2SAT 97
[2016-11-13] MEDS: CYCLOBENZAPRINE HCL 10 MG TAB PO PRN (17:20)
[2016-11-13 20:00] VITALS: BP 112/80; PULSE 70; RESP 18; TEMP 98; O2SAT 97
[2016-11-13] MEDS: REMOVE OLD LIDOCAINE PATCH T-DERMAL SCH (21:00)
[2016-11-14] MEDS: OXACILLIN INJ 2 GM in SODIUM CHLORIDE 0.9% INJ 100 ML IV SCH ×6 (00:07→22:06)
[2016-11-14 00:11] VITALS: BP 104/76; PULSE 84; RESP 16; TEMP 98; O2SAT 97
[2016-11-14 05:14] VITALS: BP 108/70; PULSE 76; RESP 18; TEMP 97.6
[2016-11-14] MEDS: CYCLOBENZAPRINE HCL 10 MG TAB PO PRN ×2 (06:12→14:15)
[2016-11-14] MEDS: LIDOCAINE HCL 5% PATCH T-DERMAL SCH (11:10)
[2016-11-14 11:22] VITALS: BP 113/87; PULSE 84; RESP 17; TEMP 97.2; O2SAT 100
--- NOTE | 2016-11-14 11:51 | HHI.PR ---
Subjective Remarks Follow up with MSSA Endocarditis 11/13/16-patient seen and examined; stable 11/14/16-patient seen and examined, afebrile and denies any cough, shortness of breath. Objective Vitals Vital Signs Date Time Temp Pulse Resp B/P Pulse Ox O2 Delivery O2 Flow Rate FiO2 11/14/16 11:22 97.2 84 17 113/87 100 11/14/16 05:14 97.6 76 18 108/70 11/14/16 00:11 98.0 84 16 104/76 97 11/13/16 20:00 98.0 70 18 112/80 97 11/13/16 18:20 18 11/13/16 16:00 98.0 69 18 109/82 97 11/13/16 12:00 97.6 72 19 112/79 98 I/O 11/13/16 11/13/16 11/13/16 11/14/16 11/14/16 11/14/16 07:00 15:00 23:00 07:00 15:00 23:00 Intake Total 150 ml 500 ml 400 ml 0 ml Balance 150 ml 500 ml 400 ml 0 ml Intake Oral 300 ml 200 ml IV Total 150 ml 200 ml 200 ml 0 ml # Voids 1 2 Objective Remarks GENERAL: NAD SKIN: Warm and dry. HEAD: Normocephalic. EYES: No scleral icterus. No injection or drainage. NECK: Supple, trachea midline. No JVD or lymphadenopathy. CARDIOVASCULAR: Regular rate and rhythm with II/ ANNELIESE RESPIRATORY: Breath sounds equal bilaterally. No accessory muscle use. GASTROINTESTINAL: Abdomen soft, non-tender, nondistended. MUSCULOSKELETAL: No cyanosis, or edema. BACK: Nontender without obvious deformity. No CVA tenderness. A/P Problem List: (1) Endocarditis ICD Code: I38 Status: Acute (2) Acid fast bacillus ICD Code: A31.9 Status: Acute (3) Back pain ICD Code: M54.9 Status: Acute Assessment and Plan 28 yrs old female with MSSA Endocarditis Continue with Oxacillin Patient has infected pulmonary emboli, <2cm tricuspid valve vegetation on echo 11/01 (new since prior echo) and pleuritic pain ID on board Acid Fast B Sputum from last admission 10/06/2016 now positive for AFB (will need 6 weeks intubation time per micro) CT shows possible cavitary lesion, but characteristic of Septic emboli AFB Blood culture currently negative Back Pain Improved with Flexeril and a heating pad Awaiting obtain MRI from [facility] where the patient had similar discomfort DVT prophylaxis: Patient is ambulatory Problem Qualifiers (1) Endocarditis: Qualified Code: I33.0 - Subacute bacterial endocarditis Tim Grove MD Nov 14, 2016 11:51
[2016-11-14] MEDS: ENOXAPARIN SODIUM 40 MG/0.4 ML SYRINGE SQ SCH (12:21)
[2016-11-14 18:36] VITALS: BP 110/86; PULSE 90; RESP 16; TEMP 98.1; O2SAT 100
[2016-11-14 20:00] VITALS: BP 114/89; PULSE 96; RESP 20; TEMP 96.5; O2SAT 98
[2016-11-14] MEDS: REMOVE OLD LIDOCAINE PATCH T-DERMAL SCH (21:00)
[2016-11-15] MEDS: CYCLOBENZAPRINE HCL 10 MG TAB PO PRN ×2 (00:30→09:30)
[2016-11-15] MEDS: OXACILLIN INJ 2 GM in SODIUM CHLORIDE 0.9% INJ 100 ML IV SCH ×6 (01:09→22:06)
[2016-11-15 09:28] VITALS: BP 103/78; PULSE 74; RESP 14; TEMP 97.1; O2SAT 99
[2016-11-15] MEDS: LIDOCAINE HCL 5% PATCH T-DERMAL SCH (09:31)
--- NOTE | 2016-11-15 11:16 | HHI.PR ---
Subjective Remarks Patient seen in follow-up for MSSA endocarditis. She has no new complaints. No shortness of breath or chest pain. Objective Vitals Vital Signs Date Time Temp Pulse Resp B/P Pulse Ox O2 Delivery O2 Flow Rate FiO2 11/15/16 09:28 97.1 74 14 103/78 99 11/15/16 04:42 11/15/16 01:08 20 11/14/16 20:00 96.5 96 20 114/89 98 11/14/16 18:36 98.1 90 16 110/86 100 11/14/16 11:22 97.2 84 17 113/87 100 I/O 11/14/16 11/14/16 11/14/16 11/15/16 11/15/16 11/15/16 07:00 15:00 23:00 07:00 15:00 23:00 Intake Total 0 ml 330 ml 100 ml 300 ml Balance 0 ml 330 ml 100 ml 300 ml IV Total 0 ml 330 ml 100 ml 300 ml Objective Remarks GENERAL: This is a well-nourished, well-developed patient, in no apparent distress. CARDIOVASCULAR: Normal rate and regular rhythm without murmurs, gallops, or rubs. RESPIRATORY: Good respiratory efforts. Breath sounds equal and clear to auscultation bilaterally. GASTROINTESTINAL: Abdomen soft, non-tender, non-distended. Normal active bowel sounds MUSCULOSKELETAL: Extremities without cyanosis, or edema. NEURO: Alert & Oriented x4 to person, place, time, situation. Moves all ext x4 PSYCH: Appropriate mood and affect. A/P Problem List: (1) Endocarditis ICD Code: I38 Status: Acute (2) Acid fast bacillus ICD Code: A31.9 Status: Acute (3) Back pain ICD Code: M54.9 Status: Acute Assessment and Plan 28 yrs old female with MSSA Endocarditis Infectious disease following. Continue with Oxacillin Patient has infected pulmonary emboli, <2cm tricuspid valve vegetation on echo 11/01 (new since prior echo) and pleuritic pain Attempting to get records from [facility]. There has been multiple request. Still waiting for records to be sent. Follow ID of the AFB in sputum with micro. Acid Fast B Sputum from last admission 10/06/2016 now positive for AFB (will need 6 weeks intubation time per micro) CT shows possible cavitary lesion, but characteristic of Septic emboli AFB Blood culture currently negative Back Pain Improved with Flexeril and a heating pad Awaiting MRI results from [facility] where the patient had similar discomfort Patient has a history of IV drug use. Currently on oxycodone. If no pathology on MRI, plan to wean off narcotics. DVT prophylaxis: Patient is ambulatory Problem Qualifiers (1) Endocarditis: Qualified Code: I33.0 - Subacute bacterial endocarditis Mika Robbins MD Nov 15, 2016 11:16
[2016-11-15] MEDS: ENOXAPARIN SODIUM 40 MG/0.4 ML SYRINGE SQ SCH (12:45)
[2016-11-15 18:43] VITALS: BP 115/72; PULSE 92; RESP 17; TEMP 97.3; O2SAT 100
[2016-11-15] MEDS: REMOVE OLD LIDOCAINE PATCH T-DERMAL SCH (20:42)
[2016-11-16 00:54] VITALS: BP 119/82; PULSE 94; RESP 20; TEMP 98.1; O2SAT 98
[2016-11-16] MEDS: CYCLOBENZAPRINE HCL 10 MG TAB PO PRN ×4 (00:56→22:15)
[2016-11-16] MEDS: OXACILLIN INJ 2 GM in SODIUM CHLORIDE 0.9% INJ 100 ML IV SCH ×6 (01:13→22:14)
[2016-11-16 08:00] VITALS: BP 108/80; PULSE 104; RESP 16; TEMP 97.3; O2SAT 97
[2016-11-16] MEDS: LIDOCAINE HCL 5% PATCH T-DERMAL SCH (08:06)
--- NOTE | 2016-11-16 12:07 | HHI.PR ---
Subjective Remarks No new issues. Afebrile. No chest pain or SOB. States the pain in the lumbar area is unchanged. Objective Vitals Vital Signs Date Time Temp Pulse Resp B/P Pulse Ox O2 Delivery O2 Flow Rate FiO2 11/16/16 09:07 20 11/16/16 08:00 97.3 104 16 108/80 97 11/16/16 00:54 98.1 94 20 119/82 98 11/15/16 20:52 11/15/16 18:43 97.3 92 17 115/72 100 I/O 11/15/16 11/15/16 11/15/16 11/16/16 11/16/16 11/16/16 06:59 14:59 22:59 06:59 14:59 22:59 Intake Total 400 ml 330 ml 200 ml 200 ml Balance 400 ml 330 ml 200 ml 200 ml IV Total 400 ml 330 ml 200 ml 200 ml Objective Remarks GENERAL: This is a well-nourished, well-developed patient, in no apparent distress. CARDIOVASCULAR: Normal rate and regular rhythm without murmurs, gallops, or rubs. RESPIRATORY: Good respiratory efforts. Breath sounds equal and clear to auscultation bilaterally. GASTROINTESTINAL: Abdomen soft, non-tender, non-distended. Normal active bowel sounds MUSCULOSKELETAL: Extremities without cyanosis, or edema. NEURO: Alert & Oriented x4 to person, place, time, situation. Moves all ext x4 PSYCH: Appropriate mood and affect. A/P Problem List: (1) Endocarditis ICD Code: I38 Status: Acute (2) Acid fast bacillus ICD Code: A31.9 Status: Acute (3) Back pain ICD Code: M54.9 Status: Acute Assessment and Plan 28 yrs old female with MSSA Endocarditis Infectious disease following. Per recs, Continue with Oxacillin Patient has infected pulmonary emboli, <2cm tricuspid valve vegetation on echo 11/01 (new since prior echo) and pleuritic pain Attempting to get records from [facility]. There has been multiple request. Still waiting for records to be sent. Request sent again today. Follow ID of the AFB in sputum with micro. Acid Fast B Sputum from last admission 10/06/2016 now positive for AFB (will need 6 weeks intubation time per micro) CT shows possible cavitary lesion, but characteristic of Septic emboli AFB Blood culture currently negative Back Pain Improved with Flexeril and a heating pad Awaiting MRI results from [facility] where the patient had similar discomfort Patient has a history of IV drug use. Currently on oxycodone. If no pathology on MRI, plan to wean off narcotics. DVT prophylaxis: Patient is ambulatory Problem Qualifiers (1) Endocarditis: Qualified Code: I33.0 - Subacute bacterial endocarditis Mika Robbins MD Nov 16, 2016 12:07
[2016-11-16] MEDS: ENOXAPARIN SODIUM 40 MG/0.4 ML SYRINGE SQ SCH (13:00)
[2016-11-16 16:00] VITALS: BP 117/78; PULSE 103; RESP 20; TEMP 98.9; O2SAT 100
[2016-11-16 20:00] VITALS: BP 111/61; PULSE 108; RESP 18; TEMP 97.6; O2SAT 98
[2016-11-16] MEDS: REMOVE OLD LIDOCAINE PATCH T-DERMAL SCH (21:00)
[2016-11-17] VITALS: BP 140/78; PULSE 104; RESP 18; TEMP 98.8; O2SAT 99
[2016-11-17] MEDS: OXACILLIN INJ 2 GM in SODIUM CHLORIDE 0.9% INJ 100 ML IV SCH ×6 (01:48→22:44)
[2016-11-17] MEDS: CYCLOBENZAPRINE HCL 10 MG TAB PO PRN ×3 (04:54→20:39)
[2016-11-17 08:28] VITALS: BP 116/80; PULSE 98; RESP 19; TEMP 97.6; O2SAT 98
[2016-11-17] MEDS: LIDOCAINE HCL 5% PATCH T-DERMAL SCH (08:32)
--- NOTE | 2016-11-17 11:23 | HHI.PR ---
Subjective Remarks Patient reports feeling okay. No chest pain or shortness of breath. Low back pain is unchanged. Objective Vitals Vital Signs Date Time Temp Pulse Resp B/P Pulse Ox O2 Delivery O2 Flow Rate FiO2 11/17/16 08:28 97.6 98 19 116/80 98 11/17/16 00:00 98.8 104 18 140/78 99 11/16/16 20:00 97.6 108 18 111/61 98 11/16/16 16:00 98.9 103 20 117/78 100 11/16/16 15:44 20 I/O 11/16/16 11/16/16 11/16/16 11/17/16 11/17/16 11/17/16 06:59 14:59 22:59 06:59 14:59 22:59 Intake Total 200 ml 1232 ml Balance 200 ml 1232 ml Intake Oral 1200 ml IV Total 200 ml 32 ml # Voids 4 # Bowel Movements 0 Objective Remarks GENERAL: This is a well-nourished, well-developed patient, in no apparent distress. CARDIOVASCULAR: Normal rate and regular rhythm without murmurs, gallops, or rubs. RESPIRATORY: Good respiratory efforts. Breath sounds equal and clear to auscultation bilaterally. GASTROINTESTINAL: Abdomen soft, non-tender, non-distended. Normal active bowel sounds MUSCULOSKELETAL: Extremities without cyanosis, or edema. NEURO: Alert & Oriented x4 to person, place, time, situation. Moves all ext x4 PSYCH: Appropriate mood and affect. A/P Problem List: (1) Endocarditis ICD Code: I38 Status: Acute (2) Acid fast bacillus ICD Code: A31.9 Status: Acute (3) Back pain ICD Code: M54.9 Status: Acute Assessment and Plan 28 yrs old female with MSSA Endocarditis Infectious disease following. Per recs, Continue with Oxacillin Patient has infected pulmonary emboli, <2cm tricuspid valve vegetation on echo 11/01 (new since prior echo) and pleuritic pain Acid Fast B Sputum from last admission 10/06/2016 now positive for AFB (will need 6 weeks incubation time per micro) CT shows possible cavitary lesion, but characteristic of Septic emboli AFB Blood culture currently negative Back Pain Improved with Flexeril and a heating pad MRI at [facility] showed degenerative changes at L5 to S1. There is mention of early osteomyelitis/ discitis at L4-L5. DVT prophylaxis: Patient is ambulatory Problem Qualifiers (1) Endocarditis: Qualified Code: I33.0 - Subacute bacterial endocarditis Mika Robbins MD Nov 17, 2016 11:22
[2016-11-17 12:28] VITALS: BP 102/77; PULSE 98; RESP 19; TEMP 98.7; O2SAT 99
--- NOTE | 2016-11-17 12:41 | HHI.IDPN ---
Subjective Subjective Remarks Chart was reviewed is well known to the ID a 28-year-old female with a past medical history of IV drug abuse and endocarditis was presenting to the hospital to complete treatment for endocarditis, MSSA She was back and forthe on oxacillin as she was leaving AMA Patients AFB is positive in sputum from 10/06/16 admission. ID is consulted for evaluation and Mment of MSSA endocarditis and AFB in sputum. She is on oxacillin since Overnight events reviewed. No fever No rash No diarrhea Breathing OK, on RA UO ok. Antibiotics Oxacillin IV Lines Line sites with no e.o infection Past Medical History reviewed Allergies: Coded Allergies: aspirin (Unverified Allergy, Mild, GASTRIC UPSET, 11/17/16) *MDRO Multi-Drug Resistant Organism (Verified Adverse Reaction, Unknown, ) MRSA Wound 01/2011 Uncoded Allergies: dilshad (Allergy, Mild, 08/27/16) Objective . Vital Signs Date Time Temp Pulse Resp B/P Pulse Ox O2 Delivery O2 Flow Rate FiO2 11/17/16 12:28 98.7 98 19 102/77 99 11/17/16 08:28 97.6 98 19 116/80 98 11/17/16 00:00 98.8 104 18 140/78 99 11/16/16 20:00 97.6 108 18 111/61 98 11/16/16 16:00 98.9 103 20 117/78 100 11/16/16 15:44 20 11/16/16 11/16/16 11/17/16 15:00 23:00 07:00 Intake Total 1232 ml Balance 1232 ml Intake Oral 1200 ml IV Total 32 ml # Voids 4 # Bowel Movements 0 Imaging Last Impressions Chest X-Ray 10/31/16 0545 Signed Impressions: Service Date/Time: Monday, October 31, 2016 06:08 - CONCLUSION: Minimal residual airspace disease in the lingula otherwise unremarkable two-view chest. Arpit Geller MD Chest CT 10/31/16 0000 Signed Impressions: Service Date/Time: Monday, October 31, 2016 17:15 - CONCLUSION: Changing pattern of multiple bilateral focal opacities in the lung, with at least one new, conversion of one to cavitation, and resolution of 2 opacities. The evolution is characteristic of septic emboli. Shelton Man MD Physical Exam GENERAL: This is a well-nourished, well-developed patient, in no apparent distress. SKIN: No rashes, ecchymoses or lesions. Cool and dry. HEAD: Atraumatic. Normocephalic. No temporal or scalp tenderness. EYES: Pupils equal round and reactive. Extraocular motions intact. No scleral icterus. No injection or drainage. ENT: Nose without bleeding, purulent drainage or septal hematoma. Throat without erythema, tonsillar hypertrophy or exudate. Uvula midline. Airway patent. NECK: Trachea midline. CARDIOVASCULAR: Systolic murmur. Regular rate and rhythm RESPIRATORY: Clear to auscultation. Breath sounds equal bilaterally. No wheezes , rales, or rhonchi. GASTROINTESTINAL: Abdomen soft, non-tender, nondistended. No hepato-splenomegaly , or palpable masses. No guarding. MUSCULOSKELETAL: Extremities without clubbing, cyanosis, or edema. No joint tenderness, effusion, or edema noted. No calf tenderness. Negative Homans sign bilaterally. NEUROLOGICAL: Awake and alert Grossly non focal Normal speech. Psych: cooperative IV line sites with no e.o infection Assessment & Plan Remarks MSSA endocarditis partially treated as pt left AMA from 2 institutions. 11/01 echo with 1.1x1.49 vegetation on TV last + bl clx 10/06 Septic emboli on last admission. Sputum from last admission 10/06/2016 now positive for AFB. - ID 'd as M. fortinium ? clinically significant as pt clinically ad radiologically improving w/o specific tx Chest pain on admission likely pleuritic Systolic murmur (pt reports new) Recs: Continue Oxacillin IV x 4-6 weeks total dc AFB isolation repeat AFB sputum clx, f/u CXR I dont think she will need tx if her blood clx and CXR are negative Follow AFB blood culture Kate Grimes RN, MD Nov 17, 2016 12:41
[2016-11-17] MEDS: ENOXAPARIN SODIUM 40 MG/0.4 ML SYRINGE SQ SCH (12:45)
[2016-11-17 17:02] VITALS: BP 120/81; PULSE 79; RESP 16; TEMP 98.3; O2SAT 98
[2016-11-17 20:00] VITALS: BP 136/96; PULSE 135; RESP 20; TEMP 99.3; O2SAT 100
[2016-11-17] MEDS: REMOVE OLD LIDOCAINE PATCH T-DERMAL SCH (20:35)
[2016-11-17 21:20] VITALS: BP 142/97; PULSE 119; RESP 18; TEMP 99.2; O2SAT 99
[2016-11-18] VITALS: BP 136/95; PULSE 118; RESP 18; TEMP 97.5; O2SAT 100
[2016-11-18] MEDS: OXACILLIN INJ 2 GM in SODIUM CHLORIDE 0.9% INJ 100 ML IV SCH ×6 (02:40→21:40)
[2016-11-18 04:00] VITALS: BP 131/98; PULSE 118; RESP 18; TEMP 98.1; O2SAT 100
[2016-11-18 06:00] VITALS: BP 125/87; PULSE 117; RESP 20; TEMP 97.5; O2SAT 100
--- NOTE | 2016-11-18 07:12 | RADRPT ---
EXAM DATE/TIME: 11/18/2016 06:35 [place] COMPARISON: CHEST SINGLE AP, October 12, 2016, 17:15. INDICATIONS : Short of breath. MEDICAL HISTORY : Substance abuse. SURGICAL HISTORY : None. ENCOUNTER: Subsequent ACUITY: 2 weeks PAIN SCORE: 0/10 LOCATION: Bilateral chest FINDINGS: A single view of the chest demonstrates the lungs to be symmetrically aerated without evidence of mas s, infiltrate or effusion. The cardiomediastinal contours are unremarkable. Osseous structures are intact. CONCLUSION: Normal examination. Arpit Geller MD on November 18, 2016 at 7:10 Board Certified Radiologist. This report was verified electronically.
[2016-11-18] MEDS: LIDOCAINE HCL 5% PATCH T-DERMAL SCH (10:06)
[2016-11-18] MEDS: CYCLOBENZAPRINE HCL 10 MG TAB PO PRN ×2 (10:08→17:34)
[2016-11-18] MEDS: ENOXAPARIN SODIUM 40 MG/0.4 ML SYRINGE SQ SCH (12:20)
[2016-11-18 13:48] VITALS: BP 113/81; PULSE 118; RESP 18; O2SAT 98
--- NOTE | 2016-11-18 14:44 | HHI.PR ---
Subjective Remarks Patient seen and examined today for follow-up on bacterial endocarditis. Patient is lying in bed, resting comfortably. Denies any new complaints. Still pain is still 8/10 on a pain scale, however she is sitting in bed laughing and smiling, no overt signs of pain Objective Vitals Vital Signs Date Time Temp Pulse Resp B/P Pulse Ox O2 Delivery O2 Flow Rate FiO2 11/18/16 13:48 118 18 113/81 98 11/18/16 11:12 16 11/18/16 00:00 97.5 118 18 136/95 100 11/17/16 21:20 99.2 119 18 142/97 99 11/17/16 20:00 99.3 135 20 136/96 100 11/17/16 17:02 98.3 79 16 120/81 98 I/O 11/17/16 11/17/16 11/17/16 11/18/16 11/18/16 11/18/16 06:59 14:59 22:59 06:59 14:59 22:59 Intake Total 1232 ml 480 ml 580 ml Balance 1232 ml 480 ml 580 ml Intake Oral 1200 ml 480 ml 580 ml IV Total 32 ml # Voids 4 1 1 # Bowel Movements 0 0 0 Objective Remarks GENERAL: Well-developed, well-nourished, in no acute distress. alert and orientated HEENT: Head is normocephalic without any lesions or masses noted. Facial features are symmetric. Eyes: Extraocular muscles are intact. Conjunctivae were clear. NECK: Supple without any masses. Trachea midline no deviation. CARDIAC: Regular rhythm, regular rate. S1/S2 are heard. No murmurs gallops or rubs. LUNGS: Clear to auscultation bilaterally. No wheeze, rhonchi or rales. No use of accessory muscles on inspiration or expiration. ABDOMEN: Soft, nontender. Nondistended. Bowel sounds heard in all 4 quadrants. No organomegaly or masses. Negative rebound, negative guarding EXTREMITIES: No edema, pulses are equal bilaterally. No cyanosis or clubbing NEUROLOGY: Mood and affect appear appropriate. Cranial nerves II through XII grossly intact. 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 Last documented positive blood culture in our hospital is 10/06/16, first negative culture 10/09/16. 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 General surgery was consulted on the last admission who recommended outpatient follow-up once bacteremia/endocarditis is treated. She was told at [facility] that her gallbladder needs to come out eventually. She has no symptoms at this time. Patient will proceed with outpatient follow-up after treatment for endocarditis Pain control The pt has a history of polysubstance abuse (THC, Heroin, methamphetamine). Roxicodone 5 mg every 6 hours needed for pain 310 Flexeril 5 mg every 8 hours Lidoderm patch Anemia Appears to be improved from previous admission Chronic Low back pain Patient reports she had an MRI done at [facility] and there was concern for an infection in her spine, but she said another test ruled out infection. Hypokalemia Monitor and replete as needed DVT prevention Subcutaneous Lovenox Discharge Planning Discharge planning once patient completes IV antibiotics for endocarditis Bashir Rivero Nov 18, 2016 14:44
[2016-11-18 16:00] VITALS: BP 119/74; PULSE 115; RESP 18; TEMP 98.7; O2SAT 97
[2016-11-18 20:00] VITALS: BP_SYST 101; BP_SYST 141; BP_DIAS 67; BP_DIAS 92; PULSE 130; PULSE 72; RESP 20; TEMP 98.3; TEMP 98.7; O2SAT 100; O2SAT 96
[2016-11-18] MEDS: REMOVE OLD LIDOCAINE PATCH T-DERMAL SCH (21:00)
[2016-11-19] VITALS: BP 129/97; PULSE 103; RESP 18; TEMP 96.7; O2SAT 100
[2016-11-19] MEDS: OXACILLIN INJ 2 GM in SODIUM CHLORIDE 0.9% INJ 100 ML IV SCH ×6 (01:40→22:00)
[2016-11-19] MEDS: CYCLOBENZAPRINE HCL 10 MG TAB PO PRN ×2 (01:41→16:16)
[2016-11-19] MEDS: LIDOCAINE HCL 5% PATCH T-DERMAL SCH (08:06)
[2016-11-19] MEDS: ENOXAPARIN SODIUM 40 MG/0.4 ML SYRINGE SQ SCH (08:12)
[2016-11-19 08:50] VITALS: BP 129/84; PULSE 123; RESP 19; TEMP 97.9; O2SAT 98
--- NOTE | 2016-11-19 13:06 | HHI.PR ---
Subjective Remarks Patient seen and examined today for follow-up on endocarditis. Patient was sitting in a chair using a pair scissors and cutting off excess skin from her heel. I notified her that she should not do that, she is increasing her risk of further infection. Patient also has a vape machine in the room. I discussed her that she cannot use that while here in the hospital. She would have to have someone, remove it from the premises. Objective Vitals Vital Signs Date Time Temp Pulse Resp B/P Pulse Ox O2 Delivery O2 Flow Rate FiO2 11/19/16 08:50 97.9 123 19 129/84 98 11/19/16 02:42 16 11/19/16 00:00 96.7 103 18 129/97 100 11/18/16 20:00 98.7 130 20 141/92 100 11/18/16 16:00 98.7 115 18 119/74 97 11/18/16 13:48 118 18 113/81 98 I/O 11/18/16 11/18/16 11/18/16 11/19/16 11/19/16 11/19/16 07:00 15:00 23:00 07:00 15:00 23:00 Intake Total 580 ml 950 ml 480 ml 580 ml Output Total 200 ml Balance 580 ml 950 ml 280 ml 580 ml Intake Oral 580 ml 500 ml 480 ml 580 ml Oral Supplement 250 ml IV Total 200 ml Output Urine Total 200 ml # Voids 1 2 2 # Bowel Movements 0 2 0 Objective Remarks GENERAL: Well-developed, well-nourished, in no acute distress. alert and orientated HEENT: Head is normocephalic without any lesions or masses noted. Facial features are symmetric. Eyes: Extraocular muscles are intact. Conjunctivae were clear. NECK: Supple without any masses. Trachea midline no deviation. CARDIAC: Regular rhythm, regular rate. S1/S2 are heard. No murmurs gallops or rubs. LUNGS: Clear to auscultation bilaterally. No wheeze, rhonchi or rales. No use of accessory muscles on inspiration or expiration. ABDOMEN: Soft, nontender. Nondistended. Bowel sounds heard in all 4 quadrants. No organomegaly or masses. Negative rebound, negative guarding EXTREMITIES: No edema, pulses are equal bilaterally. No cyanosis or clubbing NEUROLOGY: Mood and affect appear appropriate. Cranial nerves II through XII grossly intact. 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 General surgery was consulted on the last admission who recommended outpatient follow-up once bacteremia/endocarditis is treated. She was told at [facility] that her gallbladder needs to come out eventually. She has no symptoms at this time. Patient will proceed with outpatient follow-up after treatment for endocarditis Pain control The pt has a history of polysubstance abuse (THC, Heroin, methamphetamine). Roxicodone 5 mg every 6 hours needed for pain 310 Flexeril 5 mg every 8 hours Lidoderm patch Anemia Appears to be improved from previous admission Chronic Low back pain Patient reports she had an MRI done at [facility] and there was concern for an infection in her spine, but she said another test ruled out infection. Hypokalemia Monitor and replete as needed DVT prevention Subcutaneous Lovenox Discharge Planning Discharge planning once patient completes IV antibiotics for endocarditis Bashir Rivero Nov 19, 2016 13:06
[2016-11-19 20:00] VITALS: BP 142/92; PULSE 121; RESP 18; TEMP 97.8; O2SAT 96
[2016-11-19] MEDS: REMOVE OLD LIDOCAINE PATCH T-DERMAL SCH (20:34)
[2016-11-20] MEDS: CYCLOBENZAPRINE HCL 10 MG TAB PO PRN ×3 (01:19→18:03)
[2016-11-20] MEDS: OXACILLIN INJ 2 GM in SODIUM CHLORIDE 0.9% INJ 100 ML IV SCH ×6 (02:00→22:00)
[2016-11-20 08:00] VITALS: BP 112/76; PULSE 82; RESP 16; TEMP 96.4; O2SAT 96
[2016-11-20] MEDS: LIDOCAINE HCL 5% PATCH T-DERMAL SCH (09:56)
--- NOTE | 2016-11-20 11:28 | HHI.PR ---
Subjective Remarks Patient seen and examined today for follow-up on bacterial endocarditis. Patient sitting in bed resting comfortably. Had to have another IV placed today because of nonfunctioning. Objective Vitals Vital Signs Date Time Temp Pulse Resp B/P Pulse Ox O2 Delivery O2 Flow Rate FiO2 11/20/16 10:57 18 11/20/16 08:00 96.4 82 16 112/76 96 11/19/16 20:00 97.8 121 18 142/92 96 I/O 11/19/16 11/19/16 11/19/16 11/20/16 11/20/16 11/20/16 07:00 15:00 23:00 07:00 15:00 23:00 Intake Total 580 ml 250 ml 250 ml Balance 580 ml 250 ml 250 ml Intake Oral 580 ml 250 ml 250 ml IV Total 0 ml 0 ml # Voids 2 # Bowel Movements 0 Objective Remarks GENERAL: Well-developed, well-nourished, in no acute distress. alert and orientated HEENT: Head is normocephalic without any lesions or masses noted. Facial features are symmetric. Eyes: Extraocular muscles are intact. Conjunctivae were clear. NECK: Supple without any masses. Trachea midline no deviation. CARDIAC: Regular rhythm, regular rate. S1/S2 are heard. No murmurs gallops or rubs. LUNGS: Clear to auscultation bilaterally. No wheeze, rhonchi or rales. No use of accessory muscles on inspiration or expiration. ABDOMEN: Soft, nontender. Nondistended. Bowel sounds heard in all 4 quadrants. No organomegaly or masses. Negative rebound, negative guarding EXTREMITIES: No edema, pulses are equal bilaterally. No cyanosis or clubbing NEUROLOGY: Mood and affect appear appropriate. Cranial nerves II through XII grossly intact. 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 General surgery was consulted on the last admission who recommended outpatient follow-up once bacteremia/endocarditis is treated. She was told at [facility] that her gallbladder needs to come out eventually. She has no symptoms at this time. Patient will proceed with outpatient follow-up after treatment for endocarditis Pain control The pt has a history of polysubstance abuse (THC, Heroin, methamphetamine). Roxicodone 5 mg every 6 hours needed for pain 310 Flexeril 5 mg every 8 hours Lidoderm patch Anemia Appears to be improved from previous admission Chronic Low back pain Patient reports she had an MRI done at [facility] and there was concern for an infection in her spine, but she said another test ruled out infection. Hypokalemia Monitor and replete as needed DVT prevention Subcutaneous Lovenox Discharge Planning Discharge planning once patient completes IV antibiotics for endocarditis Bashir Rivero Nov 20, 2016 11:28
[2016-11-20] MEDS: ENOXAPARIN SODIUM 40 MG/0.4 ML SYRINGE SQ SCH (12:59)
[2016-11-20 20:00] VITALS: BP 107/75; PULSE 99; RESP 18; TEMP 97.8; O2SAT 100
[2016-11-20] MEDS: REMOVE OLD LIDOCAINE PATCH T-DERMAL SCH (21:00)
[2016-11-21] MEDS: OXACILLIN INJ 2 GM in SODIUM CHLORIDE 0.9% INJ 100 ML IV SCH ×6 (02:05→21:43)
[2016-11-21] MEDS: CYCLOBENZAPRINE HCL 10 MG TAB PO PRN ×3 (02:06→21:50)
[2016-11-21 09:00] VITALS: BP 111/84; PULSE 94; RESP 18; TEMP 97.2; O2SAT 99
[2016-11-21] MEDS: LIDOCAINE HCL 5% PATCH T-DERMAL SCH (09:53)
--- NOTE | 2016-11-21 11:41 | HHI.PR ---
Subjective Remarks Patient seen and examined today for follow-up on bacterial endocarditis. Patient denies any new complaints. Lying in bed comfortable. Patient counseled again on vaping in the room Objective Vitals Vital Signs Date Time Temp Pulse Resp B/P Pulse Ox O2 Delivery O2 Flow Rate FiO2 11/21/16 10:52 18 11/21/16 09:00 97.2 94 18 111/84 99 11/20/16 20:00 97.8 99 18 107/75 100 I/O 11/20/16 11/20/16 11/20/16 11/21/16 11/21/16 11/21/16 07:00 15:00 23:00 07:00 15:00 23:00 Intake Total 250 ml 1000 ml 300 ml Balance 250 ml 1000 ml 300 ml Intake Oral 250 ml 600 ml IV Total 0 ml 400 ml 300 ml # Voids 3 Objective Remarks GENERAL: Well-developed, well-nourished, in no acute distress. alert and orientated HEENT: Head is normocephalic without any lesions or masses noted. Facial features are symmetric. Eyes: Extraocular muscles are intact. Conjunctivae were clear. NECK: Supple without any masses. Trachea midline no deviation. CARDIAC: Regular rhythm, regular rate. S1/S2 are heard. No murmurs gallops or rubs. LUNGS: Clear to auscultation bilaterally. No wheeze, rhonchi or rales. No use of accessory muscles on inspiration or expiration. ABDOMEN: Soft, nontender. Nondistended. Bowel sounds heard in all 4 quadrants. No organomegaly or masses. Negative rebound, negative guarding EXTREMITIES: No edema, pulses are equal bilaterally. No cyanosis or clubbing NEUROLOGY: Mood and affect appear appropriate. Cranial nerves II through XII grossly intact. 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 General surgery was consulted on the last admission who recommended outpatient follow-up once bacteremia/endocarditis is treated. She was told at [facility] that her gallbladder needs to come out eventually. She has no symptoms at this time. Patient will proceed with outpatient follow-up after treatment for endocarditis Pain control The pt has a history of polysubstance abuse (THC, Heroin, methamphetamine). Roxicodone 5 mg every 6 hours needed for pain 310 Flexeril 5 mg every 8 hours Lidoderm patch Anemia Appears to be improved from previous admission Chronic Low back pain Patient reports she had an MRI done at [facility] and there was concern for an infection in her spine, but she said another test ruled out infection. Hypokalemia Monitor and replete as needed DVT prevention Subcutaneous Lovenox Discharge Planning Discharge planning once patient completes IV antibiotics for endocarditis Bashir Rivero Nov 21, 2016 11:41
[2016-11-21] MEDS: ENOXAPARIN SODIUM 40 MG/0.4 ML SYRINGE SQ SCH (12:33)
[2016-11-21 20:00] VITALS: BP 134/89; PULSE 113; RESP 18; TEMP 97.4; O2SAT 100
[2016-11-21] MEDS: REMOVE OLD LIDOCAINE PATCH T-DERMAL SCH (21:00)
[2016-11-22] MEDS: OXACILLIN INJ 2 GM in SODIUM CHLORIDE 0.9% INJ 100 ML IV SCH ×6 (01:02→22:12)
--- NOTE | 2016-11-22 07:34 | HHI.PR ---
Subjective Remarks Patient seen and examined today for follow-up on bacterial endocarditis. Patient denies any new complaints. Awaiting completion of IV antibiotics. No change in clinical status Objective Vitals Vital Signs Date Time Temp Pulse Resp B/P Pulse Ox O2 Delivery O2 Flow Rate FiO2 11/21/16 22:51 16 11/21/16 20:00 97.4 113 18 134/89 100 11/21/16 09:00 97.2 94 18 111/84 99 I/O 11/21/16 11/21/16 11/21/16 11/22/16 11/22/16 11/22/16 07:00 15:00 23:00 07:00 15:00 23:00 Intake Total 300 ml 500 ml 480 ml Output Total 500 ml Balance 300 ml 0 ml 480 ml Intake Oral 500 ml 480 ml IV Total 300 ml Output Urine Total 500 ml # Voids 2 # Bowel Movements 0 Objective Remarks GENERAL: Well-developed, well-nourished, in no acute distress. alert and orientated HEENT: Head is normocephalic without any lesions or masses noted. Facial features are symmetric. Eyes: Extraocular muscles are intact. Conjunctivae were clear. NECK: Supple without any masses. Trachea midline no deviation. CARDIAC: Regular rhythm, regular rate. S1/S2 are heard. No murmurs gallops or rubs. LUNGS: Clear to auscultation bilaterally. No wheeze, rhonchi or rales. No use of accessory muscles on inspiration or expiration. ABDOMEN: Soft, nontender. Nondistended. Bowel sounds heard in all 4 quadrants. No organomegaly or masses. Negative rebound, negative guarding EXTREMITIES: No edema, pulses are equal bilaterally. No cyanosis or clubbing NEUROLOGY: Mood and affect appear appropriate. Cranial nerves II through XII grossly intact. 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 General surgery was consulted on the last admission who recommended outpatient follow-up once bacteremia/endocarditis is treated. She was told at [facility] that her gallbladder needs to come out eventually. She has no symptoms at this time. Patient will proceed with outpatient follow-up after treatment for endocarditis Pain control The pt has a history of polysubstance abuse (THC, Heroin, methamphetamine). Roxicodone 5 mg every 6 hours needed for pain 310 Flexeril 5 mg every 8 hours Lidoderm patch Anemia Appears to be improved from previous admission Chronic Low back pain Patient reports she had an MRI done at [facility] and there was concern for an infection in her spine, but she said another test ruled out infection. Hypokalemia Monitor and replete as needed DVT prevention Subcutaneous Lovenox Discharge Planning Discharge planning once patient completes IV antibiotics for endocarditis Bashir Rivero Nov 22, 2016 07:34
[2016-11-22] MEDS: LIDOCAINE HCL 5% PATCH T-DERMAL SCH (07:46)
[2016-11-22 07:54] VITALS: BP 98/71; PULSE 92; RESP 16; TEMP 97; O2SAT 98
[2016-11-22] MEDS: ENOXAPARIN SODIUM 40 MG/0.4 ML SYRINGE SQ SCH (13:00)
[2016-11-22 20:00] VITALS: BP 106/79; PULSE 101; RESP 20; TEMP 96.9; O2SAT 99
[2016-11-22] MEDS: REMOVE OLD LIDOCAINE PATCH T-DERMAL SCH (21:00)
[2016-11-23] MEDS: CYCLOBENZAPRINE HCL 10 MG TAB PO PRN ×2 (00:28→18:45)
[2016-11-23] MEDS: OXACILLIN INJ 2 GM in SODIUM CHLORIDE 0.9% INJ 100 ML IV SCH ×6 (01:56→21:37)
[2016-11-23 08:00] VITALS: BP 115/79; PULSE 93; RESP 20; TEMP 98.1; O2SAT 99
[2016-11-23] MEDS: LIDOCAINE HCL 5% PATCH T-DERMAL SCH (09:08)
--- NOTE | 2016-11-23 11:17 | HHI.PR ---
Subjective Remarks Patient seen and examined today for follow-up of bacterial endocarditis. Patient denies any new complaints. No change in clinical status. Objective Vitals Vital Signs Date Time Temp Pulse Resp B/P (MAP) Pulse Ox O2 Delivery O2 Flow Rate FiO2 11/23/16 08:00 98.1 93 20 115/79 (91) 99 11/23/16 01:28 16 11/22/16 20:00 96.9 101 20 106/79 (88) 99 I/O 11/22/16 11/22/16 11/22/16 11/23/16 11/23/16 11/23/16 06:59 14:59 22:59 06:59 14:59 22:59 Intake Total 580 ml 100 ml 360 ml 240 ml 100 ml Balance 580 ml 100 ml 360 ml 240 ml 100 ml Intake Oral 580 ml 360 ml 240 ml IV Total 100 ml 100 ml # Voids 2 2 5 # Bowel Movements 0 0 0 Objective Remarks GENERAL: Well-developed, well-nourished, in no acute distress. alert and orientated HEENT: Head is normocephalic without any lesions or masses noted. Facial features are symmetric. Eyes: Extraocular muscles are intact. Conjunctivae were clear. NECK: Supple without any masses. Trachea midline no deviation. CARDIAC: Regular rhythm, regular rate. S1/S2 are heard. No murmurs gallops or rubs. LUNGS: Clear to auscultation bilaterally. No wheeze, rhonchi or rales. No use of accessory muscles on inspiration or expiration. ABDOMEN: Soft, nontender. Nondistended. Bowel sounds heard in all 4 quadrants. No organomegaly or masses. Negative rebound, negative guarding EXTREMITIES: No edema, pulses are equal bilaterally. No cyanosis or clubbing NEUROLOGY: Mood and affect appear appropriate. Cranial nerves II through XII grossly intact. 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 General surgery was consulted on the last admission who recommended outpatient follow-up once bacteremia/endocarditis is treated. She was told at [facility] that her gallbladder needs to come out eventually. She has no symptoms at this time. Patient will proceed with outpatient follow-up after treatment for endocarditis Pain control The pt has a history of polysubstance abuse (THC, Heroin, methamphetamine). Roxicodone 5 mg every 6 hours needed for pain 310 Flexeril 5 mg every 8 hours Lidoderm patch Anemia Appears to be improved from previous admission Chronic Low back pain Patient reports she had an MRI done at [facility] and there was concern for an infection in her spine, but she said another test ruled out infection. Hypokalemia Monitor and replete as needed DVT prevention Subcutaneous Lovenox Discharge Planning Discharge planning once patient completes IV antibiotics for endocarditis Problem Qualifiers (1) Endocarditis: Bashir Rivero Nov 23, 2016 11:17
[2016-11-23] MEDS: ENOXAPARIN SODIUM 40 MG/0.4 ML SYRINGE SQ SCH (12:36)
[2016-11-23 20:00] VITALS: BP 116/83; PULSE 250; RESP 20; TEMP 99.1; O2SAT 99
[2016-11-23] MEDS: REMOVE OLD LIDOCAINE PATCH T-DERMAL SCH (20:16)
[2016-11-23 21:50] VITALS: PULSE 112
[2016-11-24] MEDS: OXACILLIN INJ 2 GM in SODIUM CHLORIDE 0.9% INJ 100 ML IV SCH ×3 (01:36→09:28)
[2016-11-24] MEDS: CYCLOBENZAPRINE HCL 10 MG TAB PO PRN ×2 (05:45→18:36)
[2016-11-24 08:00] VITALS: BP 99/64; PULSE 86; RESP 16; TEMP 97.4; O2SAT 99
[2016-11-24 08:02] LABS: BASOPHIL % 0.6 % (0.0-2.0); EOSINOPHIL # 0.3 TH/MM3 (0-0.4); EOSINOPHIL % 3.5 % (0.0-4.0); HEMATOCRIT 35.3 % (35.0-46.0); HEMO FLAGS DIFF FINAL; LYMPH % 20.2 % (9.0-44.0); LYMPHOCYTE # 1.5 TH/MM3 (1.0-4.8); MEAN CELL VOLUME 87.2 FL (80.0-100.0); MEAN CORPUSCULAR HGB CONC 33.2 % (32.0-36.0); MONO % 8.8 % (0.0-8.0); NEUT % 66.9 % (16.0-70.0); PLATELET COUNT 155 TH/MM3 (150-450); RED BLOOD COUNT 4.05 MIL/MM3 (4.00-5.30); RED CELL DISTRIBUTION WIDTH 15.3 % (11.6-17.2); WHITE BLOOD COUNT 7.5 TH/MM3 (4.0-11.0)
[2016-11-24 08:10] LABS: POTASSIUM 3.5 MEQ/L (3.5-5.1)
[2016-11-24 08:14] LABS: BICARBONATE 25.2 MEQ/L (21.0-32.0)
[2016-11-24 08:25] LABS: WESTERGREN SEDIMENTATION RATE 29 mm/hr (0-20)
[2016-11-24 08:28] LABS: INDIRECT BILIRUBIN 0.8 MG/DL (0.0-0.8); TOTAL BILIRUBIN ADULT 1.3 MG/DL (0.2-1.0)
[2016-11-24] MEDS: LIDOCAINE HCL 5% PATCH T-DERMAL SCH (09:28)
--- NOTE | 2016-11-24 10:04 | HHI.PR ---
Subjective Remarks Follow-up for endocarditis. Nurse informs me that the patient's IV was removed from her right arm. She has missed several doses of her antibiotic. Patient reports pain over the entire right arm. She denies any fevers or chills. Denies any cough or shortness of breath. Objective Vitals Vital Signs Date Time Temp Pulse Resp B/P (MAP) Pulse Ox O2 Delivery O2 Flow Rate FiO2 11/24/16 08:00 97.4 86 16 99/64 (76) 99 11/23/16 21:50 112 11/23/16 20:00 99.1 250 20 116/83 (94) 99 I/O 11/23/16 11/23/16 11/23/16 11/24/16 11/24/16 11/24/16 07:00 15:00 23:00 07:00 15:00 23:00 Intake Total 240 ml 1165 ml 635 ml 240 ml Balance 240 ml 1165 ml 635 ml 240 ml Intake Oral 240 ml 960 ml 480 ml 240 ml IV Total 205 ml 155 ml # Voids 5 6 2 1 # Bowel Movements 0 2 0 0 Result Diagram: 11/24/16 0735 11/24/1635 Objective Remarks GENERAL: Well-nourished, well-developed patient in no apparent distress sleeping when I enter the room. SKIN: Warm and dry. Patient has a Band-Aid noted to her right volar forearm in area of IV site. She is tender proximal to this area, equivocal cord palpable. CARDIOVASCULAR: Regular rate and rhythm. RESPIRATORY: No accessory muscle use. Clear to auscultation. Breath sounds equal bilaterally. GASTROINTESTINAL: Abdomen soft, non-tender, nondistended. MUSCULOSKELETAL: No swelling of the right forearm. NEUROLOGICAL: Arouses to voice. Awake and alert. Normal speech. PSYCHIATRIC: Appropriate mood and affect. Urinary Catheter: No Vascular Central Line Catheter: No A/P Problem List: (1) Endocarditis ICD Code: I38 - Endocarditis, valve unspecified Status: Acute (2) Acid fast bacillus ICD Code: A31.9 - Mycobacterial infection, unspecified Status: Acute (3) Back pain ICD Code: M54.9 - Dorsalgia, unspecified Status: Acute (4) Transaminitis ICD Code: R74.0 - Nonspecific elevation of levels of transaminase and lactic acid dehydrogenase [LDH] Status: Acute Assessment and Plan Bacterial endocarditis, history of septic pulmonary emboli Patient did not complete her previous treatments due to noncompliance he and signing out AGAINST MEDICAL ADVICE Patient has have history of MSSA bacteremia with LIVIA confirming tricuspid valve vegetation Patient readmitted to the hospital for completion of antibiotics to include oxacillin IV Infectious disease indicates patient will require 46 weeks worth of antibiotics. ID indicates end date of antibiotics would be 11/27/16, but patient missed several doses of her antibiotic last night she had no IV. Vascular access has placed new line this morning. New labs obtained today. CBC normal. ESR improved although CRP has increased. BMP normal. Patient has significant elevation in LFTs, previously normal on 10/31. I informed Dr. Lawson, infectious disease, who would like the patient switched to Cefazolin 1 g every 8 hours. New consult placed. She will evaluate the patient tomorrow. Recheck am LFTs. 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 General surgery was consulted on the last admission who recommended outpatient follow-up once bacteremia/endocarditis is treated. She was told at [facility] that her gallbladder needs to come out eventually. She has no symptoms at this time. Patient will proceed with outpatient follow-up after treatment for endocarditis Pain control The pt has a history of polysubstance abuse (THC, Heroin, methamphetamine). Roxicodone 5 mg every 6 hours needed for pain 310 Flexeril 5 mg every 8 hours Lidoderm patch Anemia: Improved. 11/24: Hemoglobin 10.6-->11.7 today. Chronic Low back pain Patient reports she had an MRI done at [facility] and there was concern for an infection in her spine, but she said another test ruled out infection. Hypokalemia Monitor and replete as needed Hepatitis C: Follow up outpatient DVT prevention Subcutaneous Lovenox Discharge Planning Return to previous living situation when antibiotics complete. Will need to remain hospitalized until then. Problem Qualifiers (1) Endocarditis: Talisha Porter Nov 24, 2016 10:04
[2016-11-24] MEDS: ENOXAPARIN SODIUM 40 MG/0.4 ML SYRINGE SQ SCH (12:58)
[2016-11-24 20:00] VITALS: BP 122/83; PULSE 91; RESP 16; TEMP 97.7; O2SAT 98
[2016-11-24] MEDS: REMOVE OLD LIDOCAINE PATCH T-DERMAL SCH (20:13)
[2016-11-25] MEDS: CYCLOBENZAPRINE HCL 10 MG TAB PO PRN ×2 (02:30→10:19)
--- NOTE | 2016-11-25 08:17 | HHI.IDPN ---
Subjective Subjective Remarks Chart was reviewed is well known to the ID a 28-year-old female with a past medical history of IV drug abuse and endocarditis was presenting to the hospital to complete treatment for endocarditis, MSSA Pt was on IV Oxacillin and liver enzymes are increased. Changed to IV Cefazolin. No fevers No nausea, vomiting or diarrhea No abdominal pain Breathing doing alright. Antibiotics Oxacillin IV Lines Line sites with no e.o infection Past Medical History reviewed Allergies: Coded Allergies: aspirin (Unverified Allergy, Mild, GASTRIC UPSET, 11/17/16) *MDRO Multi-Drug Resistant Organism (Verified Adverse Reaction, Unknown, ) MRSA Wound 01/2011 Uncoded Allergies: dilshad (Allergy, Mild, 08/27/16) Review of Systems Constitutional Constitutional Remarks No fever, chills Objective . Vital Signs Date Time Temp Pulse Resp B/P (MAP) Pulse Ox O2 Delivery O2 Flow Rate FiO2 11/25/16 04:15 16 11/24/16 20:00 97.7 91 16 122/83 (96) 98 . Laboratory Tests Test 11/24/16 07:35 White Blood Count 7.5 TH/MM3 Red Blood Count 4.05 MIL/MM3 Hemoglobin 11.7 GM/DL Hematocrit 35.3 % Mean Corpuscular Volume 87.2 FL Mean Corpuscular Hemoglobin 29.0 PG Mean Corpuscular Hemoglobin Concent 33.2 % Red Cell Distribution Width 15.3 % Platelet Count 155 TH/MM3 Mean Platelet Volume 7.4 FL Neutrophils (%) (Auto) 66.9 % Lymphocytes (%) (Auto) 20.2 % Monocytes (%) (Auto) 8.8 % Eosinophils (%) (Auto) 3.5 % Basophils (%) (Auto) 0.6 % Neutrophils # (Auto) 5.0 TH/MM3 Lymphocytes # (Auto) 1.5 TH/MM3 Monocytes # (Auto) 0.7 TH/MM3 Eosinophils # (Auto) 0.3 TH/MM3 Basophils # (Auto) 0.0 TH/MM3 CBC Comment DIFF FINAL Differential Comment Erythrocyte Sedimentation Rate 29 mm/hr Laboratory Tests Test 11/24/16 07:35 Blood Urea Nitrogen 9 MG/DL Creatinine 0.63 MG/DL Random Glucose 94 MG/DL Total Protein 7.4 GM/DL Albumin 3.1 GM/DL Calcium Level 9.0 MG/DL Alkaline Phosphatase 88 U/L Aspartate Amino Transf (AST/SGOT) 599 U/L Alanine Aminotransferase (ALT/SGPT) 959 U/L Total Bilirubin 1.3 MG/DL Direct Bilirubin 0.5 MG/DL Sodium Level 136 MEQ/L Potassium Level 3.5 MEQ/L Chloride Level 103 MEQ/L Carbon Dioxide Level 25.2 MEQ/L Anion Gap 8 MEQ/L Estimat Glomerular Filtration Rate 113 ML/MIN Indirect Bilirubin 0.8 MG/DL C-Reactive Protein 3.10 MG/DL Imaging Last Impressions Chest X-Ray 10/31/16 0545 Signed Impressions: Service Date/Time: Monday, October 31, 2016 06:08 - CONCLUSION: Minimal residual airspace disease in the lingula otherwise unremarkable two-view chest. Arpit Geller MD Chest CT 10/31/16 0000 Signed Impressions: Service Date/Time: Monday, October 31, 2016 17:15 - CONCLUSION: Changing pattern of multiple bilateral focal opacities in the lung, with at least one new, conversion of one to cavitation, and resolution of 2 opacities. The evolution is characteristic of septic emboli. Shelton Man MD Physical Exam GENERAL: This is a well-nourished, well-developed patient, in no apparent distress. SKIN: No rashes, ecchymoses or lesions. Cool and dry. HEAD: Atraumatic. Normocephalic. No temporal or scalp tenderness. EYES: Pupils equal round and reactive. Extraocular motions intact. No scleral icterus. No injection or drainage. ENT: Nose without bleeding, purulent drainage or septal hematoma. Throat without erythema, tonsillar hypertrophy or exudate. Uvula midline. Airway patent. NECK: Trachea midline. CARDIOVASCULAR: Systolic murmur. Regular rate and rhythm RESPIRATORY: Clear to auscultation. Breath sounds equal bilaterally. No wheezes , rales, or rhonchi. GASTROINTESTINAL: Abdomen soft, non-tender, nondistended. No hepato-splenomegaly , or palpable masses. No guarding. MUSCULOSKELETAL: Extremities without clubbing, cyanosis, or edema. No joint tenderness, effusion, or edema noted. No calf tenderness. Negative Homans sign bilaterally. NEUROLOGICAL: Awake and alert Grossly non focal Normal speech. Psych: cooperative IV line sites with no e.o infection Assessment & Plan Remarks MSSA endocarditis partially treated as pt left [facility] from 2 institutions. 11/01 echo with 1.1x1.49 vegetation on TV last + bl clx 10/06 Septic emboli on last admission. Sputum from last admission 10/06/2016 now positive for AFB. - ID 'd as M. fortinium ? clinically significant as pt clinically ad radiologically improving w/o specific tx Recs: 1. Oxacillin changed to IV Cefazolin in view of rising LFTS 2. Follow LFTs closely 3. Continue IV Cefazolin to finish course of antibiotics for the endocarditis Sheila Lawson MD Nov 25, 2016 08:17
[2016-11-25 09:22] LABS: INDIRECT BILIRUBIN 0.4 MG/DL (0.0-0.8); TOTAL BILIRUBIN ADULT 0.6 MG/DL (0.2-1.0)
[2016-11-25] MEDS: LIDOCAINE HCL 5% PATCH T-DERMAL SCH (10:19)
--- NOTE | 2016-11-25 12:19 | HHI.PR ---
Subjective Remarks Follow-up for endocarditis, elevated LFTs. Patient denies any fevers or chills. Denies abdominal pain, vomiting, or diarrhea. Objective Vitals Vital Signs Date Time Temp Pulse Resp B/P (MAP) Pulse Ox O2 Delivery O2 Flow Rate FiO2 11/25/16 11:19 16 11/24/16 20:00 97.7 91 16 122/83 (96) 98 I/O 11/24/16 11/24/16 11/24/16 11/25/16 11/25/16 11/25/16 06:59 14:59 22:59 06:59 14:59 22:59 Intake Total 240 ml 1990 ml 1440 ml 580 ml Balance 240 ml 1990 ml 1440 ml 580 ml Intake Oral 240 ml 1550 ml 1440 ml 580 ml IV Total 440 ml # Voids 1 4 5 2 # Bowel Movements 0 1 0 0 Result Diagram: 11/24/16 0735 11/24/16 0735 Objective Remarks GENERAL: Well-nourished, well-developed patient in no apparent distress. CARDIOVASCULAR: Regular rate and rhythm. RESPIRATORY: No accessory muscle use. Clear to auscultation. Breath sounds equal bilaterally. GASTROINTESTINAL: Abdomen soft, non-tender, nondistended. NEUROLOGICAL: Awake and alert. Normal speech. PSYCHIATRIC: Appropriate mood and affect. Urinary Catheter: No Vascular Central Line Catheter: No A/P Problem List: (1) Endocarditis ICD Code: I38 - Endocarditis, valve unspecified Status: Acute (2) Acid fast bacillus ICD Code: A31.9 - Mycobacterial infection, unspecified Status: Acute (3) Back pain ICD Code: M54.9 - Dorsalgia, unspecified Status: Acute (4) Transaminitis ICD Code: R74.0 - Nonspecific elevation of levels of transaminase and lactic acid dehydrogenase [LDH] Status: Acute Assessment and Plan Bacterial endocarditis, history of septic pulmonary emboli: Stable. Patient did not complete her previous treatments due to noncompliance he and signing out AGAINST MEDICAL ADVICE Patient has have history of MSSA bacteremia with LIVIA confirming tricuspid valve vegetation Patient readmitted to the hospital for completion of antibiotics. Needs 46 weeks worth. 11/24: ESR improved although CRP has increased. ID indicates end date of antibiotics should be 11/27/16, but patient has missed about 18 doses total over the course of oxacillin use due to IV issues. Now on Cefazolin. Transaminitis: Worse. Attributed to oxacillin use. -11/24: Switched to Cefazolin 1 g every 8 hours per TONNY Molina. -11/25: AST and ALT worse than yesterday, but bilirubin improved. ID evaluated the patient. Continue Cefazolin. ID ordered repeat CMP for the am. 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 General surgery was consulted on the last admission who recommended outpatient follow-up once bacteremia/endocarditis is treated. She was told at [facility] that her gallbladder needs to come out eventually. She has no symptoms at this time. Patient will proceed with outpatient follow-up after treatment for endocarditis Pain control The pt has a history of polysubstance abuse (THC, Heroin, methamphetamine). Roxicodone 5 mg every 6 hours needed for pain 310 Flexeril 5 mg every 8 hours Lidoderm patch Anemia: Improved. Chronic Low back pain Patient reports she had an MRI done at [facility] and there was concern for an infection in her spine, but she said another test ruled out infection. Hypokalemia Monitor and replete as needed Hepatitis C: Follow up outpatient DVT prevention Subcutaneous Lovenox Discharge Planning Return to previous living situation when antibiotics complete. Will need to remain hospitalized until then. Problem Qualifiers (1) Endocarditis: Talisha Porter Nov 25, 2016 12:19
[2016-11-25 12:34] VITALS: BP 114/74; PULSE 73; RESP 16; TEMP 97.1; O2SAT 98
[2016-11-25] MEDS: ENOXAPARIN SODIUM 40 MG/0.4 ML SYRINGE SQ SCH (12:41)
[2016-11-25 20:00] VITALS: BP 135/82; PULSE 104; RESP 20; TEMP 98.1; O2SAT 99
[2016-11-25] MEDS: REMOVE OLD LIDOCAINE PATCH T-DERMAL SCH (20:21)
[2016-11-26] MEDS: CYCLOBENZAPRINE HCL 10 MG TAB PO PRN ×3 (03:18→22:42)
[2016-11-26 06:49] LABS: CHLORIDE 104 MEQ/L (98-107); POTASSIUM 3.9 MEQ/L (3.5-5.1); SODIUM (NA) 138 MEQ/L (136-145)
[2016-11-26 06:54] LABS: ANION GAP 7 MEQ/L (5-15); BLOOD UREA NITROGEN 18 MG/DL (7-18)
[2016-11-26 06:57] LABS: ALT (GPT) 902 U/L (10-53); AST (GOT) 523 U/L (15-37)
[2016-11-26 06:58] LABS: GLOMERULAR FILTRATION RATE 98 ML/MIN (>89)
[2016-11-26 06:59] LABS: TOTAL BILIRUBIN ADULT 0.5 MG/DL (0.2-1.0)
[2016-11-26 07:00] LABS: ALKALINE PHOSPHATASE 87 U/L (45-117)
[2016-11-26 08:20] VITALS: BP 107/72; PULSE 82; RESP 19; TEMP 96.8; O2SAT 100
[2016-11-26] MEDS: LIDOCAINE HCL 5% PATCH T-DERMAL SCH (09:18)
[2016-11-26] MEDS: ENOXAPARIN SODIUM 40 MG/0.4 ML SYRINGE SQ SCH (12:07)
--- NOTE | 2016-11-26 13:22 | HHI.PR ---
Subjective Remarks Follow-up for endocarditis, elevated LFTs. Patient inquires if she can be given a higher dose of the antibiotic so she can be discharged on Wednesday as she has an orientation for a new job. Denies fevers or chills. Denies any abdominal pain. Objective Vitals Vital Signs Date Time Temp Pulse Resp B/P (MAP) Pulse Ox O2 Delivery O2 Flow Rate FiO2 11/26/16 08:20 96.8 82 19 107/72 (84) 100 11/26/16 04:34 16 11/25/16 20:00 98.1 104 20 135/82 (99) 99 I/O 11/25/16 11/25/16 11/25/16 11/26/16 11/26/16 11/26/16 07:00 15:00 23:00 07:00 15:00 23:00 Intake Total 580 ml 850 ml 480 ml 480 ml Balance 580 ml 850 ml 480 ml 480 ml Intake Oral 580 ml 750 ml 480 ml 480 ml IV Total 100 ml # Voids 2 4 3 2 # Bowel Movements 0 1 0 1 Result Diagram: 11/24/16 0735 11/26/16 0622 Objective Remarks GENERAL: Well-nourished, well-developed patient in no apparent distress. CARDIOVASCULAR: Regular rate and rhythm. RESPIRATORY: No accessory muscle use. Clear to auscultation. Breath sounds equal bilaterally. GASTROINTESTINAL: Abdomen soft, non-tender, nondistended. NEUROLOGICAL: Awake and alert. Normal speech. PSYCHIATRIC: Appropriate mood and affect. Urinary Catheter: No Vascular Central Line Catheter: No A/P Problem List: (1) Endocarditis ICD Code: I38 - Endocarditis, valve unspecified Status: Acute (2) Acid fast bacillus ICD Code: A31.9 - Mycobacterial infection, unspecified Status: Acute (3) Back pain ICD Code: M54.9 - Dorsalgia, unspecified Status: Acute (4) Transaminitis ICD Code: R74.0 - Nonspecific elevation of levels of transaminase and lactic acid dehydrogenase [LDH] Status: Acute Assessment and Plan Bacterial endocarditis, history of septic pulmonary emboli: Stable. Patient did not complete her previous treatments due to noncompliance he and signing out AGAINST MEDICAL ADVICE Patient has have history of MSSA bacteremia with LIVIA confirming tricuspid valve vegetation Patient readmitted to the hospital for completion of antibiotics. Needs 46 weeks worth. 11/24: ESR improved although CRP has increased. ID indicates end date of antibiotics should be 11/27/16, but patient has missed 18 doses total over the course of oxacillin use due to IV issues. Now on Cefazolin. I discussed this with Dr. Lawson who states 3 days of treatment can be added on. New end date should be 11/30/16 with discharge on 12/01. Patient was informed of this. Dr. Lawson advises prescribing Keflex 500 mg po qid for one month when discharged. Transaminitis: Improved. Attributed to oxacillin use. -Evaluated by ID. Switched to Cefazolin 1 g every 8 hours. -11/26: AST and ALT trending downward. Obtain new levels in the morning. 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 General surgery was consulted on the last admission who recommended outpatient follow-up once bacteremia/endocarditis is treated. She was told at [facility] that her gallbladder needs to come out eventually. She has no symptoms at this time. Patient will proceed with outpatient follow-up after treatment for endocarditis Pain control The pt has a history of polysubstance abuse (THC, Heroin, methamphetamine). Flexeril 5 mg every 8 hours Lidoderm patch 11/26: Roxicodone 5 mg every 6 hours needed for pain 310 changed to q8h as we need to wean patient off of this. Anemia: Improved. Chronic Low back pain Patient reports she had an MRI done at [facility] and there was concern for an infection in her spine, but she said another test ruled out infection. Hypokalemia Monitor and replete as needed Hepatitis C: Follow up outpatient DVT prevention Subcutaneous Lovenox Discharge Planning Return to previous living situation when antibiotics complete. Will need to remain hospitalized until then. Problem Qualifiers (1) Endocarditis: Talisha Porter Nov 26, 2016 13:22
[2016-11-26 20:00] VITALS: BP 120/83; PULSE 108; RESP 18; TEMP 97.8; O2SAT 98
[2016-11-26] MEDS: REMOVE OLD LIDOCAINE PATCH T-DERMAL SCH (21:36)
[2016-11-27] MEDS: CYCLOBENZAPRINE HCL 10 MG TAB PO PRN ×2 (06:39→14:48)
[2016-11-27 08:00] VITALS: BP 108/83; PULSE 82; RESP 16; TEMP 96.2; O2SAT 100
[2016-11-27 08:58] LABS: ALT (GPT) 706 U/L (10-53); AST (GOT) 320 U/L (15-37)
--- NOTE | 2016-11-27 09:43 | HHI.PR ---
Subjective Remarks Follow-up for endocarditis, LFT elevation. Patient states she doesn't sleep well due to her back. Objective Vitals Vital Signs Date Time Temp Pulse Resp B/P (MAP) Pulse Ox O2 Delivery O2 Flow Rate FiO2 11/27/16 08:00 96.2 82 16 108/83 (91) 100 11/26/16 20:00 97.8 108 18 120/83 (95) 98 11/26/16 16:08 20 I/O 11/26/16 11/26/16 11/26/16 11/27/16 11/27/16 11/27/16 07:00 15:00 23:00 07:00 15:00 23:00 Intake Total 480 ml 100 ml 2020 ml 580 ml Balance 480 ml 100 ml 2020 ml 580 ml Intake Oral 480 ml 1920 ml 480 ml IV Total 100 ml 100 ml 100 ml # Voids 2 10 2 # Bowel Movements 1 2 0 Result Diagram: 11/24/16 0735 11/26/16 0622 Objective Remarks GENERAL: Well-nourished, well-developed patient in no apparent distress. CARDIOVASCULAR: Regular rate and rhythm. RESPIRATORY: No accessory muscle use. Clear to auscultation. Breath sounds equal bilaterally. GASTROINTESTINAL: Abdomen soft, non-tender, nondistended. NEUROLOGICAL: Awake and alert. Normal speech. PSYCHIATRIC: Appropriate mood and affect. Urinary Catheter: No Vascular Central Line Catheter: No A/P Problem List: (1) Endocarditis ICD Code: I38 - Endocarditis, valve unspecified Status: Acute (2) Acid fast bacillus ICD Code: A31.9 - Mycobacterial infection, unspecified Status: Acute (3) Back pain ICD Code: M54.9 - Dorsalgia, unspecified Status: Acute (4) Transaminitis ICD Code: R74.0 - Nonspecific elevation of levels of transaminase and lactic acid dehydrogenase [LDH] Status: Acute Assessment and Plan Bacterial endocarditis, history of septic pulmonary emboli: Stable. Patient did not complete her previous treatments due to noncompliance he and signing out AGAINST MEDICAL ADVICE Patient has have history of MSSA bacteremia with LIVIA confirming tricuspid valve vegetation Patient readmitted to the hospital for completion of antibiotics. Needs 46 weeks worth. 11/24: ESR improved although CRP has increased. ID indicates end date of antibiotics should be 11/27/16, but patient has missed 18 doses total over the course of oxacillin use due to IV issues. Now on Cefazolin. I discussed this with Dr. Lawson who states 3 days of treatment can be added on. New end date should be 11/30/16 with likely discharge on 12/01. Patient was informed of this. Dr. Lawson advises prescribing Keflex 500 mg po qid for one month when discharged. Transaminitis: Improved. Attributed to oxacillin use. -Evaluated by ID. Switched to Cefazolin 1 g every 8 hours. -11/27: AST and ALT trending downward. Recheck on 11/29. 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 General surgery was consulted on the last admission who recommended outpatient follow-up once bacteremia/endocarditis is treated. She was told at [facility] that her gallbladder needs to come out eventually. She has no symptoms at this time. Patient will proceed with outpatient follow-up after treatment for endocarditis Pain control The pt has a history of polysubstance abuse (THC, Heroin, methamphetamine). Flexeril 5 mg every 8 hours Lidoderm patch Roxicodone 5 mg every 8 hours needed for pain 310; continue to wean prior to discharge if possible Anemia: Improved. Chronic Low back pain Patient reports she had an MRI done at [facility] and there was concern for an infection in her spine, but she said another test ruled out infection. Hypokalemia Monitor and replete as needed Hepatitis C: Follow up outpatient DVT prevention Subcutaneous Lovenox Discharge Planning Return to previous living situation when antibiotics complete. Will need to remain hospitalized until then. Problem Qualifiers (1) Endocarditis: Talisha Porter Nov 27, 2016 09:43
[2016-11-27] MEDS: ENOXAPARIN SODIUM 40 MG/0.4 ML SYRINGE SQ SCH (13:39)
[2016-11-27] MEDS: LIDOCAINE HCL 5% PATCH T-DERMAL SCH (13:40)
[2016-11-27 20:00] VITALS: BP 132/99; PULSE 117; RESP 16; TEMP 98.3; O2SAT 96
[2016-11-27] MEDS: REMOVE OLD LIDOCAINE PATCH T-DERMAL SCH (20:35)
[2016-11-28] MEDS: CYCLOBENZAPRINE HCL 10 MG TAB PO PRN ×2 (05:38→12:53)
[2016-11-28 08:00] VITALS: BP 111/77; PULSE 89; RESP 16; TEMP 97.6; O2SAT 98
[2016-11-28] MEDS: LIDOCAINE HCL 5% PATCH T-DERMAL SCH (08:32)
--- NOTE | 2016-11-28 09:53 | HHI.PR ---
Subjective Remarks Follow-up for endocarditis, elevated LFTs. The nurse tells me that the patient was suspected to be shooting up last night as needles and drugs were found in her bed. The patient denies any fevers or chills. Denies vomiting or diarrhea. She again asks if she can be discharged early stating she needs to leave no later than 7 AM Wednesday morning to travel to a job orientation. Objective Vitals Vital Signs Date Time Temp Pulse Resp B/P (MAP) Pulse Ox O2 Delivery O2 Flow Rate FiO2 11/28/16 08:00 97.6 89 16 111/77 (88) 98 11/27/16 20:00 98.3 117 16 132/99 (110) 96 11/27/16 15:48 20 I/O 11/27/16 11/27/16 11/27/16 11/28/16 11/28/16 11/28/16 07:00 15:00 23:00 07:00 15:00 23:00 Intake Total 580 ml 1060 ml 580 ml 580 ml Balance 580 ml 1060 ml 580 ml 580 ml Intake Oral 480 ml 960 ml 480 ml 480 ml IV Total 100 ml 100 ml 100 ml 100 ml # Voids 2 3 2 2 # Bowel Movements 0 0 0 0 Result Diagram: 11/24/16 0735 11/26/16 0622 Objective Remarks GENERAL: Well-nourished, well-developed patient in no apparent distress. CARDIOVASCULAR: Regular rate and rhythm. RESPIRATORY: No accessory muscle use. Clear to auscultation. Breath sounds equal bilaterally. GASTROINTESTINAL: Abdomen soft, non-tender, nondistended. NEUROLOGICAL: Awake and alert. Normal speech. PSYCHIATRIC: Appropriate mood and affect. Urinary Catheter: No Vascular Central Line Catheter: No A/P Problem List: (1) Endocarditis ICD Code: I38 - Endocarditis, valve unspecified Status: Acute (2) Acid fast bacillus ICD Code: A31.9 - Mycobacterial infection, unspecified Status: Acute (3) Back pain ICD Code: M54.9 - Dorsalgia, unspecified Status: Acute (4) Transaminitis ICD Code: R74.0 - Nonspecific elevation of levels of transaminase and lactic acid dehydrogenase [LDH] Status: Acute Assessment and Plan Bacterial endocarditis, history of septic pulmonary emboli: Stable. Patient did not complete her previous treatments due to noncompliance he and signing out AGAINST MEDICAL ADVICE Patient has have history of MSSA bacteremia with LIVIA confirming tricuspid valve vegetation Patient readmitted to the hospital for completion of antibiotics. Needs 46 weeks worth. 11/24: ESR improved although CRP has increased. ID indicates end date of antibiotics should be 11/27/16, but patient has missed 18 doses total over the course of oxacillin use due to IV issues. Now on Cefazolin. I discussed this with Dr. Lawson who states 3 days of treatment can be added on. New end date is 11/30/16. Patient was informed of this. Dr. Lawson advises prescribing Keflex 500 mg po qid for one month when discharged. 11/28: Afebrile. Patient asks to be discharged prior to end of treatment Wednesday night stating she needs to travel to a job orientation. I made Dr. Lawson, ID, aware who states it is fine if she is discharged Wednesday. Transaminitis: Improved. Attributed to oxacillin use. -Evaluated by ID. Switched to Cefazolin 1 g every 8 hours. -11/27: AST and ALT trending downward. Recheck on 11/29. 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 General surgery was consulted on the last admission who recommended outpatient follow-up once bacteremia/endocarditis is treated. She was told at [facility] that her gallbladder needs to come out eventually. She has no symptoms at this time. Patient will proceed with outpatient follow-up after treatment for endocarditis Pain control The pt has a history of polysubstance abuse (THC, Heroin, methamphetamine). Flexeril 5 mg every 8 hours Lidoderm patch Roxicodone 5 mg every 8 hours needed for pain 310; continue to wean prior to discharge if possible 11/28: I informed Dr. Lawson, ID, that patient was apparently shooting up drugs last night in hospital. Sharps container to be removed from room and no visitors allowed. Discussed with Dr. Shane, attending. Oxycodone to be discontinued. Anemia: Improved. Chronic Low back pain Patient reports she had an MRI done at [facility] and there was concern for an infection in her spine, but she said another test ruled out infection. Hypokalemia Monitor and replete as needed Hepatitis C: Follow up outpatient DVT prevention Subcutaneous Lovenox Discharge Planning Return to previous living situation when antibiotics complete. Will need to remain hospitalized until then. Discharge on 8 am after antibiotic dose that morning provided patient is medically stable. Problem Qualifiers (1) Endocarditis: Talisha Porter Nov 28, 2016 09:53
[2016-11-28] MEDS: ENOXAPARIN SODIUM 40 MG/0.4 ML SYRINGE SQ SCH (12:52)
[2016-11-28 13:54] VITALS: RESP 18
[2016-11-28] MEDS ORDERED: CEPH-460 PO (15:46)
--- NOTE | 2016-11-28 16:23 | PD.AMA ---
Against Medical Advice Note Discharge Disposition: Against Medical Advice Pt Condition on Discharge: Stable Recommended Treatment Course I advised the patient that she should stay in the hospital and complete treatment for endocarditis with IV antibiotics and by leaving she will not be completing treatment. AMA Statement Patient Deanna Dunne has decided to leave the hospital against medical advice. This patient is fully oriented and has the capacity to refuse care and understands that endocarditis is a life-threatening infection. She has had an opportunity to ask questions about her condition. The patient has been informed to return to an emergency department if she experiences any fevers/chills, chest pain, or shortness of breath. She has expressed understanding. Talisha Porter Nov 28, 2016 16:23
--- NOTE | 2016-11-28 16:56 | HHI.DS ---
Discharge Summary Admission Date Oct 31, 2016 at 07:10 Discharge Date: Nov 28, 2016 Admitting Diagnosis septic pulmonary emboli, endocarditis, IVDA (1) Endocarditis ICD Code: I38 - Endocarditis, valve unspecified Diagnosis: Principal Status: Acute (2) Acid fast bacillus ICD Code: A31.9 - Mycobacterial infection, unspecified Diagnosis: Principal Status: Acute (3) Transaminitis ICD Code: R74.0 - Nonspecific elevation of levels of transaminase and lactic acid dehydrogenase [LDH] Diagnosis: Principal Status: Acute (4) Hepatitis C ICD Code: B19.20 - Unspecified viral hepatitis C without hepatic coma Diagnosis: Principal Status: Acute (5) IV drug abuse ICD Code: F19.10 - Other psychoactive substance abuse, uncomplicated Diagnosis: Principal Status: Acute (6) Back pain ICD Code: M54.9 - Dorsalgia, unspecified Diagnosis: Principal Status: Acute Procedures None Brief History - From Admission The patient is a 28-year-old female with a past medical history of IV drug abuse and endocarditis was presenting to the hospital to complete treatment for endocarditis. She was recently at the [facility] in [facility] getting treated for endocarditis when she left against medical advice for no reason and October 15. She said she went to [facility] the next day to continue treatment. She said she was continued on oxacillin over there and she said it was working very well. She said they did some imaging of her back and initially they were concerned about an infection in her spine but she said they ruled it out with a test. She also mentioned she did some imaging which revealed a shadow on her gallbladder and she told me that she eventually needed her gallbladder removed. She says she currently has no symptoms of pain in her abdomen. She has been tolerating a diet well. The patient left AMA from [facility], citing family drama, this past . The patient says that she has been smoking marijuana regularly. She says she has gone to meth a few times to help with her withdrawals. She says her breathing is better. She says she still has chronic low back pain but it has improved. She said she had to walk to the hospital today over long distance and that made her chest pain worse. She does endorse nausea from time to time. She says she will not leave the hospital before the end of her treatment this time. CBC/BMP: 11/24/16 0735 11/26/16 0622 Significant Findings Laboratory Tests Test 11/26/16 06:22 11/27/16 08:25 Albumin 2.9 GM/DL (3.4-5.0) Aspartate Amino Transf (AST/SGOT) 523 U/L (15-37) 320 U/L (15-37) Alanine Aminotransferase (ALT/SGPT) 902 U/L (10-53) 706 U/L (10-53) Imaging Last Impressions Chest X-Ray 11/18/16 0600 Signed Impressions: Service Date/Time: Friday, November 18, 2016 06:35 - CONCLUSION: Normal examination. Arpit Geller MD Chest CT 10/31/16 0000 Signed Impressions: Service Date/Time: Monday, October 31, 2016 17:15 - CONCLUSION: Changing pattern of multiple bilateral focal opacities in the lung, with at least one new, conversion of one to cavitation, and resolution of 2 opacities. The evolution is characteristic of septic emboli. Shelton Man MD PE at Discharge GENERAL: Well-nourished, well-developed patient in no apparent distress. CARDIOVASCULAR: Regular rate and rhythm. RESPIRATORY: No accessory muscle use. Clear to auscultation. Breath sounds equal bilaterally. GASTROINTESTINAL: Abdomen soft, non-tender, nondistended. NEUROLOGICAL: Awake and alert. Normal speech. PSYCHIATRIC: Appropriate mood and affect. Hospital Course Patient has been finishing treatment for endocarditis after signing out from [facility] before for same infection. She has a history of MSSA bacteremia with LIVIA on 10/05/16 confirming tricuspid valve vegetation. Blood cultures have remained negative since 10/09/16. She has been followed by infectious disease and was initially receiving oxacillin. LFTs recently became significantly elevated and patient was switched to Cefazolin. AST and ALT have since been trending downward. Patient remains afebrile. Patient has a history of septic emboli. She had a positive AFB sputum culture on 10/06, Mycoplasma fortuitum, but repeat sputum culture 10/31 was clear. Mycobacterial blood culture 10/31 shows no growth in 4 weeks. Patient has tested positive for Hepatitis C antibody and hepatosplenomegaly, hepatitis indicated on liver US on 10/04/16. She has never undergone treatment. She has chronic low back pain. Patient reports she had an MRI done at [facility] and there was concern for an infection in her spine, but she said another test ruled out infection. She has been on pain control with oxycodone, Lidoderm patched, and Flexeril. Patient was found to have a gallbladder mass on prior admission. General surgery had been consulted and patient was recommended to follow up outpatient. I was informed by RN this morning that needles were found in the patient's bed last night and HEAVY MACHINERY ASSEMBLER informed me that drugs were also present, but there is no documentation by RN last night in this regards. Because of the suspicion of patient injecting drugs, patient's prescribed oxycodone was discontinued per Dr. Shane. Later the RN informed me that someone had brought food for the patient. I informed the RN that outside food for this patient will not be accepted as there is concern that illicit substances could be transferred to the patient in this manner. Per RN the patient became upset and wanted to sign out AMA. I went to speak with the patient this afternoon. She had all of her bags packed ready to leave. In regards to last night she states that there was an old syringe of hers in her bag and she was going to do the right thing and turn it in. She then states something about how the syringe was in the sheet and she did not want the housekeeping person to get stuck. She states there were no drugs. She states she offered to speak with the [employer] supervisor and perform a urine drug screen, but neither was done. I informed the patient that a urine drug screen was not performed as she would test positive for opiates due to her being on oxycodone here in the hospital. I explained to her why we did not allow outside food to be brought to her. I informed her that I spoke with the infectious disease doctor who agrees to discharge on Wednesday, but the patient now states that she needs to get on the road by 12:30 pm tomorrow [to get to job orientation]. I informed her that she previously told me she did not have to leave until Wednesday, but she states she was on the phone all day and she now needs to leave earlier. I informed the patient that she is advised to stay to complete treatment with IV antibiotics for endocarditis. She was informed this is a life-threatening infection. I spoke with Dr. Shane who agrees to giving prescription for Keflex as recommended by ID on discharge. The patient is informed that if she develops any fevers or chills, chest pain , or shortness of breath she is to return to an emergency department. She is advised to abstain from using drugs or alcohol. She is informed to follow up with GI in regards to hepatitis C treatment and is informed of methods of Hep C transmission and advised of proper precautions to avoid this. She understands. Patient is fully oriented and has the capacity to sign out AGAINST MEDICAL ADVICE. Pt Condition on Discharge: Stable Discharge Disposition: Discharge Home (Patient not discharged; signed out AMA) Discharge Time: > 30 minutes Discharge Instructions New Medications: Cephalexin (Keflex) 500 Mg Cap 500 MG PO Q6H for Infection, #120 CAP 0 Refills Additional Information Patient was discussed with Dr. Shane, attending. Talisha Porter Nov 28, 2016 16:56 Se Shane MD Nov 30, 2016 18:16
== END 2016-11-28 15:55 | disposition left against medical advice (07) | DRG 290 ==
LOC: PHED 05:11 → PHEDA 07:10 → PH5A 08:30 → PH3B 13:18 → PH5A 11-17 21:20
PROVIDERS: ADMIT Hospitalist; ATTEND Internal Medicine
DX: I33.0 Acute and subacute infective endocarditis (principal); F11.10 Opioid abuse, uncomplicated; F15.10 Other stimulant abuse, uncomplicated; B95.61 Methicillin susceptible Staphylococcus aureus infection as the cause of diseases classified elsewhere; B19.20 Unspecified viral hepatitis C without hepatic coma; E87.6 Hypokalemia; D64.9 Anemia, unspecified; F17.210 Nicotine dependence, cigarettes, uncomplicated; G89.29 Other chronic pain; M54.5 Low back pain; K82.8 Other specified diseases of gallbladder; R74.0 Nonspecific elevation of levels of transaminase and lactic acid dehydrogenase [LDH]; R07.81 Pleurodynia; F12.10 Cannabis abuse, uncomplicated; Z91.14 Patient's other noncompliance with medication regimen; Z86.711 Personal history of pulmonary embolism; Z91.19 Patient's noncompliance with other medical treatment and regimen; Z86.19 Personal history of other infectious and parasitic diseases
CPT/HCPCS: 71010; 71020; 71260; 76937; 80048; 80053; 80074; 80076; 81001; 83605; 83735; 84450; 84460; 84702; 85025; 85027; 85652; 86140; 86703; 87015; 87040; 87070; 87116; 87205; 87641; 93308; 94150; 96360; J0690; J1650; J2700; J7030; Q9967